=== PATIENT | female | born 1950 | race African-American/Black ===

== ENCOUNTER → 2016-08-09 | Outpatient (CLI) | payer MEDICARE, OTHER ==
--- NOTE | 2016-08-09 09:20 | WOMENS IMAGING REPORT ---
EXAM DESCRIPTION: BONE DENSITY HIP/SPINE COMPLETED DATE/TIME: 08/09/2016 9:00 am REASON FOR STUDY: AGE-RELATED OSTEOPOROSIS W/O CURRENT PATHOLOGICAL FRACTURE(M81.0) M81.0 AGE-RELAT ED OSTEOPOROSIS W/O CURRENT PATHOLOGICAL FRAC COMPARISON: 07/16/2014. TECHNIQUE: Dual-Energy X-ray Absorptiometry (DEXA) of the AP Spine and Hip. LIMITATIONS: None. FINDINGS: LUMBAR SPINE: The bone mineral density (BMD) measured from L1-L4 in the AP projection correlates with a T-score of -3.1, which is osteoporosis as defined by the World Health Organization. HIP: The bone mineral density (BMD) measured in the left hip correlates with a T-score of -2.0, which is o steopenia as defined by the World Health Organization. COMMENT: The World Health Organization defines low BMD as follows: T-score: Normal: Greater than -1.0 Osteopenia: Between -1.0 and -2.5 Osteoporosis: Less than -2.5 without fractures Established osteoporosis: Less than -2.5 with fractures In general, you may wish to consider: Diagnosis Treatment Follow-up DEXA Normal BMD Prevention 2-3 years Osteopenia Prevention/Therapy 1-2 years Osteoporosis Therapy Yearly TECHNICAL DOCUMENTATION: JOB ID: [id number] [employer]- All Rights Reserved
== END ==
LOC: WI 08:43
PROVIDERS: ATTEND Internal Medicine Endocrinology, Diabetes & Metabolism
DX: M81.0 Age-related osteoporosis without current pathological fracture (principal)
CPT/HCPCS: 77080

== ENCOUNTER → 2016-09-24 | Outpatient (CLI) | payer MEDICARE, OTHER | LOC: RAD 08:23 | PROVIDERS: ATTEND Specialist | DX: C90.01 Multiple myeloma in remission (principal) | CPT/HCPCS: 77075 ==

== ENCOUNTER 2016-10-19 09:17 | Outpatient (CLI) | payer MEDICARE, OTHER ==
[~2016-10-19 09:17] MED LIST: ACETAMINOPHEN 325 MG TABLET PO PRN; DIPHENHYDRAMINE HCL 25 MG CAPSULE PO PRN; FUROSEMIDE INJ/PF 20 MG/2 ML SDV IV PRN; NORMAL SALINE 1000 ML 1,000 ML IV PRN
[2016-10-19 10:21] LABS: HEMATOCRIT 22.2 % (36.0-47.0); HGB HCT DIFFERENCE -0.6; MEAN CORPUSCULAR HGB CONC 32.5 g/dL (32.0-36.0); MEAN CORPUSCULAR VOLUME 95 fl (80-97); RED BLOOD COUNT 2.33 10^6/uL (3.72-5.28); RED CELL DISTRIBUTION WIDTH 19.1 % (11.5-14.0); WHITE BLOOD COUNT 5.8 10^3/uL (4.0-10.5)
[2016-10-19 10:27] LABS: HEMOGLOBIN 7.2 g/dL (12.0-15.5)
[2016-10-19 18:19] VITALS: BP 152/62
== END 2016-10-19 18:23 | disposition home or self-care (01) ==
LOC: II 09:17 → 2N 09:17 → II 18:23
PROVIDERS: ATTEND Specialist
PROC: 30233N1 Transfusion of Nonautologous Red Blood Cells into Peripheral Vein, Percutaneous Approach (ICD-10-PCS; principal; 2016-10-19)
DX: D64.9 Anemia, unspecified (principal); C90.01 Multiple myeloma in remission
CPT/HCPCS: 86900; 86901; 36415; 36430; 86850; 86920; P9016; A9270 ×2; J1940

== ENCOUNTER → 2016-11-02 | Outpatient (CLI) | payer MEDICARE, OTHER ==
[2016-11-02 10:39] LABS: ABSOLUTE EOSINOPHILS # (AUTO) 0.1 10^3/uL (0.0-0.6); ABSOLUTE LYMPHOCYTES (AUTO) 1.9 10^3/uL (0.5-4.7); ABSOLUTE MONOCYTES (AUTO) 0.3 10^3/uL (0.1-1.4); ABSOLUTE NEUT (AUTO) 3.4 10^3/uL (1.7-8.2); BASOPHILS % (AUTO) 0.5 % (0-2); EOSINOPHILS % (AUTO) 2.1 % (0-6); HEMATOCRIT 28.2 % (36.0-47.0); HEMOGLOBIN 9.5 g/dL (12.0-15.5); HGB HCT DIFFERENCE 0.3; LYMPHOCYTES % (AUTO) 33.7 % (13-45); MEAN CORPUSCULAR HEMOGLOBIN 30.8 pg (27.0-33.4); MEAN CORPUSCULAR HGB CONC 33.8 g/dL (32.0-36.0); MONOCYTES % (AUTO) 5.3 % (3-13); RED BLOOD COUNT 3.09 10^6/uL (3.72-5.28); RED CELL DISTRIBUTION WIDTH 18.3 % (11.5-14.0); SEGMENTED NEUTROPHILS % (AUTO) 58.4 % (42-78); WHITE BLOOD COUNT 5.8 10^3/uL (4.0-10.5)
[2016-11-02 10:42] LABS: APPEARANCE,URINE SLIGHTLY-CLOUDY; BILIRUBIN,URINE NEGATIVE (NEGATIVE); GLUCOSE, URINE NEGATIVE (NEGATIVE); KETONES,URINE NEGATIVE (NEGATIVE); LEUKOCYTE ESTERASE,URINE SMALL (NEGATIVE); NITRITE,URINE NEGATIVE (NEGATIVE); PROTEIN,URINE >=500 mg/dL (NEGATIVE); URINE SPECIFIC GRAVITY 1.011; UROBILINOGEN,URINE NEGATIVE mg/dL (<2.0)
[2016-11-02 10:46] LABS: MEAN CORPUSCULAR VOLUME 91 fl (80-97)
[2016-11-02 11:01] LABS: ALANINE AMINOTRANSFERASE 33 U/L (9-52); ALKALINE PHOSPHATASE 180 U/L (38-126); ANION GAP 16 (5-19); ASPARTATE AMINO TRANSFERASE 21 U/L (14-36); BILIRUBIN,DIRECT 0.2 mg/dL (0.0-0.4); BILIRUBIN,TOTAL 0.4 mg/dL (0.2-1.3); BLOOD UREA NITROGEN 34 mg/dL (7-20); CALCIUM 10.4 mg/dL (8.4-10.2); CARBON DIOXIDE 24 mmol/L (22-30); CHLORIDE 106 mmol/L (98-107); CREATININE RESULT 2.05 mg/dL (0.52-1.25); GLUCOSE 99 mg/dL (75-110); TOTAL PROTEIN 6.5 g/dL (6.3-8.2)
[2016-11-02 11:34] LABS: ADD HIVPANEL? NO; HIV (1 AND 2) ANTIBODY NEGATIVE (NEGATIVE)
[2016-11-03 06:38] LABS: HEPATITIS C VIRUS AB <0.1 s/co ratio (0.0-0.9)
[2016-11-03 12:38] LABS: CREATININE URINE 130.6 mg/dL (Not Estab.)
[2016-11-04 18:37] LABS: ANTIPROTEINASE 3 (PR-3) AB <3.5 U/mL (0.0-3.5); CYTOPLASMIC (C-ANCA) <1:20 titer (Neg:<1:20)
== END ==
LOC: LAB 10:05
PROVIDERS: ATTEND Internal Medicine Nephrology
DX: I12.9 Hypertensive chronic kidney disease with stage 1 through stage 4 chronic kidney disease, or unspecified chronic kidney disease (principal); N18.3 Chronic kidney disease, stage 3 (moderate); E11.9 Type 2 diabetes mellitus without complications; Z11.59 Encounter for screening for other viral diseases; N04.9 Nephrotic syndrome with unspecified morphologic changes
CPT/HCPCS: 36415; 80053; 81001; 82570; 83516; 84156; 85025; 86038; 86225; 86256; 86701; 86803; 86804; 87340

== ENCOUNTER 2016-11-26 11:29 | Outpatient (CLI) | payer MEDICARE, OTHER ==
[2016-11-26 11:58] LABS: HEMATOCRIT 22.8 % (36.0-47.0); MEAN CORPUSCULAR HEMOGLOBIN 30.7 pg (27.0-33.4); MEAN CORPUSCULAR HGB CONC 33.2 g/dL (32.0-36.0); MEAN CORPUSCULAR VOLUME 93 fl (80-97); RED BLOOD COUNT 2.46 10^6/uL (3.72-5.28); RED CELL DISTRIBUTION WIDTH 18.5 % (11.5-14.0); WHITE BLOOD COUNT 3.7 10^3/uL (4.0-10.5)
[2016-11-26 12:00] LABS: HEMOGLOBIN 7.6 g/dL (12.0-15.5)
[2016-11-26] MEDS ORDERED: ACETAMINOPHEN 325 MG TABLET ONE (12:48)
[2016-11-26] MEDS ORDERED: DIPHENHYDRAMINE HCL 25 MG CAPSULE ONE (12:49)
[2016-11-26 17:04] VITALS: BP 171/74
== END 2016-11-26 17:04 | disposition home or self-care (01) ==
LOC: II 11:29 → 5TH 11:32 → 2N 15:28 → II 17:04
PROVIDERS: ATTEND Specialist
PROC: 30233N1 Transfusion of Nonautologous Red Blood Cells into Peripheral Vein, Percutaneous Approach (ICD-10-PCS; principal; 2016-11-26)
DX: N18.9 Chronic kidney disease, unspecified (principal); D63.1 Anemia in chronic kidney disease; D64.9 Anemia, unspecified; C90.00 Multiple myeloma not having achieved remission
CPT/HCPCS: 86900; 86901; 36415; 36430; 86850; 86920; P9016; A9270 ×2

== ENCOUNTER → 2016-12-07 | Outpatient (CLI) | payer MEDICARE, OTHER ==
[2016-12-07 12:14] LABS: ANION GAP 9 (5-19); BLOOD UREA NITROGEN 22 mg/dL (7-20); CALCIUM 8.4 mg/dL (8.4-10.2); CARBON DIOXIDE 23 mmol/L (22-30); CHLORIDE 111 mmol/L (98-107); CREATININE RESULT 1.77 mg/dL (0.52-1.25); GLUCOSE 106 mg/dL (75-110); POTASSIUM 3.4 mmol/L (3.6-5.0); SODIUM 143.4 mmol/L (137-145)
[2016-12-07 13:38] LABS: HEMATOCRIT 28.2 % (36.0-47.0); HEMOGLOBIN 9.1 g/dL (12.0-15.5); HGB HCT DIFFERENCE -0.9; MEAN CORPUSCULAR HEMOGLOBIN 29.6 pg (27.0-33.4); MEAN CORPUSCULAR HGB CONC 32.2 g/dL (32.0-36.0); MEAN CORPUSCULAR VOLUME 92 fl (80-97); RED BLOOD COUNT 3.07 10^6/uL (3.72-5.28); RED CELL DISTRIBUTION WIDTH 18.3 % (11.5-14.0); WHITE BLOOD COUNT 4.2 10^3/uL (4.0-10.5)
== END ==
LOC: LAB 11:31
PROVIDERS: ATTEND Internal Medicine Nephrology
DX: I12.9 Hypertensive chronic kidney disease with stage 1 through stage 4 chronic kidney disease, or unspecified chronic kidney disease (principal); N18.3 Chronic kidney disease, stage 3 (moderate); E11.9 Type 2 diabetes mellitus without complications
CPT/HCPCS: 36415; 80048; 85027

== ENCOUNTER 2016-12-16 14:34 | Inpatient (IN) | payer MEDICARE, OTHER ==
--- NOTE | 2016-12-16 15:58 | ER Document Report ---
ED Medical Screen (RME) - General Chief Complaint: Leg Swelling Stated Complaint: LEG SWELLING Time Seen by Provider: 12/16/16 15:53 Notes: Patient says that she is having shortness of breath and swelling of her legs. Patient says that her kidney doctor called here to arrange for her to be admitted to the hospital. We have record that the nurse from the kidney doctors office called and spoke with our charge nurse and said the patient was coming here to be evaluated for possible admission. Patient complains of shortness of breath,, but no cough or cold or chest congestion. No chest pains. No fevers. History of hypertension and an enlarged heart. Not diabetic. TRAVEL OUTSIDE OF THE [place] IN LAST 30 DAYS: No - Related Data Allergies/Adverse Reactions: No Known Allergies Allergy (Verified 12/16/16 14:36) Past Medical History - Past Medical History Cardiac Medical History: Reports: Hx Hypercholesterolemia, Hx Hypertension Denies: Hx Heart Attack Pulmonary Medical History: Denies: Hx Asthma Neurological Medical History: Denies: Hx Cerebrovascular Accident, Hx Seizures Endocrine Medical History: Reports: Hx Diabetes Mellitus Type 2 - prediabetic Renal/ Medical History: Denies: Hx Peritoneal Dialysis GI Medical History: Denies: Hx Hepatitis, Hx Hiatal Hernia, Hx Ulcer Infectious Medical History: Denies: Hx Hepatitis Past Surgical History: Reports: Hx Hysterectomy. Denies: Hx Mastectomy, Hx Open Heart Surgery, Hx Pacemaker - Immunizations Immunizations up to date: Yes Hx Diphtheria, Pertussis, Tetanus Vaccination: No Physical Exam - Vital signs Vitals: Temp Pulse Resp BP Pulse Ox 98.0 F 63 24 H 168/73 H 100 12/16/16 14:37 12/16/16 14:37 12/16/16 14:37 12/16/16 14:37 12/16/16 14:37 Course - Vital Signs Vital signs: Temp Pulse Resp BP Pulse Ox 98.0 F 63 24 H 168/73 H 100 12/16/16 14:37 12/16/16 14:37 12/16/16 14:37 12/16/16 14:37 12/16/16 14:37
[2016-12-16 16:42] LABS: ABSOLUTE EOSINOPHILS # (AUTO) 0.2 10^3/uL (0.0-0.6); ABSOLUTE LYMPHOCYTES (AUTO) 1.1 10^3/uL (0.5-4.7); ABSOLUTE MONOCYTES (AUTO) 0.5 10^3/uL (0.1-1.4); ABSOLUTE NEUT (AUTO) 2.2 10^3/uL (1.7-8.2); BASOPHILS % (AUTO) 0.2 % (0-2); EOSINOPHILS % (AUTO) 4.7 % (0-6); HEMATOCRIT 29.9 % (36.0-47.0); HEMOGLOBIN 9.4 g/dL (12.0-15.5); HGB HCT DIFFERENCE -1.7; LYMPHOCYTES % (AUTO) 27.3 % (13-45); MEAN CORPUSCULAR HEMOGLOBIN 29.3 pg (27.0-33.4); MEAN CORPUSCULAR HGB CONC 31.4 g/dL (32.0-36.0); MEAN CORPUSCULAR VOLUME 93 fl (80-97); MONOCYTES % (AUTO) 11.6 % (3-13); RED CELL DISTRIBUTION WIDTH 19.1 % (11.5-14.0); SEGMENTED NEUTROPHILS % (AUTO) 56.2 % (42-78); WHITE BLOOD COUNT 3.9 10^3/uL (4.0-10.5)
[2016-12-16 16:43] LABS: APPEARANCE,URINE CLEAR; BILIRUBIN,URINE NEGATIVE (NEGATIVE); GLUCOSE, URINE 50 mg/dL (NEGATIVE); KETONES,URINE NEGATIVE (NEGATIVE); LEUKOCYTE ESTERASE,URINE NEGATIVE (NEGATIVE); NITRITE,URINE NEGATIVE (NEGATIVE); PROTEIN,URINE 100 mg/dL (NEGATIVE); URINE SPECIFIC GRAVITY 1.008; UROBILINOGEN,URINE NEGATIVE mg/dL (<2.0)
[2016-12-16 16:57] LABS: ALANINE AMINOTRANSFERASE 52 U/L (9-52); ALBUMIN 3.5 g/dL (3.5-5.0); ALKALINE PHOSPHATASE 212 U/L (38-126); ANION GAP 9 (5-19); ASPARTATE AMINO TRANSFERASE 20 U/L (14-36); BILIRUBIN,DIRECT 0.4 mg/dL (0.0-0.4); BILIRUBIN,TOTAL 0.6 mg/dL (0.2-1.3); BLOOD UREA NITROGEN 17 mg/dL (7-20); CALCIUM 7.7 mg/dL (8.4-10.2); CARBON DIOXIDE 24 mmol/L (22-30); CHLORIDE 111 mmol/L (98-107); GLUCOSE 84 mg/dL (75-110); LIPASE 92.3 U/L (23-300); POTASSIUM 3.1 mmol/L (3.6-5.0); SODIUM 143.9 mmol/L (137-145); TOTAL PROTEIN 5.7 g/dL (6.3-8.2)
[2016-12-16 17:11] LABS: CREATINE KINASE MB < 0.22 ng/mL (<4.55); TROPONIN I < 0.012 ng/mL
--- NOTE | 2016-12-16 18:47 | ER Document Report ---
ED General - General Mode of Arrival: Ambulatory Information source: Patient TRAVEL OUTSIDE OF THE [place] IN LAST 30 DAYS: No - HPI Onset: Other - Refer to HPI notes Associated symptoms: Leg swelling, Shortness of breath Similar symptoms previously: No Recently seen / treated by doctor: No <SWAPNA MOORE - Last Filed: 12/17/16 01:58> <MALISSAMICHAEL KRAMER RICHIE - Last Filed: 12/17/16 03:20> - General Chief Complaint: Leg Swelling Stated Complaint: LEG SWELLING Time Seen by Provider: 12/16/16 15:53 Notes: Patient is a 66 year old female presenting to the emergency department for shortness of breath and lower extremity edema. Patient states these symptoms started 2 weeks ago and have worsened over the last few days. Patient states that she started chemotherapy around the same time that her symptoms were onset. Patient has multiple myeloma. Patient has a history of some CAD and had a cardiac catheterization in 2011. Patient states she also started Lasix on Tuesday but states she has not felt any less short of breath or less swollen in her lower extremities. Patient states she is not able to climb stairs or walk a short distance without becoming short of breath. Patient denies any chest pain. Patient's hunter is Dr. Hoffman, her primary care physician is Dr. Jeffers, and her Oncologist is Dr. Cates. Patient has no known allergies. ( SWAPNA MOORE) - Related Data Allergies/Adverse Reactions: No Known Allergies Allergy (Verified 12/16/16 14:36) Home Medications: Current Home Medications Aspirin [Adult Low Dose Aspirin EC] 81 mg PO DAILY 12/16/16 [History] Atorvastatin Calcium [Lipitor 20 mg Tablet] 20 mg PO DAILY 12/16/16 [History] Cholecalciferol (Vitamin D3) [Vitamin D3 2000 unit Tablet] 2,000 unit PO DAILY 12/16/16 [History] Clonidine HCl [Catapres 0.1 mg Tablet] 0.1 mg PO BID 12/16/16 [History] Dexamethasone [Decadron 4 mg Tablet] 20 mg PO FRSA 12/16/16 [History] Docusate Sodium [Colace 100 mg Capsule] 100 mg PO DAILYP PRN 12/16/16 [History] Ferrous Sulfate [Feosol 325 mg Tablet] 325 mg PO BID 12/16/16 [History] Furosemide [Lasix 20 mg Tablet] 20 mg PO DAILYP PRN 12/16/16 [History] Levothyroxine Sodium [Synthroid] 88 mg PO QAM 12/16/16 [History] Metoprolol Tartrate [Lopressor 50 mg Tablet] 25 mg PO BIDBS 12/16/16 [History] Past Medical History - General Information source: Patient - Social History Smoking Status: Never Smoker Cigarette use (# per day): No Chew tobacco use (# tins/day): No Frequency of alcohol use: None Drug Abuse: None Family History: None Patient has suicidal ideation: No Patient has homicidal ideation: No - Past Medical History Cardiac Medical History: Reports: Hx Coronary Artery Disease, Hx Hypercholesterolemia, Hx Hypertension Endocrine Medical History: Reports: Hx Diabetes Mellitus Type 2 - prediabetic Malignancy Medical History: Reports: Other - multiple myeloma Past Surgical History: Reports: Hx Cardiac Catheterization - 2011, Hx Hysterectomy - Immunizations Immunizations up to date: Yes Hx Diphtheria, Pertussis, Tetanus Vaccination: No <SWAPNA MOORE - Last Filed: 12/17/16 01:58> Review of Systems - Review of Systems Constitutional: No symptoms reported EENT: No symptoms reported Cardiovascular: No symptoms reported Respiratory: See HPI, Short of breath Gastrointestinal: No symptoms reported Genitourinary: No symptoms reported Female Genitourinary: No symptoms reported Musculoskeletal: See HPI, Leg swelling Skin: No symptoms reported Hematologic/Lymphatic: No symptoms reported Neurological/Psychological: No symptoms reported -: Yes All other systems reviewed and negative <SWAPNA MOORE - Last Filed: 12/17/16 01:58> Physical Exam - Vital signs Interpretation: Hypertensive - General General appearance: Appears well, Alert In distress: Mild - HEENT Head: Normocephalic, Atraumatic Eyes: Normal Pupils: PERRL Mucous membranes: Moist - Respiratory Respiratory status: No respiratory distress Chest status: Nontender Breath sounds: Other - Trace crackles and decreased breath sounds to the lower bases bilaterally Chest palpation: Normal - Cardiovascular Rhythm: Regular Heart sounds: Normal auscultation Murmur: No - Abdominal Inspection: Normal Distension: No distension Bowel sounds: Normal Tenderness: Nontender Organomegaly: No organomegaly - Back Back: Normal, Nontender - Extremities General upper extremity: Normal inspection, Normal ROM, Normal strength General lower extremity: Edema - trace pitting edema bilaterally, Normal ROM, Normal strength - Neurological Neuro grossly intact: Yes Cognition: Normal Orientation: AAOx4 April Coma Scale Eye Opening: Spontaneous [place] Coma Scale Verbal: Oriented [place] Coma Scale Motor: Obeys Commands April Coma Scale Total: 15 Speech: Normal - Psychological Associated symptoms: Normal affect, Normal mood - Skin Skin Temperature: Warm Skin Moisture: Dry <MIGNONNEOSWAPNA - Last Filed: 12/17/16 01:58> Course - Laboratory Result Diagrams: 12/16/16 16:15 12/16/16 16:15 - Consults Dr. Garduno Time consulted: 20:32 Dr. Lovett Time consulted: 20:36 Consulted provider: will see as inpatient Dr. Cates Time consulted: 20:37 <SWAPNA MOORE - Last Filed: 12/17/16 01:58> - Laboratory Result Diagrams: 12/16/16 16:15 12/16/16 16:15 <MICHAEL KIRBY - Last Filed: 12/17/16 03:20> - Re-evaluation Re-evalutation: 12/16/16 20:27 Patient is a 66-year-old female who comes in complaining of dyspnea on exertion , orthopnea. Patient was started on Lasix recently but has not seen much change. Patient saw her neprologist today and was referred to the emergency department for fluid overload. Patient has been on chemotherapy which could be the source of fluid overload. However, the patient has a history of coronary artery disease. Her chest x-ray showing cardiomegaly with vascular congestion and small pleural effusions. Patient has a negative troponin. No chest pain. No acute EKG changes. Patient was discussed with the hospitalist service and will be referred for evaluation of her symptoms to rule out new onset heart failure. Patient understands and agrees with this plan. Stable time of admission. (MICHAEL KIRBY) - Vital Signs Vital signs: Temp Pulse Resp BP Pulse Ox 98.4 F 59 L 16 169/72 H 100 12/17/16 02:29 12/17/16 02:29 12/17/16 02:29 12/17/16 02:29 12/17/16 02:29 - Laboratory Laboratory results interpreted by me: 12/16/16 12/16/16 12/16/16 16:15 16:15 16:15 WBC 3.9 L RBC 3.20 L Hgb 9.4 L Hct 29.9 L MCHC 31.4 L RDW 19.1 H Plt Count 147 L Potassium 3.1 L Chloride 111 H Creatinine 1.70 H Est GFR ( Amer) 36 L Est GFR (Non-Af Amer) 30 L Calcium 7.7 L Alkaline Phosphatase 212 H NT-Pro-B Natriuret Pep Total Protein 5.7 L TSH Urine Protein 100 H Urine Glucose (UA) 50 H 12/16/16 12/16/16 16:15 16:15 WBC RBC Hgb Hct MCHC RDW Plt Count Potassium Chloride Creatinine Est GFR ( Amer) Est GFR (Non-Af Amer) Calcium Alkaline Phosphatase NT-Pro-B Natriuret Pep 1310 H Total Protein TSH 6.47 H Urine Protein Urine Glucose (UA) - Consults Dr. Garduno Reason for consultation: 12/17/16 20:[address] Garduno for possible admission. 12/17/16 20:[address] Garduno, he no longer admits Dr. Myron Jeffers's patients. (SWAPNA MOORE) Dr. Lovett Reason for consultation: 12/17/16 20:[address] Lovett to discuss patient, he will admit the patient. (SWAPNA MOORE) Dr. Cates Reason for consultation: 12/17/16 20:[address] Cates. 12/17/16 20:[address] Cates let Dr. Cates know that her patient was being admitted to the hospital. (SWAPNA MOORE) Critical Care Note - Critical Care Note Total time excluding time spent on procedures (mins): 35 - There is no management of fluid overload, multiple re-evaluations, coordination of admission , coordination specialist , counseling of patient <MICHAEL KIRBY - Last Filed: 12/17/16 03:20> Discharge <SWAPNA MOORE - Last Filed: 12/17/16 01:58> - Discharge Admitting Provider: Ze Lovett Unit Admitted: Telemetry <MICHAEL KIRBY - Last Filed: 12/17/16 03:20> - Discharge Clinical Impression: MERINO (dyspnea on exertion), CKD (chronic kidney disease), stage III Fluid overload Qualifiers: Hypervolemia type: unspecified Qualified Code(s): E87.70 - Fluid overload, unspecified Multiple myeloma Qualifiers: Multiple myeloma remission status: unspecified Qualified Code(s): C90.00 - Multiple myeloma not having achieved remission Hypothyroid Qualifiers: Hypothyroidism type: unspecified Qualified Code(s): E03.9 - Hypothyroidism, unspecified Condition: Stable Disposition: ADMITTED OBSERVATION Scribe Attestation: 12/17/16 03:20 I personally performed the services described in the documentation, reviewed and edited the documentation which was dictated to the scribe in my presence, and it accurately records my words and actions. (MICHAEL KIRBY) Scribe Documentation - Scribe Written by Scribe:: Azra Mace, 12/16/16 22:24 acting as scribe for :: Ban <SWAPNA MOORE - Last Filed: 12/17/16 01:58>
[2016-12-16] MEDS ORDERED: FUROSEMIDE INJ/PF 40 MG/4 ML SDV IV ONE (20:27)
[2016-12-16 21:27] LABS: ADD ON TESTING BLD IN LAB ACKNOWLEDGE
[2016-12-16 21:40] LABS: MAGNESIUM 1.6 mg/dL (1.6-2.3)
[2016-12-16] MEDS ORDERED: POTASSIUM CHLORIDE 20 MEQ/15 ML UDCUP PO ONE (21:49)
[2016-12-16] MEDS ORDERED: GLUCAGON,HUMAN RECOMB 1 MG INJ IM PRN (21:51)
[2016-12-16] MEDS ORDERED: DEXTROSE 40% GEL 15 GM TUBE PO PRN ×2 (21:51)
[2016-12-16] MEDS ORDERED: DEXTROSE 50%-WATER 25 GM/50 ML DISP.SYRIN IV PRN ×2 (21:51)
[2016-12-16] MEDS ORDERED: ACETAMINOPHEN 325 MG TABLET PO PRN (21:53)
--- NOTE | 2016-12-16 22:25 | PDOC H&P ---
History of Present Illness Admission Date/PCP: 12/16/16 21:05 MD Tammy PHAM Darryn mejia Patient complains of: sob, leg swelling History of Present Illness: KATHY SCHAFER is a 66 year old obese female, with underlying pre- diabetes mellitus, hypertension, hypothyroidism, hyperlipidemia, mild reflux, mild anxiety and depression, without suicidal or homicidal ideation, chronic kidney disease stage III, and currently being treated for multiple myeloma, who presents to the emergency room for evaluation of above complaints. Patient has been discussed with emergency room physician who evaluated the patient. She describes a 2 week history of slowly progressive dyspnea on exertion and bilateral symmetric lower extremity edema. Finished her second round of chemotherapy 2 weeks ago. During the first round of the same regimen, she did have very mild shortness of breath along with mild facial swelling. No lower extremity swelling. However, shortness of breath has been much more pronounced after this round of chemotherapy, along with the above noted lower extremity swelling. Started oral Lasix 20 mg a day this past Tuesday. Actually took 40 mg the first day. There has been no pain, fever or chills, nausea vomiting, diarrhea or dysuria. She does carry a diagnosis of hypertension, but otherwise has an unremarkable cardiac history. Cardiac catheterization 2011 at [facility], by her description, revealed clean coronary arteries, along with a possible septal defect. No angioplasty or stent necessary. Unremarkable echocardiogram concerning systolic and diastolic function in 2014. Report is reviewed. Denies underlying pulmonary disease, including asthma, COPD, emphysema. Denies obstructive sleep apnea.. Currently resting quietly. Is about to receive a dose of IV Lasix, ordered by the emergency room physician. Laboratory results are listed in [employer] and are reviewed. X-ray summary results are listed below, with full report(s) reviewed. . EKG reviewed. Social history/personal habits: . Lives alone. sitter for local home health service. No tobacco or illicit drug use. No alcohol use for 2 years. No known drug allergies. Home medications Home medications initially autopopulated into [employer] may not accurately reflect patient's true medications, dosages, and/or frequencies. geospatial technician has reconciled medications. REVIEW OF SYSTEMS: Constitutional: No fever or chills. Eyes: Wears glasses. ENT: No swallowing problems or complaints. No hearing problems. Pulmonary: See history and present illness. Cardiovascular: No current complaints, including chest pain. Gastrointestinal: No current complaints, including nausea or vomiting. Skin: No current complaints, including rashes. Hematologic: No unusual easy bruising or bleeding. Neurologic: No current complaints, including numbness or tingling. Musculoskeletal: Denies any unusual joint pains or arthritis. See history and present illness. Psychiatric: Anxiety. depression; denies suicidal or homicidal ideation. Endocrine: No current complaints, including polyuria. Genitourinary: No current complaints, including dysuria. PHYSICAL EXAMINATION: 5 feet 5 inches tall. 91.2 kg. BMI 33.5 kg/m. Blood pressure 170/77. Pulse 70 and regular. Respirations are 23 and unlabored. Temperature 98.0. Obese otherwise well-developed -[place] female appearing a number of years younger than her stated age. Pleasant awake alert and cooperative. No obvious distress other than somewhat anxious. Daughter is present at her side; patient approves. Female emergency room nurse Sameera is present. Skin is warm and dry. No grossly obvious evidence of rash in areas of skin examined. No subcutaneous nodules palpated. ENT: Hearing grossly normal to normal conversation. Tongue midline on protrusion pink and slightly tacky. Eyes: No scleral icterus. Pupils equal and reactive to light at 4 mm. [place] conjunctivae. Neck is supple and nontender to gentle active range of motion and palpation. Midline trachea. No palpable thyroid nodule mass enlargement or tenderness. Lymphatic: No palpable cervical or clavicular nodes. Neck and lymphatic exams limited by patient body habitus. Psychiatric: Reasonable insight into acute and chronic medical issues. Oriented to time location and why here. Lungs: Auscultation reveals clear and equal breath sounds bilaterally. No use of accessory respiratory muscles. Cardiovascular: Heart regular rate and rhythm, without gallop murmur or rub. No carotid or abdominal aortic bruits. Bilateral symmetric mild to moderate slightly pitting calf and ankle and pedal edema. Faintly palpable dorsalis pedis pulses. Abdomen:soft somewhat obese nontender with positive bowel sounds. Unable to adequately evaluate abdomen for masses or organomegaly due to body habitus. Extremities: Feet are warm and dry. No calf tenderness to compression. Gentle manipulation of lower extremities fails to reveal any obvious evidence of injury or instability to knees hips or ankles. Neurologic: Moves upper extremities grossly normally. Patellar reflexes absent. Absent Babinski. Light touch is intact at feet. Dorsiflexion and plantarflexion of feet 5 / 5 and symmetric. Past Medical History Cardiac Medical History: Reports: Hyperlipidema, Hypertension, Other - Reported septal defect by cardiac cath 2011 [facility]. Denies: Congestive Heart Failure, Coronary Artery Disease, DVT, Myocardial Infarction, Pulmonary Embolism Pulmonary Medical History: Denies: Asthma, Chronic Obstructive Pulmonary Disease (COPD), Sleep Apnea EENT Medical History: Reports: Eyes - Glasses Denies: Ears, Throat Neurological Medical History: Denies: Hemorrhagic CVA, Ischemic CVA, Seizures Endocrine Medical History: Reports: Diabetes Mellitus Type 2 - prediabetic, Hypothyroidism Denies: Diabetes Mellitus Type 1, Hyperthyroidism Renal/ Medical History: Reports: Chronic Kidney Disease Malignancy Medical History: Reports: Other - Multiple myeloma GI Medical History: Reports: Gastroesophageal Reflux Disease Denies: Cirrhosis, Hepatitis, Hiatal Hernia, Peptic Ulcer Disease Skin Medical History: Reports: None Psychiatric Medical History: Reports: Depression, General Anxiety Disorder Denies: Alcohol Dependency, Substance Abuse, Tobacco Dependency Hematology: Reports: Anemia Denies: Sickle Cell Disease Infectious Medical History: Denies: Clostridium Difficile, Hepatitis B, Hepatitis C, Methicillin- Resistant Staph Aureus Past Surgical History Past Surgical History: Reports: Hysterectomy Denies: Amputation, Mastectomy, Pacemaker Social History Information Source: Patient, Emergency Med Personnel, [facility] Records Lives with: Alone Smoking Status: Never Smoker Frequency of Alcohol Use: None Drugs: None - Advance Directive Resuscitation Status: Full Code Surrogate healthcare decision maker:: Children Family History Family History: Reviewed & Not Pertinent Parental Family History Reviewed: Yes - Father healthy. Mother , perhaps of Alzheimer's dementia. Children Family History Reviewed: Yes - Healthy Sibling(s) Family History Reviewed.: Yes - Healthy Medication/Allergy Home Medications: Aspirin [Adult Low Dose Aspirin EC] 81 mg PO DAILY 12/16/16 Atorvastatin Calcium [Lipitor 20 mg Tablet] 20 mg PO DAILY 12/16/16 Cholecalciferol (Vitamin D3) [Vitamin D3 2000 unit Tablet] 2,000 unit PO DAILY 12/16/16 Clonidine HCl [Catapres 0.1 mg Tablet] 0.1 mg PO BID 12/16/16 Dexamethasone [Decadron 4 mg Tablet] 20 mg PO FRSA 12/16/16 Docusate Sodium [Colace 100 mg Capsule] 100 mg PO DAILYP PRN 12/16/16 Ferrous Sulfate [Feosol 325 mg Tablet] 325 mg PO BID 12/16/16 Furosemide [Lasix 20 mg Tablet] 20 mg PO DAILYP PRN 12/16/16 Levothyroxine Sodium [Synthroid] 88 mcg PO QAM 12/16/16 Metoprolol Tartrate [Lopressor 50 mg Tablet] 25 mg PO BIDBS 12/16/16 Allergies/Adverse Reactions: No Known Allergies Allergy (Verified 12/16/16 14:36) Physical Exam Vital Signs: Temp Pulse Resp BP Pulse Ox 98.0 F 63 22 H 180/79 H 100 12/16/16 19:01 12/16/16 14:37 12/16/16 19:11 12/16/16 19:11 12/16/16 14:37 Results Impressions: Chest X-Ray 12/16/16 15:54 IMPRESSION: Cardiomegaly with pulmonary vascular congestion and small pleural effusions. Assessment & Plan - Diagnosis (1) Acute CHF Qualifiers: Congestive heart failure type: unspecified congestive heart failure type Qualified Code(s): I50.9 - Heart failure, unspecified Is this a current diagnosis for this admission?: YesPlan: Patient will be admitted under CHF protocol. Serial troponins. Parenteral Lasix. Repeat EKG. Lipid panel. Cardiology consult. Echocardiogram. Patient is a full code. I have strongly encouraged patient to be careful getting out of bed without notifying staff, to avoid a fall with injury. Knee high SCDsfor DVT prophylaxis, along with subcutaneous heparin. Impression and plans were discussed with patient and daughter, both of whom concur Time spent in evaluation and management of patient: 68 minutes (2) Hypokalemia Is this a current diagnosis for this admission?: YesPlan: Potassium replacement. Follow-up chemistry. (3) Thrombocytopenia Is this a current diagnosis for this admission?: YesPlan: Follow-up CBC with differential. (4) Multiple myeloma Qualifiers: Multiple myeloma remission status: not in remission Qualified Code(s ): C90.00 - Multiple myeloma not having achieved remission Is this a current diagnosis for this admission?: Yes (5) Anemia Qualifiers: Anemia type: unspecified type Qualified Code(s): D64.9 - Anemia, unspecified Is this a current diagnosis for this admission?: YesPlan: Follow-up CBC with differential. No need for transfusion at present time. (6) CKD (chronic kidney disease), stage III Is this a current diagnosis for this admission?: YesPlan: Follow-up chemistry. (7) HLD (hyperlipidemia) Qualifiers: Hyperlipidemia type: unspecified Qualified Code(s): E78.5 - Hyperlipidemia, unspecified Is this a current diagnosis for this admission?: YesPlan: Lipid panel. Resume home medications as appropriate once these have been reviewed. (8) HTN (hypertension) Qualifiers: Hypertension type: essential hypertension Qualified Code(s): I10 - Essential (primary) hypertension Is this a current diagnosis for this admission?: YesPlan: Resume home medications as appropriate once these have been reviewed. (9) Hypothyroid Qualifiers: Hypothyroidism type: unspecified Qualified Code(s): E03.9 - Hypothyroidism, unspecified Is this a current diagnosis for this admission?: YesPlan: TSH is pending. Resume home medications as appropriate once these have been reviewed.
[2016-12-16] MEDS ORDERED: CLONIDINE HCL 0.1 MG TABLET PO ONE (22:30)
[2016-12-16] MEDS ORDERED: CLONIDINE HCL 0.1 MG TABLET PO SCH (22:30)
[2016-12-17] MEDS ORDERED: POTASSIUM CHLORIDE 20 MEQ/15 ML UDCUP PO ONE (00:30)
[2016-12-17 04:46] LABS: ABSOLUTE EOSINOPHILS # (AUTO) 0.2 10^3/uL (0.0-0.6); ABSOLUTE LYMPHOCYTES (AUTO) 0.7 10^3/uL (0.5-4.7); ABSOLUTE MONOCYTES (AUTO) 0.5 10^3/uL (0.1-1.4); ABSOLUTE NEUT (AUTO) 1.7 10^3/uL (1.7-8.2); BASOPHILS % (AUTO) 0.1 % (0-2); EOSINOPHILS % (AUTO) 5.6 % (0-6); HEMATOCRIT 25.7 % (36.0-47.0); HEMOGLOBIN 8.2 g/dL (12.0-15.5); HGB HCT DIFFERENCE -1.1; LYMPHOCYTES % (AUTO) 22.3 % (13-45); MEAN CORPUSCULAR HEMOGLOBIN 29.5 pg (27.0-33.4); MEAN CORPUSCULAR VOLUME 92 fl (80-97); MONOCYTES % (AUTO) 16.3 % (3-13); RED BLOOD COUNT 2.79 10^6/uL (3.72-5.28); RED CELL DISTRIBUTION WIDTH 18.7 % (11.5-14.0); SEGMENTED NEUTROPHILS % (AUTO) 55.7 % (42-78)
[2016-12-17 04:57] LABS: ANION GAP 10 (5-19); BLOOD UREA NITROGEN 15 mg/dL (7-20); CALCIUM 7.4 mg/dL (8.4-10.2); CARBON DIOXIDE 22 mmol/L (22-30); CHLORIDE 112 mmol/L (98-107); CHOLESTEROL 127.77 mg/dL (0-200); CREATININE RESULT 1.58 mg/dL (0.52-1.25); Direct HDL 47 mg/dL (>40); GLUCOSE 99 mg/dL (75-110); POTASSIUM 3.6 mmol/L (3.6-5.0); SODIUM 144.4 mmol/L (137-145); TRIGLYCERIDES 69 mg/dL (<150)
[2016-12-17 05:07] LABS: DIRECT LDL 51 mg/dL (<100)
--- NOTE | 2016-12-17 07:12 | EKG REPORT ---
SEVERITY:- NORMAL ECG - SINUS RHYTHM : Confirmed by: Helena Nuno MD 17-Dec-2016 07:11:40
--- NOTE | 2016-12-17 07:12 | EKG REPORT ---
SEVERITY:- BORDERLINE ECG - SINUS RHYTHM BORDERLINE T WAVE ABNORMALITIES : Confirmed by: Helena Nuno MD 17-Dec-2016 07:11:30
[2016-12-17] MEDS ORDERED: LEVOTHYROXINE SODIUM 0.088 MG TABLET PO SCH (08:00)
[2016-12-17] MEDS: ASPIRIN 81 MG TABLET, ENT COATED PO SCH (09:42)
[2016-12-17] MEDS: ATORVASTATIN CALCIUM 20 MG TABLET PO SCH (09:43)
[2016-12-17] MEDS: POTASSIUM CHLORIDE 10 MEQ TABLET.SA PO SCH (09:43)
[2016-12-17] MEDS: DOCUSATE SODIUM 100 MG CAPSULE PO SCH (09:43)
[2016-12-17] MEDS: FERROUS SULFATE 325 MG TABLET PO SCH ×2 (09:43→17:56)
[2016-12-17] MEDS: LEVOTHYROXINE SODIUM 0.088 MG TABLET PO SCH (09:43)
[2016-12-17] MEDS: CHOLECALCIFEROL (D3) 1,000 UNIT TABLET PO SCH (09:44)
[2016-12-17] MEDS ORDERED: FUROSEMIDE INJ/PF 40 MG/4 ML SDV IV SCH (10:00)
[2016-12-17] MEDS ORDERED: CLONIDINE HCL 0.1 MG TABLET PO SCH (10:00)
[2016-12-17] MEDS ORDERED: DEXAMETHASONE 4 MG TABLET PO SCH (10:00)
--- NOTE | 2016-12-17 14:58 | PROGRESS NOTE E ---
Progress Note NAME: KATHY CATES : 1950 AGE: 66Y DATE: 12/17/2016 ROOM: 530 SUBJECTIVE: The patient is currently sitting on the side of the bed. She is eating her breakfast. The patient states that she does feel better than when she came in. The patient's symptoms have improved with diuresis. Will repeat this once again this afternoon. The patient has been seen by Dr. Cates, her oncologist, as well. The patient denies any nausea, vomiting. No diarrhea. Shortness of breath has improved. No dizziness, chest pain. No fevers or chills. The patient has been afebrile. Blood pressures have been in a good range and the patient does not voice any other concerns at this time. REVIEW OF SYSTEMS: The rest of the review of systems is negative. MEDICATIONS: Medications have been reviewed. OBJECTIVE: GENERAL: The patient is a 66-year-old female who is awake, alert, and oriented to person, place, time, and situation. She is verbal, conversational, ambulatory, does not appear to be in any acute distress. VITAL SIGNS: Temperature is 99.0, pulse is 61, respirations 17, blood pressure is 170/82, oxygen saturation is 97% on room air. SKIN: Warm and dry. There is no rash. He is not diaphoretic. HEENT: Pupils equal, round and reactive to light and accommodation. Conjunctivae are pink. NECK: There is no JVP. CARDIOVASCULAR: Heart is regular with no murmur or rub. CHEST: Clear, symmetrical, unlabored. ABDOMEN: Soft, nontender and nondistended. BACK: No CVA tenderness or sacral edema. EXTREMITIES: No clubbing or cyanosis. The patient does have trace bilateral lower extremity pitting edema. PSYCHIATRIC: Appropriate affect. Pleasant mood. DIAGNOSTIC DATA: Lab values are as follows: Hematology obtained on 12/17/2016: WBC's are 3.0, hemoglobin is 8.2, hematocrit is 25.7, platelet count is 123,000. Chemistries obtained on 12/17/2016: Sodium is 144, potassium chloride is 112, carbon dioxide 22, BUN 15, creatinine is 1.58, glucose 99, calcium is 7.4. IMPRESSION AND PLAN: 1. ACUTE CONGESTIVE HEART FAILURE, MOST LIKELY SYSTOLIC, POSSIBLY DUE TO TOXIC CHEMOTHERAPY. UNCERTAIN OF THE EXACT ETIOLOGY OF THIS. Currently awaiting echocardiogram, and do appreciate Hematology/Oncology's input with this. 2. CHRONIC KIDNEY DISEASE, STAGE 3. THE PATIENT'S CREATININE APPEARS TO BE IN THE 2 RANGE. THE PATIENT'S CREATININE IS CURRENTLY 1.8. Further suggestion; the patient may actually be volume up. Will continue diuresis and follow. 3. PANCYTOPENIA SECONDARY TO RECENT CHEMOTHERAPY. 4. MULTIPLE MYELOMA. Will consult the patient's oncologist for input. 5. HYPERTENSION. Will continue the patient's home blood pressure medications. 6. HYPOTHYROIDISM. Will obtain T4. Will continue Synthroid. 7. DVT PROPHYLAXIS. Will continue. 8. HYPERLIPIDEMIA. Will continue statin. DISPOSITION: The patient is a FULL CODE. Pending the patient's symptomatology and diagnostic findings, will reevaluate in the a.m. TIME: Time spent on this followup including assessment, plan, physical examination, patient education, and speciality collaboration was 35 minutes. DICTATING PHYSICIAN: ABDI JOSE NP [id number] PHY#: [id number] ID: [id number] JOB#: [id number] ACCT: [id number] cc: > MTDD
[2016-12-17] MEDS ORDERED: METOPROLOL TARTRATE 50 MG TABLET PO SCH (17:00)
[2016-12-17] MEDS: METOPROLOL TARTRATE 25 MG TABLET PO SCH (17:56)
[2016-12-17] MEDS ORDERED: FUROSEMIDE INJ/PF 20 MG/2 ML SDV IV ONE (18:00)
--- NOTE | 2016-12-17 18:09 | XCELERA REPORT ---
[address] [address] Transthoracic Echocardiogram Report Name: KATHY SCHAFER Age: 66 yrs Gender: Female : 1950 Patient Status: Inpatient Patient Location: 5\S\530\S\A Study Date: 12/17/2016 09:07 AM Height: 65 in Weight: 201 lb BSA: 2.0 m2 Procedure: A complete two-dimensional transthoracic echocardiogram was performed (2D, M-mode, spectral and color flow Doppler). The study was technically difficult with many images being suboptimal in quality. Reason For Study: chf; chemo Ordering Physician: GREGORY ALONSO Performed By: Haritha Hooper Interpretation Summary The left ventricular ejection fraction is normal. There is mild concentric left ventricular hypertrophy. Doppler measurements suggest pseudonormalized left ventricular relaxation, which is associated with grade II/IV or mild to moderate diastolic dysfunction The left ventricle is grossly normal size. Wall motion cannot be accurately commented on, but no definite regional wall motion abnormalities noted. The right ventricular systolic function is normal. The right ventricle is grossly normal size. The right atrium is normal. There is no mitral valve stenosis. There is a trace amount of mitral regurgitation No aortic regurgitation is present. There is no aortic valve stenosis There is a trace or physiologic amount of tricuspid regurgitation Right ventricular systolic pressure is at the upper limits of normal The aortic root is not well visualized but is probably normal size. The inferior vena cava appeared normal and decreased > 50% with respiration (RAP 5-10 mmHg) Minimal pericardial effusion. MMode/2D Measurements \T\ Calculations RVDd: 2.5 cm LVIDd: 4.6 cm FS: 43.8 % Ao root diam: 3.1 cm IVSd: 1.4 cm LVIDs: 2.6 cm EDV(Teich): 95.9 ml LVPWd: 1.4 cm ESV(Teich): 23.9 ml Ao root area: 7.5 cm2 EF(Teich): 75.1 % LA dimension: 3.5 cm LVOT diam: 2.0 cm LVOT area: 3.1 cm2 Doppler Measurements \T\ Calculations MV E max petty: MV P1/2t max petty: Ao V2 max: LV V1 max P.5 cm/sec 109.5 cm/sec 186.6 cm/sec 5.5 mmHg MV A max petty: MV P1/2t: 63.4 msec Ao max PG: LV V1 max: 94.4 cm/sec MVA(P1/2t): 3.5 cm2 13.9 mmHg 117.8 cm/sec MV E/A: 1.2 MV dec slope: BLANCA(V,D): 1.9 cm2 505.8 cm/sec2 PA V2 max: TR max petty: 100.9 cm/sec 227.0 cm/sec PA max PG: TR max P.6 mmHg 4.1 mmHg Left Ventricle The left ventricle is grossly normal size. There is mild concentric left ventricular hypertrophy. The left ventricular ejection fraction is normal. Doppler measurements suggest pseudonormalized left ventricular relaxation, which is associated with grade II/IV or mild to moderate diastolic dysfunction. Wall motion cannot be accurately commented on, but no definite regional wall motion abnormalities noted. Right Ventricle The right ventricle is grossly normal size. There is normal right ventricular wall thickness. The right ventricular systolic function is normal. Atria The right atrium is normal. The left atrial size is normal. Interarterial septum not well visualized and not well dopplered. Cannot comment on ASD/PFO presence. Mitral Valve The mitral valve is grossly normal. There is no mitral valve stenosis. There is a trace amount of mitral regurgitation. Aortic Valve The aortic valve is grossly normal. There is no aortic valve stenosis. No aortic regurgitation is present. Tricuspid Valve The tricuspid valve is not well visualized, but is grossly normal. There is no tricuspid stenosis. There is a trace or physiologic amount of tricuspid regurgitation. Right ventricular systolic pressure is at the upper limits of normal. Pulmonic Valve The pulmonic valve is not well visualized. Great Vessels The aortic root is not well visualized but is probably normal size. The inferior vena cava appeared normal and decreased > 50% with respiration (RAP 5-10 mmHg). Effusions Minimal pericardial effusion. : GREGORY ALONSO > Patricio Jerez
[2016-12-18 05:17] LABS: ABSOLUTE EOSINOPHILS # (AUTO) 0.2 10^3/uL (0.0-0.6); ABSOLUTE LYMPHOCYTES (AUTO) 0.8 10^3/uL (0.5-4.7); ABSOLUTE MONOCYTES (AUTO) 0.5 10^3/uL (0.1-1.4); ABSOLUTE NEUT (AUTO) 1.3 10^3/uL (1.7-8.2); BASOPHILS % (AUTO) 0.5 % (0-2); EOSINOPHILS % (AUTO) 7.9 % (0-6); HEMATOCRIT 25.8 % (36.0-47.0); HEMOGLOBIN 8.6 g/dL (12.0-15.5); MEAN CORPUSCULAR HEMOGLOBIN 30.1 pg (27.0-33.4); MEAN CORPUSCULAR HGB CONC 33.2 g/dL (32.0-36.0); MEAN CORPUSCULAR VOLUME 91 fl (80-97); MONOCYTES % (AUTO) 19.1 % (3-13); RED BLOOD COUNT 2.84 10^6/uL (3.72-5.28); RED CELL DISTRIBUTION WIDTH 18.5 % (11.5-14.0); SEGMENTED NEUTROPHILS % (AUTO) 43.5 % (42-78); WHITE BLOOD COUNT 2.9 10^3/uL (4.0-10.5)
[2016-12-18 05:35] LABS: ANION GAP 6 (5-19); BLOOD UREA NITROGEN 18 mg/dL (7-20); CARBON DIOXIDE 25 mmol/L (22-30); CHLORIDE 112 mmol/L (98-107); CREATININE RESULT 1.74 mg/dL (0.52-1.25); GLUCOSE 93 mg/dL (75-110); MAGNESIUM 1.7 mg/dL (1.6-2.3); POTASSIUM 3.7 mmol/L (3.6-5.0); SODIUM 142.7 mmol/L (137-145)
[2016-12-18] MEDS ORDERED: FUROSEMIDE 40 MG TABLET PO ONE (07:45)
[2016-12-18] MEDS: METOPROLOL TARTRATE 25 MG TABLET PO SCH ×2 (08:09→16:14)
[2016-12-18] MEDS: DOCUSATE SODIUM 100 MG CAPSULE PO SCH (10:35)
[2016-12-18] MEDS: ATORVASTATIN CALCIUM 20 MG TABLET PO SCH (10:35)
[2016-12-18] MEDS: FUROSEMIDE 40 MG TABLET PO SCH (10:35)
[2016-12-18] MEDS: CHOLECALCIFEROL (D3) 1,000 UNIT TABLET PO SCH (10:36)
[2016-12-18] MEDS: FERROUS SULFATE 325 MG TABLET PO SCH ×2 (10:36→17:13)
[2016-12-18] MEDS: POTASSIUM CHLORIDE 10 MEQ TABLET.SA PO SCH (10:36)
[2016-12-18] MEDS: ASPIRIN 81 MG TABLET, ENT COATED PO SCH (10:36)
[2016-12-18] MEDS ORDERED: LEVOTHYROXINE SODIUM 0.088 MG TABLET PO ONE (11:00)
--- NOTE | 2016-12-18 11:43 | PDOC CONSULTATION ---
Consultation Consult Date: 12/18/16 Attending physician:: GREGORY ALONSO Consult reason:: Asked to see patient well-known to our oncology clinic with multiple myeloma currently on treatment here with signs and symptoms of heart failure History of Present Illness Admission Date/PCP: 12/17/16 07:22 BROOK KRISHNA MD Patient complains of: Shortness of breath, lower extremity edema History of Present Illness: 66-year-old female with fairly recent diagnosis of multiple myeloma, over the last 2 months has started on treatment with Revlimid, Velcade, dexamethasone. She received her second cycle of that and was set to start her next cycle. Over the last 2 weeks prior to admission she developed increasing lower extremity edema, ultimately she developed shortness of breath, it became fairly severe and she presented to the ED. There she had a chest x-ray which indicated pulmonary edema as well as cardiomegaly, concern of heart failure. BNP was 1300. She was started on Lasix, she had extensive workup including troponins which were negative, EKG which did not show any acute changes, echocardiogram which showed diastolic dysfunction but no systolic dysfunction, EF was normal. She is feeling much better today. The edema is much better, her breathing is seem to have normalized. Past Medical History Cardiac Medical History: Reports: Coronary Artery Disease, Hyperlipidema, Hypertension, Other - Reported septal defect by cardiac cath 2011 [facility]. Denies: Congestive Heart Failure, DVT, Myocardial Infarction, Pulmonary Embolism Pulmonary Medical History: Denies: Asthma, Chronic Obstructive Pulmonary Disease (COPD), Sleep Apnea EENT Medical History: Reports: Eyes - Glasses Denies: Ears, Throat Neurological Medical History: Denies: Hemorrhagic CVA, Ischemic CVA, Seizures Endocrine Medical History: Reports: Diabetes Mellitus Type 2 - prediabetic, Hypothyroidism Denies: Diabetes Mellitus Type 1, Hyperthyroidism Renal/ Medical History: Reports: Chronic Kidney Disease Malignancy Medical History: Reports: Other - multiple myeloma GI Medical History: Reports: Gastroesophageal Reflux Disease Denies: Cirrhosis, Hepatitis, Hiatal Hernia, Peptic Ulcer Disease Skin Medical History: Reports: None Psychiatric Medical History: Reports: Depression, General Anxiety Disorder Denies: Alcohol Dependency, Substance Abuse, Tobacco Dependency Hematology: Reports: Anemia Denies: Sickle Cell Disease Infectious Medical History: Denies: Clostridium Difficile, Hepatitis B, Hepatitis C, Methicillin- Resistant Staph Aureus Past Surgical History Past Surgical History: Reports: Cardiac Catheterization - 2012, Hysterectomy Denies: Amputation, Mastectomy, Pacemaker Social History Lives with: Alone Smoking Status: Never Smoker Frequency of Alcohol Use: None Drugs: None - Advance Directive Resuscitation Status: Full Code Family History Family History: None Parental Family History Reviewed: Yes Children Family History Reviewed: Yes Sibling(s) Family History Reviewed.: Yes Medication/Allergy Home Medications: Aspirin [Adult Low Dose Aspirin EC] 81 mg PO DAILY 12/16/16 Atorvastatin Calcium [Lipitor 20 mg Tablet] 20 mg PO DAILY 12/16/16 Cholecalciferol (Vitamin D3) [Vitamin D3 2000 unit Tablet] 2,000 unit PO DAILY 12/16/16 Clonidine HCl [Catapres 0.1 mg Tablet] 0.1 mg PO BID 12/16/16 Dexamethasone [Decadron 4 mg Tablet] 20 mg PO FRSA 12/16/16 Docusate Sodium [Colace 100 mg Capsule] 100 mg PO DAILYP PRN 12/16/16 Ferrous Sulfate [Feosol 325 mg Tablet] 325 mg PO BID 12/16/16 Furosemide [Lasix 20 mg Tablet] 20 mg PO DAILYP PRN 12/16/16 Levothyroxine Sodium [Synthroid] 88 mcg PO QAM 12/16/16 Metoprolol Tartrate [Lopressor 50 mg Tablet] 25 mg PO BIDBS 12/16/16 Allergies/Adverse Reactions: No Known Allergies Allergy (Verified 12/16/16 14:36) Review of Systems Constitutional: ABSENT: chills, fever(s), headache(s), weight gain, weight loss Eyes: ABSENT: visual disturbances Ears: ABSENT: hearing changes Cardiovascular: ABSENT: chest pain, dyspnea on exertion, edema, orthropnea, palpitations Respiratory: ABSENT: cough, hemoptysis Gastrointestinal: ABSENT: abdominal pain, constipation, diarrhea, hematemesis, hematochezia, nausea, vomiting Genitourinary: ABSENT: dysuria, hematuria Musculoskeletal: ABSENT: joint swelling Integumentary: ABSENT: rash, wounds Neurological: ABSENT: abnormal gait, abnormal speech, confusion, dizziness, focal weakness, syncope Psychiatric: ABSENT: anxiety, depression, homidical ideation, suicidal ideation Endocrine: ABSENT: cold intolerance, heat intolerance, polydipsia, polyuria Hematologic/Lymphatic: ABSENT: easy bleeding, easy bruising Physical Exam Vital Signs: Temp Pulse Resp BP Pulse Ox 98.6 F 56 L 17 186/87 H 100 12/18/16 07:25 12/18/16 07:25 12/18/16 07:25 12/18/16 07:25 12/18/16 07:25 Intake & Output 12/17/16 12/18/16 12/19/16 06:59 06:59 06:59 Intake Total 540 360 Output Total 300 Balance 240 360 Weight 94.1 kg General appearance: PRESENT: no acute distress, well-developed, well-nourished Head exam: PRESENT: atraumatic, normocephalic Eye exam: PRESENT: conjunctiva pink, EOMI, PERRLA. ABSENT: scleral icterus Ear exam: PRESENT: normal external ear exam Mouth exam: PRESENT: moist, tongue midline Neck exam: ABSENT: carotid bruit, JVD, lymphadenopathy, thyromegaly Respiratory exam: PRESENT: clear to auscultation mary grace. ABSENT: rales, rhonchi, wheezes Cardiovascular exam: PRESENT: RRR. ABSENT: diastolic murmur, rubs, systolic murmur Pulses: PRESENT: normal dorsalis pedis pul Vascular exam: PRESENT: normal capillary refill GI/Abdominal exam: PRESENT: normal bowel sounds, soft. ABSENT: distended, guarding, mass, organolmegaly, rebound, tenderness Rectal exam: PRESENT: deferred Extremities exam: PRESENT: full ROM. ABSENT: calf tenderness, clubbing, pedal edema Neurological exam: PRESENT: alert, awake, oriented to person, oriented to place , oriented to time, oriented to situation, CN II-XII grossly intact. ABSENT: motor sensory deficit Psychiatric exam: PRESENT: appropriate affect, normal mood. ABSENT: homicidal ideation, suicidal ideation Skin exam: PRESENT: dry, intact, warm. ABSENT: cyanosis, rash Results Laboratory Results: 12/18/16 04:53 12/18/16 04:53 12/18/16 12/18/16 04:53 04:53 WBC 2.9 L RBC 2.84 L Hgb 8.6 L Hct 25.8 L MCV 91 MCH 30.1 MCHC 33.2 RDW 18.5 H Plt Count 151 Seg Neutrophils % 43.5 Lymphocytes % 29.0 Monocytes % 19.1 H Eosinophils % 7.9 H Basophils % 0.5 Absolute Neutrophils 1.3 L Absolute Lymphocytes 0.8 Absolute Monocytes 0.5 Absolute Eosinophils 0.2 Absolute Basophils 0.0 Sodium 142.7 Potassium 3.7 Chloride 112 H Carbon Dioxide 25 Anion Gap 6 BUN 18 Creatinine 1.74 H Est GFR ( Amer) 35 L Est GFR (Non-Af Amer) 29 L Glucose 93 Calcium 8.0 L Magnesium 1.7 Impressions: Chest X-Ray 12/16/16 15:54 IMPRESSION: Cardiomegaly with pulmonary vascular congestion and small pleural effusions. Assessment & Plan - Diagnosis (1) Diastolic CHF Qualifiers: Congestive heart failure chronicity: acute Qualified Code(s): I50.31 - Acute diastolic (congestive) heart failure Is this a current diagnosis for this admission?: YesPlan: Does appear to be in acute CHF exacerbation, seems to be diastolic in nature, we were asked to comment on her current chemotherapy regimen and whether that may be causing any of this. The Revlimid generally does not have any cardiac dysfunction, the Velcade has been associated with cardiac dysfunction although very rare, on the original clinical trial that brought Velcade to market, the incidence was less than 1%. It seemed to be more systolic in nature rather than diastolic in nature, but both have been reported in case reports. Regardless, the Velcade will be a very important part of her initial chemotherapeutic regimen, Dr. Cates will make a decision upon discharge on whether to continue with current dose or dose reduced but I believe we will still continue with it. (2) Multiple myeloma Qualifiers: Multiple myeloma remission status: not in remission Qualified Code(s ): C90.00 - Multiple myeloma not having achieved remission Is this a current diagnosis for this admission?: YesPlan: She does have known multiple myeloma, she will continue on treatment as an outpatient, we may not give her treatment next week but probably will restart the following week. - Time Time Spent: Greater than 70 Minutes Critical Time spent with patient: 35 or more minutes - Inpatient Certification Based on my medical assessment, after consideration of the patient's comorbidities, presenting symptoms, or acuity I expect that the services needed warrant INPATIENT care.: Yes I certify that my determination is in accordance with my understanding of Medicare's requirements for reasonable and necessary INPATIENT services [42 CFR 412.3e].: Yes Medical Necessity: Failure to Improve With Outpatient Therapy, Need For Continuous Telemetry Monitoring
[2016-12-18] MEDS ORDERED: FUROSEMIDE INJ/PF 40 MG/4 ML SDV IV ONE (12:00)
[2016-12-18] MEDS ORDERED: HYDRALAZINE HCL INJ/PF 20 MG/1 ML SDV IV ONE (12:00)
[2016-12-18] MEDS ORDERED: AMLODIPINE BESYLATE 5 MG TABLET PO ONE (12:00)
[2016-12-18] MEDS ORDERED: POTASSIUM CHLORIDE 10 MEQ TABLET.SA PO ONE ×2 (12:00→15:30)
--- NOTE | 2016-12-18 12:13 | PROGRESS NOTE E ---
Progress Note NAME: KATHY SCHAFER : 1950 AGE: 66Y DATE: 12/18/2016 ROOM: 530 SUBJECTIVE: The patient was ambulating in the hallways whenever I rounded. The patient states that still feels some shortness of breath. Still complaining of edema of lower extremities, but overall feels they are improved. Patient denies any nausea or vomiting. No diarrhea, dizziness, chest pain. No fevers, chills. Patient has been afebrile. Blood pressures have been significantly elevated and the patient does not voice any other concerns at this time. REVIEW OF SYSTEMS: The rest of the review of systems is negative. MEDICATIONS: Medications have been reviewed. OBJECTIVE: GENERAL: The patient is a 66-year-old female who is awake, alert, and oriented to person, place, time, and situation. She is verbal, conversational, does not appear to be in any acute distress. VITAL SIGNS FOLLOWS: Temperature is 98.6, pulse is 60, respirations 17, blood pressure is 186/87, oxygen saturation is 100% on room air. SKIN: Warm and dry. There is no rash. She is not diaphoretic. HEENT: Pupils equal, round and reactive to light and accommodation. Conjunctivae are pink. NECK: There is no JVP. CARDIOVASCULAR: Heart is regular with no murmur or rub. CHEST: Clear, symmetrical, unlabored. ABDOMEN: Soft, nontender and nondistended. Bowel sounds are present. BACK: No CVA tenderness or sacral edema. EXTREMITIES: No clubbing or cyanosis. The patient does have trace bilateral lower extremity pitting edema. DIAGNOSTICS: Lab values are as follows: Hematology obtained on 12/18/2016: WBCs are 2.9, hemoglobin is 8.6, hematocrit is 25.8, platelet count is 151,000. Chemistries obtained on 12/18/2016: Sodium is 142, potassium 3.7, chloride is 112, carbon dioxide 25, BUN 18, creatinine is 1.74, glucose 93, calcium is 8.9, magnesium is 1.7. IMPRESSION AND PLAN: 1. ACUTE CONGESTIVE HEART FAILURE. Could possibly be diastolic or due to recent chemotherapy. I do appreciate Hematology/Oncology input with this. Patient has responded well with diuretic therapy. We will once again diurese with Lasix and continue beta-junie. We will defer ANANYA inhibitors, as apparently patient has had hyperkalemia in the past. 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 2. CHRONIC KIDNEY DISEASE, STAGE III. The patient's creatinine appears to be around its baseline. Will follow. 3. PANCYTOPENIA. This is secondary to chemotherapy. 4. MULTIPLE MYELOMA. I do appreciate Oncology's input with this. 5. HYPERTENSION. Blood pressure has been significantly elevated. Will add another agent, but cover with p.r.n. hydralazine. Most likely this is rebounding from clonidine, however, clonidine did need to be discontinued due to the patient's heart failure, as well as her heart rate being only 60 with metoprolol. Patient is at risk for severe bradycardia. 6. HYPOTHYROIDISM. Will continue T4 and Synthroid. 7. HYPERLIPIDEMIA. Will continue statin. 7. DVT PROPHYLAXIS. Will continue. DISPOSITION: The patient is a FULL CODE. Pending the patient's symptomatology and diagnostic findings, will reevaluate in the a.m. for possible discharge. TIME: Time spent on this followup including assessment, plan, physical examination, patient education, and speciality collaboration was 25 minutes. DICTATING PHYSICIAN: ABDI JOSE NP [id number] PHY#: [id number] ID: [id number] JOB#: [id number] ACCT: [id number] cc: >
[2016-12-18] MEDS ORDERED: LORAZEPAM 0.5 MG TABLET PO ONE (13:00)
[2016-12-18 13:33] LABS: VENOUS BLOOD BASE EXCESS 0.8 mmol/L; VENOUS BLOOD HCO3 23.6 mmol/L (20-32); VENOUS BLOOD PCO2 31.4 mmHg (35-63); VENOUS BLOOD PH 7.49 (7.30-7.42)
[2016-12-18 13:53] LABS: ALANINE AMINOTRANSFERASE 46 U/L (9-52); ALBUMIN 3.6 g/dL (3.5-5.0); ALKALINE PHOSPHATASE 221 U/L (38-126); ANION GAP 12 (5-19); ASPARTATE AMINO TRANSFERASE 20 U/L (14-36); BILIRUBIN,DIRECT 0.2 mg/dL (0.0-0.4); BILIRUBIN,TOTAL 0.5 mg/dL (0.2-1.3); BLOOD UREA NITROGEN 16 mg/dL (7-20); CALCIUM 8.9 mg/dL (8.4-10.2); CARBON DIOXIDE 23 mmol/L (22-30); CHLORIDE 109 mmol/L (98-107); CREATININE RESULT 1.67 mg/dL (0.52-1.25); GLUCOSE 111 mg/dL (75-110); LIPASE 87.4 U/L (23-300); POTASSIUM 3.1 mmol/L (3.6-5.0); SODIUM 144.2 mmol/L (137-145); TOTAL PROTEIN 5.7 g/dL (6.3-8.2)
[2016-12-18] MEDS ORDERED: OXYCODONE HCL IR 5 MG TABLET PO PRN (20:07)
[2016-12-18] MEDS: AMLODIPINE BESYLATE 5 MG TABLET PO SCH (21:38)
[2016-12-19] MEDS: LEVOTHYROXINE SODIUM 0.088 MG TABLET PO SCH (08:38)
[2016-12-19] MEDS: METOPROLOL TARTRATE 25 MG TABLET PO SCH (08:38)
[2016-12-19] MEDS: DOCUSATE SODIUM 100 MG CAPSULE PO SCH (10:30)
[2016-12-19] MEDS: ASPIRIN 81 MG TABLET, ENT COATED PO SCH (10:30)
[2016-12-19] MEDS: FERROUS SULFATE 325 MG TABLET PO SCH (10:30)
[2016-12-19] MEDS: FUROSEMIDE 40 MG TABLET PO SCH (10:31)
[2016-12-19] MEDS: AMLODIPINE BESYLATE 5 MG TABLET PO SCH (10:31)
[2016-12-19] MEDS: POTASSIUM CHLORIDE 10 MEQ TABLET.SA PO SCH (10:31)
[2016-12-19] MEDS: CHOLECALCIFEROL (D3) 1,000 UNIT TABLET PO SCH (10:31)
[2016-12-19 11:46] VITALS: BP 161/86
--- NOTE | 2016-12-19 19:44 | PDOC PROGRESS REPORT ---
Subjective Progress Note for:: 12/19/16 Subjective:: Patient was seen yesterday in the morning. She claims to be feeling much better. She is denying any chest, neck discomfort of any sort. Describes long- standing problems with sleep. She has difficulty falling asleep and staying asleep. Patient's daughter in the room and confirmed history of mild intermittent snoring. Patient also describes fatigue and tiredness. Physical Exam Vital Signs: Temp Pulse Resp BP Pulse Ox 98.6 F 59 L 15 161/86 H 100 12/19/16 14:49 12/19/16 14:49 12/19/16 14:49 12/19/16 14:49 12/19/16 14:49 Intake & Output 12/18/16 12/19/16 12/20/16 06:59 06:59 06:59 Intake Total 540 840 420 Output Total 300 2500 Balance 240 -1660 420 Weight 94.1 kg 89.8 kg General appearance: PRESENT: no acute distress, well-developed, well-nourished Head exam: PRESENT: atraumatic, normocephalic Eye exam: PRESENT: conjunctiva pink, EOMI, PERRLA. ABSENT: scleral icterus Ear exam: PRESENT: normal external ear exam Mouth exam: PRESENT: moist, tongue midline Neck exam: ABSENT: carotid bruit, JVD, lymphadenopathy, thyromegaly Respiratory exam: PRESENT: clear to auscultation mary grace. ABSENT: rales, rhonchi, wheezes Cardiovascular exam: PRESENT: RRR. ABSENT: diastolic murmur, rubs, systolic murmur Pulses: PRESENT: normal dorsalis pedis pul Vascular exam: PRESENT: normal capillary refill GI/Abdominal exam: PRESENT: normal bowel sounds, soft. ABSENT: distended, guarding, mass, organolmegaly, rebound, tenderness Rectal exam: PRESENT: deferred Extremities exam: PRESENT: full ROM. ABSENT: calf tenderness, clubbing, pedal edema Neurological exam: PRESENT: alert, awake, oriented to person, oriented to place , oriented to time, oriented to situation, CN II-XII grossly intact. ABSENT: motor sensory deficit Psychiatric exam: PRESENT: appropriate affect, normal mood. ABSENT: homicidal ideation, suicidal ideation Skin exam: PRESENT: dry, intact, warm. ABSENT: cyanosis, rash Results Laboratory Results: 12/18/16 04:53 12/18/16 13:24 12/18/16 13:24 Troponin I < 0.012 Impressions: Chest X-Ray 12/16/16 15:54 IMPRESSION: Cardiomegaly with pulmonary vascular congestion and small pleural effusions. Assessment & Plan - Diagnosis (1) Sleep disorder Is this a current diagnosis for this admission?: Yes (2) Acute CHF Qualifiers: Congestive heart failure type: unspecified congestive heart failure type Qualified Code(s): I50.9 - Heart failure, unspecified Is this a current diagnosis for this admission?: Yes (3) Peripheral edema Is this a current diagnosis for this admission?: Yes (4) CKD (chronic kidney disease), stage III Is this a current diagnosis for this admission?: Yes (5) Multiple myeloma Qualifiers: Multiple myeloma remission status: not in remission Qualified Code(s ): C90.00 - Multiple myeloma not having achieved remission Is this a current diagnosis for this admission?: Yes (6) Anemia Qualifiers: Anemia type: unspecified type Qualified Code(s): D64.9 - Anemia, unspecified Is this a current diagnosis for this admission?: Yes (7) HLD (hyperlipidemia) Qualifiers: Hyperlipidemia type: unspecified Qualified Code(s): E78.5 - Hyperlipidemia, unspecified Is this a current diagnosis for this admission?: Yes (8) HTN (hypertension) Qualifiers: Hypertension type: essential hypertension Qualified Code(s): I10 - Essential (primary) hypertension Is this a current diagnosis for this admission?: Yes (9) Pre-diabetes Is this a current diagnosis for this admission?: Yes - Notes Notes: Describes insomnia. CHF resolved. Patient educated about CHF pathway. Patient advised sleep hygiene. Discussed that she will benefit from a sleep study. Other recommendations as per note previously outlined and in consultation note. - Time Time with patient: 15-25 minutes Medications reviewed and adjusted accordingly: Yes
--- NOTE | 2016-12-19 21:59 | PDOC PROGRESS REPORT ---
Subjective Progress Note for:: 12/18/16 Subjective:: Patient was seen yesterday in the morning. She claims to be feeling much better. She is denying any chest, neck discomfort of any sort. Physical Exam Vital Signs: Temp Pulse Resp BP Pulse Ox 98.6 F 59 L 15 161/86 H 100 12/19/16 14:49 12/19/16 14:49 12/19/16 14:49 12/19/16 14:49 12/19/16 14:49 Intake & Output 12/18/16 12/19/16 12/20/16 06:59 06:59 06:59 Intake Total 540 840 420 Output Total 300 2500 Balance 240 -1660 420 Weight 94.1 kg 89.8 kg General appearance: PRESENT: no acute distress, well-developed, well-nourished Head exam: PRESENT: atraumatic, normocephalic Eye exam: PRESENT: conjunctiva pink, EOMI, PERRLA. ABSENT: scleral icterus Ear exam: PRESENT: normal external ear exam Mouth exam: PRESENT: moist, tongue midline Neck exam: ABSENT: carotid bruit, JVD, lymphadenopathy, thyromegaly Respiratory exam: PRESENT: clear to auscultation mary grace. ABSENT: rales, rhonchi, wheezes Cardiovascular exam: PRESENT: RRR. ABSENT: diastolic murmur, rubs, systolic murmur Pulses: PRESENT: normal dorsalis pedis pul Vascular exam: PRESENT: normal capillary refill GI/Abdominal exam: PRESENT: normal bowel sounds, soft. ABSENT: distended, guarding, mass, organolmegaly, rebound, tenderness Rectal exam: PRESENT: deferred Extremities exam: PRESENT: full ROM. ABSENT: calf tenderness, clubbing, pedal edema Neurological exam: PRESENT: alert, awake, oriented to person, oriented to place , oriented to time, oriented to situation, CN II-XII grossly intact. ABSENT: motor sensory deficit Psychiatric exam: PRESENT: appropriate affect, normal mood. ABSENT: homicidal ideation, suicidal ideation Skin exam: PRESENT: dry, intact, warm. ABSENT: cyanosis, rash Results Laboratory Results: 12/18/16 04:53 12/18/16 13:24 12/18/16 13:24 Troponin I < 0.012 EKG Comments: 2 D echo results reviewed with the patient. Impressions: Chest X-Ray 12/16/16 15:54 IMPRESSION: Cardiomegaly with pulmonary vascular congestion and small pleural effusions. Assessment & Plan - Diagnosis (1) Diastolic CHF Qualifiers: Congestive heart failure chronicity: acute Qualified Code(s): I50.31 - Acute diastolic (congestive) heart failure Is this a current diagnosis for this admission?: Yes (2) Fluid overload Qualifiers: Hypervolemia type: unspecified Qualified Code(s): E87.70 - Fluid overload, unspecified Is this a current diagnosis for this admission?: Yes (3) Peripheral edema Is this a current diagnosis for this admission?: Yes (4) CKD (chronic kidney disease), stage III Is this a current diagnosis for this admission?: Yes (5) Multiple myeloma Qualifiers: Multiple myeloma remission status: not in remission Qualified Code(s ): C90.00 - Multiple myeloma not having achieved remission Is this a current diagnosis for this admission?: Yes (6) Anemia Qualifiers: Anemia type: unspecified type Qualified Code(s): D64.9 - Anemia, unspecified Is this a current diagnosis for this admission?: Yes (7) HLD (hyperlipidemia) Qualifiers: Hyperlipidemia type: unspecified Qualified Code(s): E78.5 - Hyperlipidemia, unspecified Is this a current diagnosis for this admission?: Yes (8) HTN (hypertension) Qualifiers: Hypertension type: essential hypertension Qualified Code(s): I10 - Essential (primary) hypertension Is this a current diagnosis for this admission?: Yes - Notes Notes: CHF today compensated. 2 D echo results discussed. Patient significantly improved. Acute congestive heart failure: Now felt to be related to diastolic dysfunction. Agree with IV diuretics. Continue with salt and fluid restriction. Dyspnea on exertion: Most likely related to diastolic dysfunction and deconditioning with CHF contributing. Fluid overload: Continue diuretic therapy. Patient advised salt and fluid restriction. Peripheral edema: Patient advised diuretics. Patient advised salt and fluid restriction. Sleep disorder: Patient describes difficulty falling asleep and staying asleep. Have recommended follow-up with sleep medicine physician. Chronic kidney disease: Stage III. Patient seems to have chronic kidney disease stage 3. Creatinine been stable. Avoid any nephrotoxic agents, IV contrast agent dye etc. consider nephrology evaluation. Presence of chronic kidney disease is a prognostic factor. Multiple myeloma: Currently being treated by oncologist. May consider avoiding medications that have cardiotoxic effect. Hyperlipidemia: LDL goal is less than 70. Recommend statin therapy at least intermediate or high dose, of high potency status. Periodic lipid panel and liver panel is indicated. Patient to report any significant muscle discomfort or other side effects. Hypertension: Reasonably well controlled. Blood pressure goal in this patient is 135/85 or less. This was discussed with the patient. Currently blood pressure under reasonable control. Better medication for this patient are ANANYA inhibitor/ARB/beta junie etc. - Time Time with patient: 15-25 minutes Medications reviewed and adjusted accordingly: Yes
[2016-12-19] MEDS ORDERED: ATORVASTATIN CALCIUM 20 MG TABLET PO SCH (22:00)
--- NOTE | 2016-12-19 22:52 | PDOC CONSULTATION ---
Consultation Consult Date: 12/17/16 Attending physician:: GREGORY ALONSO Consult reason:: chest pain History of Present Illness Admission Date/PCP: 12/17/16 07:22 BROOK KRISHNA MD Patient complains of: Dyspnea History of Present Illness: KATHY SCHAFER is a 66 year old obese female, with underlying pre- diabetes mellitus, hypertension, hypothyroidism, hyperlipidemia, mild reflux, mild anxiety and depression, without suicidal or homicidal ideation, chronic kidney disease stage III, and currently being treated for multiple myeloma, who was admitted through the emergency room for evaluation of above complaints. She describes a 2 week history of slowly progressive dyspnea on exertion and bilateral symmetric lower extremity edema. Finished her second round of same chemotherapy medication 2 weeks ago. During the first round of the same regimen , she did have very mild shortness of breath along with mild facial swelling. No lower extremity swelling. However, shortness of breath has been much more pronounced after this round of chemotherapy, along with the above noted lower extremity swelling. Started oral Lasix 20 mg a day this past Tuesday. Actually took 40 mg the first day. There has been no pain, fever or chills, nausea vomiting, diarrhea or dysuria. She does carry a diagnosis of hypertension, but otherwise has an unremarkable cardiac history. Cardiac catheterization 2011 at [facility], by her description, revealed clean coronary arteries, along with a possible septal defect. No angioplasty or stent necessary. Unremarkable echocardiogram concerning systolic and diastolic function in 2014. Report is reviewed. Denies underlying pulmonary disease, including asthma, COPD, emphysema. Denies obstructive sleep apnea, but no prior sleep study.Describes insomnia. No CP, no palpitations, syncope, near syncope This history was suplemented and confirmed. Past Medical History Cardiac Medical History: Reports: Coronary Artery Disease, Hyperlipidema, Hypertension, Other - Reported septal defect by cardiac cath 2011 [facility]. Denies: Congestive Heart Failure, DVT, Myocardial Infarction, Pulmonary Embolism Pulmonary Medical History: Denies: Asthma, Chronic Obstructive Pulmonary Disease (COPD), Sleep Apnea EENT Medical History: Reports: Eyes - Glasses Denies: Ears, Throat Neurological Medical History: Denies: Hemorrhagic CVA, Ischemic CVA, Seizures Endocrine Medical History: Reports: Diabetes Mellitus Type 2 - prediabetic, Hypothyroidism Denies: Diabetes Mellitus Type 1, Hyperthyroidism Renal/ Medical History: Reports: Chronic Kidney Disease Malignancy Medical History: Reports: Other - multiple myeloma GI Medical History: Reports: Gastroesophageal Reflux Disease Denies: Cirrhosis, Hepatitis, Hiatal Hernia, Peptic Ulcer Disease Skin Medical History: Reports: None Psychiatric Medical History: Reports: Depression, General Anxiety Disorder Denies: Alcohol Dependency, Substance Abuse, Tobacco Dependency Hematology: Reports: Anemia Denies: Sickle Cell Disease Infectious Medical History: Denies: Clostridium Difficile, Hepatitis B, Hepatitis C, Methicillin- Resistant Staph Aureus Past Surgical History Past Surgical History: Reports: Cardiac Catheterization - 2012, Hysterectomy Denies: Amputation, Mastectomy, Pacemaker Social History Information Source: Patient Lives with: Alone Smoking Status: Never Smoker Frequency of Alcohol Use: None Drugs: None - Advance Directive Resuscitation Status: Full Code Surrogate healthcare decision maker:: Pts daughter Family History Family History: Hypertension Parental Family History Reviewed: Yes Children Family History Reviewed: Yes Sibling(s) Family History Reviewed.: Yes Medication/Allergy Home Medications: Aspirin [Adult Low Dose Aspirin EC] 81 mg PO DAILY 12/16/16 Atorvastatin Calcium [Lipitor 20 mg Tablet] 20 mg PO DAILY 12/16/16 Cholecalciferol (Vitamin D3) [Vitamin D3 2000 unit Tablet] 2,000 unit PO DAILY 12/16/16 Dexamethasone [Decadron 4 mg Tablet] 20 mg PO FRSA 12/16/16 Ferrous Sulfate [Feosol 325 mg Tablet] 325 mg PO BID 12/16/16 Levothyroxine Sodium [Synthroid] 88 mcg PO QAM 12/16/16 Metoprolol Tartrate [Lopressor 50 mg Tablet] 25 mg PO BIDBS 12/16/16 Amlodipine Besylate [Norvasc 5 mg Tablet] 5 mg PO Q12 #60 tablet 12/19/16 Furosemide [Lasix] 40 mg PO DAILY #30 tablet 12/19/16 Potassium Chloride [Klor-Con 10 Meq Tablet.sa] 20 meq PO DAILY #30 tablet.sa Allergies/Adverse Reactions: No Known Allergies Allergy (Verified 12/16/16 14:36) Review of Systems Constitutional: PRESENT: weakness. ABSENT: chills, fever(s), headache(s), weight gain, weight loss Eyes: ABSENT: visual disturbances Ears: ABSENT: hearing changes Nose, Mouth, and Throat: ABSENT: as per HPI, headache(s), mouth pain, sore throat, vertigo, other Cardiovascular: PRESENT: dyspnea on exertion. ABSENT: chest pain, edema, orthropnea, palpitations Respiratory: ABSENT: cough, hemoptysis Gastrointestinal: PRESENT: heartburn. ABSENT: abdominal pain, constipation, diarrhea, hematemesis, hematochezia, nausea, vomiting Genitourinary: ABSENT: dysuria, hematuria Musculoskeletal: ABSENT: joint swelling Integumentary: ABSENT: rash, wounds Neurological: ABSENT: abnormal gait, abnormal speech, confusion, dizziness, focal weakness, syncope Psychiatric: PRESENT: anxiety, depression. ABSENT: homidical ideation, suicidal ideation Endocrine: ABSENT: cold intolerance, heat intolerance, polydipsia, polyuria Hematologic/Lymphatic: PRESENT: other - multiple myeloma. ABSENT: easy bleeding , easy bruising Physical Exam Vital Signs: Temp Pulse Resp BP Pulse Ox 98.6 F 60 17 156/74 H 97 12/17/16 15:57 12/17/16 15:57 12/17/16 15:57 12/17/16 15:57 12/17/16 15:57 Intake & Output 12/16/16 12/17/16 12/18/16 06:59 06:59 06:59 Intake Total 540 Output Total 300 Balance 240 General appearance: PRESENT: no acute distress, well-developed, well-nourished Head exam: PRESENT: atraumatic, normocephalic Eye exam: PRESENT: conjunctiva pink, EOMI, PERRLA. ABSENT: scleral icterus Ear exam: PRESENT: normal external ear exam Mouth exam: PRESENT: moist, tongue midline Neck exam: ABSENT: carotid bruit, JVD, lymphadenopathy, thyromegaly Respiratory exam: PRESENT: crackles - both bases, prolonged expiratory phas. ABSENT: rales, rhonchi, wheezes Cardiovascular exam: PRESENT: RRR, +S1, +S2, systolic murmur - 1-2/6 COLETTE aortic area.. ABSENT: diastolic murmur, rubs Pulses: PRESENT: normal dorsalis pedis pul Vascular exam: PRESENT: normal capillary refill GI/Abdominal exam: PRESENT: normal bowel sounds, soft. ABSENT: distended, guarding, mass, organolmegaly, rebound, tenderness Rectal exam: PRESENT: deferred Extremities exam: PRESENT: full ROM, pedal edema - trace to 1+. ABSENT: calf tenderness, clubbing Neurological exam: PRESENT: alert, awake, oriented to person, oriented to place , oriented to time, oriented to situation, CN II-XII grossly intact. ABSENT: motor sensory deficit Psychiatric exam: PRESENT: appropriate affect, normal mood. ABSENT: homicidal ideation, suicidal ideation Skin exam: PRESENT: dry, intact, warm. ABSENT: cyanosis, rash Results EKG Comments: NSR, No acute ST-T wave changes. Impressions: Chest X-Ray 12/16/16 15:54 IMPRESSION: Cardiomegaly with pulmonary vascular congestion and small pleural effusions. Assessment & Plan - Diagnosis (1) Acute CHF Qualifiers: Congestive heart failure type: unspecified congestive heart failure type Qualified Code(s): I50.9 - Heart failure, unspecified Is this a current diagnosis for this admission?: Yes (2) MERINO (dyspnea on exertion) Is this a current diagnosis for this admission?: Yes (3) Fluid overload Qualifiers: Hypervolemia type: unspecified Qualified Code(s): E87.70 - Fluid overload, unspecified (4) Peripheral edema Is this a current diagnosis for this admission?: Yes (5) Sleep disorder Is this a current diagnosis for this admission?: Yes (6) CKD (chronic kidney disease), stage III Is this a current diagnosis for this admission?: Yes (7) Multiple myeloma Qualifiers: Multiple myeloma remission status: not in remission Qualified Code(s ): C90.00 - Multiple myeloma not having achieved remission Is this a current diagnosis for this admission?: Yes (8) HLD (hyperlipidemia) Qualifiers: Hyperlipidemia type: unspecified Qualified Code(s): E78.5 - Hyperlipidemia, unspecified Is this a current diagnosis for this admission?: Yes (9) HTN (hypertension) Qualifiers: Hypertension type: essential hypertension Qualified Code(s): I10 - Essential (primary) hypertension Is this a current diagnosis for this admission?: Yes (10) Pre-diabetes Is this a current diagnosis for this admission?: Yes - Notes Notes: Acute congestive heart failure: Agree with IV diuretics. Possibly precipitated by diastolic dysfunction in setting of fluid overload. A 2D echo ordered will be reviewed. Further management plans will follow after that. Dyspnea on exertion: Most likely related to diastolic dysfunction and deconditioning with CHF contributing. Fluid overload: Continue diuretic therapy. Patient advised salt and fluid restriction. Peripheral edema: Patient advised diuretics. Patient advised salt and fluid restriction. Sleep disorder: Patient describes difficulty falling asleep and staying asleep. Have recommended follow-up with sleep medicine physician. Chronic kidney disease: Stage III. Patient seems to have chronic kidney disease stage 3. Creatinine been stable. Avoid any nephrotoxic agents, IV contrast agent dye etc. consider nephrology evaluation. Presence of chronic kidney disease is a prognostic factor. Multiple myeloma: Currently being treated by oncologist. May consider avoiding medications that have cardiotoxic effect. Hyperlipidemia: LDL goal is less than 70. Recommend statin therapy at least intermediate or high dose, of high potency status. Periodic lipid panel and liver panel is indicated. Patient to report any significant muscle discomfort or other side effects. Hypertension: Reasonably well controlled. Blood pressure goal in this patient is 135/85 or less. This was discussed with the patient. Currently blood pressure under reasonable control. Better medication for this patient are ANANYA inhibitor/ARB/beta junie etc. - Time Time Spent: 30 to 50 Minutes - CODE STATUS was discussed, patient remains full code. Surrogate decision-maker patient's daughter. Multiple medical problems were addressed. More than 50% of the time spent coordinating care, discussing management plans with involved caregivers. Management plans discussed with involved personnels. Medical decision making was of moderate to high complexity , patient's has multiple comorbidities. Medications reviewed and adjusted accordingly: Yes
--- NOTE | 2016-12-20 23:33 | DISCHARGE SUMMARY E ---
Discharge Summary NAME: KATHY SCHAFER : 1950 AGE: 66Y ADMITTED: 12/17/2016 DISCHARGED: 12/19/2016 CODE STATUS: FULL CODE. PRIMARY CARE PROVIDER: Dr. Ravinder Jeffers. ONCOLOGIST: Dr. Olya Schafer. DISCHARGE DIAGNOSES: Includes: 1. Acute diastolic congestive heart failure, I feel this is most likely a component of hypotensive cardiomyopathy. 2. Chronic kidney disease stage 3. 3. Pancytopenia. 4. Multiple myeloma. 5. Hypertension. 6. Hypothyroidism. 7. Hyperlipidemia. DISCHARGE MEDICATIONS: Include: 1. Norvasc 5 mg p.o. q.12 h. 2. Aspirin 81 mg p.o. daily. 3. Lipitor 20 mg p.o. daily. 4. Vitamin D3 2000 international units p.o. daily. 5. Decadron 20 mg 6. Ferrous sulfate 325 mg p.o. b.i.d. 7. Lasix 40 mg p.o. daily, 30 tablets, 0 refills. 8. Synthroid 88 mcg p.o. a.m. 9. Lopressor 25 mg p.o. b.i.d. 10. Potassium chloride 20 mEq p.o. daily. DIET: Heart healthy. ACTIVITY: As tolerated. HISTORY OF PRESENT ILLNESS: The patient is a 66-year-old -Stateless female with past medical history of severe hypertension and chronic kidney disease stage 3. The patient presented to the emergency department with a chief complaint of bilateral lower extremity edema. The patient gives a 2 week history of slowly progressing dyspnea on exertion and bilateral symmetrical lower edema. The patient finished her second round of chemotherapy approximately 2 weeks ago and during the first round of the same regimen the patient has some very mild shortness of breath along with some intermittent facial swelling, but no lower extremity swelling. However, the patient's shortness of breath has been much more pronounced and the patient had been started on 20 mg of Lasix in the past. The patient stated the first day she took 40. The patient had been pain free with no nausea. The patient had negative cardiac workup at [facility] in 2011. The patient since that time has been followed by Dr. Caballero, her global chief experience officer and the patient does note some difficulty controlling her blood pressures. Given the findings of acute CHF, the patient was referred to the hospitalist for admission and management. HOSPITAL COURSE: The patient was admitted to continue with telemetry unit. The patient was diuresed with IV Lasix for which she responded very well to. The patient ambulated without issue and dyspnea did resolve. However, it appeared that the patient had been taking clonidine for blood pressure. The patient did note that the medication made her quite loopy and the patient was also taking metoprolol, which had been started apparently by her global chief experience officer. The patient was noted to be bradycardic down to the 40's on the monitor. The patient's clonidine was weaned. The patient was continued on metoprolol. The patient did have some rebounding blood pressure and was started Norvasc for which she responded very well to. She was continued on metoprolol, although this may be an acute heart failure. ANANYA inhibitor was deferred for now. It is uncertain if the patient has had a past history of hyperkalemia and so forth. The patient will followup with her global chief experience officer upon discharge. The patient's symptoms completely resolved and she is ready for discharge. The patient's blood pressures overall are much improved and heart rate is at 60. DIAGNOSTICS: Hematology obtained on 12/18/2016: WBC 10.9, hemoglobin 9.6, hematocrit is 25.8, platelet count is 151,000. obtained on 12/18/2016: PH of 7.49, pCO2 of 31.4, bicarbonate is 23. Chemistry obtained on 12/18/2016: Sodium 144, potassium 7, chloride 109, carbon dioxide 23, BUN 16, creatinine 0.67, glucose 111, calcium 8.9, magnesium 1.7, bilirubin 45, AST 20, ALT 46, alkaline phosphatase 221. Troponin 0.012. Total protein 5.7, albumin 3.7, lipase 8.7. Urinalysis obtained on 12/16/2016: Color yellow, appearance clear, pH is 6.0, specific gravity is 1.008, protein 100, glucose 50, ketones negative, occult blood negative, nitrite negative, bilirubin negative, urobilinogen is negative, leukocyte esterase is negative, WBC is 30, RBC is 2, mucous rare, ascorbic acid is negative. PHYSICAL EXAMINATION: GENERAL: On examination, the patient is a well-developed, well-nourished, 66-year-old -Stateless female who is awake, alert, and oriented to person, place, time, and situation. She is verbal and conversational. She does not appear to be in any acute distress. VITAL SIGNS: Temperature is 98.6, pulse 58, respirations 15, blood pressure is 161/86, and oxygen saturation is 100% on room air. SKIN: Warm and dry. No rashes. Not diaphoretic. HEENT: Pupils are equal, round, and reactive to light and accommodation. Conjunctive is pink. There is no JVP. CARDIOVASCULAR: Heart is regular without murmur or rub. CHEST: Clear to auscultation. ABDOMEN: Soft, nontender, nondistended. BACK: No CVA tenderness. EXTREMITIES: No clubbing, cyanosis. Trace bilateral extremity edema. PSYCHIATRIC: Appropriate affect, pleasant mood. DISCHARGE PLANNIN. The patient is advised to follow with her primary care provider within 1 to 2 weeks per hospital followup. 2. The patient is to followup with her oncologist, Dr. Olya Schafer within 1 week for hospital followup. 3. The patient is to followup with her global chief experience officer, Dr. Caballero within 1 to 2 weeks for hospital followup. Time spent on this discharge including assessment and plan, physical examination, patient education and speciality collaboration is 25 minutes. DICTATING PHYSICIAN: ABDI JOSE NP [id number] PHY#: [id number] ID: [id number] JOB#: [id number] ACCT: [id number] cc:GREGORY ALONSO M.D. ABDI JOSE NP > MTDD
== END 2016-12-19 15:15 | disposition home or self-care (01) | DRG 291 ==
LOC: ER 14:34 → EH 21:05 → UNDOADMIN 21:05 → EH 21:54 → INTOOBSV 21:54 → 5 12-17 01:58 → OBSVTOIN 12-17 07:22
PROVIDERS: ADMIT Family Medicine; ATTEND Family Medicine
DX: I13.0 Hypertensive heart and chronic kidney disease with heart failure and stage 1 through stage 4 chronic kidney disease, or unspecified chronic kidney disease (principal); I50.31 Acute diastolic (congestive) heart failure; D61.810 Antineoplastic chemotherapy induced pancytopenia; C90.00 Multiple myeloma not having achieved remission; N18.3 Chronic kidney disease, stage 3 (moderate); E03.9 Hypothyroidism, unspecified; E87.6 Hypokalemia; R73.03 Prediabetes; D64.9 Anemia, unspecified; E78.5 Hyperlipidemia, unspecified; D69.6 Thrombocytopenia, unspecified; I25.10 Atherosclerotic heart disease of native coronary artery without angina pectoris; F41.1 Generalized anxiety disorder; Z60.2 Problems related to living alone; Z79.82 Long term (current) use of aspirin; Z79.899 Other long term (current) drug therapy; Z92.21 Personal history of antineoplastic chemotherapy
CPT/HCPCS: 36415; 71020; 80048; 80053; 80061; 81001; 82550; 82553; 82803; 82962; 83690; 83735; 83880; 84439; 84443; 84484; 85025; 93005; 93010; 93306; 99291; G0378; J0360; J1940; J3490

== ENCOUNTER → 2017-01-07 | Outpatient (CLI) | payer MEDICARE, OTHER ==
[2017-01-07 08:59] LABS: HEMATOCRIT 36.5 % (36.0-47.0); HEMOGLOBIN 11.6 g/dL (12.0-15.5); HGB HCT DIFFERENCE -1.7; MEAN CORPUSCULAR HEMOGLOBIN 28.1 pg (27.0-33.4); MEAN CORPUSCULAR HGB CONC 31.7 g/dL (32.0-36.0); MEAN CORPUSCULAR VOLUME 89 fl (80-97); RED BLOOD COUNT 4.12 10^6/uL (3.72-5.28); RED CELL DISTRIBUTION WIDTH 19.2 % (11.5-14.0)
[2017-01-07 09:10] LABS: APPEARANCE,URINE CLEAR; BILIRUBIN,URINE NEGATIVE (NEGATIVE); GLUCOSE, URINE NEGATIVE (NEGATIVE); KETONES,URINE NEGATIVE (NEGATIVE); PROTEIN,URINE 100 mg/dL (NEGATIVE); URINE SPECIFIC GRAVITY 1.009; UROBILINOGEN,URINE NEGATIVE mg/dL (<2.0)
[2017-01-07 09:11] LABS: BACTERIA,URINE TRACE /HPF; LEUKOCYTE ESTERASE,URINE NEGATIVE (NEGATIVE); NITRITE,URINE NEGATIVE (NEGATIVE); RBC,URINE NONE SEEN /HPF
[2017-01-07 09:28] LABS: ANION GAP 11 (5-19); BLOOD UREA NITROGEN 21 mg/dL (7-20); CALCIUM 8.9 mg/dL (8.4-10.2); CARBON DIOXIDE 18 mmol/L (22-30); CHLORIDE 116 mmol/L (98-107); CREATININE RESULT 1.79 mg/dL (0.52-1.25); GLUCOSE 91 mg/dL (75-110); SODIUM 144.5 mmol/L (137-145)
== END ==
LOC: OD 07:51
PROVIDERS: ATTEND Internal Medicine Nephrology
DX: N18.3 Chronic kidney disease, stage 3 (moderate) (principal); I50.9 Heart failure, unspecified; R80.9 Proteinuria, unspecified
CPT/HCPCS: 36415; 80048; 81001; 85027

== ENCOUNTER → 2017-01-25 | Outpatient (CLI) | payer MEDICARE, OTHER ==
--- NOTE | 2017-01-25 13:09 | RADIOLOGY REPORT (SQ) ---
EXAM DESCRIPTION: CHEST PA/LAT COMPLETED DATE/TIME: 01/25/2017 1:01 pm REASON FOR STUDY: CONGESTION COMPARISON: Skeletal survey 09/24/2016 Two-view chest 12/16/2016 EXAM PARAMETERS: NUMBER OF VIEWS: two views TECHNIQUE: Digital Frontal and Lateral radiographic views of the chest acquired. RADIATION DOSE: NA LIMITATIONS: none FINDINGS: LUNGS AND PLEURA: No opacities, masses or pneumothorax. No pleural effusion. MEDIASTINUM AND HILAR STRUCTURES: No masses or contour abnormalities. HEART AND VASCULAR STRUCTURES: Moderate cardiomegaly, stable BONES: Lytic lesions in the left proximal humerus, right proximal humerus, bilateral clavicles and sc apulae. Known multiple myeloma HARDWARE: None in the chest. OTHER: No other significant finding. IMPRESSION: No acute infiltrates. Stable cardiomegaly Lytic lesions from known myeloma TECHNICAL DOCUMENTATION: JOB ID: [id number]- All Rights Reserved
== END ==
LOC: RAD 12:40
PROVIDERS: ATTEND Specialist
DX: C90.00 Multiple myeloma not having achieved remission (principal); R06.02 Shortness of breath; R09.89 Other specified symptoms and signs involving the circulatory and respiratory systems
CPT/HCPCS: 71020

== ENCOUNTER → 2017-03-15 | Outpatient (CLI) | payer MEDICARE, OTHER ==
[2017-03-15 11:39] LABS: HEMOGLOBIN 10.3 g/dL (12.0-15.5); HGB HCT DIFFERENCE -0.1; MEAN CORPUSCULAR HEMOGLOBIN 28.2 pg (27.0-33.4); MEAN CORPUSCULAR HGB CONC 33.2 g/dL (32.0-36.0); MEAN CORPUSCULAR VOLUME 85 fl (80-97); RED BLOOD COUNT 3.65 10^6/uL (3.72-5.28); WHITE BLOOD COUNT 8.3 10^3/uL (4.0-10.5)
[2017-03-15 12:20] LABS: ANION GAP 12 (5-19); BLOOD UREA NITROGEN 33 mg/dL (7-20); CALCIUM 9.4 mg/dL (8.4-10.2); CARBON DIOXIDE 21 mmol/L (22-30); CHLORIDE 108 mmol/L (98-107); CREATININE RESULT 1.55 mg/dL (0.52-1.25); GLUCOSE 177 mg/dL (75-110); POTASSIUM 4.8 mmol/L (3.6-5.0); SODIUM 141.3 mmol/L (137-145)
== END ==
LOC: OD 09:48
PROVIDERS: ATTEND Internal Medicine Nephrology
DX: N18.3 Chronic kidney disease, stage 3 (moderate) (principal); I50.9 Heart failure, unspecified; R80.9 Proteinuria, unspecified; E11.9 Type 2 diabetes mellitus without complications
CPT/HCPCS: 36415; 80048; 85027

== ENCOUNTER 2017-04-17 14:36 | Emergency (ER) | payer MEDICARE, OTHER ==
[2017-04-17] MEDS ORDERED: METOCLOPRAMIDE HCL 10 MG TABLET PO ONE (15:03)
--- NOTE | 2017-04-17 15:03 | ER Document Report ---
ED Medical Screen (RME) - General Chief Complaint: Abdominal Pain Stated Complaint: NO ENERGY Time Seen by Provider: 04/17/17 14:59 TRAVEL OUTSIDE OF THE [place] IN LAST 30 DAYS: No - HPI Notes: 04/17/17 15:01 Patient sees for multiple myeloma took last chemotherapy pill Tuesday has not had an appetite has had nausea vomiting no weight loss - Related Data Allergies/Adverse Reactions: No Known Allergies Allergy (Verified 12/16/16 14:36) Past Medical History - Past Medical History Cardiac Medical History: Reports: Hx Coronary Artery Disease, Hx Hypercholesterolemia, Hx Hypertension Denies: Hx Congestive Heart Failure, Hx DVT, Hx Heart Attack, Hx Pulmonary Embolism Pulmonary Medical History: Denies: Hx Asthma, Hx COPD, Hx Sleep Apnea Neurological Medical History: Denies: Hx Cerebrovascular Accident, Hx Seizures Endocrine Medical History: Reports: Hx Diabetes Mellitus Type 2 - prediabetic, Hx Hypothyroidism. Denies: Hx Diabetes Mellitus Type 1, Hx Hyperthyroidism Renal/ Medical History: Denies: Hx Peritoneal Dialysis GI Medical History: Reports: Hx Gastroesophageal Reflux Disease. Denies: Hx Cirrhosis, Hx Hepatitis, Hx Hiatal Hernia, Hx Ulcer Psychiatric Medical History: Reports: Hx Depression Infectious Medical History: Denies: Hx C-Diff, Hx Hepatitis, Hx MRSA Past Surgical History: Reports: Hx Cardiac Catheterization - 2011, Hx Hysterectomy. Denies: Hx Mastectomy, Hx Open Heart Surgery, Hx Pacemaker - Immunizations Immunizations up to date: Yes Hx Diphtheria, Pertussis, Tetanus Vaccination: No Review of Systems - Review of Systems Gastrointestinal: Abdominal pain Physical Exam - Vital signs Vitals: Temp Pulse Resp BP Pulse Ox 99 F 76 18 121/57 L 100 04/17/17 14:47 04/17/17 14:47 04/17/17 14:47 04/17/17 14:47 04/17/17 14:47 - Respiratory Respiratory status: No respiratory distress Chest status: Nontender Breath sounds: Normal Chest palpation: Normal Course - Vital Signs Vital signs: Temp Pulse Resp BP Pulse Ox 99 F 76 18 121/57 L 100 04/17/17 14:47 04/17/17 14:47 04/17/17 14:47 04/17/17 14:47 04/17/17 14:47
[2017-04-17 15:33] LABS: APPEARANCE,URINE CLEAR; BILIRUBIN,URINE NEGATIVE (NEGATIVE); GLUCOSE, URINE NEGATIVE (NEGATIVE); KETONES,URINE NEGATIVE (NEGATIVE); LEUKOCYTE ESTERASE,URINE TRACE (NEGATIVE); NITRITE,URINE NEGATIVE (NEGATIVE); PROTEIN,URINE NEGATIVE (NEGATIVE); URINE SPECIFIC GRAVITY 1.006; UROBILINOGEN,URINE NEGATIVE mg/dL (<2.0)
--- NOTE | 2017-04-17 15:58 | ER Document Report ---
ED General - General Mode of Arrival: Ambulatory Information source: Patient TRAVEL OUTSIDE OF THE [place] IN LAST 30 DAYS: No - HPI Onset: Other - see narrative Similar symptoms previously: Yes Recently seen / treated by doctor: Yes <SAMANTHA PRESTON - Last Filed: 04/17/17 23:54> <SHANTELLE LAWRENCE - Last Filed: 04/18/17 00:06> - General Chief Complaint: Abdominal Pain Stated Complaint: LETHARGIC Time Seen by Provider: 04/17/17 14:59 Notes: Patient is a 67-year-old female who presents to the emergency department today with complaints of "feeling terrible". Patient goes on to say that she feels bloated, has had a lack of appetite, diffuse rash, and vomiting/diarrhea. Patient is being treated for multiple myeloma with velcade shots by Dr. Durham and she states that she had a rash after her velcade shot two weeks ago which subsided after benadryl. Patient is on 40mg of Lasix in the morning and 20mg of Lasix at night. Patient has hydroxyzine at home but she states she is not taking it because she "takes too many medications". Patient states she vomited once today. Patient denies any chest or abdominal pain. (SAMANTHA PRESTON) - Related Data Allergies/Adverse Reactions: No Known Allergies Allergy (Verified 12/16/16 14:36) Past Medical History - General Information source: Patient - Social History Smoking Status: Never Smoker Cigarette use (# per day): No Chew tobacco use (# tins/day): No Frequency of alcohol use: Rare Drug Abuse: None Lives with: Family Family History: Reviewed & Not Pertinent, Hypertension - Past Medical History Cardiac Medical History: Reports: Hx Coronary Artery Disease, Hx Hypercholesterolemia, Hx Hypertension Endocrine Medical History: Reports: Hx Diabetes Mellitus Type 2 - prediabetic, Hx Hypothyroidism Malignancy Medical History: Reports: Other - multiple myeloma GI Medical History: Reports: Hx Gastroesophageal Reflux Disease Psychiatric Medical History: Reports: Hx Depression Past Surgical History: Reports: Hx Cardiac Catheterization - 2011, Hx Hysterectomy - Immunizations Immunizations up to date: Yes Hx Diphtheria, Pertussis, Tetanus Vaccination: No <SAMANTHA PRESTON - Last Filed: 04/17/17 23:54> Review of Systems - Review of Systems Constitutional: See HPI, Other - no appetite EENT: No symptoms reported Cardiovascular: No symptoms reported Respiratory: No symptoms reported Gastrointestinal: See HPI, Diarrhea, Vomiting, Other - "feels bloated" Genitourinary: No symptoms reported Female Genitourinary: No symptoms reported Musculoskeletal: No symptoms reported Skin: No symptoms reported Hematologic/Lymphatic: No symptoms reported Neurological/Psychological: No symptoms reported -: Yes All other systems reviewed and negative <SAMANTHA PRESTON - Last Filed: 04/17/17 23:54> Physical Exam <SAMANTHA PRESTON - Last Filed: 04/17/17 23:54> <SHANTELLE LAWRENCE - Last Filed: 04/18/17 00:06> - Vital signs Vitals: Temp Pulse Resp BP Pulse Ox 99 F 76 18 121/57 L 100 04/17/17 14:47 04/17/17 14:47 04/17/17 14:47 04/17/17 14:47 04/17/17 14:47 - Notes Notes: PHYSICAL EXAM GENERAL: Alert, interacts well. No acute distress. HEAD: Normocephalic, atraumatic. EYES: Pupils equal, round, and reactive to light. Extraocular movements intact. ENT: Oral mucosa moist, tongue midline. NECK: Full range of motion. Supple. Trachea midline. LUNGS: Clear to auscultation bilaterally, no wheezes, rales, or rhonchi. No respiratory distress. Appears moderately short of breath, somewhat tachypneic. HEART: Regular rate and rhythm. No murmurs, gallops, or rubs. ABDOMEN: Soft, non-tender. Non-distended. Bowel sounds present in all 4 quadrants. EXTREMITIES: Moves all 4 extremities spontaneously. Trace edema to bilateral lower extremities, radial and dorsalis pedis pulses 2/4 bilaterally. No cyanosis. NEUROLOGICAL: Alert and oriented x3. Normal speech. PSYCH: Normal affect, normal mood. SKIN: Warm, dry, normal turgor. Diffuse, raised, hyperpigmented rash with no excoriations or erythema. (SAMANTHA PRESTON) Course - Laboratory Result Diagrams: 04/17/17 15:50 04/17/17 15:20 <SAMANTHA PRESTON - Last Filed: 04/17/17 23:54> - Laboratory Result Diagrams: 04/17/17 15:50 04/17/17 15:20 <SHANTELLE LAWRENCE - Last Filed: 04/18/17 00:06> - Re-evaluation Re-evalutation: 04/17/17 19:43 CBC shows anemia with hemoglobin 11.3, coags normal, CMP shows dehydration with a CO2 of 17, patient will be hydrated with a liter of normal saline, chronic renal failure with BUN of 25 and creatinine 1.9, this is relatively stable, cardiac enzymes negative, proBNP normal, lipase normal, urinalysis has trace leukocyte esterase, 14 WBCs, suspect contamination, this will be sent for culture. Chest x-ray shows no acute process, there are stable lytic lesions from her known multiple myeloma. EKG is nonischemic. Patient's itching did self resolve, Reglan did not improve her appetite. All of the symptoms that she is having could be caused from the Velcade that she is taking. I did discuss the patient with Dr. Giraldo, he agrees with hydrating the patient, continuing hydroxyzine at home and following up as an outpatient. ( SHANTELLE LAWRENCE) - Vital Signs Vital signs: Temp Pulse Resp BP Pulse Ox 98.9 F 69 16 133/59 H 99 04/17/17 20:59 04/17/17 20:59 04/17/17 20:59 04/17/17 20:59 04/17/17 20:59 - Laboratory Laboratory results interpreted by me: 04/17/17 04/17/17 04/17/17 15:07 15:20 15:50 Hgb 11.3 L Hct 33.8 L RDW 21.4 H Plt Count 71 L Band Neutrophils % 1 L Eosinophils % (Manual) 26 H Absolute Eos (Manual) 1.2 H Chloride 111 H Carbon Dioxide 17 L BUN 25 H Creatinine 1.90 H Est GFR ( Amer) 32 L Est GFR (Non-Af Amer) 26 L Total Protein 5.9 L Ur Leukocyte Esterase TRACE H - EKG Interpretation by Me Additional EKG results interpreted by me: 04/17/17 19:43 EKG shows sinus rhythm at a rate of 62, left axis deviation, normal intervals, no ST segment elevations or depressions, no T-wave inversions per my interpretation. (SHANTELLE LAWRENCE) Discharge <SAMANTHA PRESTON - Last Filed: 04/17/17 23:54> <SHANTELLE LAWRENCE - Last Filed: 04/18/17 00:06> - Discharge Clinical Impression: CKD (chronic kidney disease), stage III, Dehydration, Anorexia HTN (hypertension) Qualifiers: Hypertension type: essential hypertension Qualified Code(s): I10 - Essential ( primary) hypertension Multiple myeloma Qualifiers: Multiple myeloma remission status: not in remission Qualified Code(s): C90.00 - Multiple myeloma not having achieved remission Condition: Stable Disposition: HOME, SELF-CARE Additional Instructions: Please use the hydroxyzine as directed on the bottle for itching. Please make sure you are eating at least several small meals a day. You do not have to eat large meals but she should snack frequently to ensure you are having adequate oral intake. Please come back if you have chest pain, difficulty breathing, vomiting, abdominal pain or any new or concerning symptoms. Please keep your follow-up appointment with Dr. Durham on Tuesday. Referrals: ALEX DURHAM MD [ACTIVE STAFF] - 04/22/17 Scribe Attestation: 04/18/17 00:06 I personally performed the services described in the documentation, reviewed and edited the documentation which was dictated to the scribe in my presence, and it accurately records my words and actions. (SHANTELLE LAWRENCE) Scribe Documentation - Scribe Written by Azra:: Azra Watters, 04/17/2017 1701 acting as scribe for :: Chucho <SAMANTHA PRESTON - Last Filed: 04/17/17 23:54>
[2017-04-17 16:08] LABS: ALANINE AMINOTRANSFERASE 41 U/L (9-52); ALBUMIN 3.6 g/dL (3.5-5.0); ALKALINE PHOSPHATASE 100 U/L (38-126); ANION GAP 13 (5-19); ASPARTATE AMINO TRANSFERASE 16 U/L (14-36); BILIRUBIN,DIRECT 0.4 mg/dL (0.0-0.4); BILIRUBIN,TOTAL 0.5 mg/dL (0.2-1.3); BLOOD UREA NITROGEN 25 mg/dL (7-20); CALCIUM 8.7 mg/dL (8.4-10.2); CARBON DIOXIDE 17 mmol/L (22-30); CHLORIDE 111 mmol/L (98-107); GLUCOSE 91 mg/dL (75-110); LIPASE 84.9 U/L (23-300); MAGNESIUM 1.9 mg/dL (1.6-2.3); POTASSIUM 4.7 mmol/L (3.6-5.0); SODIUM 140.5 mmol/L (137-145); TOTAL PROTEIN 5.9 g/dL (6.3-8.2)
[2017-04-17 16:12] LABS: HEMATOCRIT 33.8 % (36.0-47.0); HEMOGLOBIN 11.3 g/dL (12.0-15.5); HGB HCT DIFFERENCE 0.1; MEAN CORPUSCULAR HEMOGLOBIN 29.5 pg (27.0-33.4); MEAN CORPUSCULAR HGB CONC 33.5 g/dL (32.0-36.0); MEAN CORPUSCULAR VOLUME 88 fl (80-97); RED BLOOD COUNT 3.83 10^6/uL (3.72-5.28); RED CELL DISTRIBUTION WIDTH 21.4 % (11.5-14.0); WHITE BLOOD COUNT 4.8 10^3/uL (4.0-10.5)
[2017-04-17 16:13] LABS: PROTHROMBIN TIME 13.9 SEC (11.4-15.4)
--- NOTE | 2017-04-17 16:26 | RADIOLOGY REPORT (SQ) ---
EXAM DESCRIPTION: CHEST PA/LAT COMPLETED DATE/TIME: 04/17/2017 4:15 pm REASON FOR STUDY: tachpnea, appears SOB COMPARISON: 03/27/2017 EXAM PARAMETERS: NUMBER OF VIEWS: two views TECHNIQUE: Digital Frontal and Lateral radiographic views of the chest acquired. RADIATION DOSE: NA LIMITATIONS: none FINDINGS: LUNGS AND PLEURA: No opacities, masses or pneumothorax. No pleural effusion. MEDIASTINUM AND HILAR STRUCTURES: No masses or contour abnormalities. HEART AND VASCULAR STRUCTURES: Cardiac size is stable. BONES: Lytic lesions noted in the left humerus, right humerus, clavicles, and scapula, from known mi table myeloma. No acute osseous abnormality identified pre HARDWARE: None in the chest. OTHER: No other significant finding. IMPRESSION: No acute cardiopulmonary disease. Stable bony findings and cardiomegaly. TECHNICAL DOCUMENTATION: JOB ID: [id number] [employer]- All Rights Reserved
[2017-04-17 16:28] LABS: BAND NEUTROPHILS % (MANUAL) 1 % (3-5); BASOPHILS % (MANUAL) 0 % (0-2); LYMPHOCYTES % (MANUAL) 14 % (13-45); TOTAL CELLS COUNTED 100
[2017-04-17 16:29] LABS: EOSINOPHILS % (MANUAL) 26 % (0-6)
[2017-04-17 16:31] LABS: BURR CELLS 1+; OVALOCYTES 1+; POIKILOCYTOSIS 2+
[2017-04-17 16:32] LABS: ANISOCYTOSIS 2+
[2017-04-17 16:35] LABS: CREATINE KINASE MB 0.31 ng/mL (<4.55)
[2017-04-17 16:36] LABS: TROPONIN I < 0.012 ng/mL
[2017-04-17] MEDS ORDERED: HYDROXYZINE PAMOATE 50 MG CAPSULE PO ONE (18:46)
[2017-04-17] MEDS ORDERED: NORMAL SALINE 500 ML IV ONE (19:14)
[2017-04-17] MEDS ORDERED: NORMAL SALINE 1000 ML 1,000 ML IV ONE (19:40)
[2017-04-17 21:07] VITALS: BP 133/59
--- NOTE | 2017-04-17 23:33 | EKG REPORT ---
SEVERITY:- NORMAL ECG - SINUS RHYTHM : Confirmed by: Patricio Jerez 17-Apr-2017 23:31:59
== END 2017-04-17 21:11 | disposition home or self-care (01) ==
LOC: ER 14:36
DX: C90.00 Multiple myeloma not having achieved remission (principal); F50.89 Other specified eating disorder; E86.0 Dehydration; N18.3 Chronic kidney disease, stage 3 (moderate); R10.9 Unspecified abdominal pain; R53.83 Other fatigue; I10 Essential (primary) hypertension
CPT/HCPCS: 93005; 99284; 96360; 36415; 82553; 82550; 83690; 83735; 85025; 85610; 80053; 81001; 84484; 83880; 71020; 93010; A9270 ×2; J7030

== ENCOUNTER 2017-04-21 12:42 | Inpatient (IN) | payer MEDICARE, OTHER ==
[2017-04-21] MEDS ORDERED: ONDANSETRON HCL INJ/PF 4 MG/2 ML SDV IV ONE ×2 (13:09→19:20)
[2017-04-21] MEDS ORDERED: NORMAL SALINE 1000 ML 1,000 ML IV ONE (13:09)
--- NOTE | 2017-04-21 13:11 | ER Document Report ---
ED Medical Screen (RME) - General Chief Complaint: Abdominal Pain Stated Complaint: ABDOMINAL PAIN Time Seen by Provider: 04/21/17 13:08 Notes: Patient is sent from Dr. Durham's office. Patient reports severe nausea lightheadedness dizziness as well as abdominal pain. Dr. Mckeon reports the patient had a fever to 101 and an abnormal gallbladder ultrasound this morning. Patient has a history of multiple myeloma. In addition he joshua some labs and states that her platelets were 37 today. TRAVEL OUTSIDE OF THE [place] IN LAST 30 DAYS: No - Related Data Allergies/Adverse Reactions: No Known Allergies Allergy (Verified 12/16/16 14:36) Past Medical History - Past Medical History Cardiac Medical History: Reports: Hx Coronary Artery Disease, Hx Hypercholesterolemia, Hx Hypertension Denies: Hx Congestive Heart Failure, Hx DVT, Hx Heart Attack, Hx Pulmonary Embolism Pulmonary Medical History: Denies: Hx Asthma, Hx COPD, Hx Sleep Apnea Neurological Medical History: Denies: Hx Cerebrovascular Accident, Hx Seizures Endocrine Medical History: Reports: Hx Diabetes Mellitus Type 2 - prediabetic, Hx Hypothyroidism. Denies: Hx Diabetes Mellitus Type 1, Hx Hyperthyroidism Renal/ Medical History: Denies: Hx Peritoneal Dialysis GI Medical History: Reports: Hx Gastroesophageal Reflux Disease. Denies: Hx Cirrhosis, Hx Hepatitis, Hx Hiatal Hernia, Hx Ulcer Psychiatric Medical History: Reports: Hx Depression Infectious Medical History: Denies: Hx C-Diff, Hx Hepatitis, Hx MRSA Past Surgical History: Reports: Hx Cardiac Catheterization - 2011, Hx Hysterectomy. Denies: Hx Mastectomy, Hx Open Heart Surgery, Hx Pacemaker - Immunizations Immunizations up to date: Yes Hx Diphtheria, Pertussis, Tetanus Vaccination: No Physical Exam - Vital signs Vitals: Temp Pulse Resp BP Pulse Ox 98.9 F 93 20 80/60 L 97 04/21/17 12:52 04/21/17 12:52 04/21/17 12:52 04/21/17 12:52 04/21/17 12:52 Course - Vital Signs Vital signs: Temp Pulse Resp BP Pulse Ox 98.9 F 93 20 80/60 L 97 04/21/17 12:52 04/21/17 12:52 04/21/17 12:52 04/21/17 12:52 04/21/17 12:52
[2017-04-21 14:58] LABS: HEMATOCRIT 34.2 % (36.0-47.0); HEMOGLOBIN 11.4 g/dL (12.0-15.5); MEAN CORPUSCULAR HEMOGLOBIN 29.4 pg (27.0-33.4); MEAN CORPUSCULAR HGB CONC 33.2 g/dL (32.0-36.0); MEAN CORPUSCULAR VOLUME 88 fl (80-97); RED BLOOD COUNT 3.87 10^6/uL (3.72-5.28); RED CELL DISTRIBUTION WIDTH 20.5 % (11.5-14.0); WHITE BLOOD COUNT 5.7 10^3/uL (4.0-10.5)
[2017-04-21] MEDS ORDERED: FENTANYL CITRATE INJ/PF 100 MCG/2 ML AMPUL IV ONE (14:59)
[2017-04-21 15:09] LABS: ALANINE AMINOTRANSFERASE 29 U/L (9-52); ALBUMIN 2.9 g/dL (3.5-5.0); ALKALINE PHOSPHATASE 116 U/L (38-126); ANION GAP 10 (5-19); ASPARTATE AMINO TRANSFERASE 14 U/L (14-36); BILIRUBIN,DIRECT 0.4 mg/dL (0.0-0.4); BILIRUBIN,TOTAL 0.7 mg/dL (0.2-1.3); BLOOD UREA NITROGEN 19 mg/dL (7-20); CALCIUM 7.9 mg/dL (8.4-10.2); CARBON DIOXIDE 14 mmol/L (22-30); CHLORIDE 107 mmol/L (98-107); CREATININE RESULT 2.81 mg/dL (0.52-1.25); GLUCOSE 85 mg/dL (75-110); POTASSIUM 4.4 mmol/L (3.6-5.0); SODIUM 131.1 mmol/L (137-145)
[2017-04-21 15:18] LABS: VENOUS BLOOD BASE EXCESS -10.5 mmol/L; VENOUS BLOOD HCO3 14.7 mmol/L (20-32); VENOUS BLOOD PCO2 31.1 mmHg (35-63); VENOUS BLOOD PH 7.29 (7.30-7.42)
[2017-04-21] MEDS ORDERED: NORMAL SALINE 1000 ML 1,000 ML IV PRN ×2 (15:18→20:14)
[2017-04-21 15:32] LABS: BAND NEUTROPHILS % (MANUAL) 2 % (3-5); BASOPHILS % (MANUAL) 0 % (0-2); EOSINOPHILS % (MANUAL) 32 % (0-6); LYMPHOCYTES % (MANUAL) 8 % (13-45); POLYCHROMASIA SLIGHT; TOTAL CELLS COUNTED 100; TOXIC GRANULATION SLIGHT
[2017-04-21 15:33] LABS: ANISOCYTOSIS 2+; BURR CELLS SLIGHT; HYPOCHROMASIA SLIGHT; OVALOCYTES 1+; POIKILOCYTOSIS 1+; SCHISTOCYTES SLIGHT
--- NOTE | 2017-04-21 15:43 | ER Document Report ---
ED GI/ - General Chief Complaint: Abdominal Pain Stated Complaint: ABDOMINAL PAIN Time Seen by Provider: 04/21/17 13:08 Mode of Arrival: Ambulatory Information source: Patient TRAVEL OUTSIDE OF THE [place] IN LAST 30 DAYS: No - HPI Patient complains to provider of: Abdominal pain, Diarrhea, Vomiting Onset: Other - 2 weeks Timing/Duration: Persistent, Worse Quality of pain: Achy, Sharp Severity at maximum: Moderate Severity in ED: Moderate Pain Level: 3 Associated symptoms: Diarrhea, Fever, Nausea, Vomiting Notes: 04/21/17 15:40 Patient is a 67-year-old female presenting from Dr. Durham's office complaining of abdominal pain with nausea vomiting diarrhea and fever that have been going on over the past 2 weeks and worsening, she is also had decreased urine output today, patient has a history of multiple myeloma is currently on Revlimid and dexamethasone, she had an outpatient ultrasound performed today which showed gallstones, platelets were also shown to be 37 today, patient is hypotensive on arrival to the emergency room 04/21/17 20:08 - Related Data Allergies/Adverse Reactions: No Known Allergies Allergy (Verified 04/21/17 17:05) Home Medications: Current Home Medications Amlodipine Besylate [Norvasc 10 mg Tablet] 10 mg PO DAILY 04/21/17 [History] Atorvastatin Calcium [Lipitor 20 mg Tablet] 20 mg PO DAILY 04/21/17 [History] Ferrous Sulfate [Feosol 325 mg Tablet] 325 mg PO BID 04/21/17 [History] Furosemide [Lasix 40 mg Tablet] 40 mg PO DAILY@1400 04/21/17 [History] Furosemide [Lasix 40 mg Tablet] 40 mg PO QAM 04/21/17 [History] Levothyroxine Sodium [Synthroid] 100 mcg PO DAILY 04/21/17 [History] Lisinopril [Prinivil 5 mg Tablet] 5 mg PO QHS 04/21/17 [History] Metoprolol Tartrate [Lopressor 50 mg Tablet] 50 mg PO Q12 04/21/17 [History] Potassium Chloride [Klor-Con 10 Meq Tablet.sa] 10 meq PO Q12 04/21/17 [History] Past Medical History - General Information source: Patient - Social History Smoking Status: Never Smoker Family History: Hypertension Patient has suicidal ideation: No Patient has homicidal ideation: No - Past Medical History Cardiac Medical History: Reports: Hx Coronary Artery Disease, Hx Hypercholesterolemia, Hx Hypertension Denies: Hx Congestive Heart Failure, Hx DVT, Hx Heart Attack, Hx Pulmonary Embolism Pulmonary Medical History: Denies: Hx Asthma, Hx COPD, Hx Sleep Apnea Neurological Medical History: Denies: Hx Cerebrovascular Accident, Hx Seizures Endocrine Medical History: Reports: Hx Diabetes Mellitus Type 2 - prediabetic, Hx Hypothyroidism. Denies: Hx Diabetes Mellitus Type 1, Hx Hyperthyroidism Renal/ Medical History: Denies: Hx Peritoneal Dialysis GI Medical History: Reports: Hx Gastroesophageal Reflux Disease. Denies: Hx Cirrhosis, Hx Hepatitis, Hx Hiatal Hernia, Hx Ulcer Psychiatric Medical History: Reports: Hx Depression Infectious Medical History: Denies: Hx C-Diff, Hx Hepatitis, Hx MRSA Past Surgical History: Reports: Hx Cardiac Catheterization - 2011, Hx Hysterectomy. Denies: Hx Mastectomy, Hx Open Heart Surgery, Hx Pacemaker - Immunizations Immunizations up to date: Yes Hx Diphtheria, Pertussis, Tetanus Vaccination: No Review of Systems - Review of Systems Constitutional: See HPI EENT: No symptoms reported Cardiovascular: No symptoms reported Respiratory: No symptoms reported Gastrointestinal: See HPI Genitourinary: See HPI Female Genitourinary: No symptoms reported Musculoskeletal: No symptoms reported Skin: No symptoms reported Hematologic/Lymphatic: No symptoms reported Neurological/Psychological: No symptoms reported -: Yes All other systems reviewed and negative Physical Exam - Vital signs Vitals: Temp Pulse Resp BP Pulse Ox 98.9 F 93 20 80/60 L 97 04/21/17 12:52 04/21/17 12:52 04/21/17 12:52 04/21/17 12:52 04/21/17 12:52 Interpretation: Hypotensive - General General appearance: Alert In distress: Mild - HEENT Head: Normocephalic, Atraumatic Eyes: Normal Conjunctiva: Normal Extraocular movements intact: Yes Eyelashes: Normal Pupils: PERRL Mucous membranes: Dry Pharynx: Normal Neck: Normal - Respiratory Respiratory status: No respiratory distress Chest status: Nontender Breath sounds: Normal Chest palpation: Normal - Cardiovascular Rhythm: Regular Heart sounds: Normal auscultation Murmur: No - Abdominal Inspection: Normal Distension: No distension Bowel sounds: Normal Tenderness: Tender - Right upper quadrant, epigastric tenderness Organomegaly: No organomegaly - Back Back: Normal, Nontender - Extremities General upper extremity: Normal inspection, Nontender, Normal color, Normal ROM , Normal temperature General lower extremity: Normal inspection, Nontender, Normal color, Normal ROM , Normal temperature, Normal weight bearing. No: Raleigh's sign - Neurological Neuro grossly intact: Yes Cognition: Normal Orientation: AAOx4 April Coma Scale Eye Opening: Spontaneous Weikert Coma Scale Verbal: Oriented April Coma Scale Motor: Obeys Commands April Coma Scale Total: 15 Speech: Normal Motor strength normal: LUE, RUE, LLE, RLE Sensory: Normal - Psychological Associated symptoms: Normal affect, Normal mood - Skin Skin Temperature: Hot Skin Moisture: Dry Course - Re-evaluation Re-evalutation: 04/21/17 22:29 Patient discussed with hospitalist, Dr. Lovett who agrees to admit for further evaluation and treatment - Vital Signs Vital signs: Temp Pulse Resp BP Pulse Ox 99.7 F 93 20 120/55 L 100 04/21/17 20:55 04/21/17 12:52 04/21/17 20:53 04/21/17 20:53 04/21/17 20:53 - Laboratory Result Diagrams: 04/21/17 14:23 04/21/17 18:54 Laboratory results interpreted by me: 04/21/17 04/21/17 04/21/17 14:23 14:23 14:23 Hgb 11.4 L Hct 34.2 L RDW 20.5 H Plt Count 47 L Band Neutrophils % 2 L Lymphocytes % (Manual) 8 L Eosinophils % (Manual) 32 H Absolute Eos (Manual) 1.8 H VBG pH VBG pCO2 VBG HCO3 Sodium 131.1 L Carbon Dioxide 14 L BUN Creatinine 2.81 H Est GFR ( Amer) 20 L Est GFR (Non-Af Amer) 17 L Lactic Acid 2.3 H Calcium 7.9 L Magnesium Total Protein 5.0 L Albumin 2.9 L 04/21/17 04/21/17 04/21/17 14:59 18:54 18:54 Hgb Hct RDW Plt Count Band Neutrophils % Lymphocytes % (Manual) Eosinophils % (Manual) Absolute Eos (Manual) VBG pH 7.29 L VBG pCO2 31.1 L VBG HCO3 14.7 L Sodium Carbon Dioxide BUN Creatinine Est GFR ( Amer) Est GFR (Non-Af Amer) Lactic Acid 2.6 H Calcium Magnesium 1.3 L Total Protein Albumin 04/21/17 18:54 Hgb Hct RDW Plt Count Band Neutrophils % Lymphocytes % (Manual) Eosinophils % (Manual) Absolute Eos (Manual) VBG pH VBG pCO2 VBG HCO3 Sodium 132.9 L Carbon Dioxide 14 L BUN 21 H Creatinine 2.81 H Est GFR ( Amer) 20 L Est GFR (Non-Af Amer) 17 L Lactic Acid Calcium 7.3 L Magnesium Total Protein Albumin - Diagnostic Test Radiology reviewed: Image reviewed, Reports reviewed - Consults Dr Loaiza Time consulted: 16:00 Reason for consultation: 04/21/17 16:00 RUQ pain Consulted provider: will come to ER Discharge - Discharge Clinical Impression: Dehydration Acute renal failure (ARF) Qualifiers: Acute renal failure type: unspecified Qualified Code(s): N17.9 - Acute kidney failure, unspecified Nausea & vomiting Qualifiers: Vomiting type: unspecified Vomiting Intractability: non-intractable Qualified Code(s): R11.2 - Nausea with vomiting, unspecified Condition: Fair Disposition: ADMITTED INPATIENT Admitting Provider: Hospitalist Unit Admitted: [facility]
[2017-04-21] MEDS ORDERED: ERTAPENEM SODIUM INJ 1 GM VIAL IV ONE (16:43)
--- NOTE | 2017-04-21 17:18 | RADIOLOGY REPORT (SQ) ---
EXAM DESCRIPTION: CHEST PA/LAT COMPLETED DATE/TIME: 04/21/2017 5:02 pm REASON FOR STUDY: fever COMPARISON: None. EXAM PARAMETERS: NUMBER OF VIEWS: two views TECHNIQUE: Digital Frontal and Lateral radiographic views of the chest acquired. RADIATION DOSE: NA LIMITATIONS: none FINDINGS: LUNGS AND PLEURA: No opacities, masses or pneumothorax. No pleural effusion. MEDIASTINUM AND HILAR STRUCTURES: No masses or contour abnormalities. HEART AND VASCULAR STRUCTURES: Heart normal size. No evidence for failure. BONES: Stable lytic lesions in the shoulders and clavicles from known multiple myeloma. HARDWARE: None in the chest. OTHER: No other significant finding. IMPRESSION: 1. No acute cardiopulmonary disease. 2. Stable lytic bone lesions. TECHNICAL DOCUMENTATION: JOB ID: [id number] [employer]- All Rights Reserved
--- NOTE | 2017-04-21 19:55 | RADIOLOGY REPORT (SQ) ---
EXAM DESCRIPTION: CT ABD/PELVIS ORAL ONLY COMPLETED DATE/TIME: 04/21/2017 7:40 pm REASON FOR STUDY: sepsis COMPARISON: None. TECHNIQUE: CT scan of the abdomen and pelvis performed with oral contrast and no intravenous contras t. Images reviewed with lung, soft tissue, and bone windows. Reconstructed coronal and sagittal MPR i mages reviewed. All images stored on PACS. All CT scanners at this facility use dose modulation, iterative reconstruction, and/or weight based d osing when appropriate to reduce radiation dose to as low as reasonably achievable (ALARA). [facility]: Dose Right [facility]: CareDose [facility]: Dose Right [facility]: Teradose 4D [facility]: [employer] Technologies RADIATION DOSE: Up-to-date CT equipment and radiation dose reduction techniques were employed. CTDIv ol: 10.1 mGy. DLP: 506 mGy-cm. mGy. LIMITATIONS: None. FINDINGS: LOWER CHEST: No significant findings. No nodules or infiltrates. NON-CONTRASTED LIVER, SPLEEN, ADRENALS: Evaluation limited by lack of IV contrast. No identified sign ificant masses. PANCREAS: No masses. No peripancreatic inflammatory changes. GALLBLADDER: Gallstones. No pericholecystic fluid. RIGHT KIDNEY AND URETER: No suspicious masses. Assessment limited by lack of IV contrast. No signif icant calcifications. No hydronephrosis or hydroureter. LEFT KIDNEY AND URETER: No suspicious masses. Assessment limited by lack of IV contrast. No signifi cant calcifications. No hydronephrosis or hydroureter. AORTA AND RETROPERITONEUM: No aneurysm. No retroperitoneal masses or adenopathy. BOWEL AND PERITONEAL CAVITY: No obvious masses or inflammatory changes. No free fluid. APPENDIX: Normal. PELVIS, BLADDER, AND ABDOMINAL WALL: No abnormal pelvic masses. No abdominal wall hernias. Bladder un remarkable. Enlarged groin nodes. BONES: Extensive lytic lesions throughout the bony skeleton. Known multiple myeloma. Chronic L4 com pression fracture. Age indeterminate compression fractures of S1 and T10. OTHER: No other significant finding. IMPRESSION: Enlarged groin nodes. Extensive bony changes of multiple myeloma. TECHNICAL DOCUMENTATION: JOB ID: [id number] Quality ID # [id number]: Final reports with documentation of one or more dose reduction techniques (e.g., Au tomated exposure control, adjustment of the mA and/or kV according to patient size, use of iterative reconstruction technique) 2010 [email or web address]- All Rights Reserved
[2017-04-21] MEDS ORDERED: METOCLOPRAMIDE HCL INJ/PF 10 MG/2 ML SDV IV ONE (20:14)
[2017-04-21 20:52] LABS: ADD ON TESTING BLD IN LAB ACKNOWLEDGE
--- NOTE | 2017-04-21 20:52 | PDOC CONSULTATION ---
History of Present Illness Admission Date/PCP: BROOK KRISHNA MD Patient complains of: Generalized malaise and abdominal discomfort History of Present Illness: KATHY SCHAFER is a 67 year old female with history of multiple myeloma on chemotherapy who has not been feeling well for several weeks with generalized malaise and epigastric abdominal discomfort along with early satiety and frequent postprandial nausea and vomiting. Patient denies any abdominal pain per se. She denies any right upper quadrant abdominal pain. She has been having occasional loose bowel movements about 2-3 times a day but no mucus and no blood per rectum. She has no history of alcohol abuse no history of NSAID abuse. She has had no prior abdominal surgeries other than hysterectomy in the remote past. She has had some subjective fever for the last 2 or 3 days. No history of jaundice Past Medical History Cardiac Medical History: Reports: Coronary Artery Disease, Hyperlipidema, Hypertension Denies: Congestive Heart Failure, DVT, Myocardial Infarction, Pulmonary Embolism Pulmonary Medical History: Denies: Asthma, Chronic Obstructive Pulmonary Disease (COPD), Sleep Apnea Neurological Medical History: Denies: Seizures Endocrine Medical History: Reports: Diabetes Mellitus Type 2 - prediabetic, Hypothyroidism Denies: Diabetes Mellitus Type 1, Hyperthyroidism Malignancy Medical History: Reports: Other - Multiple myeloma GI Medical History: Reports: Gastroesophageal Reflux Disease Denies: Cirrhosis, Hepatitis, Hiatal Hernia Psychiatric Medical History: Reports: Depression Hematology: Reports: Anemia Denies: Sickle Cell Disease Infectious Medical History: Denies: Clostridium Difficile, Methicillin-Resistant Staph Aureus Past Surgical History Past Surgical History: Reports: Cardiac Catheterization - 2011, Hysterectomy Denies: Amputation, Mastectomy, Pacemaker Social History Smoking Status: Never Smoker Frequency of Alcohol Use: None Drugs: None Family History Family History: Hypertension Parental Family History Reviewed: No Children Family History Reviewed: No Sibling(s) Family History Reviewed.: No Medication/Allergy Allergies/Adverse Reactions: No Known Allergies Allergy (Verified 04/21/17 17:05) Physical Exam Vital Signs: Temp Pulse Resp BP Pulse Ox 98.9 F 93 20 80/60 L 97 04/21/17 12:52 04/21/17 12:52 04/21/17 12:52 04/21/17 12:52 04/21/17 12:52 Intake & Output 04/20/17 04/21/17 04/22/17 06:59 06:59 06:59 Weight 85.9 kg General appearance: PRESENT: cooperative, disheveled, other - Ill-appearing but nontoxic Eye exam: PRESENT: conjunctiva pink Neck exam: PRESENT: other - Supple Respiratory exam: PRESENT: clear to auscultation mary grace Cardiovascular exam: PRESENT: RRR GI/Abdominal exam: PRESENT: other - Soft, nondistended, very minimal epigastric abdominal discomfort with deep palpation. No right upper quadrant abdominal tenderness. No Merino sign. Extremities exam: PRESENT: other - No tenderness Neurological exam: PRESENT: awake, oriented to situation Psychiatric exam: PRESENT: appropriate affect Skin exam: PRESENT: warm Results Laboratory Results: 04/21/17 14:23 04/21/17 14:23 04/21/17 04/21/17 04/21/17 14:23 14:23 14:23 WBC 5.7 RBC 3.87 Hgb 11.4 L Hct 34.2 L MCV 88 MCH 29.4 MCHC 33.2 RDW 20.5 H Plt Count 47 L Seg Neutrophils % Not Reportable Lymphocytes % Not Reportable Monocytes % Not Reportable Eosinophils % Not Reportable Basophils % Not Reportable Absolute Neutrophils Not Reportable Absolute Lymphocytes Not Reportable Absolute Monocytes Not Reportable Absolute Eosinophils Not Reportable Absolute Basophils Not Reportable VBG pH VBG pCO2 VBG HCO3 VBG Base Excess Sodium 131.1 L Potassium 4.4 Chloride 107 Carbon Dioxide 14 L Anion Gap 10 BUN 19 Creatinine 2.81 H Est GFR ( Amer) 20 L Est GFR (Non-Af Amer) 17 L Glucose 85 Lactic Acid 2.3 H Calcium 7.9 L Total Bilirubin 0.7 AST 14 ALT 29 Alkaline Phosphatase 116 Total Protein 5.0 L Albumin 2.9 L Lipase 04/21/17 04/21/17 04/21/17 14:23 14:23 14:59 WBC RBC Hgb Hct MCV MCH MCHC RDW Plt Count Seg Neutrophils % Lymphocytes % Monocytes % Eosinophils % Basophils % Absolute Neutrophils Absolute Lymphocytes Absolute Monocytes Absolute Eosinophils Absolute Basophils VBG pH Cancelled 7.29 L VBG pCO2 Cancelled 31.1 L VBG HCO3 Cancelled 14.7 L VBG Base Excess Cancelled -10.5 Sodium Potassium Chloride Carbon Dioxide Anion Gap BUN Creatinine Est GFR ( Amer) Est GFR (Non-Af Amer) Glucose Lactic Acid Calcium Total Bilirubin AST ALT Alkaline Phosphatase Total Protein Albumin Lipase 29.8 Assessment & Plan - Diagnosis (1) Anorexia Is this a current diagnosis for this admission?: Yes Plan: Patient was generalized malaise possible sepsis of unclear etiology. Patient does have evidence of layering sludge of gallstones but no gallbladder wall thickening and no pericholecystic fluid and no tenderness in the right upper quadrant with deep palpation. I am extremely skeptical of the "sonographic Merino sign". In the absence of right upper quadrant abdominal pain and the absence of no right upper quadrant abdominal tenderness, I do not think her gallbladder is the source of her possible sepsis. CT of the abdomen and pelvis was unremarkable other than gallstones and bony lytic lesions consistent with her multiple myeloma. There is no evidence of cholecystitis by CT scan. Recommend admission to the medical service for possible sepsis of an unknown etiology. Surgical service will follow along. Will obtain a HIDA study to exclude cholecystitis. If she does have cholecystitis, she will need platelet infusion followed by cholecystostomy tube. With her severe thrombocytopenia I do not think cholecystectomy would be giordano.
[2017-04-21 21:00] LABS: ANION GAP 13 (5-19); BLOOD UREA NITROGEN 21 mg/dL (7-20); CALCIUM 7.3 mg/dL (8.4-10.2); CARBON DIOXIDE 14 mmol/L (22-30); CHLORIDE 106 mmol/L (98-107); CREATININE RESULT 2.81 mg/dL (0.52-1.25); GLUCOSE 99 mg/dL (75-110); MAGNESIUM 1.3 mg/dL (1.6-2.3); POTASSIUM 4.7 mmol/L (3.6-5.0); SODIUM 132.9 mmol/L (137-145)
[2017-04-21] MEDS ORDERED: PHARMACY COMMUNICATION ORDER MC SCH (21:30)
[2017-04-21] MEDS ORDERED: VANCOMYCIN HCL 0 MG in DEXTROSE 5%-WATER 250 ML IV NR (21:30)
[2017-04-21] MEDS ORDERED: DEXTROSE 40% GEL 15 GM TUBE PO PRN ×2 (21:31)
[2017-04-21] MEDS ORDERED: GLUCAGON,HUMAN RECOMB 1 MG INJ IM PRN (21:31)
[2017-04-21] MEDS ORDERED: INSULIN LISPRO 100 UNIT/ML 3 ML VIAL SUBCUT PRN (21:31)
[2017-04-21] MEDS ORDERED: DEXTROSE 50%-WATER 25 GM/50 ML DISP.SYRIN IV PRN ×2 (21:31)
[2017-04-21] MEDS ORDERED: PROMETHAZINE HCL 25 MG TABLET PO PRN (21:42)
[2017-04-21 22:03] LABS: ARTERIAL BLOOD BASE EXCESS -10.1 mmol/L; ARTERIAL BLOOD O2 SATURATION 97.3 % (94-98)
--- NOTE | 2017-04-21 22:07 | PDOC H&P ---
History of Present Illness Admission Date/PCP: 04/21/17 20:25 MD Herminio PHAM Patient complains of: Nausea vomiting and diarrhea, generalized weakness History of Present Illness: KATHY SCHAFER is a 67 year old female with history of multiple myeloma on chemo therapy who has not been feeling well for several weeks with generalized malaise and epigastric abdominal discomfort along with early satiety and frequent postprandial nausea and vomiting. Patient denies any abdominal pain per se. She denies any right upper quadrant abdominal pain. She has been having occasional loose bowel movements about 2-3 times a day but no mucus and no blood per rectum. She has no history of alcohol abuse no history of NSAID abuse. She has had no prior abdominal surgeries other than hysterectomy in the remote past. She has had some subjective fever for the last 2 or 3 days. No history of jaundice.. Sent from her oncologist office today for evaluation of above primary complaints. Patient has been discussed with emergency room physician who evaluated the patient. Describes several episodes of day of nonbloody vomiting and diarrhea over the past 2 weeks. 2 episodes of vomiting today; 3 diarrhea. Fever [address] Durham's office. Has been having more abdominal bloating and discomfort than pain per se. Last episode of chemotherapy was Tuesday last week. Has been on weekly regimen of this since either October or November of this year. Briefly hypotensive upon arrival in the emergency room; blood pressures have responded nicely to a liter of normal saline given by oncologist, along with 2 L in the emergency room. Primary complaint at the present time is just feeling "weak all over." Prior to my seeing the patient, patient had been seen and evaluated by on-call general surgeon, who Does not see need for surgical intervention at this point in time. Consult note reviewed. Hospitalized on our service the through 19 December of this year with final diagnoses including acute diastolic congestive heart failure, along with multiple other diagnoses. History and physical and discharge summary have been reviewed. Dictation via voice recognition software. Laboratory results are listed in [employer] and are reviewed. X-ray summary results are listed below, with full report(s) reviewed. . Social history/personal habits: . Lives alone. No alcohol use for 2-3 years. No tobacco or illicit drug use. Has children. No known drug allergies. Home medications initially autopopulated into [employer] may not accurately reflect patient's true medications, dosages, and/or frequencies. technical business analyst has reconciled medications. REVIEW OF SYSTEMS: Constitutional: See history and present illness. Eyes: Reading glasses. ENT: No swallowing problems or complaints. Denies hearing loss. Pulmonary: No current complaints. Cardiovascular: No current complaints, including chest pain. Gastrointestinal: See history and present illness. Skin: No current complaints, including rashes. Hematologic: Denies easy bruising. Neurologic: No current complaints, including numbness or tingling. Musculoskeletal: No current or chronic joint complaints, such as arthritis. Psychiatric: Mild anxiety and depression. Denies suicidal or homicidal ideation. Endocrine: No current complaints, including polyuria. Genitourinary: No current complaints, including dysuria. PHYSICAL EXAMINATION: Daughter Jacque Barahona is present at her side, with patient's approval. 5 feet 6 inches tall. 85.9 kg. BMI 30.6 kg/m. Blood pressure 120/55. Temperature 99.7. Pulse 98 and regular. 100% saturation on room air. Respirations are 14 and unlabored. Slightly overweight otherwise well-nourished well-developed -[place] female appearing a bit younger than her stated age. Appears not to feel very well. Intermittent mild shaking chills. Appears rather fatigued. Maintaining airway well. Alert and cooperative. Skin is warm and dry. No grossly obvious evidence of rash in areas of skin examined. No subcutaneous nodules palpated. ENT: Hearing grossly normal to normal conversation. Tongue midline on protrusion pink and slightly tacky. Eyes: No scleral icterus. Pupils equal and reactive to light at 4 mm. [place] conjunctivae. Neck is supple and nontender to gentle active range of motion and palpation. Midline trachea. No palpable thyroid nodule mass enlargement or tenderness. Lymphatic: No palpable cervical or clavicular nodes. Neck and lymphatic exams limited by patient body habitus. Psychiatric: Reasonable insight into acute and chronic medical issues. Oriented to time location and why here. Lungs: Auscultation reveals clear and equal breath sounds bilaterally. No use of accessory respiratory muscles. Cardiovascular: Heart regular rate and rhythm, without gallop murmur or rub. No carotid or abdominal aortic bruits. No ankle or pedal edema. Palpable dorsalis pedis pulses. Abdomen:soft slightly distended nontender with positive bowel sounds. Unable to adequately evaluate abdomen for masses or organomegaly due to distention. Extremities: Feet are warm and dry. No calf tenderness to compression. No grossly obvious visual evidence of calf swelling. Gentle manipulation of lower extremities fails to reveal any obvious evidence of injury or instability to knees hips or ankles. Neurologic: Moves from a standing to seated to supine position without undue difficulty. Moves upper extremities grossly normally. Patellar reflexes absent. Absent Babinski. Light touch is intact at feet. Dorsiflexion and plantarflexion of feet 5 / 5 and symmetric. Past Medical History Cardiac Medical History: Reports: Coronary Artery Disease, Hyperlipidema, Hypertension Denies: Congestive Heart Failure, DVT, Myocardial Infarction, Pulmonary Embolism Pulmonary Medical History: Denies: Asthma, Chronic Obstructive Pulmonary Disease (COPD), Sleep Apnea EENT Medical History: Reports: Eyes - Glasses Denies: Ears, Throat Neurological Medical History: Denies: Hemorrhagic CVA, Ischemic CVA, Seizures Endocrine Medical History: Reports: Diabetes Mellitus Type 2 - prediabetic, Hypothyroidism Denies: Diabetes Mellitus Type 1, Hyperthyroidism Renal/ Medical History: Reports: Chronic Kidney Disease Malignancy Medical History: Reports: Other - Multiple myeloma GI Medical History: Reports: Gastroesophageal Reflux Disease Denies: Cirrhosis, Hepatitis, Hiatal Hernia, Peptic Ulcer Disease Skin Medical History: Reports: None Psychiatric Medical History: Reports: Depression, General Anxiety Disorder Denies: Alcohol Dependency, Substance Abuse, Tobacco Dependency Hematology: Reports: Anemia Denies: Sickle Cell Disease Infectious Medical History: Denies: Clostridium Difficile, Hepatitis B, Hepatitis C, Methicillin- Resistant Staph Aureus Past Surgical History Past Surgical History: Reports: Cardiac Catheterization - 2012, Hysterectomy Denies: Amputation, Mastectomy, Pacemaker Social History Information Source: Patient, Emergency Med Personnel, [facility] Records Lives with: Alone Smoking Status: Never Smoker Frequency of Alcohol Use: None Drugs: None - Advance Directive Resuscitation Status: Full Code Surrogate healthcare decision maker:: Daughter Jacque Family History Family History: Hypertension Parental Family History Reviewed: Yes - Father alive and healthy. Mother of Alzheimer's dementia. Children Family History Reviewed: Yes - Healthy Sibling(s) Family History Reviewed.: Yes - Healthy Medication/Allergy Home Medications: Amlodipine Besylate [Norvasc 10 mg Tablet] 10 mg PO DAILY 04/21/17 Atorvastatin Calcium [Lipitor 20 mg Tablet] 20 mg PO DAILY 04/21/17 Ferrous Sulfate [Feosol 325 mg Tablet] 325 mg PO BID 04/21/17 Furosemide [Lasix 40 mg Tablet] 40 mg PO DAILY@1400 04/21/17 Furosemide [Lasix 40 mg Tablet] 40 mg PO QAM 04/21/17 Levothyroxine Sodium [Synthroid] 100 mcg PO DAILY 04/21/17 Lisinopril [Prinivil 5 mg Tablet] 5 mg PO QHS 04/21/17 Metoprolol Tartrate [Lopressor 50 mg Tablet] 50 mg PO Q12 04/21/17 Potassium Chloride [Klor-Con 10 Meq Tablet.sa] 10 meq PO Q12 04/21/17 Allergies/Adverse Reactions: No Known Allergies Allergy (Verified 04/21/17 17:05) Physical Exam Vital Signs: Temp Pulse Resp BP Pulse Ox 99.7 F 93 20 120/55 L 100 04/21/17 20:55 04/21/17 12:52 04/21/17 20:53 04/21/17 20:53 04/21/17 20:53 Results Impressions: Abdomen/Pelvis CT 04/21/17 00:00 IMPRESSION: Enlarged groin nodes. Extensive bony changes of multiple myeloma. Chest X-Ray 04/21/17 00:00 IMPRESSION: 1. No acute cardiopulmonary disease. 2. Stable lytic bone lesions. Assessment & Plan - Diagnosis (1) Acidosis, metabolic Is this a current diagnosis for this admission?: Yes Plan: Suspect due to an element of dehydration. IV fluids. Follow-up blood gas and chemistry. (2) Acute worsening of stage 3 chronic kidney disease Is this a current diagnosis for this admission?: Yes Plan: As above. (3) Fever and chills Is this a current diagnosis for this admission?: Yes Plan: No obvious source of infection at this point in time. Blood and urine cultures. Discussed with Dr. Durham; will proceed with ertapenem and vancomycin. Pharmacy to assist with dosing of each. (4) General weakness Is this a current diagnosis for this admission?: Yes Plan: Strongly encourage patient not to get out of bed without notifying staff to avoid a fall with injury. (5) Hypomagnesemia Is this a current diagnosis for this admission?: Yes Plan: Magnesium supplement with follow-up level. (6) Nausea vomiting and diarrhea Is this a current diagnosis for this admission?: Yes Plan: Stool negative for C. difficile. We will also send sample for culture and sensitivity. As needed Phenergan. Ice chips only. IV fluids. Knee high SCDs for DVT prophylaxis; with thrombocytopenia, will forego Lovenox or heparin at this point in time. Impression and plans were discussed with daughter and patient, both of whom concur. Time spent in evaluation and management of patient: 80 minutes. (7) Immunosuppressed due to chemotherapy Is this a current diagnosis for this admission?: Yes Plan: Oncology consult; discussed with Dr. Durham, who will see patient in consultation. (8) Diastolic CHF Qualifiers: Congestive heart failure chronicity: chronic Qualified Code(s): I50.32 - Chronic diastolic (congestive) heart failure Is this a current diagnosis for this admission?: No (9) Thrombocytopenia Is this a current diagnosis for this admission?: Yes Plan: Per Dr. Durham, no need for platelet transfusion at this point in time. CBC with differential. Transfuse as needed. (10) Anemia Qualifiers: Anemia type: unspecified type Qualified Code(s): D64.9 - Anemia, unspecified Is this a current diagnosis for this admission?: Yes Plan: Follow-up CBC with differential. No need for transfusion at present time. (11) HLD (hyperlipidemia) Qualifiers: Hyperlipidemia type: unspecified Qualified Code(s): E78.5 - Hyperlipidemia , unspecified Is this a current diagnosis for this admission?: Yes Plan: Resume home medications as appropriate once these have been determined and reviewed. (12) HTN (hypertension) Qualifiers: Hypertension type: essential hypertension Qualified Code(s): I10 - Essential (primary) hypertension Is this a current diagnosis for this admission?: Yes Plan: Resume home medications as appropriate once these have been determined and reviewed. (13) Hypothyroid Qualifiers: Hypothyroidism type: unspecified Qualified Code(s): E03.9 - Hypothyroidism , unspecified Is this a current diagnosis for this admission?: Yes Plan: TSH level. Resume home medications as appropriate once these have been determined and reviewed. (14) Multiple myeloma Qualifiers: Multiple myeloma remission status: not in remission Qualified Code(s): C90.00 - Multiple myeloma not having achieved remission Is this a current diagnosis for this admission?: Yes (15) Pre-diabetes Is this a current diagnosis for this admission?: Yes Plan: Ice chips only at this point in time. Accu-Cheks with appropriate sliding scale coverage. Resume home medications as appropriate once these have been determined and reviewed. - Time Time Spent: Greater than 70 Minutes Medications reviewed and adjusted accordingly: Yes Anticipated discharge: Home Within: Other - Inpatient Certification Based on my medical assessment, after consideration of the patient's comorbidities, presenting symptoms, or acuity I expect that the services needed warrant INPATIENT care.: Yes I certify that my determination is in accordance with my understanding of Medicare's requirements for reasonable and necessary INPATIENT services [42 CFR 412.3e].: Yes Medical Necessity: Significant Comorbidiites Make Outpatient Treatment Too Risky , Need Close Monitoring Due to Risk of Patient Decompensation, Need For IV Fluids, Risk of Complication if Not Cared For in Hospital Post Hospital Care: D/C or Transfer Summary
[2017-04-21] MEDS: ACETAMINOPHEN 325 MG TABLET PO PRN (23:01)
[2017-04-21] MEDS: METOPROLOL TARTRATE 50 MG TABLET PO SCH (23:02)
[2017-04-21] MEDS: NORMAL SALINE 1000 ML 1,000 ML IV PRN (23:07)
[2017-04-21] MEDS: MAGNESIUM SULFATE/D5W 1 GM/100 ML RTUPB IV SCH (23:13)
[2017-04-21] MEDS ORDERED: VANCOMYCIN HCL INJ 1000 MG VIAL IV PRN (23:16)
[2017-04-21] MEDS ORDERED: VANCOMYCIN HCL INJ 500 MG VIAL IV PRN (23:17)
[2017-04-22] MEDS: MAGNESIUM SULFATE/D5W 1 GM/100 ML RTUPB IV SCH ×2 (00:37→02:02)
[2017-04-22] MEDS ORDERED: VANCOMYCIN HCL 1,500 MG in DEXTROSE 5%-WATER 250 ML IV ONE (01:00)
[2017-04-22 01:07] LABS: ANION GAP 11 (5-19); BLOOD UREA NITROGEN 22 mg/dL (7-20); CARBON DIOXIDE 12 mmol/L (22-30); CHLORIDE 109 mmol/L (98-107); CREATININE RESULT 2.75 mg/dL (0.52-1.25); GLUCOSE 105 mg/dL (75-110); POTASSIUM 4.3 mmol/L (3.6-5.0); SODIUM 132.3 mmol/L (137-145)
[2017-04-22 01:23] LABS: CALCIUM 6.7 mg/dL (8.4-10.2)
[2017-04-22] MEDS ORDERED: VANCOMYCIN HCL INJ 1000 MG VIAL ONE (02:12)
[2017-04-22] MEDS ORDERED: VANCOMYCIN HCL INJ 500 MG VIAL ONE (02:12)
[2017-04-22] MEDS ORDERED: ERTAPENEM SODIUM INJ 1 GM VIAL ONE (02:12)
[2017-04-22 03:37] LABS: ADD ON TESTING BLD IN LAB ACKNOWLEDGE
[2017-04-22 07:46] LABS: HEMATOCRIT 29.9 % (36.0-47.0); HEMOGLOBIN 10.2 g/dL (12.0-15.5); HGB HCT DIFFERENCE 0.7; MEAN CORPUSCULAR HEMOGLOBIN 29.8 pg (27.0-33.4); MEAN CORPUSCULAR VOLUME 88 fl (80-97); RED BLOOD COUNT 3.41 10^6/uL (3.72-5.28); RED CELL DISTRIBUTION WIDTH 20.3 % (11.5-14.0); WHITE BLOOD COUNT 6.6 10^3/uL (4.0-10.5)
[2017-04-22 08:01] LABS: ANION GAP 10 (5-19); BLOOD UREA NITROGEN 22 mg/dL (7-20); CARBON DIOXIDE 15 mmol/L (22-30); CHLORIDE 107 mmol/L (98-107); CREATININE RESULT 2.76 mg/dL (0.52-1.25); GLUCOSE 104 mg/dL (75-110); MAGNESIUM 2.1 mg/dL (1.6-2.3); POTASSIUM 4.5 mmol/L (3.6-5.0); SODIUM 131.6 mmol/L (137-145)
[2017-04-22 08:14] LABS: CALCIUM 6.6 mg/dL (8.4-10.2)
[2017-04-22 08:26] LABS: BAND NEUTROPHILS % (MANUAL) 8 % (3-5); BASOPHILS % (MANUAL) 0 % (0-2); EOSINOPHILS % (MANUAL) 33 % (0-6); LYMPHOCYTES % (MANUAL) 7 % (13-45); TOTAL CELLS COUNTED 100
[2017-04-22 08:29] LABS: ANISOCYTOSIS 2+; BURR CELLS SLIGHT; OVALOCYTES 2+; POIKILOCYTOSIS 2+; TOXIC GRANULATION SLIGHT; TOXIC VACUOLATION PRESENT
[2017-04-22 08:50] LABS: APPEARANCE,URINE CLOUDY; BILIRUBIN,URINE NEGATIVE (NEGATIVE); GLUCOSE, URINE NEGATIVE (NEGATIVE); KETONES,URINE NEGATIVE (NEGATIVE); LEUKOCYTE ESTERASE,URINE SMALL (NEGATIVE); NITRITE,URINE NEGATIVE (NEGATIVE); PROTEIN,URINE 30 mg/dL (NEGATIVE); UROBILINOGEN,URINE NEGATIVE mg/dL (<2.0)
--- NOTE | 2017-04-22 09:16 | PDOC CONSULTATION ---
Consultation Consult Date: 04/22/17 Attending physician:: GREGORY ALONSO Consult reason:: Known multiple myeloma, here with abdominal pain, intractable nausea and vomiting History of Present Illness Admission Date/PCP: 04/21/17 21:35 BROOK KRISHNA MD Patient complains of: Intractable nausea vomiting abdominal pain History of Present Illness: 67-year-old female with known history of multiple myeloma, recently has been on RVD chemotherapy, last week she saw she was beginning to have some abdominal pain and nausea, we felt like it was the Revlimid causing it so we stopped that , she did receive a dose of Velcade, this week when she came for the Velcade dose she had had several days of nausea and vomiting and looked weaker, we held the Velcade dose and give her several days in a row of IV fluids as well as antiemetics. When she came yesterday to her office for continued IV hydration, she still looked even weaker, she had a fever of 101, she was hypotensive. We decided to send her to the ED. In the ED she had signs and symptoms of sepsis. She has been on broad-spectrum antibiotics through the night. Of note yesterday we did a gallbladder ultrasound there were gallbladder stones but no stranding of the gallbladder, but there was a positive Merino sign sonographically. She was seen by general surgery, they were not convinced that this is a gallbladder issue so they ordered a CT of the abdomen pelvis, this was largely negative other than known bony metastasis. Past Medical History Cardiac Medical History: Reports: Coronary Artery Disease, Hyperlipidema, Hypertension Denies: Congestive Heart Failure, DVT, Myocardial Infarction, Pulmonary Embolism Pulmonary Medical History: Denies: Asthma, Chronic Obstructive Pulmonary Disease (COPD), Sleep Apnea Neurological Medical History: Denies: Seizures Endocrine Medical History: Reports: Diabetes Mellitus Type 2 - prediabetic, Hypothyroidism Denies: Diabetes Mellitus Type 1, Hyperthyroidism Malignancy Medical History: Reports: Other - Multiple myeloma GI Medical History: Reports: Gastroesophageal Reflux Disease Denies: Cirrhosis, Hepatitis, Hiatal Hernia Psychiatric Medical History: Reports: Depression Hematology: Reports: Anemia Denies: Sickle Cell Disease Infectious Medical History: Denies: Clostridium Difficile, Methicillin-Resistant Staph Aureus Past Surgical History Past Surgical History: Reports: Cardiac Catheterization - 2012, Hysterectomy Denies: Amputation, Mastectomy, Pacemaker Social History Lives with: Alone Smoking Status: Never Smoker Frequency of Alcohol Use: None Hx Recreational Drug Use: No Drugs: None Hx Prescription Drug Abuse: No - Advance Directive Resuscitation Status: Full Code Family History Family History: Hypertension Parental Family History Reviewed: Yes Children Family History Reviewed: Yes Sibling(s) Family History Reviewed.: Yes Medication/Allergy Home Medications: Amlodipine Besylate [Norvasc 10 mg Tablet] 10 mg PO DAILY 04/21/17 Atorvastatin Calcium [Lipitor 20 mg Tablet] 20 mg PO DAILY 04/21/17 Ferrous Sulfate [Feosol 325 mg Tablet] 325 mg PO BID 04/21/17 Furosemide [Lasix 40 mg Tablet] 40 mg PO DAILY@1400 04/21/17 Furosemide [Lasix 40 mg Tablet] 40 mg PO QAM 04/21/17 Levothyroxine Sodium [Synthroid] 100 mcg PO DAILY 04/21/17 Lisinopril [Prinivil 5 mg Tablet] 5 mg PO QHS 04/21/17 Metoprolol Tartrate [Lopressor 50 mg Tablet] 50 mg PO Q12 04/21/17 Potassium Chloride [Klor-Con 10 Meq Tablet.sa] 10 meq PO Q12 04/21/17 Allergies/Adverse Reactions: No Known Allergies Allergy (Verified 04/21/17 17:05) Review of Systems Constitutional: PRESENT: anorexia, chills, fatigue, fever(s), weakness Cardiovascular: PRESENT: as per HPI Gastrointestinal: PRESENT: abdominal pain, nausea, vomiting Neurological: ABSENT: abnormal gait, abnormal speech, confusion, dizziness, focal weakness, syncope Physical Exam Vital Signs: Temp Pulse Resp BP Pulse Ox 99.5 F 77 18 120/41 L 97 04/22/17 07:28 04/22/17 07:28 04/22/17 07:28 04/22/17 07:28 04/22/17 07:28 Intake & Output 04/21/17 04/22/17 04/23/17 06:59 06:59 06:59 Intake Total 550 Output Total 0 Balance 550 Weight 92.6 kg General appearance: PRESENT: no acute distress, well-developed, well-nourished Head exam: PRESENT: atraumatic, normocephalic Eye exam: PRESENT: conjunctiva pink, EOMI, PERRLA. ABSENT: scleral icterus Ear exam: PRESENT: normal external ear exam Mouth exam: PRESENT: moist, tongue midline Neck exam: ABSENT: carotid bruit, JVD, lymphadenopathy, thyromegaly Respiratory exam: PRESENT: clear to auscultation mary grace. ABSENT: rales, rhonchi, wheezes Cardiovascular exam: PRESENT: RRR. ABSENT: diastolic murmur, rubs, systolic murmur Pulses: PRESENT: normal dorsalis pedis pul Vascular exam: PRESENT: normal capillary refill GI/Abdominal exam: PRESENT: normal bowel sounds, soft. ABSENT: distended, guarding, mass, organolmegaly, rebound, tenderness Rectal exam: PRESENT: deferred Extremities exam: PRESENT: full ROM. ABSENT: calf tenderness, clubbing, pedal edema Neurological exam: PRESENT: alert, awake, oriented to person, oriented to place , oriented to time, oriented to situation, CN II-XII grossly intact. ABSENT: motor sensory deficit Psychiatric exam: PRESENT: appropriate affect, normal mood. ABSENT: homicidal ideation, suicidal ideation Skin exam: PRESENT: dry, intact, warm. ABSENT: cyanosis, rash Results Laboratory Results: 04/22/17 07:25 04/22/17 07:25 04/21/17 04/22/17 04/22/17 21:49 00:20 00:20 WBC RBC Hgb Hct MCV MCH MCHC RDW Plt Count Seg Neutrophils % Lymphocytes % Monocytes % Eosinophils % Basophils % Absolute Neutrophils Absolute Lymphocytes Absolute Monocytes Absolute Eosinophils Absolute Basophils Carbonic Acid 0.63 L HCO3/H2CO3 Ratio 20:1 ABG pH 7.40 ABG pCO2 21.0 L ABG pO2 92.0 ABG HCO3 12.8 L ABG O2 Saturation 97.3 ABG Base Excess -10.1 FiO2 10 LPM Sodium 132.3 L Potassium 4.3 Chloride 109 H Carbon Dioxide 12 L Anion Gap 11 BUN 22 H Creatinine 2.75 H Est GFR ( Amer) 21 L Est GFR (Non-Af Amer) 17 L Glucose 105 Calcium 6.7 L* Magnesium Albumin 2.0 L Urine Color Urine Appearance Urine pH Ur Specific [place] Urine Protein Urine Glucose (UA) Urine Ketones Urine Blood Urine Nitrite Ur Leukocyte Esterase Urine WBC (Auto) Urine RBC (Auto) 04/22/17 04/22/17 04/22/17 07:25 07:25 08:25 WBC 6.6 RBC 3.41 L Hgb 10.2 L Hct 29.9 L MCV 88 MCH 29.8 MCHC 34.0 RDW 20.3 H Plt Count 38 L Seg Neutrophils % Not Reportable Lymphocytes % Not Reportable Monocytes % Not Reportable Eosinophils % Not Reportable Basophils % Not Reportable Absolute Neutrophils Not Reportable Absolute Lymphocytes Not Reportable Absolute Monocytes Not Reportable Absolute Eosinophils Not Reportable Absolute Basophils Not Reportable Carbonic Acid HCO3/H2CO3 Ratio ABG pH ABG pCO2 ABG pO2 ABG HCO3 ABG O2 Saturation ABG Base Excess FiO2 Sodium 131.6 L Potassium 4.5 Chloride 107 Carbon Dioxide 15 L Anion Gap 10 BUN 22 H Creatinine 2.76 H Est GFR ( Amer) 21 L Est GFR (Non-Af Amer) 17 L Glucose 104 Calcium 6.6 L* Magnesium 2.1 Albumin Urine Color YELLOW Urine Appearance CLOUDY Urine pH 5.0 Ur Specific [place] 1.020 Urine Protein 30 H Urine Glucose (UA) NEGATIVE Urine Ketones NEGATIVE Urine Blood MODERATE H Urine Nitrite NEGATIVE Ur Leukocyte Esterase SMALL H Urine WBC (Auto) 19 Urine RBC (Auto) 3 Impressions: Abdomen/Pelvis CT 04/21/17 00:00 IMPRESSION: Enlarged groin nodes. Extensive bony changes of multiple myeloma. Chest X-Ray 04/21/17 00:00 IMPRESSION: 1. No acute cardiopulmonary disease. 2. Stable lytic bone lesions. Status: Image reviewed by me Assessment & Plan - Diagnosis (1) Nausea vomiting and diarrhea Is this a current diagnosis for this admission?: Yes Plan: Unknown cause, initially I felt this might of been a cholecystitis but alk phos and other testing is normal, CT of the abdomen and pelvis does not show any acute findings, agree with continued hydration and supportive care per hospitalist team as well as surgical team. (2) Acute worsening of stage 3 chronic kidney disease Is this a current diagnosis for this admission?: Yes Plan: Likely secondary to dehydration, continue with continued aggressive hydration. (3) Multiple myeloma Qualifiers: Multiple myeloma remission status: not in remission Qualified Code(s): C90.00 - Multiple myeloma not having achieved remission Is this a current diagnosis for this admission?: Yes Plan: Improved considerably, continue with current inpatient supportive care, further treatment plan as an outpatient but she will be on a treatment hold until this is fully resolved. (4) Fever and chills Is this a current diagnosis for this admission?: Yes Plan: It does seem that some sort of acute infection is going on, do not know what the source is, continue with broad-spectrum antibiotics. - Time Time Spent: Greater than 70 Minutes Critical Time spent with patient: 35 or more minutes - Inpatient Certification Based on my medical assessment, after consideration of the patient's comorbidities, presenting symptoms, or acuity I expect that the services needed warrant INPATIENT care.: Yes I certify that my determination is in accordance with my understanding of Medicare's requirements for reasonable and necessary INPATIENT services [42 CFR 412.3e].: Yes Medical Necessity: Need For IV Fluids, Need For Continuous Telemetry Monitoring , Need for IV Antibiotics
[2017-04-22] MEDS: FERROUS SULFATE 325 MG TABLET PO SCH ×2 (09:24→17:15)
[2017-04-22] MEDS: METOPROLOL TARTRATE 50 MG TABLET PO SCH ×2 (09:24→21:21)
[2017-04-22] MEDS: LEVOTHYROXINE SODIUM 0.1 MG TABLET PO SCH (09:24)
[2017-04-22] MEDS ORDERED: AMLODIPINE BESYLATE 10 MG TABLET PO SCH (10:00)
[2017-04-22] MEDS ORDERED: ERTAPENEM SODIUM INJ 1 GM VIAL IV SCH (10:00)
[2017-04-22] MEDS: ERTAPENEM SODIUM 0.5 GM in NORMAL SALINE 50 ML IV SCH (10:02)
--- NOTE | 2017-04-22 11:25 | PDOC PROGRESS REPORT ---
Subjective Progress Note for:: 04/22/17 Subjective:: Patient feels generally weak. Patient having diarrhea still. No nausea or vomiting this time. No shortness of breath, dysuria urgency or frequency, but recently was on antibiotic. Clostridium difficile toxin however was negative. Physical Exam Vital Signs: Temp Pulse Resp BP Pulse Ox 99.5 F 77 18 120/41 L 97 04/22/17 07:28 04/22/17 07:28 04/22/17 07:28 04/22/17 07:28 04/22/17 07:28 Intake & Output 04/21/17 04/22/17 04/23/17 06:59 06:59 06:59 Intake Total 550 Output Total 0 Balance 550 Weight 92.6 kg General appearance: PRESENT: morbidly obese Head exam: PRESENT: normocephalic Eye exam: PRESENT: EOMI Mouth exam: PRESENT: dry mucosa, neck supple Neck exam: ABSENT: JVD Respiratory exam: PRESENT: clear to auscultation mary grace. ABSENT: rhonchi, wheezes Cardiovascular exam: PRESENT: RRR. ABSENT: gallop GI/Abdominal exam: PRESENT: hyperactive bowel sounds, soft, tenderness - Mild diffusely. ABSENT: distended Extremities exam: PRESENT: other - Trace pretibial edema Neurological exam: PRESENT: alert, awake, oriented to situation Skin exam: PRESENT: dry, warm. ABSENT: cyanosis Results Laboratory Results: 04/22/17 07:25 04/22/17 07:25 04/21/17 04/22/17 04/22/17 21:49 00:20 00:20 WBC RBC Hgb Hct MCV MCH MCHC RDW Plt Count Seg Neutrophils % Lymphocytes % Monocytes % Eosinophils % Basophils % Absolute Neutrophils Absolute Lymphocytes Absolute Monocytes Absolute Eosinophils Absolute Basophils Carbonic Acid 0.63 L HCO3/H2CO3 Ratio 20:1 ABG pH 7.40 ABG pCO2 21.0 L ABG pO2 92.0 ABG HCO3 12.8 L ABG O2 Saturation 97.3 ABG Base Excess -10.1 FiO2 10 LPM Sodium 132.3 L Potassium 4.3 Chloride 109 H Carbon Dioxide 12 L Anion Gap 11 BUN 22 H Creatinine 2.75 H Est GFR ( Amer) 21 L Est GFR (Non-Af Amer) 17 L Glucose 105 Calcium 6.7 L* Magnesium Albumin 2.0 L Urine Color Urine Appearance Urine pH Ur Specific [place] Urine Protein Urine Glucose (UA) Urine Ketones Urine Blood Urine Nitrite Ur Leukocyte Esterase Urine WBC (Auto) Urine RBC (Auto) 04/22/17 04/22/17 04/22/17 07:25 07:25 08:25 WBC 6.6 RBC 3.41 L Hgb 10.2 L Hct 29.9 L MCV 88 MCH 29.8 MCHC 34.0 RDW 20.3 H Plt Count 38 L Seg Neutrophils % Not Reportable Lymphocytes % Not Reportable Monocytes % Not Reportable Eosinophils % Not Reportable Basophils % Not Reportable Absolute Neutrophils Not Reportable Absolute Lymphocytes Not Reportable Absolute Monocytes Not Reportable Absolute Eosinophils Not Reportable Absolute Basophils Not Reportable Carbonic Acid HCO3/H2CO3 Ratio ABG pH ABG pCO2 ABG pO2 ABG HCO3 ABG O2 Saturation ABG Base Excess FiO2 Sodium 131.6 L Potassium 4.5 Chloride 107 Carbon Dioxide 15 L Anion Gap 10 BUN 22 H Creatinine 2.76 H Est GFR ( Amer) 21 L Est GFR (Non-Af Amer) 17 L Glucose 104 Calcium 6.6 L* Magnesium 2.1 Albumin Urine Color YELLOW Urine Appearance CLOUDY Urine pH 5.0 Ur Specific [place] 1.020 Urine Protein 30 H Urine Glucose (UA) NEGATIVE Urine Ketones NEGATIVE Urine Blood MODERATE H Urine Nitrite NEGATIVE Ur Leukocyte Esterase SMALL H Urine WBC (Auto) 19 Urine RBC (Auto) 3 Impressions: Abdomen/Pelvis CT 04/21/17 00:00 IMPRESSION: Enlarged groin nodes. Extensive bony changes of multiple myeloma. Chest X-Ray 04/21/17 00:00 IMPRESSION: 1. No acute cardiopulmonary disease. 2. Stable lytic bone lesions. Assessment & Plan - Diagnosis (1) Acute worsening of stage 3 chronic kidney disease Is this a current diagnosis for this admission?: Yes (2) Fever and chills Is this a current diagnosis for this admission?: Yes (3) General weakness Is this a current diagnosis for this admission?: Yes (4) Hypomagnesemia Is this a current diagnosis for this admission?: Yes (5) Nausea vomiting and diarrhea Is this a current diagnosis for this admission?: Yes (6) Immunosuppressed due to chemotherapy Is this a current diagnosis for this admission?: Yes (7) Diastolic CHF Qualifiers: Congestive heart failure chronicity: chronic Qualified Code(s): I50.32 - Chronic diastolic (congestive) heart failure Is this a current diagnosis for this admission?: No (8) Thrombocytopenia Is this a current diagnosis for this admission?: Yes (9) Anemia Qualifiers: Anemia type: unspecified type Qualified Code(s): D64.9 - Anemia, unspecified Is this a current diagnosis for this admission?: Yes (10) HLD (hyperlipidemia) Qualifiers: Hyperlipidemia type: unspecified Qualified Code(s): E78.5 - Hyperlipidemia , unspecified Is this a current diagnosis for this admission?: Yes (11) HTN (hypertension) Qualifiers: Hypertension type: essential hypertension Qualified Code(s): I10 - Essential (primary) hypertension Is this a current diagnosis for this admission?: Yes (12) Hypothyroid Qualifiers: Hypothyroidism type: unspecified Qualified Code(s): E03.9 - Hypothyroidism , unspecified Is this a current diagnosis for this admission?: Yes (13) Multiple myeloma Qualifiers: Multiple myeloma remission status: not in remission Qualified Code(s): C90.00 - Multiple myeloma not having achieved remission Is this a current diagnosis for this admission?: Yes (14) Pre-diabetes Is this a current diagnosis for this admission?: Yes - Time Time Spent with patient: 25-34 minutes - Plan Summary Plan Summary: We will continue current antibiotics for now. Follow cultures. Begin lactobacillus. Begin as needed Imodium as well. Continue IV hydration. Monitor platelet count and check a free T4. Continue supportive care.
[2017-04-22] MEDS ORDERED: LACTOBACILLUS ACIDOPHILUS 250 MG TAB PO ONE (12:00)
[2017-04-22] MEDS ORDERED: MORPHINE SULFATE 10 MG/ML INJ IV PRN ×2 (15:39→16:00)
[2017-04-22] MEDS ORDERED: MORPHINE SULFATE 10 MG/ML INJ ONE (15:43)
--- NOTE | 2017-04-22 16:48 | RADIOLOGY REPORT (SQ) ---
EXAM DESCRIPTION: NM HIDA SCAN COMPLETED DATE/TIME: 04/22/2017 4:24 pm REASON FOR STUDY: gall stones COMPARISON: CT abdomen pelvis 04/21/2017 Right upper quadrant ultrasound 04/21/2017 RADIONUCLIDE AND DOSE: DOSAGE RADIONUCLIDE: 5.5 millicuries Tc99m Mebrofenin. Booster dose of 1 mCi also given DOSAGE MORPHINE: 4 mg The route of agent administration: Intravenous TECHNIQUE: Serial imaging right upper quadrant up to 60 minutes following injection of radionuclide. Patient imaged AP and Right Lateral. Patient was then given morphine and a booster dose of mebrofenin. LIMITATIONS: None. FINDINGS: Prompt homogeneous uptake of mebrofenin by the liver, common bile duct and duodenum are id entified by 12 minutes. By 60 minutes, nearly all the activity is in the biliary tree and small bowel. At this point, patien t was given 4 mg of IV morphine and a 1 mCi booster dose. Further imaging over the next 30 minutes demonstrates accumulation of activity in the gallbladder. IMPRESSION: Visualization of the gallbladder after morphine and booster dose of mebrofenin. TECHNICAL DOCUMENTATION: JOB ID: [id number]- All Rights Reserved
[2017-04-22] MEDS: LACTOBACILLUS ACIDOPHILUS 250 MG TAB PO SCH (17:15)
--- NOTE | 2017-04-22 21:33 | PROGRESS NOTE E ---
Progress Note NAME: KATHY SCHAFER : 1950 AGE: 67Y DATE: 04/22/2017 ROOM: 328 SUBJECTIVE: The patient denies any abdominal pains or tenderness. Her platelet is now to 40,000. A HIDA scan was ordered and read as essentially normal. We will continue to follow the patient on a p.r.n. basis. DICTATING PHYSICIAN: PAUL MOORE M.D. [id number] PHY#: [id number] ID: [id number] JOB#: [id number] ACCT: [id number] cc: >
[2017-04-23] MEDS: LOPERAMIDE HCL 2 MG CAPSULE PO PRN ×3 (06:16→18:27)
[2017-04-23 06:49] LABS: HEMATOCRIT 31.7 % (36.0-47.0); HEMOGLOBIN 10.9 g/dL (12.0-15.5); MEAN CORPUSCULAR HGB CONC 34.4 g/dL (32.0-36.0); MEAN CORPUSCULAR VOLUME 87 fl (80-97); RED BLOOD COUNT 3.64 10^6/uL (3.72-5.28); RED CELL DISTRIBUTION WIDTH 20.8 % (11.5-14.0); WHITE BLOOD COUNT 6.8 10^3/uL (4.0-10.5)
[2017-04-23 06:56] LABS: ANION GAP 11 (5-19); BLOOD UREA NITROGEN 25 mg/dL (7-20); CARBON DIOXIDE 12 mmol/L (22-30); CHLORIDE 109 mmol/L (98-107); CREATININE RESULT 2.52 mg/dL (0.52-1.25); GLUCOSE 92 mg/dL (75-110); POTASSIUM 4.1 mmol/L (3.6-5.0)
[2017-04-23 07:04] LABS: CALCIUM 6.8 mg/dL (8.4-10.2)
--- NOTE | 2017-04-23 11:01 | PDOC PROGRESS REPORT ---
Subjective Progress Note for:: 04/23/17 Subjective:: Patient still having a lot of abdominal pain, surgery reviewed HIDA scan, felt this was negative, so far we do not have any acute organic cause for the abdominal pain and nausea, it seems more probably chemotherapy induced. Physical Exam Vital Signs: Temp Pulse Resp BP Pulse Ox 99.8 F 84 18 115/50 L 96 04/23/17 07:13 04/23/17 07:13 04/23/17 07:13 04/23/17 07:13 04/23/17 07:13 Intake & Output 04/22/17 04/23/17 04/24/17 06:59 06:59 06:59 Intake Total 550 3967 Output Total 0 350 Balance 550 3617 Weight 92.6 kg 95.3 kg General appearance: PRESENT: no acute distress, well-developed, well-nourished Head exam: PRESENT: atraumatic, normocephalic Eye exam: PRESENT: conjunctiva pink, EOMI, PERRLA. ABSENT: scleral icterus Ear exam: PRESENT: normal external ear exam Mouth exam: PRESENT: moist, tongue midline Neck exam: ABSENT: carotid bruit, JVD, lymphadenopathy, thyromegaly Respiratory exam: PRESENT: clear to auscultation mary grace. ABSENT: rales, rhonchi, wheezes Cardiovascular exam: PRESENT: RRR. ABSENT: diastolic murmur, rubs, systolic murmur Pulses: PRESENT: normal dorsalis pedis pul Vascular exam: PRESENT: normal capillary refill GI/Abdominal exam: PRESENT: normal bowel sounds, soft. ABSENT: distended, guarding, mass, organolmegaly, rebound, tenderness Rectal exam: PRESENT: deferred Extremities exam: PRESENT: full ROM. ABSENT: calf tenderness, clubbing, pedal edema Neurological exam: PRESENT: alert, awake, oriented to person, oriented to place , oriented to time, oriented to situation, CN II-XII grossly intact. ABSENT: motor sensory deficit Psychiatric exam: PRESENT: appropriate affect, normal mood. ABSENT: homicidal ideation, suicidal ideation Skin exam: PRESENT: dry, intact, warm. ABSENT: cyanosis, rash Results Laboratory Results: 04/23/17 06:20 04/23/17 06:20 04/22/17 04/23/17 04/23/17 07:25 06:20 06:20 WBC 6.8 RBC 3.64 L Hgb 10.9 L Hct 31.7 L MCV 87 MCH 30.0 MCHC 34.4 RDW 20.8 H Plt Count 46 L Sodium 132.0 L Potassium 4.1 Chloride 109 H Carbon Dioxide 12 L Anion Gap 11 BUN 25 H Creatinine 2.52 H Est GFR ( Amer) 23 L Est GFR (Non-Af Amer) 19 L Glucose 92 Calcium 6.8 L* Free T4 1.64 Impressions: Abdomen/Pelvis CT 04/21/17 00:00 IMPRESSION: Enlarged groin nodes. Extensive bony changes of multiple myeloma. Chest X-Ray 04/21/17 00:00 IMPRESSION: 1. No acute cardiopulmonary disease. 2. Stable lytic bone lesions. Hepatobiliary Scan Nuclear Medicine 04/22/17 00:00 IMPRESSION: Visualization of the gallbladder after morphine and booster dose of mebrofenin. Assessment & Plan - Diagnosis (1) Nausea vomiting and diarrhea Is this a current diagnosis for this admission?: Yes Plan: Continued, I will add Lomotil today, continue with antiemetics and IV fluids (2) Acute worsening of stage 3 chronic kidney disease Is this a current diagnosis for this admission?: Yes Plan: Slightly improved, continue with hydration (3) Multiple myeloma Qualifiers: Multiple myeloma remission status: not in remission Qualified Code(s): C90.00 - Multiple myeloma not having achieved remission Is this a current diagnosis for this admission?: Yes Plan: Was improved as an outpatient, will follow up as an outpatient as well. But treatment will be on hold for now. (4) Fever and chills Is this a current diagnosis for this admission?: Yes Plan: Resolved, probably occult infection thus far. - Time Time Spent with patient: 15-24 minutes Critical Time spent with patient: 15-24 minutes
[2017-04-23] MEDS ORDERED: DIPHENOXYLATE HCL/ATROP SULF 2.5-0.025 MG TABLET PO PRN (11:04)
[2017-04-23] MEDS: LACTOBACILLUS ACIDOPHILUS 250 MG TAB PO SCH ×2 (11:13→18:27)
[2017-04-23] MEDS: METOPROLOL TARTRATE 50 MG TABLET PO SCH ×2 (11:15→21:38)
[2017-04-23] MEDS: FERROUS SULFATE 325 MG TABLET PO SCH ×2 (11:16→18:27)
[2017-04-23] MEDS: ERTAPENEM SODIUM 0.5 GM in NORMAL SALINE 50 ML IV SCH (11:19)
[2017-04-23] MEDS: LEVOTHYROXINE SODIUM 0.1 MG TABLET PO SCH (11:23)
[2017-04-23] MEDS ORDERED: PROMETHAZINE HCL INJ 25 MG/1 ML VIAL IV PRN (14:48)
[2017-04-23] MEDS ORDERED: ONDANSETRON HCL INJ/PF 4 MG/2 ML SDV IV PRN (14:49)
--- NOTE | 2017-04-23 14:55 | PDOC PROGRESS REPORT ---
Subjective Progress Note for:: 04/23/17 Subjective:: Still feeling sick with nausea vomiting and diarrhea. There is low-grade fever. No shortness of breath or chest congestion. No dysuria urgency or frequency. Mild abdominal pain at this time. Physical Exam Vital Signs: Temp Pulse Resp BP Pulse Ox 99.4 F 95 18 112/57 L 97 04/23/17 12:05 04/23/17 12:05 04/23/17 12:05 04/23/17 12:05 04/23/17 12:05 Intake & Output 04/22/17 04/23/17 04/24/17 06:59 06:59 06:59 Intake Total 550 3967 150 Output Total 0 350 Balance 550 3617 150 Weight 92.6 kg 95.3 kg General appearance: PRESENT: cooperative, mild distress, obese Head exam: PRESENT: normocephalic Eye exam: PRESENT: EOMI Mouth exam: PRESENT: moist, neck supple Neck exam: ABSENT: JVD Respiratory exam: PRESENT: clear to auscultation mary grace. ABSENT: rhonchi, wheezes Cardiovascular exam: PRESENT: RRR, tachycardia - Slightly GI/Abdominal exam: PRESENT: hyperactive bowel sounds, soft. ABSENT: distended Extremities exam: PRESENT: other - Trace lower extremity edema Neurological exam: PRESENT: alert, awake, oriented to situation Skin exam: PRESENT: dry, warm. ABSENT: cyanosis Results Laboratory Results: 04/23/17 06:20 04/23/17 06:20 04/23/17 04/23/17 06:20 06:20 WBC 6.8 RBC 3.64 L Hgb 10.9 L Hct 31.7 L MCV 87 MCH 30.0 MCHC 34.4 RDW 20.8 H Plt Count 46 L Sodium 132.0 L Potassium 4.1 Chloride 109 H Carbon Dioxide 12 L Anion Gap 11 BUN 25 H Creatinine 2.52 H Est GFR ( Amer) 23 L Est GFR (Non-Af Amer) 19 L Glucose 92 Calcium 6.8 L* Impressions: Abdomen/Pelvis CT 04/21/17 00:00 IMPRESSION: Enlarged groin nodes. Extensive bony changes of multiple myeloma. Chest X-Ray 04/21/17 00:00 IMPRESSION: 1. No acute cardiopulmonary disease. 2. Stable lytic bone lesions. Hepatobiliary Scan Nuclear Medicine 04/22/17 00:00 IMPRESSION: Visualization of the gallbladder after morphine and booster dose of mebrofenin. Assessment & Plan - Diagnosis (1) Acute worsening of stage 3 chronic kidney disease Is this a current diagnosis for this admission?: Yes (2) Fever and chills Is this a current diagnosis for this admission?: Yes (3) General weakness Is this a current diagnosis for this admission?: Yes (4) Hypomagnesemia Is this a current diagnosis for this admission?: Yes (5) Nausea vomiting and diarrhea Is this a current diagnosis for this admission?: Yes (6) Immunosuppressed due to chemotherapy Is this a current diagnosis for this admission?: Yes (7) Diastolic CHF Qualifiers: Congestive heart failure chronicity: chronic Qualified Code(s): I50.32 - Chronic diastolic (congestive) heart failure Is this a current diagnosis for this admission?: No (8) Thrombocytopenia Is this a current diagnosis for this admission?: Yes (9) Anemia Qualifiers: Anemia type: unspecified type Qualified Code(s): D64.9 - Anemia, unspecified Is this a current diagnosis for this admission?: Yes (10) HLD (hyperlipidemia) Qualifiers: Hyperlipidemia type: unspecified Qualified Code(s): E78.5 - Hyperlipidemia , unspecified Is this a current diagnosis for this admission?: Yes (11) HTN (hypertension) Qualifiers: Hypertension type: essential hypertension Qualified Code(s): I10 - Essential (primary) hypertension Is this a current diagnosis for this admission?: Yes (12) Hypothyroid Qualifiers: Hypothyroidism type: unspecified Qualified Code(s): E03.9 - Hypothyroidism , unspecified Is this a current diagnosis for this admission?: Yes (13) Multiple myeloma Qualifiers: Multiple myeloma remission status: not in remission Qualified Code(s): C90.00 - Multiple myeloma not having achieved remission Is this a current diagnosis for this admission?: Yes (14) Pre-diabetes Is this a current diagnosis for this admission?: Yes - Time Time Spent with patient: 25-34 minutes - Plan Summary Plan Summary: Continue current medication and follow cultures. Continue oral antiemetics. Try proton pump inhibitor intravenously. Begin intravenous Zofran and Phenergan on an as-needed basis. Monitor electrolytes. Continue supportive care for now.
[2017-04-23] MEDS ORDERED: FAMOTIDINE INJ/PF 20 MG/2 ML SDV IV ONE (15:30)
[2017-04-23] MEDS: NORMAL SALINE 1000 ML 1,000 ML IV PRN (18:28)
[2017-04-23] MEDS: FAMOTIDINE INJ/PF 20 MG/2 ML SDV IV SCH (21:38)
[2017-04-23] MEDS: ACETAMINOPHEN 325 MG TABLET PO PRN (21:47)
[2017-04-23] MEDS ORDERED: VANCOMYCIN HCL 500 MG in DEXTROSE 5%-WATER 100 ML IV SCH (22:00)
[2017-04-24] MEDS: NORMAL SALINE 1000 ML 1,000 ML IV PRN ×2 (02:05→05:10)
[2017-04-24] MEDS ORDERED: NORMAL SALINE 1000 ML 500 ML IV ONE ×2 (03:49→04:45)
[2017-04-24] MEDS ORDERED: NORMAL SALINE 1000 ML 1,000 ML IV ONE (05:45)
--- NOTE | 2017-04-24 08:32 | EKG REPORT ---
SEVERITY:- ABNORMAL ECG - JUNCTIONAL TACHYCARDIA LEFT AXIS DEVIATION : Confirmed by: Damien Gilliam MD 24-Apr-2017 08:31:18
--- NOTE | 2017-04-24 08:33 | EKG REPORT ---
SEVERITY:- BORDERLINE ECG - SINUS TACHYCARDIA LEFT AXIS DEVIATION LOW VOLTAGE IN FRONTAL LEADS : Confirmed by: Damien Gilliam MD 24-Apr-2017 08:32:36
[2017-04-24 08:45] LABS: HEMATOCRIT 28.9 % (36.0-47.0); HEMOGLOBIN 9.7 g/dL (12.0-15.5); HGB HCT DIFFERENCE 0.2; MEAN CORPUSCULAR HEMOGLOBIN 29.2 pg (27.0-33.4); MEAN CORPUSCULAR HGB CONC 33.4 g/dL (32.0-36.0); MEAN CORPUSCULAR VOLUME 88 fl (80-97); RED BLOOD COUNT 3.31 10^6/uL (3.72-5.28); RED CELL DISTRIBUTION WIDTH 20.9 % (11.5-14.0); WHITE BLOOD COUNT 5.2 10^3/uL (4.0-10.5)
[2017-04-24] MEDS ORDERED: METOPROLOL TARTRATE PF/INJ 5 MG/5 ML SDV IV ONE (09:04)
[2017-04-24 09:08] LABS: BAND NEUTROPHILS % (MANUAL) 8 % (3-5); BASOPHILS % (MANUAL) 0 % (0-2); EOSINOPHILS % (MANUAL) 48 % (0-6); LYMPHOCYTES % (MANUAL) 8 % (13-45); TOTAL CELLS COUNTED 100
[2017-04-24] MEDS: ACETAMINOPHEN 325 MG TABLET PO PRN (09:08)
[2017-04-24 09:11] LABS: ANISOCYTOSIS 2+; BURR CELLS 1+; HYPOCHROMASIA SLIGHT; OVALOCYTES 1+; POIKILOCYTOSIS 2+
[2017-04-24] MEDS: METOPROLOL TARTRATE PF/INJ 5 MG/5 ML SDV IV SCH ×3 (09:15→23:40)
[2017-04-24] MEDS: FERROUS SULFATE 325 MG TABLET PO SCH ×2 (09:16→18:14)
[2017-04-24] MEDS: LEVOTHYROXINE SODIUM 0.1 MG TABLET PO SCH (09:16)
[2017-04-24] MEDS: LACTOBACILLUS ACIDOPHILUS 250 MG TAB PO SCH ×2 (09:16→18:14)
[2017-04-24] MEDS: FAMOTIDINE INJ/PF 20 MG/2 ML SDV IV SCH ×2 (09:17→21:20)
--- NOTE | 2017-04-24 09:20 | PDOC PROGRESS REPORT ---
Subjective Progress Note for:: 04/24/17 Subjective:: Patient develop tachycardia last night. Metoprolol has not been received due to blood pressure being on the low side. No reported respiratory distress. She stated her diarrhea started to get better. Abdominal pain started to get better as well. Nausea is beginning to side. Heart rate reportedly in the 140s. She developed hypotension and was transferred to the intensive care unit. According to the staff she received 3 L of IV fluids. Patient denies any chest congestion. Physical Exam Vital Signs: Temp Pulse Resp BP Pulse Ox 98.9 F 144 H 34 H 102/62 98 04/24/17 05:30 04/24/17 06:50 04/24/17 05:39 04/24/17 05:39 04/24/17 05:39 Intake & Output 04/23/17 04/24/17 04/25/17 06:59 06:59 06:59 Intake Total 3967 1850 Output Total 350 0 Balance 3617 1850 Weight 95.3 kg 94.8 kg General appearance: PRESENT: no acute distress, cooperative, morbidly obese Head exam: PRESENT: normocephalic Eye exam: PRESENT: conjunctiva pale, EOMI Mouth exam: PRESENT: moist, neck supple Neck exam: ABSENT: JVD Respiratory exam: PRESENT: clear to auscultation mary grace - Anteriorly. ABSENT: rhonchi, wheezes Cardiovascular exam: PRESENT: RRR, tachycardia GI/Abdominal exam: PRESENT: hyperactive bowel sounds, soft. ABSENT: distended Extremities exam: PRESENT: other - Positive edema bilateral Neurological exam: PRESENT: alert, awake, oriented to situation Skin exam: PRESENT: dry, warm. ABSENT: cyanosis Results Laboratory Results: 04/24/17 08:23 04/23/17 06:20 04/24/17 08:23 WBC 5.2 RBC 3.31 L Hgb 9.7 L Hct 28.9 L MCV 88 MCH 29.2 MCHC 33.4 RDW 20.9 H Plt Count 36 L Seg Neutrophils % Not Reportable Lymphocytes % Not Reportable Monocytes % Not Reportable Eosinophils % Not Reportable Basophils % Not Reportable Absolute Neutrophils Not Reportable Absolute Lymphocytes Not Reportable Absolute Monocytes Not Reportable Absolute Eosinophils Not Reportable Absolute Basophils Not Reportable 04/22/17 08:25 Clean Catch Midstream Urine Culture - Final NO GROWTH 2 DAYS Impressions: Abdomen/Pelvis CT 04/21/17 00:00 IMPRESSION: Enlarged groin nodes. Extensive bony changes of multiple myeloma. Chest X-Ray 04/21/17 00:00 IMPRESSION: 1. No acute cardiopulmonary disease. 2. Stable lytic bone lesions. Hepatobiliary Scan Nuclear Medicine 04/22/17 00:00 IMPRESSION: Visualization of the gallbladder after morphine and booster dose of mebrofenin. Assessment & Plan - Diagnosis (1) Acute worsening of stage 3 chronic kidney disease Is this a current diagnosis for this admission?: Yes (2) Fever and chills Is this a current diagnosis for this admission?: Yes (3) General weakness Is this a current diagnosis for this admission?: Yes (4) Hypomagnesemia Is this a current diagnosis for this admission?: Yes (5) Nausea vomiting and diarrhea Is this a current diagnosis for this admission?: Yes (6) Immunosuppressed due to chemotherapy Is this a current diagnosis for this admission?: Yes (7) Diastolic CHF Qualifiers: Congestive heart failure chronicity: chronic Qualified Code(s): I50.32 - Chronic diastolic (congestive) heart failure Is this a current diagnosis for this admission?: No (8) Thrombocytopenia Is this a current diagnosis for this admission?: Yes (9) Anemia Qualifiers: Anemia type: unspecified type Qualified Code(s): D64.9 - Anemia, unspecified Is this a current diagnosis for this admission?: Yes (10) HLD (hyperlipidemia) Qualifiers: Hyperlipidemia type: unspecified Qualified Code(s): E78.5 - Hyperlipidemia , unspecified Is this a current diagnosis for this admission?: Yes (11) HTN (hypertension) Qualifiers: Hypertension type: essential hypertension Qualified Code(s): I10 - Essential (primary) hypertension Is this a current diagnosis for this admission?: Yes (12) Hypothyroid Qualifiers: Hypothyroidism type: unspecified Qualified Code(s): E03.9 - Hypothyroidism , unspecified Is this a current diagnosis for this admission?: Yes (13) Multiple myeloma Qualifiers: Multiple myeloma remission status: not in remission Qualified Code(s): C90.00 - Multiple myeloma not having achieved remission Is this a current diagnosis for this admission?: Yes (14) Pre-diabetes Is this a current diagnosis for this admission?: Yes - Time Time Spent with patient: 25-34 minutes - Plan Summary Plan Summary: Continue current antibiotics as well as antidiarrheal medication. Continue anti -emetics as well. We will begin intravenous metoprolol and hold oral metoprolol. Reportedly patient is a hard stick, we will get surgery for antral line placement. Continue other medications and supportive care at this time. Hopefully the patient's tachycardia could be related just to rebound from not receiving her beta-junie.
[2017-04-24] MEDS: ERTAPENEM SODIUM 0.5 GM in NORMAL SALINE 50 ML IV SCH (10:20)
[2017-04-24] MEDS: LOPERAMIDE HCL 2 MG CAPSULE PO PRN (14:17)
[2017-04-24] MEDS ORDERED: SODIUM BICARBONATE 8.4% INJ 50 MEQ/50 ML DISP.SYRIN ONE (15:54)
[2017-04-24] MEDS ORDERED: ACETAMINOPHEN 650 MG SUPP.RECT PR ONE (16:05)
[2017-04-24] MEDS ORDERED: ACETAMINOPHEN 650 MG SUPP.RECT PR PRN (16:05)
[2017-04-24 18:29] LABS: ANION GAP 8 (5-19); BLOOD UREA NITROGEN 23 mg/dL (7-20); CARBON DIOXIDE 12 mmol/L (22-30); CHLORIDE 114 mmol/L (98-107); CREATININE RESULT 2.06 mg/dL (0.52-1.25); GLUCOSE 93 mg/dL (75-110); MAGNESIUM 1.9 mg/dL (1.6-2.3); POTASSIUM 3.7 mmol/L (3.6-5.0); SODIUM 134.4 mmol/L (137-145)
[2017-04-24 18:43] LABS: FREE T3 2.44 pg/mL (2.77-5.27)
[2017-04-24 18:49] LABS: CALCIUM 6.4 mg/dL (8.4-10.2)
[2017-04-24] MEDS: VANCOMYCIN HCL 750 MG in DEXTROSE 5%-WATER 250 ML IV SCH (21:20)
[2017-04-25] MEDS: METOPROLOL TARTRATE PF/INJ 5 MG/5 ML SDV IV SCH ×4 (06:08→23:48)
[2017-04-25] MEDS: NORMAL SALINE 1000 ML 1,000 ML IV PRN (06:08)
[2017-04-25 07:11] LABS: ANION GAP 10 (5-19); BLOOD UREA NITROGEN 21 mg/dL (7-20); CARBON DIOXIDE 11 mmol/L (22-30); CHLORIDE 114 mmol/L (98-107); CREATININE RESULT 1.84 mg/dL (0.52-1.25); GLUCOSE 105 mg/dL (75-110); POTASSIUM 3.7 mmol/L (3.6-5.0); SODIUM 135.2 mmol/L (137-145)
[2017-04-25 07:25] LABS: CALCIUM 6.2 mg/dL (8.4-10.2)
--- NOTE | 2017-04-25 08:17 | PDOC PROGRESS REPORT ---
Subjective Progress Note for:: 04/25/17 Subjective:: Over weekend pt w/ hypotension and tachycardia, was moved to ICU, still w/ fevers to 103 Physical Exam Vital Signs: Temp Pulse Resp BP Pulse Ox 101.8 F H 88 27 H 136/56 H 100 04/25/17 04:00 04/25/17 00:00 04/25/17 06:15 04/25/17 05:24 04/25/17 06:15 Intake & Output 04/24/17 04/25/17 04/26/17 06:59 06:59 06:59 Intake Total 1850 3242 Output Total 0 1045 Balance 1850 2197 Weight 94.8 kg 99.9 kg General appearance: PRESENT: no acute distress, well-developed, well-nourished Head exam: PRESENT: atraumatic, normocephalic Eye exam: PRESENT: conjunctiva pink, EOMI, PERRLA. ABSENT: scleral icterus Ear exam: PRESENT: normal external ear exam Mouth exam: PRESENT: moist, tongue midline Neck exam: ABSENT: carotid bruit, JVD, lymphadenopathy, thyromegaly Respiratory exam: PRESENT: clear to auscultation mary grace. ABSENT: rales, rhonchi, wheezes Cardiovascular exam: PRESENT: RRR. ABSENT: diastolic murmur, rubs, systolic murmur Pulses: PRESENT: normal dorsalis pedis pul Vascular exam: PRESENT: normal capillary refill GI/Abdominal exam: PRESENT: normal bowel sounds, soft. ABSENT: distended, guarding, mass, organolmegaly, rebound, tenderness Rectal exam: PRESENT: deferred Extremities exam: PRESENT: full ROM. ABSENT: calf tenderness, clubbing, pedal edema Neurological exam: PRESENT: alert, awake, oriented to person, oriented to place , oriented to time, oriented to situation, CN II-XII grossly intact. ABSENT: motor sensory deficit Psychiatric exam: PRESENT: appropriate affect, normal mood. ABSENT: homicidal ideation, suicidal ideation Skin exam: PRESENT: dry, intact, warm. ABSENT: cyanosis, rash Results Laboratory Results: 04/24/17 08:23 04/25/17 06:43 04/24/17 04/24/17 04/24/17 08:23 17:54 17:54 WBC 5.2 RBC 3.31 L Hgb 9.7 L Hct 28.9 L MCV 88 MCH 29.2 MCHC 33.4 RDW 20.9 H Plt Count 36 L Seg Neutrophils % Not Reportable Lymphocytes % Not Reportable Monocytes % Not Reportable Eosinophils % Not Reportable Basophils % Not Reportable Absolute Neutrophils Not Reportable Absolute Lymphocytes Not Reportable Absolute Monocytes Not Reportable Absolute Eosinophils Not Reportable Absolute Basophils Not Reportable Sodium 134.4 L Potassium 3.7 Chloride 114 H Carbon Dioxide 12 L Anion Gap 8 BUN 23 H Creatinine 2.06 H Est GFR ( Amer) 29 L Est GFR (Non-Af Amer) 24 L Glucose 93 Calcium 6.4 L* Magnesium 1.9 Albumin Free T4 2.06 Free T3 pg/mL 2.44 L 04/24/17 04/25/17 17:54 06:43 WBC RBC Hgb Hct MCV MCH MCHC RDW Plt Count Seg Neutrophils % Lymphocytes % Monocytes % Eosinophils % Basophils % Absolute Neutrophils Absolute Lymphocytes Absolute Monocytes Absolute Eosinophils Absolute Basophils Sodium 135.2 L Potassium 3.7 Chloride 114 H Carbon Dioxide 11 L Anion Gap 10 BUN 21 H Creatinine 1.84 H Est GFR ( Amer) 33 L Est GFR (Non-Af Amer) 27 L Glucose 105 Calcium 6.2 L* Magnesium Albumin 1.9 L Free T4 Free T3 pg/mL 04/22/17 08:25 Clean Catch Midstream Urine Culture - Final NO GROWTH 2 DAYS Impressions: Abdomen/Pelvis CT 04/21/17 00:00 IMPRESSION: Enlarged groin nodes. Extensive bony changes of multiple myeloma. Chest X-Ray 04/21/17 00:00 IMPRESSION: 1. No acute cardiopulmonary disease. 2. Stable lytic bone lesions. Hepatobiliary Scan Nuclear Medicine 04/22/17 00:00 IMPRESSION: Visualization of the gallbladder after morphine and booster dose of mebrofenin. Assessment & Plan - Diagnosis (1) Nausea vomiting and diarrhea Is this a current diagnosis for this admission?: Yes Plan: Greatly improved, con't to monitor (2) Acute worsening of stage 3 chronic kidney disease Is this a current diagnosis for this admission?: Yes Plan: 2nd to dehydration, cr now 1.84 so closer to baseline (1.7). (3) Multiple myeloma Qualifiers: Multiple myeloma remission status: not in remission Qualified Code(s): C90.00 - Multiple myeloma not having achieved remission Is this a current diagnosis for this admission?: Yes Plan: Tx on hold for now, stable disease, don't believe this is cause of fevers (4) Fever and chills Is this a current diagnosis for this admission?: Yes Plan: still some sort of occult infection, d/w dr ely, will be changing atbx and add antifungal, reculture. - Time Time Spent with patient: 35 or more minutes Critical Time spent with patient: 35 or more minutes - Inpatient Certification Based on my medical assessment, after consideration of the patient's comorbidities, presenting symptoms, or acuity I expect that the services needed warrant INPATIENT care.: Yes I certify that my determination is in accordance with my understanding of Medicare's requirements for reasonable and necessary INPATIENT services [42 CFR 412.3e].: Yes Medical Necessity: Need For Continuous Telemetry Monitoring, Need for IV Antibiotics
[2017-04-25] MEDS ORDERED: NORMAL SALINE 1000 ML 1,000 ML IV PRN (08:27)
[2017-04-25] MEDS ORDERED: IMIPENEM/CILASTATIN SODIUM INJ 500 MG VIAL IV SCH (08:30)
[2017-04-25] MEDS ORDERED: ACETAMINOPHEN 325 MG TABLET ONE ×2 (08:31→13:29)
--- NOTE | 2017-04-25 08:36 | PDOC PROGRESS REPORT ---
Subjective Progress Note for:: 04/25/17 Subjective:: Patient did not have diarrhea since last night but did have several bouts yesterday. Tachycardia has resolved. Still febrile. No shortness of breath chest congestion or coughing. Abdominal pain nausea and vomiting is better. Patient now tolerating breakfast. Physical Exam Vital Signs: Temp Pulse Resp BP Pulse Ox 101.8 F H 88 27 H 136/56 H 100 04/25/17 04:00 04/25/17 00:00 04/25/17 06:15 04/25/17 05:24 04/25/17 06:15 Intake & Output 04/24/17 04/25/17 04/26/17 06:59 06:59 06:59 Intake Total 1850 3242 Output Total 0 1045 Balance 1850 2197 Weight 94.8 kg 99.9 kg General appearance: PRESENT: no acute distress, morbidly obese Head exam: PRESENT: normocephalic Eye exam: PRESENT: EOMI Mouth exam: PRESENT: moist, neck supple Neck exam: ABSENT: JVD Respiratory exam: PRESENT: clear to auscultation mary grace - Anteriorly bilateral. ABSENT: rhonchi, wheezes Cardiovascular exam: PRESENT: RRR. ABSENT: gallop GI/Abdominal exam: PRESENT: hyperactive bowel sounds, soft. ABSENT: distended - Obese, tenderness Extremities exam: PRESENT: +1 edema Neurological exam: PRESENT: alert, awake, oriented to situation Skin exam: PRESENT: dry, warm. ABSENT: cyanosis Results Laboratory Results: 04/24/17 08:23 04/25/17 06:43 04/24/17 04/24/17 04/24/17 08:23 17:54 17:54 WBC 5.2 RBC 3.31 L Hgb 9.7 L Hct 28.9 L MCV 88 MCH 29.2 MCHC 33.4 RDW 20.9 H Plt Count 36 L Seg Neutrophils % Not Reportable Lymphocytes % Not Reportable Monocytes % Not Reportable Eosinophils % Not Reportable Basophils % Not Reportable Absolute Neutrophils Not Reportable Absolute Lymphocytes Not Reportable Absolute Monocytes Not Reportable Absolute Eosinophils Not Reportable Absolute Basophils Not Reportable Sodium 134.4 L Potassium 3.7 Chloride 114 H Carbon Dioxide 12 L Anion Gap 8 BUN 23 H Creatinine 2.06 H Est GFR ( Amer) 29 L Est GFR (Non-Af Amer) 24 L Glucose 93 Calcium 6.4 L* Magnesium 1.9 Albumin Free T4 2.06 Free T3 pg/mL 2.44 L 04/24/17 04/25/17 17:54 06:43 WBC RBC Hgb Hct MCV MCH MCHC RDW Plt Count Seg Neutrophils % Lymphocytes % Monocytes % Eosinophils % Basophils % Absolute Neutrophils Absolute Lymphocytes Absolute Monocytes Absolute Eosinophils Absolute Basophils Sodium 135.2 L Potassium 3.7 Chloride 114 H Carbon Dioxide 11 L Anion Gap 10 BUN 21 H Creatinine 1.84 H Est GFR ( Amer) 33 L Est GFR (Non-Af Amer) 27 L Glucose 105 Calcium 6.2 L* Magnesium Albumin 1.9 L Free T4 Free T3 pg/mL 04/22/17 08:25 Clean Catch Midstream Urine Culture - Final NO GROWTH 2 DAYS Impressions: Abdomen/Pelvis CT 04/21/17 00:00 IMPRESSION: Enlarged groin nodes. Extensive bony changes of multiple myeloma. Chest X-Ray 04/21/17 00:00 IMPRESSION: 1. No acute cardiopulmonary disease. 2. Stable lytic bone lesions. Hepatobiliary Scan Nuclear Medicine 04/22/17 00:00 IMPRESSION: Visualization of the gallbladder after morphine and booster dose of mebrofenin. Assessment & Plan - Diagnosis (1) Acute worsening of stage 3 chronic kidney disease Is this a current diagnosis for this admission?: Yes (2) Fever and chills Is this a current diagnosis for this admission?: Yes (3) General weakness Is this a current diagnosis for this admission?: Yes (4) Hypomagnesemia Is this a current diagnosis for this admission?: Yes (5) Nausea vomiting and diarrhea Is this a current diagnosis for this admission?: Yes (6) Immunosuppressed due to chemotherapy Is this a current diagnosis for this admission?: Yes (7) Diastolic CHF Qualifiers: Congestive heart failure chronicity: chronic Qualified Code(s): I50.32 - Chronic diastolic (congestive) heart failure Is this a current diagnosis for this admission?: No (8) Thrombocytopenia Is this a current diagnosis for this admission?: Yes (9) Anemia Qualifiers: Anemia type: unspecified type Qualified Code(s): D64.9 - Anemia, unspecified Is this a current diagnosis for this admission?: Yes (10) HLD (hyperlipidemia) Qualifiers: Hyperlipidemia type: unspecified Qualified Code(s): E78.5 - Hyperlipidemia , unspecified Is this a current diagnosis for this admission?: Yes (11) HTN (hypertension) Qualifiers: Hypertension type: essential hypertension Qualified Code(s): I10 - Essential (primary) hypertension Is this a current diagnosis for this admission?: Yes (12) Hypothyroid Qualifiers: Hypothyroidism type: unspecified Qualified Code(s): E03.9 - Hypothyroidism , unspecified Is this a current diagnosis for this admission?: Yes (13) Multiple myeloma Qualifiers: Multiple myeloma remission status: not in remission Qualified Code(s): C90.00 - Multiple myeloma not having achieved remission Is this a current diagnosis for this admission?: Yes (14) Pre-diabetes Is this a current diagnosis for this admission?: Yes - Time Time Spent with patient: 25-34 minutes - Plan Summary Plan Summary: We will resend cultures including blood urine and stool. We are going to begin the patient on Diflucan. Change Invanz to Primaxin and continue vancomycin. Patient to go for PICC line placement today for IV access due to poor sites. Obtain a chest x-ray as well. Continue supportive care. Monitor electrolytes. Decrease IV fluids as she is getting edematous.
[2017-04-25] MEDS ORDERED: ONDANSETRON HCL INJ/PF 4 MG/2 ML SDV IV PRN (09:30)
[2017-04-25] MEDS ORDERED: LIDOCAINE 1% INJ-PF (10 MG/ML) 30 ML SDV ONE (10:41)
--- NOTE | 2017-04-25 11:48 | RADIOLOGY REPORT (SQ) ---
EXAM DESCRIPTION: CHEST SINGLE VIEW COMPLETED DATE/TIME: 04/25/2017 11:22 am REASON FOR STUDY: Central lien placement COMPARISON: Chest films 11/18/2010, 12/16/2016, 04/17/2017, 04/21/2017 EXAM PARAMETERS: NUMBER OF VIEWS: One view. TECHNIQUE: Single frontal radiographic view of the chest acquired. RADIATION DOSE: NA LIMITATIONS: None. FINDINGS: LUNGS AND PLEURA: No opacities, masses or pneumothorax. No pleural effusion. MEDIASTINUM AND HILAR STRUCTURES: No masses. Contour normal. HEART AND VASCULAR STRUCTURES: Stable mild cardiomegaly BONES: No acute findings. HARDWARE: Right subclavian triple lumen catheter tip in the superior vena cava. No pneumothorax. OTHER: No other significant finding. IMPRESSION: No acute infiltrates. Right subclavian triple lumen catheter tip in the superior vena cava. No pneumothorax. TECHNICAL DOCUMENTATION: JOB ID: [id number]
[2017-04-25 12:02] LABS: D-DIMER 3.59 ug/mL (0.00-0.50)
[2017-04-25 12:18] LABS: ALANINE AMINOTRANSFERASE 123 U/L (9-52); ALBUMIN 1.8 g/dL (3.5-5.0); ALKALINE PHOSPHATASE 116 U/L (38-126); ANION GAP 9 (5-19); ASPARTATE AMINO TRANSFERASE 61 U/L (14-36); BILIRUBIN,DIRECT 0.3 mg/dL (0.0-0.4); BILIRUBIN,TOTAL 0.3 mg/dL (0.2-1.3); BLOOD UREA NITROGEN 21 mg/dL (7-20); CARBON DIOXIDE 13 mmol/L (22-30); CHLORIDE 114 mmol/L (98-107); CREATININE RESULT 1.79 mg/dL (0.52-1.25); GLUCOSE 90 mg/dL (75-110); MAGNESIUM 1.9 mg/dL (1.6-2.3); POTASSIUM 3.6 mmol/L (3.6-5.0); SODIUM 135.7 mmol/L (137-145); TOTAL PROTEIN 4.1 g/dL (6.3-8.2)
--- NOTE | 2017-04-25 12:22 | OPERATIVE REPORT E ---
Operative Report NAME: KATHY SCHAFER : 1950 AGE: 67Y DATE OF SURGERY: 04/25/2017 ROOM: 612 PREOPERATIVE DIAGNOSES: 1. Sepsis. 2. Thrombocytopenia. 3. Multiple myeloma. POSTOPERATIVE DIAGNOSES: 1. Sepsis. 2. Thrombocytopenia. 3. Multiple myeloma. PROCEDURE: 1. Focused ultrasound of the right neck. 2. Placement of right subclavian triple-lumen central venous access catheter. SURGEON: NATHANAEL STAFFORD M.D. ANESTHESIA: 1% plain lidocaine. COMPLICATIONS: None. ESTIMATED BLOOD LOSS: Scant. DRAINS: None. TISSUE REMOVED: None. INDICATIONS FOR PROCEDURE: A discussion was had with the patient, and her daughter, regarding the indications for a central line, and technical options, including types of catheter, as well as location of catheter. The patient expressed her interest in not having a jugular vein catheter. I did tell her that the risk of a subclavian catheter is slightly increased in terms of pneumothorax, but we would accommodate her wishes. The risk of bleeding, infection, pneumothorax were all discussed with the patient, including increased risk of bleeding due to thrombocytopenia. SUMMARY OF PROCEDURE: The patient's right neck was scanned with the variable frequency linear transducer. Findings were significant for a patent, compressible internal jugular vein. The right neck and subclavian area were prepped and draped in a sterile fashion. Surgical plan and surgical timeout were conducted. Using Seldinger technique, triple lumen central venous access catheter was threaded through the right subclavian vein without difficulty, with first stick successful at venipuncture. Upon insertion of the wire, there was a short run of V-tach. The wire was pulled back and the patient then resumed sinus tachycardia in the 130s to 140s. This persisted despite withdrawing the catheter back approximately 5 cm. I secured the catheter to the skin at 2 sites with 2-0 silk suture. Biopatch and sterile dressing applied. Patient did well and had no symptoms during this period of sinus tachycardia. Portable upright x-ray showed no pneumothorax and the tip of the catheter to be in the junction of the SVC right atrial position. The catheter was functioning satisfactorily in terms of aspiration and flushed and, therefore, we left it in its current position. I discussed the findings with Dr. Esquivel who will be managing the patient's tachycardia. DICTATING PHYSICIAN: NATHANAEL STAFFORD M.D. [id number] PHY#: [id number] ID: [id number] JOB#: [id number] ACCT: [id number] cc:NATHANAEL STAFFORD M.D. >
[2017-04-25 12:30] LABS: CREATINE KINASE MB 0.76 ng/mL (<4.55); TROPONIN I 0.027 ng/mL
[2017-04-25 12:34] LABS: CALCIUM 6.3 mg/dL (8.4-10.2)
[2017-04-25] MEDS: IMIPENEM/CILASTATIN SODIUM 500 MG in NORMAL SALINE 100 ML IV SCH ×3 (13:00→23:46)
[2017-04-25] MEDS ORDERED: POTASSIUM CHLORIDE 10 MEQ TABLET.SA PO ONE ×2 (13:13→14:00)
[2017-04-25] MEDS ORDERED: MAGNESIUM SULFATE/D5W 1 GM/100 ML RTUPB IV ONE ×2 (13:13→13:30)
[2017-04-25] MEDS: FLUCONAZOLE 200 MG/NS RTU 100 ML IV SCH (13:19)
[2017-04-25] MEDS: FERROUS SULFATE 325 MG TABLET PO SCH ×2 (13:21→17:43)
[2017-04-25] MEDS: LEVOTHYROXINE SODIUM 0.1 MG TABLET PO SCH (13:21)
[2017-04-25] MEDS: LOPERAMIDE HCL 2 MG CAPSULE PO PRN (13:21)
[2017-04-25] MEDS: LACTOBACILLUS ACIDOPHILUS 250 MG TAB PO SCH ×2 (13:22→17:43)
[2017-04-25] MEDS: ACETAMINOPHEN 325 MG TABLET PO PRN ×2 (17:42→21:41)
[2017-04-25] MEDS: FAMOTIDINE INJ/PF 20 MG/2 ML SDV IV SCH (21:39)
[2017-04-25] MEDS: VANCOMYCIN HCL 750 MG in DEXTROSE 5%-WATER 250 ML IV SCH (21:39)
[2017-04-26] MEDS: ACETAMINOPHEN 325 MG TABLET PO PRN (05:55)
[2017-04-26] MEDS: IMIPENEM/CILASTATIN SODIUM 500 MG in NORMAL SALINE 100 ML IV SCH ×4 (05:56→22:56)
[2017-04-26] MEDS: METOPROLOL TARTRATE PF/INJ 5 MG/5 ML SDV IV SCH ×4 (05:56→23:42)
[2017-04-26 06:36] LABS: ANION GAP 6 (5-19); BLOOD UREA NITROGEN 21 mg/dL (7-20); CARBON DIOXIDE 12 mmol/L (22-30); CHLORIDE 117 mmol/L (98-107); CREATININE RESULT 1.67 mg/dL (0.52-1.25); GLUCOSE 78 mg/dL (75-110); MAGNESIUM 1.9 mg/dL (1.6-2.3); PHOSPHORUS 1.7 mg/dL (2.5-4.5); POTASSIUM 4.1 mmol/L (3.6-5.0)
[2017-04-26 06:38] LABS: HEMATOCRIT 26.1 % (36.0-47.0); HEMOGLOBIN 8.9 g/dL (12.0-15.5); HGB HCT DIFFERENCE 0.6; MEAN CORPUSCULAR HEMOGLOBIN 29.4 pg (27.0-33.4); MEAN CORPUSCULAR HGB CONC 34.1 g/dL (32.0-36.0); MEAN CORPUSCULAR VOLUME 86 fl (80-97); RED BLOOD COUNT 3.03 10^6/uL (3.72-5.28); RED CELL DISTRIBUTION WIDTH 21.3 % (11.5-14.0); WHITE BLOOD COUNT 7.9 10^3/uL (4.0-10.5)
[2017-04-26 06:44] LABS: CALCIUM 6.2 mg/dL (8.4-10.2)
[2017-04-26] MEDS ORDERED: CALCIUM GLUCONATE 1000 MG/10 ML INJ IV ONE (08:05)
--- NOTE | 2017-04-26 08:21 | PDOC PROGRESS REPORT ---
Subjective Progress Note for:: 04/26/17 Subjective:: Pt still w/ fevers this am 101, getting antipyretics q 6 hours continous, feels less nauseas, eating better today Physical Exam Vital Signs: Temp Pulse Resp BP Pulse Ox 101.8 F H 123 H 20 120/60 100 04/25/17 04:00 04/25/17 19:37 04/26/17 06:00 04/26/17 05:19 04/26/17 06:00 Intake & Output 04/25/17 04/26/17 04/27/17 06:59 06:59 06:59 Intake Total 3242 1437 Output Total 1045 635 Balance 2197 802 Weight 99.9 kg 98.6 kg General appearance: PRESENT: no acute distress, well-developed, well-nourished Head exam: PRESENT: atraumatic, normocephalic Eye exam: PRESENT: conjunctiva pink, EOMI, PERRLA. ABSENT: scleral icterus Ear exam: PRESENT: normal external ear exam Mouth exam: PRESENT: moist, tongue midline Neck exam: ABSENT: carotid bruit, JVD, lymphadenopathy, thyromegaly Respiratory exam: PRESENT: clear to auscultation mary grace. ABSENT: rales, rhonchi, wheezes Cardiovascular exam: PRESENT: RRR. ABSENT: diastolic murmur, rubs, systolic murmur Pulses: PRESENT: normal dorsalis pedis pul Vascular exam: PRESENT: normal capillary refill GI/Abdominal exam: PRESENT: normal bowel sounds, soft. ABSENT: distended, guarding, mass, organolmegaly, rebound, tenderness Rectal exam: PRESENT: deferred Extremities exam: PRESENT: full ROM. ABSENT: calf tenderness, clubbing, pedal edema Neurological exam: PRESENT: alert, awake, oriented to person, oriented to place , oriented to time, oriented to situation, CN II-XII grossly intact. ABSENT: motor sensory deficit Psychiatric exam: PRESENT: appropriate affect, normal mood. ABSENT: homicidal ideation, suicidal ideation Skin exam: PRESENT: dry, intact, warm. ABSENT: cyanosis, rash Results Laboratory Results: 04/26/17 06:07 04/26/17 06:07 04/25/17 04/26/17 04/26/17 11:30 06:07 06:07 WBC 7.9 RBC 3.03 L Hgb 8.9 L Hct 26.1 L MCV 86 MCH 29.4 MCHC 34.1 RDW 21.3 H Plt Count 47 L Sodium 135.7 L 135.0 L Potassium 3.6 4.1 Chloride 114 H 117 H Carbon Dioxide 13 L 12 L Anion Gap 9 6 BUN 21 H 21 H Creatinine 1.79 H 1.67 H Est GFR ( Amer) 34 L 37 L Est GFR (Non-Af Amer) 28 L 31 L Glucose 90 78 Calcium 6.3 L* 6.2 L* Phosphorus 1.7 L Magnesium 1.9 1.9 Total Bilirubin 0.3 AST 61 H ALT 123 H Alkaline Phosphatase 116 Total Protein 4.1 L Albumin 1.8 L 04/26/17 06:07 WBC RBC Hgb Hct MCV MCH MCHC RDW Plt Count Sodium Potassium Chloride Carbon Dioxide Anion Gap BUN Creatinine Est GFR ( Amer) Est GFR (Non-Af Amer) Glucose Calcium Phosphorus Magnesium Total Bilirubin AST ALT Alkaline Phosphatase Total Protein Albumin 1.8 L 04/25/17 04/25/17 11:30 11:30 Creatine Kinase 794 H CK-MB (CK-2) 0.76 Troponin I 0.027 NT-Pro-B Natriuret Pep 2100 H Impressions: Abdomen/Pelvis CT 04/21/17 00:00 IMPRESSION: Enlarged groin nodes. Extensive bony changes of multiple myeloma. Hepatobiliary Scan Nuclear Medicine 04/22/17 00:00 IMPRESSION: Visualization of the gallbladder after morphine and booster dose of mebrofenin. Chest X-Ray 04/25/17 00:00 IMPRESSION: No acute infiltrates. Right subclavian triple lumen catheter tip in the superior vena cava. No pneumothorax. Assessment & Plan - Diagnosis (1) Nausea vomiting and diarrhea Is this a current diagnosis for this admission?: Yes Plan: N/V improved, diarrhea con't but unlikely infectious in origin, maybe med related now. (2) Acute worsening of stage 3 chronic kidney disease Is this a current diagnosis for this admission?: Yes Plan: Cr now to baseline, con't to monitor (3) Multiple myeloma Qualifiers: Multiple myeloma remission status: not in remission Qualified Code(s): C90.00 - Multiple myeloma not having achieved remission Is this a current diagnosis for this admission?: Yes Plan: Con't to monitor, don't believe this is cause of fevers, last myeloma check indicated con't good response (4) Fever and chills Is this a current diagnosis for this admission?: Yes Plan: Con't with current atbx, but agree that if cx neg by tomorrow, we may consider d /c of all atbx to see if drug fever maybe possibility at this point. - Time Time Spent with patient: 35 or more minutes Critical Time spent with patient: 35 or more minutes - Inpatient Certification Based on my medical assessment, after consideration of the patient's comorbidities, presenting symptoms, or acuity I expect that the services needed warrant INPATIENT care.: Yes I certify that my determination is in accordance with my understanding of Medicare's requirements for reasonable and necessary INPATIENT services [42 CFR 412.3e].: Yes Medical Necessity: Need For IV Fluids, Need For Continuous Telemetry Monitoring , Need for IV Antibiotics
[2017-04-26] MEDS ORDERED: LACTULOSE SYRUP 20 GM/30 ML UDCUP PO PRN (08:31)
[2017-04-26] MEDS: LEVOTHYROXINE SODIUM 0.1 MG TABLET PO SCH (10:15)
[2017-04-26] MEDS: LACTOBACILLUS ACIDOPHILUS 250 MG TAB PO SCH ×2 (10:16→17:46)
[2017-04-26] MEDS: FERROUS SULFATE 325 MG TABLET PO SCH ×2 (10:16→17:46)
[2017-04-26] MEDS: FLUCONAZOLE 200 MG/NS RTU 100 ML IV SCH (10:16)
--- NOTE | 2017-04-26 13:45 | PDOC PROGRESS REPORT ---
Subjective Progress Note for:: 04/26/17 Subjective:: Denies any complaints today. Physical Exam Vital Signs: Temp Pulse Resp BP Pulse Ox 100.0 F 91 26 H 132/65 H 100 04/26/17 12:24 04/26/17 12:24 04/26/17 12:24 04/26/17 12:24 04/26/17 12:24 Intake & Output 04/25/17 04/26/17 04/27/17 06:59 06:59 06:59 Intake Total 3242 1437 200 Output Total 1045 635 200 Balance 2197 802 0 Weight 99.9 kg 98.6 kg General appearance: PRESENT: no acute distress Eye exam: PRESENT: conjunctiva pink. ABSENT: scleral icterus Mouth exam: PRESENT: moist, tongue midline Neck exam: ABSENT: JVD Respiratory exam: PRESENT: clear to auscultation mary grcae. ABSENT: rales, rhonchi, wheezes Cardiovascular exam: PRESENT: RRR. ABSENT: diastolic murmur, rubs, systolic murmur GI/Abdominal exam: PRESENT: normal bowel sounds, soft. ABSENT: distended, guarding, mass, organolmegaly, rebound, tenderness Extremities exam: PRESENT: pedal edema - Trace pedal edema. ABSENT: calf tenderness, clubbing Neurological exam: PRESENT: alert, awake, oriented to person, oriented to place , oriented to time, oriented to situation, CN II-XII grossly intact. ABSENT: motor sensory deficit Psychiatric exam: PRESENT: appropriate affect Skin exam: PRESENT: erythema - Mild erythema of the bilateral legs. Results Laboratory Results: 04/26/17 06:07 04/26/17 06:07 04/26/17 04/26/17 04/26/17 06:07 06:07 06:07 WBC 7.9 RBC 3.03 L Hgb 8.9 L Hct 26.1 L MCV 86 MCH 29.4 MCHC 34.1 RDW 21.3 H Plt Count 47 L Sodium 135.0 L Potassium 4.1 Chloride 117 H Carbon Dioxide 12 L Anion Gap 6 BUN 21 H Creatinine 1.67 H Est GFR ( Amer) 37 L Est GFR (Non-Af Amer) 31 L Glucose 78 Calcium 6.2 L* Phosphorus 1.7 L Magnesium 1.9 Albumin 1.8 L 04/25/17 04/25/17 11:30 11:30 Creatine Kinase 794 H CK-MB (CK-2) 0.76 Troponin I 0.027 NT-Pro-B Natriuret Pep 2100 H Impressions: Abdomen/Pelvis CT 04/21/17 00:00 IMPRESSION: Enlarged groin nodes. Extensive bony changes of multiple myeloma. Hepatobiliary Scan Nuclear Medicine 04/22/17 00:00 IMPRESSION: Visualization of the gallbladder after morphine and booster dose of mebrofenin. Chest X-Ray 04/25/17 00:00 IMPRESSION: No acute infiltrates. Right subclavian triple lumen catheter tip in the superior vena cava. No pneumothorax. Assessment & Plan - Diagnosis (1) Acute worsening of stage 3 chronic kidney disease Is this a current diagnosis for this admission?: Yes Plan: Patient's renal function continues to improve with IV fluids. (2) Diastolic CHF Qualifiers: Congestive heart failure chronicity: chronic Qualified Code(s): I50.32 - Chronic diastolic (congestive) heart failure Is this a current diagnosis for this admission?: No Plan: Patient has a history of chronic diastolic congestive heart failure. (3) General weakness Is this a current diagnosis for this admission?: Yes (4) Hypomagnesemia Is this a current diagnosis for this admission?: Yes (5) Nausea vomiting and diarrhea Is this a current diagnosis for this admission?: Yes Plan: This is resolving. (6) Thrombocytopenia Is this a current diagnosis for this admission?: Yes Plan: Most likely secondary to chemotherapy. The patient's platelets are improving. (7) Anemia Qualifiers: Anemia type: unspecified type Qualified Code(s): D64.9 - Anemia, unspecified Is this a current diagnosis for this admission?: Yes Plan: Stable (8) HLD (hyperlipidemia) Qualifiers: Hyperlipidemia type: unspecified Qualified Code(s): E78.5 - Hyperlipidemia , unspecified Is this a current diagnosis for this admission?: Yes (9) Hypothyroid Qualifiers: Hypothyroidism type: unspecified Qualified Code(s): E03.9 - Hypothyroidism , unspecified Is this a current diagnosis for this admission?: Yes (10) Immunosuppressed due to chemotherapy Is this a current diagnosis for this admission?: Yes Plan: Patient is on vancomycin and imipenem. No obvious source for infection is found at this time and will continue the antibiotics for now. All of the cultures have been negative so far. (11) Fever and chills Is this a current diagnosis for this admission?: Yes Plan: No obvious source of infection. The possibility of this being drug fever is considered. If all the cultures are negative tomorrow we may stop all the antibiotics to see how her fever does. - Time Time Spent with patient: 25-34 minutes - Inpatient Certification Medical Necessity: Need Close Monitoring Due to Risk of Patient Decompensation, Need for IV Antibiotics - Plan Summary Plan Summary: We will moved out of the ICU to the floor.
[2017-04-26] MEDS ORDERED: INSULIN LISPRO 100 UNIT/ML 3 ML VIAL SUBCUT PRN (17:00)
[2017-04-26] MEDS: LOPERAMIDE HCL 2 MG CAPSULE PO PRN (17:51)
[2017-04-26] MEDS: FAMOTIDINE INJ/PF 20 MG/2 ML SDV IV SCH (22:40)
[2017-04-26] MEDS ORDERED: VANCOMYCIN HCL INJ 1000 MG VIAL ONE (23:18)
[2017-04-27] MEDS: VANCOMYCIN HCL 750 MG in DEXTROSE 5%-WATER 250 ML IV SCH (00:46)
[2017-04-27] MEDS: ACETAMINOPHEN 325 MG TABLET PO PRN ×3 (00:47→23:25)
[2017-04-27 04:11] LABS: HEMATOCRIT 24.8 % (36.0-47.0); HEMOGLOBIN 8.4 g/dL (12.0-15.5); HGB HCT DIFFERENCE 0.4; MEAN CORPUSCULAR HEMOGLOBIN 29.4 pg (27.0-33.4); MEAN CORPUSCULAR HGB CONC 33.7 g/dL (32.0-36.0); MEAN CORPUSCULAR VOLUME 87 fl (80-97); RED BLOOD COUNT 2.85 10^6/uL (3.72-5.28); RED CELL DISTRIBUTION WIDTH 21.4 % (11.5-14.0); WHITE BLOOD COUNT 8.7 10^3/uL (4.0-10.5)
[2017-04-27 04:20] LABS: ANION GAP 6 (5-19); BLOOD UREA NITROGEN 22 mg/dL (7-20); CARBON DIOXIDE 11 mmol/L (22-30); CHLORIDE 117 mmol/L (98-107); CREATININE RESULT 1.57 mg/dL (0.52-1.25); GLUCOSE 68 mg/dL (75-110); POTASSIUM 3.8 mmol/L (3.6-5.0); SODIUM 134.4 mmol/L (137-145)
[2017-04-27 04:30] LABS: CALCIUM 6.2 mg/dL (8.4-10.2)
[2017-04-27 04:36] LABS: BAND NEUTROPHILS % (MANUAL) 2 % (3-5); BASOPHILS % (MANUAL) 0 % (0-2); EOSINOPHILS % (MANUAL) 39 % (0-6); LYMPHOCYTES % (MANUAL) 40 % (13-45); TOTAL CELLS COUNTED 100
[2017-04-27] MEDS ORDERED: CALCIUM GLUCONATE 1000 MG/10 ML INJ IV ONE (04:40)
[2017-04-27] MEDS ORDERED: CALCIUM GLUCONATE 1000 MG/10 ML INJ IV PRN (04:44)
[2017-04-27 04:45] LABS: ACANTHOCYTES SLIGHT; ANISOCYTOSIS 3+; BURR CELLS 2+; OVALOCYTES 1+; POIKILOCYTOSIS 2+; TOXIC VACUOLATION PRESENT
[2017-04-27] MEDS ORDERED: CALCIUM GLUCONATE 1,000 MG in DEXTROSE 5%-WATER 50 ML IV ONE (05:00)
[2017-04-27] MEDS: METOPROLOL TARTRATE PF/INJ 5 MG/5 ML SDV IV SCH ×4 (05:01→23:22)
[2017-04-27] MEDS: IMIPENEM/CILASTATIN SODIUM 500 MG in NORMAL SALINE 100 ML IV SCH (06:28)
--- NOTE | 2017-04-27 08:22 | PDOC PROGRESS REPORT ---
Subjective Progress Note for:: 04/27/17 Subjective:: No acute events overnight, pt feels more swollen, SOB, pt having redness UE now , fevers seem to be lower over 24 hrs Physical Exam Vital Signs: Temp Pulse Resp BP Pulse Ox 98.3 F 96 20 146/56 H 100 04/27/17 08:05 04/27/17 08:05 04/27/17 08:05 04/27/17 08:05 04/27/17 08:05 Intake & Output 04/26/17 04/27/17 04/28/17 06:59 06:59 06:59 Intake Total 1437 910 Output Total 635 600 Balance 802 310 Weight 98.6 kg 101.6 kg General appearance: PRESENT: no acute distress, well-developed, well-nourished Head exam: PRESENT: atraumatic, normocephalic Eye exam: PRESENT: conjunctiva pink, EOMI, PERRLA. ABSENT: scleral icterus Ear exam: PRESENT: normal external ear exam Mouth exam: PRESENT: moist, tongue midline Neck exam: ABSENT: carotid bruit, JVD, lymphadenopathy, thyromegaly Respiratory exam: PRESENT: clear to auscultation mary grace. ABSENT: rales, rhonchi, wheezes Cardiovascular exam: PRESENT: RRR. ABSENT: diastolic murmur, rubs, systolic murmur Pulses: PRESENT: normal dorsalis pedis pul Vascular exam: PRESENT: normal capillary refill GI/Abdominal exam: PRESENT: normal bowel sounds, soft. ABSENT: distended, guarding, mass, organolmegaly, rebound, tenderness Rectal exam: PRESENT: deferred Extremities exam: PRESENT: full ROM. ABSENT: calf tenderness, clubbing, pedal edema Neurological exam: PRESENT: alert, awake, oriented to person, oriented to place , oriented to time, oriented to situation, CN II-XII grossly intact. ABSENT: motor sensory deficit Psychiatric exam: PRESENT: appropriate affect, normal mood. ABSENT: homicidal ideation, suicidal ideation Skin exam: PRESENT: dry, intact, warm. ABSENT: cyanosis, rash Results Laboratory Results: 04/27/17 04:00 04/27/17 04:00 04/27/17 04/27/17 04:00 04:00 WBC 8.7 RBC 2.85 L Hgb 8.4 L Hct 24.8 L MCV 87 MCH 29.4 MCHC 33.7 RDW 21.4 H Plt Count 43 L Seg Neutrophils % Not Reportable Lymphocytes % Not Reportable Monocytes % Not Reportable Eosinophils % Not Reportable Basophils % Not Reportable Absolute Neutrophils Not Reportable Absolute Lymphocytes Not Reportable Absolute Monocytes Not Reportable Absolute Eosinophils Not Reportable Absolute Basophils Not Reportable Sodium 134.4 L Potassium 3.8 Chloride 117 H Carbon Dioxide 11 L Anion Gap 6 BUN 22 H Creatinine 1.57 H Est GFR ( Amer) 40 L Est GFR (Non-Af Amer) 33 L Glucose 68 L Calcium 6.2 L* 04/25/17 04/25/17 11:30 11:30 Creatine Kinase 794 H CK-MB (CK-2) 0.76 Troponin I 0.027 NT-Pro-B Natriuret Pep 2100 H Impressions: Abdomen/Pelvis CT 04/21/17 00:00 IMPRESSION: Enlarged groin nodes. Extensive bony changes of multiple myeloma. Hepatobiliary Scan Nuclear Medicine 04/22/17 00:00 IMPRESSION: Visualization of the gallbladder after morphine and booster dose of mebrofenin. Chest X-Ray 04/25/17 00:00 IMPRESSION: No acute infiltrates. Right subclavian triple lumen catheter tip in the superior vena cava. No pneumothorax. Assessment & Plan - Diagnosis (1) Nausea vomiting and diarrhea Is this a current diagnosis for this admission?: Yes Plan: Still unknown cause infectious vs rx related, but con't w/ current interventions (2) Acute worsening of stage 3 chronic kidney disease Is this a current diagnosis for this admission?: Yes Plan: Renal failure better, cont' to monitor, now pt anarsarcic so will need diuresis (3) Multiple myeloma Qualifiers: Multiple myeloma remission status: not in remission Qualified Code(s): C90.00 - Multiple myeloma not having achieved remission Is this a current diagnosis for this admission?: Yes Plan: Stable, will con't to f/u as outpt (4) Fever and chills Is this a current diagnosis for this admission?: Yes Plan: Most likely prev occult infection, will plan d/c all atbx today and watch fever curves - Time Time Spent with patient: 35 or more minutes Critical Time spent with patient: 35 or more minutes - Inpatient Certification Based on my medical assessment, after consideration of the patient's comorbidities, presenting symptoms, or acuity I expect that the services needed warrant INPATIENT care.: Yes I certify that my determination is in accordance with my understanding of Medicare's requirements for reasonable and necessary INPATIENT services [42 CFR 412.3e].: Yes Medical Necessity: Failure to Improve With Outpatient Therapy, Risk of Complication if Not Cared For in Hospital
[2017-04-27] MEDS: FERROUS SULFATE 325 MG TABLET PO SCH ×2 (09:40→17:41)
[2017-04-27] MEDS: LACTOBACILLUS ACIDOPHILUS 250 MG TAB PO SCH ×2 (09:40→17:41)
[2017-04-27] MEDS: LEVOTHYROXINE SODIUM 0.1 MG TABLET PO SCH (09:40)
[2017-04-27] MEDS: FUROSEMIDE INJ/PF 40 MG/4 ML SDV IV SCH ×2 (09:51→23:09)
--- NOTE | 2017-04-27 10:23 | PDOC PROGRESS REPORT ---
Subjective Progress Note for:: 04/27/17 Subjective:: Complains of nausea. Physical Exam Vital Signs: Temp Pulse Resp BP Pulse Ox 98.3 F 96 20 146/56 H 100 04/27/17 08:05 04/27/17 08:05 04/27/17 08:05 04/27/17 08:05 04/27/17 08:05 Intake & Output 04/26/17 04/27/17 04/28/17 06:59 06:59 06:59 Intake Total 1437 910 Output Total 635 600 Balance 802 310 Weight 98.6 kg 101.6 kg General appearance: PRESENT: no acute distress Eye exam: PRESENT: conjunctiva pink. ABSENT: scleral icterus Mouth exam: PRESENT: moist, tongue midline Neck exam: ABSENT: JVD Respiratory exam: PRESENT: clear to auscultation mary grace. ABSENT: rales, rhonchi, wheezes Cardiovascular exam: PRESENT: RRR. ABSENT: diastolic murmur, rubs, systolic murmur GI/Abdominal exam: PRESENT: normal bowel sounds, soft. ABSENT: distended, guarding, mass, organolmegaly, rebound, tenderness Extremities exam: PRESENT: pedal edema. ABSENT: calf tenderness, clubbing Neurological exam: PRESENT: alert, awake, oriented to person, oriented to place , oriented to time, oriented to situation, CN II-XII grossly intact. ABSENT: motor sensory deficit Psychiatric exam: PRESENT: appropriate affect Skin exam: PRESENT: other - Mild erythema of the bilateral lower extremities and upper extremities. Results Laboratory Results: 04/27/17 04:00 04/27/17 04:00 04/27/17 04/27/17 04:00 04:00 WBC 8.7 RBC 2.85 L Hgb 8.4 L Hct 24.8 L MCV 87 MCH 29.4 MCHC 33.7 RDW 21.4 H Plt Count 43 L Seg Neutrophils % Not Reportable Lymphocytes % Not Reportable Monocytes % Not Reportable Eosinophils % Not Reportable Basophils % Not Reportable Absolute Neutrophils Not Reportable Absolute Lymphocytes Not Reportable Absolute Monocytes Not Reportable Absolute Eosinophils Not Reportable Absolute Basophils Not Reportable Sodium 134.4 L Potassium 3.8 Chloride 117 H Carbon Dioxide 11 L Anion Gap 6 BUN 22 H Creatinine 1.57 H Est GFR ( Amer) 40 L Est GFR (Non-Af Amer) 33 L Glucose 68 L Calcium 6.2 L* 04/25/17 18:30 Catheterized Urine Urine Culture - Final NO GROWTH 2 DAYS 04/25/17 04/25/17 11:30 11:30 Creatine Kinase 794 H CK-MB (CK-2) 0.76 Troponin I 0.027 NT-Pro-B Natriuret Pep 2100 H Impressions: Abdomen/Pelvis CT 04/21/17 00:00 IMPRESSION: Enlarged groin nodes. Extensive bony changes of multiple myeloma. Hepatobiliary Scan Nuclear Medicine 04/22/17 00:00 IMPRESSION: Visualization of the gallbladder after morphine and booster dose of mebrofenin. Chest X-Ray 04/25/17 00:00 IMPRESSION: No acute infiltrates. Right subclavian triple lumen catheter tip in the superior vena cava. No pneumothorax. Assessment & Plan - Diagnosis (1) Acute worsening of stage 3 chronic kidney disease Is this a current diagnosis for this admission?: Yes Plan: Patient's renal function continues to improve (2) Diastolic CHF Qualifiers: Congestive heart failure chronicity: chronic Qualified Code(s): I50.32 - Chronic diastolic (congestive) heart failure Is this a current diagnosis for this admission?: No Plan: Patient has a history of chronic diastolic congestive heart failure. (3) General weakness Is this a current diagnosis for this admission?: Yes (4) Hypomagnesemia Is this a current diagnosis for this admission?: Yes (5) Nausea vomiting and diarrhea Is this a current diagnosis for this admission?: Yes Plan: Unclear as to etiology. May be related to medications. (6) Thrombocytopenia Is this a current diagnosis for this admission?: Yes Plan: Most likely secondary to chemotherapy. The patient's platelets are stable (7) Anemia Qualifiers: Anemia type: unspecified type Qualified Code(s): D64.9 - Anemia, unspecified Is this a current diagnosis for this admission?: Yes Plan: Stable (8) HLD (hyperlipidemia) Qualifiers: Hyperlipidemia type: unspecified Qualified Code(s): E78.5 - Hyperlipidemia , unspecified Is this a current diagnosis for this admission?: Yes (9) Hypothyroid Qualifiers: Hypothyroidism type: unspecified Qualified Code(s): E03.9 - Hypothyroidism , unspecified Is this a current diagnosis for this admission?: Yes Plan: Continue with Synthroid. (10) Immunosuppressed due to chemotherapy Is this a current diagnosis for this admission?: Yes Plan: No obvious source for infection is found at this time and will stop the antibiotics at this time. Patient may have an occult infection. All of the cultures have been negative so far. (11) Fever and chills Is this a current diagnosis for this admission?: Yes Plan: No obvious source of infection. The possibility of this being drug fever is considered. Cultures have been negative. We will stop all the antibiotics and watch her fever curve. This was discussed with oncology and they are in agreement. - Time Time Spent with patient: 25-34 minutes - Inpatient Certification Medical Necessity: Need Close Monitoring Due to Risk of Patient Decompensation
[2017-04-27] MEDS ORDERED: IMIPENEM/CILASTATIN SODIUM 500 MG in NORMAL SALINE 100 ML IV SCH (18:00)
[2017-04-27 21:55] LABS: CREATININE RESULT 1.57 mg/dL (0.52-1.25)
[2017-04-27] MEDS: FAMOTIDINE INJ/PF 20 MG/2 ML SDV IV SCH (23:10)
[2017-04-28 04:32] LABS: HEMATOCRIT 23.9 % (36.0-47.0); HEMOGLOBIN 8.2 g/dL (12.0-15.5); HGB HCT DIFFERENCE 0.7; MEAN CORPUSCULAR HEMOGLOBIN 29.6 pg (27.0-33.4); MEAN CORPUSCULAR HGB CONC 34.3 g/dL (32.0-36.0); MEAN CORPUSCULAR VOLUME 86 fl (80-97); RED BLOOD COUNT 2.77 10^6/uL (3.72-5.28); RED CELL DISTRIBUTION WIDTH 21.4 % (11.5-14.0)
[2017-04-28 04:33] LABS: ANION GAP 8 (5-19); BLOOD UREA NITROGEN 24 mg/dL (7-20); CARBON DIOXIDE 14 mmol/L (22-30); CHLORIDE 114 mmol/L (98-107); GLUCOSE 86 mg/dL (75-110); MAGNESIUM 1.6 mg/dL (1.6-2.3); POTASSIUM 3.9 mmol/L (3.6-5.0)
[2017-04-28 05:05] LABS: BAND NEUTROPHILS % (MANUAL) 4 % (3-5); BASOPHILS % (MANUAL) 0 % (0-2); EOSINOPHILS % (MANUAL) 26 % (0-6); LYMPHOCYTES % (MANUAL) 37 % (13-45); NUCLEATED RED BLOOD CELLS 1 /100 WBC (0); TOTAL CELLS COUNTED 100
[2017-04-28 05:07] LABS: ANISOCYTOSIS 3+; BURR CELLS 2+; OVALOCYTES 1+; POIKILOCYTOSIS 2+; SCHISTOCYTES 1+
[2017-04-28] MEDS: METOPROLOL TARTRATE PF/INJ 5 MG/5 ML SDV IV SCH (06:00)
--- NOTE | 2017-04-28 07:57 | PDOC PROGRESS REPORT ---
Subjective Progress Note for:: 04/28/17 Subjective:: Pt had fever spikes yesterday and this am to 101, had a lot of urine output yesterday Physical Exam Vital Signs: Temp Pulse Resp BP Pulse Ox 99.9 F 86 18 121/57 L 100 04/28/17 03:59 04/28/17 03:59 04/28/17 03:59 04/28/17 03:59 04/28/17 03:59 Intake & Output 04/27/17 04/28/17 04/29/17 06:59 06:59 06:59 Intake Total 910 1148 Output Total 600 2600 Balance 310 -1452 Weight 101.6 kg 102.8 kg General appearance: PRESENT: no acute distress, well-developed, well-nourished Head exam: PRESENT: atraumatic, normocephalic Eye exam: PRESENT: conjunctiva pink, EOMI, PERRLA. ABSENT: scleral icterus Ear exam: PRESENT: normal external ear exam Mouth exam: PRESENT: moist, tongue midline Neck exam: ABSENT: carotid bruit, JVD, lymphadenopathy, thyromegaly Respiratory exam: PRESENT: clear to auscultation mary grace. ABSENT: rales, rhonchi, wheezes Cardiovascular exam: PRESENT: RRR. ABSENT: diastolic murmur, rubs, systolic murmur Pulses: PRESENT: normal dorsalis pedis pul Vascular exam: PRESENT: normal capillary refill GI/Abdominal exam: PRESENT: normal bowel sounds, soft. ABSENT: distended, guarding, mass, organolmegaly, rebound, tenderness Rectal exam: PRESENT: deferred Extremities exam: PRESENT: full ROM. ABSENT: calf tenderness, clubbing, pedal edema Neurological exam: PRESENT: alert, awake, oriented to person, oriented to place , oriented to time, oriented to situation, CN II-XII grossly intact. ABSENT: motor sensory deficit Psychiatric exam: PRESENT: appropriate affect, normal mood. ABSENT: homicidal ideation, suicidal ideation Skin exam: PRESENT: dry, intact, warm. ABSENT: cyanosis, rash Results Laboratory Results: 04/28/17 04:05 04/28/17 04:05 04/27/17 04/28/17 04/28/17 21:15 04:05 04:05 WBC 7.0 RBC 2.77 L Hgb 8.2 L Hct 23.9 L MCV 86 MCH 29.6 MCHC 34.3 RDW 21.4 H Plt Count 36 L Seg Neutrophils % Not Reportable Lymphocytes % Not Reportable Monocytes % Not Reportable Eosinophils % Not Reportable Basophils % Not Reportable Absolute Neutrophils Not Reportable Absolute Lymphocytes Not Reportable Absolute Monocytes Not Reportable Absolute Eosinophils Not Reportable Absolute Basophils Not Reportable Sodium 136.0 L Potassium 3.9 Chloride 114 H Carbon Dioxide 14 L Anion Gap 8 BUN 24 H Creatinine 1.57 H 1.60 H Est GFR ( Amer) 40 L 39 L Est GFR (Non-Af Amer) 33 L 32 L Glucose 86 Calcium 7.0 L* Magnesium 1.6 04/25/17 18:30 Catheterized Urine Urine Culture - Final NO GROWTH 2 DAYS 04/25/17 04/25/17 11:30 11:30 Creatine Kinase 794 H CK-MB (CK-2) 0.76 Troponin I 0.027 NT-Pro-B Natriuret Pep 2100 H Impressions: Abdomen/Pelvis CT 04/21/17 00:00 IMPRESSION: Enlarged groin nodes. Extensive bony changes of multiple myeloma. Hepatobiliary Scan Nuclear Medicine 04/22/17 00:00 IMPRESSION: Visualization of the gallbladder after morphine and booster dose of mebrofenin. Chest X-Ray 04/25/17 00:00 IMPRESSION: No acute infiltrates. Right subclavian triple lumen catheter tip in the superior vena cava. No pneumothorax. Assessment & Plan - Diagnosis (1) Nausea vomiting and diarrhea Is this a current diagnosis for this admission?: Yes Plan: Resolved now, con't to monitor (2) Acute worsening of stage 3 chronic kidney disease Is this a current diagnosis for this admission?: Yes Plan: Improved, now diuresing (3) Multiple myeloma Qualifiers: Multiple myeloma remission status: not in remission Qualified Code(s): C90.00 - Multiple myeloma not having achieved remission Is this a current diagnosis for this admission?: Yes Plan: Stable, con't to monitor (4) Fever and chills Is this a current diagnosis for this admission?: Yes Plan: Fevers again worsened, reviewed labs and there is considerable eosinophilia, suggested starting doxycycline for consideration of arboviral illness although less likely. - Time Time Spent with patient: 25-34 minutes Critical Time spent with patient: 25-34 minutes
[2017-04-28] MEDS ORDERED: DOXYCYCLINE HYCLATE 100 MG in DEXTROSE 5%-WATER 250 ML IV ONE (11:00)
[2017-04-28] MEDS: FUROSEMIDE INJ/PF 40 MG/4 ML SDV IV SCH ×2 (11:02→21:19)
[2017-04-28] MEDS: FERROUS SULFATE 325 MG TABLET PO SCH ×2 (11:03→17:04)
[2017-04-28] MEDS: LEVOTHYROXINE SODIUM 0.1 MG TABLET PO SCH (11:03)
[2017-04-28] MEDS: LACTOBACILLUS ACIDOPHILUS 250 MG TAB PO SCH ×2 (11:03→17:04)
--- NOTE | 2017-04-28 12:12 | PDOC PROGRESS REPORT ---
Subjective Progress Note for:: 04/28/17 Subjective:: Had a fever overnight in spite of being off of the antibiotics. The patient is noted to have eosinophilia. Physical Exam Vital Signs: Temp Pulse Resp BP Pulse Ox 100.4 F 84 21 H 119/54 L 100 04/28/17 07:17 04/28/17 07:17 04/28/17 07:17 04/28/17 07:17 04/28/17 07:17 Intake & Output 04/27/17 04/28/17 04/29/17 06:59 06:59 06:59 Intake Total 910 1148 Output Total 600 2600 Balance 310 -1452 Weight 101.6 kg 102.8 kg General appearance: PRESENT: no acute distress Eye exam: PRESENT: conjunctiva pink. ABSENT: scleral icterus Ear exam: PRESENT: normal external ear exam Neck exam: ABSENT: JVD Respiratory exam: PRESENT: clear to auscultation mary grace. ABSENT: rales, rhonchi, wheezes Cardiovascular exam: PRESENT: RRR. ABSENT: diastolic murmur, rubs, systolic murmur Vascular exam: PRESENT: normal capillary refill GI/Abdominal exam: PRESENT: normal bowel sounds, soft. ABSENT: distended, guarding, mass, organolmegaly, rebound, tenderness Extremities exam: ABSENT: calf tenderness, clubbing, pedal edema Neurological exam: PRESENT: alert, awake, oriented to person, oriented to place , oriented to time, oriented to situation, CN II-XII grossly intact. ABSENT: motor sensory deficit Psychiatric exam: PRESENT: appropriate affect Skin exam: PRESENT: dry, intact, warm. ABSENT: cyanosis, rash Results Laboratory Results: 04/28/17 04:05 04/28/17 04:05 04/27/17 04/28/17 04/28/17 21:15 04:05 04:05 WBC 7.0 RBC 2.77 L Hgb 8.2 L Hct 23.9 L MCV 86 MCH 29.6 MCHC 34.3 RDW 21.4 H Plt Count 36 L Seg Neutrophils % Not Reportable Lymphocytes % Not Reportable Monocytes % Not Reportable Eosinophils % Not Reportable Basophils % Not Reportable Absolute Neutrophils Not Reportable Absolute Lymphocytes Not Reportable Absolute Monocytes Not Reportable Absolute Eosinophils Not Reportable Absolute Basophils Not Reportable Sodium 136.0 L Potassium 3.9 Chloride 114 H Carbon Dioxide 14 L Anion Gap 8 BUN 24 H Creatinine 1.57 H 1.60 H Est GFR ( Amer) 40 L 39 L Est GFR (Non-Af Amer) 33 L 32 L Glucose 86 Calcium 7.0 L* Magnesium 1.6 04/25/17 18:30 Catheterized Urine Urine Culture - Final NO GROWTH 2 DAYS 04/25/17 04/25/17 11:30 11:30 Creatine Kinase 794 H CK-MB (CK-2) 0.76 Troponin I 0.027 NT-Pro-B Natriuret Pep 2100 H Impressions: Abdomen/Pelvis CT 04/21/17 00:00 IMPRESSION: Enlarged groin nodes. Extensive bony changes of multiple myeloma. Hepatobiliary Scan Nuclear Medicine 04/22/17 00:00 IMPRESSION: Visualization of the gallbladder after morphine and booster dose of mebrofenin. Chest X-Ray 04/25/17 00:00 IMPRESSION: No acute infiltrates. Right subclavian triple lumen catheter tip in the superior vena cava. No pneumothorax. Assessment & Plan - Diagnosis (1) Fever and chills Is this a current diagnosis for this admission?: Yes Plan: No obvious source of infection. The possibility of this being drug fever was considered. She was off of antibiotics since still spiked a temperature. This was discussed with oncology. Given the eosinophilia the possibility of a tickborne illness is considered. We will start the patient on doxycycline. All of her cultures have been negative so far. (2) Acute worsening of stage 3 chronic kidney disease Is this a current diagnosis for this admission?: Yes Plan: Patient's renal function remained stable. (3) Diastolic CHF Qualifiers: Congestive heart failure chronicity: chronic Qualified Code(s): I50.32 - Chronic diastolic (congestive) heart failure Is this a current diagnosis for this admission?: No Plan: Patient has a history of chronic diastolic congestive heart failure. (4) General weakness Is this a current diagnosis for this admission?: Yes (5) Hypomagnesemia Is this a current diagnosis for this admission?: Yes (6) Nausea vomiting and diarrhea Is this a current diagnosis for this admission?: Yes Plan: Unclear as to etiology. May be related to medications but has improved. (7) Thrombocytopenia Is this a current diagnosis for this admission?: Yes Plan: Most likely secondary to chemotherapy. The patient's platelets are stable (8) Anemia Qualifiers: Anemia type: unspecified type Qualified Code(s): D64.9 - Anemia, unspecified Is this a current diagnosis for this admission?: Yes Plan: Stable (9) HLD (hyperlipidemia) Qualifiers: Hyperlipidemia type: unspecified Qualified Code(s): E78.5 - Hyperlipidemia , unspecified Is this a current diagnosis for this admission?: Yes (10) Hypothyroid Qualifiers: Hypothyroidism type: unspecified Qualified Code(s): E03.9 - Hypothyroidism , unspecified Is this a current diagnosis for this admission?: Yes Plan: Continue with Synthroid. (11) Immunosuppressed due to chemotherapy Is this a current diagnosis for this admission?: Yes Plan: No obvious source for infection is found at this time. Been started on doxycycline for the possibility of tickborne illness. Patient may have an occult infection. All of the cultures have been negative so far. - Time Time Spent with patient: 25-34 minutes - Inpatient Certification Medical Necessity: Need for IV Antibiotics
[2017-04-28] MEDS: ACETAMINOPHEN 325 MG TABLET PO PRN (17:07)
[2017-04-28] MEDS: FAMOTIDINE INJ/PF 20 MG/2 ML SDV IV SCH (21:19)
[2017-04-28] MEDS: METOPROLOL TARTRATE 25 MG TABLET PO SCH (21:20)
[2017-04-28] MEDS: DOXYCYCLINE HYCLATE 100 MG in DEXTROSE 5%-WATER 250 ML IV SCH (21:20)
[2017-04-29 05:10] LABS: MEAN CORPUSCULAR VOLUME 86 fl (80-97)
[2017-04-29 05:14] LABS: ANION GAP 6 (5-19); BLOOD UREA NITROGEN 24 mg/dL (7-20); CALCIUM 7.2 mg/dL (8.4-10.2); CARBON DIOXIDE 15 mmol/L (22-30); CHLORIDE 113 mmol/L (98-107); CREATININE RESULT 1.63 mg/dL (0.52-1.25); GLUCOSE 99 mg/dL (75-110); POTASSIUM 3.4 mmol/L (3.6-5.0); SODIUM 134.4 mmol/L (137-145)
[2017-04-29 06:13] LABS: HEMATOCRIT 23.4 % (36.0-47.0); HEMOGLOBIN 8.3 g/dL (12.0-15.5); HGB HCT DIFFERENCE 1.5; MEAN CORPUSCULAR HEMOGLOBIN 30.3 pg (27.0-33.4); MEAN CORPUSCULAR HGB CONC 35.3 g/dL (32.0-36.0); RED BLOOD COUNT 2.74 10^6/uL (3.72-5.28); RED CELL DISTRIBUTION WIDTH 21.2 % (11.5-14.0); WHITE BLOOD COUNT 6.1 10^3/uL (4.0-10.5)
[2017-04-29 06:14] LABS: ANISOCYTOSIS 3+; BAND NEUTROPHILS % (MANUAL) 3 % (3-5); BASOPHILS % (MANUAL) 0 % (0-2); BURR CELLS SLIGHT; EOSINOPHILS % (MANUAL) 21 % (0-6); LYMPHOCYTES % (MANUAL) 36 % (13-45); OVALOCYTES SLIGHT; POIKILOCYTOSIS SLIGHT; POLYCHROMASIA SLIGHT; SCHISTOCYTES SLIGHT; TOTAL CELLS COUNTED 100
--- NOTE | 2017-04-29 08:05 | PDOC PROGRESS REPORT ---
Subjective Progress Note for:: 04/29/17 Subjective:: Pt still w/ fevers yesterday though better this am. Skin less red and swollen. Having a lot of weakness. Reviewed labs, plt ct down to 22 k but no active bleeding noted, peripheral smear noted immature cells, have asked pathology to look at it. Reviewed myeloma labs as outpt and free light chain was actually stable, so by that standard does not seem to be progression. Physical Exam Vital Signs: Temp Pulse Resp BP Pulse Ox 98.3 F 88 18 107/49 L 99 04/29/17 04:50 04/29/17 07:00 04/29/17 04:50 04/29/17 04:50 04/29/17 04:50 Intake & Output 04/28/17 04/29/17 04/30/17 06:59 06:59 06:59 Intake Total 1148 1156 Output Total 2600 2350 Balance -1452 -1194 Weight 102.8 kg 99.7 kg General appearance: PRESENT: no acute distress, well-developed, well-nourished Head exam: PRESENT: atraumatic, normocephalic Eye exam: PRESENT: conjunctiva pink, EOMI, PERRLA. ABSENT: scleral icterus Ear exam: PRESENT: normal external ear exam Mouth exam: PRESENT: moist, tongue midline Neck exam: ABSENT: carotid bruit, JVD, lymphadenopathy, thyromegaly Respiratory exam: PRESENT: clear to auscultation mary grace. ABSENT: rales, rhonchi, wheezes Cardiovascular exam: PRESENT: RRR. ABSENT: diastolic murmur, rubs, systolic murmur Pulses: PRESENT: normal dorsalis pedis pul Vascular exam: PRESENT: normal capillary refill GI/Abdominal exam: PRESENT: normal bowel sounds, soft. ABSENT: distended, guarding, mass, organolmegaly, rebound, tenderness Rectal exam: PRESENT: deferred Extremities exam: PRESENT: full ROM. ABSENT: calf tenderness, clubbing, pedal edema Neurological exam: PRESENT: alert, awake, oriented to person, oriented to place , oriented to time, oriented to situation, CN II-XII grossly intact. ABSENT: motor sensory deficit Psychiatric exam: PRESENT: appropriate affect, normal mood. ABSENT: homicidal ideation, suicidal ideation Skin exam: PRESENT: dry, intact, warm. ABSENT: cyanosis, rash Results Laboratory Results: 04/29/17 04:25 04/29/17 04:25 04/29/17 04/29/17 04:25 04:25 WBC 6.1 RBC 2.74 L Hgb 8.3 L Hct 23.4 L MCV 86 MCH 30.3 MCHC 35.3 RDW 21.2 H Plt Count 22 L* Seg Neutrophils % Not Reportable Lymphocytes % Not Reportable Monocytes % Not Reportable Eosinophils % Not Reportable Basophils % Not Reportable Absolute Neutrophils Not Reportable Absolute Lymphocytes Not Reportable Absolute Monocytes Not Reportable Absolute Eosinophils Not Reportable Absolute Basophils Not Reportable Sodium 134.4 L Potassium 3.4 L Chloride 113 H Carbon Dioxide 15 L Anion Gap 6 BUN 24 H Creatinine 1.63 H Est GFR ( Amer) 38 L Est GFR (Non-Af Amer) 31 L Glucose 99 Calcium 7.2 L 04/25/17 04/25/17 11:30 11:30 Creatine Kinase 794 H CK-MB (CK-2) 0.76 Troponin I 0.027 NT-Pro-B Natriuret Pep 2100 H Impressions: Abdomen/Pelvis CT 04/21/17 00:00 IMPRESSION: Enlarged groin nodes. Extensive bony changes of multiple myeloma. Hepatobiliary Scan Nuclear Medicine 04/22/17 00:00 IMPRESSION: Visualization of the gallbladder after morphine and booster dose of mebrofenin. Chest X-Ray 04/25/17 00:00 IMPRESSION: No acute infiltrates. Right subclavian triple lumen catheter tip in the superior vena cava. No pneumothorax. Assessment & Plan - Diagnosis (1) Nausea vomiting and diarrhea Is this a current diagnosis for this admission?: Yes Plan: Improved, stool culture pending now (2) Acute worsening of stage 3 chronic kidney disease Is this a current diagnosis for this admission?: Yes Plan: Improved, con't w/ monitoring (3) Multiple myeloma Qualifiers: Multiple myeloma remission status: not in remission Qualified Code(s): C90.00 - Multiple myeloma not having achieved remission Is this a current diagnosis for this admission?: Yes Plan: Franklin to be stable per labs done as outpt but peripheral smear revealed some immature cels, ??blasts?? are we getting into plasma cell leukemia? I have asked path to review smear and let us know. If they are truly blasts, would plan bmbx. But that maybe better done at outside institution, if plasma cell leukemia, she may need more aggressive rx than we could do here. But will see what path says today (4) Fever and chills Is this a current diagnosis for this admission?: Yes Plan: Continued, doxy con't, unlikely bacterial but likely atypical or related to something else (5) Thrombocytopenia Is this a current diagnosis for this admission?: Yes Plan: 2nd to infection vs myeloma vs DIC. No active bleeding, but likely will need transfusion in next few days. - Time Time Spent with patient: 35 or more minutes Critical Time spent with patient: 35 or more minutes
[2017-04-29 08:40] LABS: PATH REVIEW PATHOLOGIST REVIEWED
[2017-04-29] MEDS: METOPROLOL TARTRATE 25 MG TABLET PO SCH (10:02)
[2017-04-29] MEDS: DOXYCYCLINE HYCLATE 100 MG in DEXTROSE 5%-WATER 250 ML IV SCH (10:02)
[2017-04-29] MEDS: FUROSEMIDE INJ/PF 40 MG/4 ML SDV IV SCH (10:02)
[2017-04-29] MEDS: LACTOBACILLUS ACIDOPHILUS 250 MG TAB PO SCH ×2 (10:02→17:48)
[2017-04-29] MEDS: LEVOTHYROXINE SODIUM 0.1 MG TABLET PO SCH (10:02)
[2017-04-29] MEDS: FERROUS SULFATE 325 MG TABLET PO SCH ×2 (10:12→17:48)
--- NOTE | 2017-04-29 13:03 | PDOC TRANSFER SUMMARY ---
General Admission Date/PCP: 04/21/17 21:35 BROOK KRISHNA MD Transfer Date: 04/29/17 Accepting Facility: [facility] Accepting Physician: dr Eubanks Resuscitation Status: Full Code - Transfer Diagnosis (1) Fever and chills Is this a current diagnosis for this admission?: Yes Diagnosis Summary: Uncertain as to the etiology. The patient was initially treated with vancomycin and Primaxin given her history of malignancy and chemotherapy treatment. All cultures have been negative. The antibiotics were then stopped thinking this could be related to drug fever. The fevers continued and then she was put on doxycycline but continues to have low-grade fevers. (2) Acute worsening of stage 3 chronic kidney disease Is this a current diagnosis for this admission?: Yes Diagnosis Summary: Patient presented with dehydration and creatinine 2.8. This has decreased down to 1.6 now. (3) Diastolic CHF Is this a current diagnosis for this admission?: Yes (4) General weakness Is this a current diagnosis for this admission?: Yes (5) Hypomagnesemia Is this a current diagnosis for this admission?: Yes (6) Nausea vomiting and diarrhea Is this a current diagnosis for this admission?: Yes Diagnosis Summary: Negative for C. difficile. The patient has gallstones but no evidence for cholecystitis. Hepatobiliary scan was normal. (7) Thrombocytopenia Is this a current diagnosis for this admission?: Yes Diagnosis Summary: Uncertain etiology. The patient does have multiple myeloma and does have some blasts present on peripheral smear. (8) Anemia Is this a current diagnosis for this admission?: Yes (9) HLD (hyperlipidemia) Is this a current diagnosis for this admission?: Yes (10) Hypothyroid Is this a current diagnosis for this admission?: Yes (11) Immunosuppressed due to chemotherapy Is this a current diagnosis for this admission?: Yes (12) Multiple myeloma Is this a current diagnosis for this admission?: Yes - Transfer Medications Home Medications: Amlodipine Besylate [Norvasc 10 mg Tablet] 10 mg PO DAILY 04/21/17 Atorvastatin Calcium [Lipitor 20 mg Tablet] 20 mg PO DAILY 04/21/17 Ferrous Sulfate [Feosol 325 mg Tablet] 325 mg PO BID 04/21/17 Furosemide [Lasix 40 mg Tablet] 40 mg PO DAILY@1400 04/21/17 Furosemide [Lasix 40 mg Tablet] 40 mg PO QAM 09/21/17 Levothyroxine Sodium [Synthroid] 100 mcg PO DAILY 04/21/17 Lisinopril [Prinivil 5 mg Tablet] 5 mg PO QHS 04/21/17 Metoprolol Tartrate [Lopressor 50 mg Tablet] 50 mg PO Q12 04/21/17 Potassium Chloride [Klor-Con 10 Meq Tablet.sa] 10 meq PO Q12 04/21/17 Transfer Medications: Current Medications Acetaminophen (Tylenol 325 Mg Tablet) 650 mg PO Q4HP PRN PRN Reason: FEVER Stop: 05/25/17 13:18 Last Admin: 04/28/17 17:07 Dose: 650 mg Dextrose (Dextrose Inj 50% Syringe (25 Gm/50 Ml)) 12.5 gm IV PRN PRN; Protocol PRN Reason: FOR BG 50-69 IN ALERT PATIENT Stop: 05/21/17 21:30 Last Admin: 04/26/17 22:54 Dose: 12.5 gm Dextrose (Dextrose Inj 50% Syringe (25 Gm/50 Ml)) 25 gm IV PRN PRN PRN Reason: Protocol Stop: 05/21/17 21:30 Diphenoxylate HCl/Atropine (Lomotil 2.5 Mg Tablet) 1 tab PO Q6HP PRN PRN Reason: DIARRHEA Stop: 04/30/17 11:03 Famotidine (Pepcid Inj/Pf 20 Mg/2 Ml Sdv) 20 mg IV QHS SUSANA Stop: 05/25/17 21:59 Last Admin: 04/28/17 21:19 Dose: 20 mg Ferrous Sulfate (Feosol 325 Mg Tablet) 325 mg PO BID SUSANA Stop: 05/22/17 09:59 Last Admin: 04/29/17 10:12 Dose: 325 mg Furosemide (Lasix Inj/Pf 40 Mg/4 Ml Sdv) 40 mg IV Q12 SUSANA Stop: 05/27/17 09:59 Last Admin: 04/29/17 10:02 Dose: 40 mg Glucagon (Glucagen Inj 1 Mg Vial) 1 mg IM PRN PRN; Protocol PRN Reason: Evaluate for BG < 70 Stop: 05/21/17 21:30 Glucose (Glutose 40% Gel 15 Gm Tube) 15 gm PO PRN PRN; Protocol PRN Reason: FOR BG 50-69 IN ALERT PATIENT Stop: 05/21/17 21:30 Glucose (Glutose 40% Gel 15 Gm Tube) 30 gm PO PRN PRN; Protocol PRN Reason: FOR BG < 50 IN ALERT PATIENT Stop: 05/21/17 21:30 Doxycycline Hyclate 100 mg/ (Dextrose) 250 mls @ 125 mls/hr IV Q12 SUSANA Stop: 05/05/17 09:59 Last Admin: 04/29/17 10:02 Dose: 100 mg Insulin Human Lispro (Humalog Insulin 100 Unit/1 Ml 3 Ml Vial) 0 - 12 unit SUBCUT ACHSP PRN PRN Reason: Protocol Stop: 05/21/17 21:30 Lactobacillus Acidophilus (Bacid 250 Mg Tablet) 500 mg PO BID SUSANA Stop: 05/22/17 17:59 Last Admin: 04/29/17 10:02 Dose: 500 mg Lactulose (Cephulac Syrup 20 Gm/30 Ml Udcup) 20 gm PO Q6HP PRN PRN Reason: FOR CONSTIPATION Stop: 05/26/17 08:30 Last Admin: 04/28/17 18:11 Dose: 20 gm Levothyroxine Sodium (Synthroid 0.1 Mg Tablet) 0.1 mg PO DAILY SUSANA Stop: 05/22/17 09:59 Last Admin: 04/29/17 10:02 Dose: 0.1 mg Loperamide HCl (Imodium 2 Mg Capsule) 2 mg PO Q6HP PRN Stop: 05/22/17 11:12 Last Admin: 04/26/17 17:51 Dose: 2 mg Metoprolol Tartrate (Lopressor 25 Mg Tablet) 12.5 mg PO Q12 SUSANA Stop: 05/28/17 21:59 Last Admin: 04/29/17 10:02 Dose: 12.5 mg Ondansetron HCl (Zofran Inj/Pf 4 Mg/2 Ml Sdv) 4 mg IV Q4HP PRN PRN Reason: FOR NAUSEA/VOMITING Stop: 05/23/17 14:48 Last Admin: 04/25/17 16:31 Dose: 4 mg Pharmacy Profile Note (Medication Communication Order) 1 each .DOSE ADJUST SUSANA Stop: 05/21/17 21:29 Promethazine HCl (Phenergan Inj 25 Mg/1 Ml Vial) 12.5 mg IV Q4HP PRN PRN Reason: NAUSEA Stop: 05/23/17 14:47 Sodium Chloride (Saline Flush 2.5 Ml Monoject Prefil Syrin) 2.5 ml IV Q8 SUSANA Stop: 05/21/17 21:59 Last Admin: 04/29/17 05:13 Dose: Not Given - Allergies Allergies/Adverse Reactions: No Known Allergies Allergy (Verified 04/21/17 17:05) - Diet/Activity Discharge Diet: Regular Hospital Course Hospital Course: 67-year-old female with a history of multiple myeloma being followed by Dr. Maciel for treatment who presented with a several week history of generalized malaise and epigastric abdominal discomfort. Patient also had early satiety and postprandial nausea and vomiting. Patient however did not have any right upper quadrant abdominal pain. Patient also has been having loose bowel movements 2-3 times daily but no blood or mucus in her stool. The patient also has had some low-grade fevers for 3 days prior to presentation. Patient was seen in her oncologist's office on the day of admission and sent to the hospital for evaluation of the above. The patient's initial temperature was 103.0. The patient's last episode of chemotherapy was the Tuesday prior to admission. The patient was initially started on broad-spectrum antibiotics with vancomycin and Primaxin. Because of the gallstones the patient had a hepatobiliary scan, and that was normal. Patient was continued on antibiotics however all of her cultures were negative. She had C. difficile that was negative. Given her negative cultures and continued fevers there was concern that this may be secondary to medications. Her antibiotics were held for 2 days and she continued to have fevers. Given that she also had low platelets the possibility of a tickborne illness was considered although she denied having any tick exposure. Because of the possibility of this she was started on doxycycline. Patient has continued to have fevers and her platelet count has continued to decrease and is down to 20,000 today but she has no evidence for bleeding at this time. Oncology asked pathology to review her peripheral smear and she was found to have several blast cells present. There was concern this could represent an acute myelogenous leukemia and Dr. Giraldo called [facility] and they graciously agreed to accept the patient in transfer. Dr. Eubanks is the accepting physician. All of her cultures are still negative up to date. We have continued on with the doxycycline in spite of having negative cultures. Physical Exam Vital Signs: Temp Pulse Resp BP Pulse Ox 97.7 F 93 22 H 121/60 100 04/29/17 07:54 04/29/17 07:54 04/29/17 07:54 04/29/17 07:54 04/29/17 07:54 Intake & Output 04/28/17 04/29/17 04/30/17 06:59 06:59 06:59 Intake Total 1148 1156 358 Output Total 2608 8690 150 Balance -1452 -1194 208 Weight 102.8 kg 99.7 kg General appearance: PRESENT: no acute distress Eye exam: PRESENT: conjunctiva pink. ABSENT: scleral icterus Mouth exam: PRESENT: moist, tongue midline Neck exam: ABSENT: JVD Respiratory exam: PRESENT: clear to auscultation mary grace. ABSENT: rales, rhonchi, wheezes Cardiovascular exam: PRESENT: RRR. ABSENT: diastolic murmur, rubs, systolic murmur GI/Abdominal exam: PRESENT: normal bowel sounds, soft. ABSENT: distended, guarding, mass, organolmegaly, rebound, tenderness Extremities exam: ABSENT: calf tenderness, clubbing, pedal edema Neurological exam: PRESENT: alert, awake, oriented to person, oriented to place , oriented to time, oriented to situation, CN II-XII grossly intact. ABSENT: motor sensory deficit Psychiatric exam: PRESENT: appropriate affect Skin exam: PRESENT: dry, intact, warm, other - Mild erythema of the bilateral legs.. ABSENT: cyanosis, rash Results Laboratory Results: 04/29/17 04:25 04/29/17 04:25 04/29/17 04/29/17 04:25 04:25 WBC 6.1 RBC 2.74 L Hgb 8.3 L Hct 23.4 L MCV 86 MCH 30.3 MCHC 35.3 RDW 21.2 H Plt Count 22 L* Seg Neutrophils % Not Reportable Lymphocytes % Not Reportable Monocytes % Not Reportable Eosinophils % Not Reportable Basophils % Not Reportable Absolute Neutrophils Not Reportable Absolute Lymphocytes Not Reportable Absolute Monocytes Not Reportable Absolute Eosinophils Not Reportable Absolute Basophils Not Reportable Sodium 134.4 L Potassium 3.4 L Chloride 113 H Carbon Dioxide 15 L Anion Gap 6 BUN 24 H Creatinine 1.63 H Est GFR ( Amer) 38 L Est GFR (Non-Af Amer) 31 L Glucose 99 Calcium 7.2 L 04/25/17 04/25/17 11:30 11:30 Creatine Kinase 794 H CK-MB (CK-2) 0.76 Troponin I 0.027 NT-Pro-B Natriuret Pep 2100 H Impressions: Abdomen/Pelvis CT 04/21/17 00:00 IMPRESSION: Enlarged groin nodes. Extensive bony changes of multiple myeloma. Hepatobiliary Scan Nuclear Medicine 04/22/17 00:00 IMPRESSION: Visualization of the gallbladder after morphine and booster dose of mebrofenin. Chest X-Ray 04/25/17 00:00 IMPRESSION: No acute infiltrates. Right subclavian triple lumen catheter tip in the superior vena cava. No pneumothorax. Plan Discharge Plan: Patient is to be transferred to [facility]. Accepting physician is Dr. Eubanks. Time Spent: Greater than 30 Minutes
[2017-04-29 16:47] VITALS: BP 113/49
== END 2017-04-29 20:12 | disposition short-term general hospital (02) | DRG 864 ==
LOC: ER 12:42 → EH 20:25 → UNDOADMIN 20:25 → EH 21:35 → 3S 22:40 → ICU 04-24 05:30 → 3S 04-26 12:51
PROVIDERS: ADMIT Family Medicine; ATTEND Family Medicine
PROC: 02HV33Z Insertion of Infusion Device into Superior Vena Cava, Percutaneous Approach (ICD-10-PCS; principal; 2017-04-25)
PROC: B548ZZA Ultrasonography of Superior Vena Cava, Guidance (ICD-10-PCS; 2017-04-25)
DX: R50.9 Fever, unspecified (principal); I13.0 Hypertensive heart and chronic kidney disease with heart failure and stage 1 through stage 4 chronic kidney disease, or unspecified chronic kidney disease; I50.32 Chronic diastolic (congestive) heart failure; C90.00 Multiple myeloma not having achieved remission; E87.2 Acidosis; R11.2 Nausea with vomiting, unspecified; R19.7 Diarrhea, unspecified; E11.22 Type 2 diabetes mellitus with diabetic chronic kidney disease; N18.3 Chronic kidney disease, stage 3 (moderate); E83.42 Hypomagnesemia; E86.0 Dehydration; D69.6 Thrombocytopenia, unspecified; D64.9 Anemia, unspecified; I25.10 Atherosclerotic heart disease of native coronary artery without angina pectoris; E03.9 Hypothyroidism, unspecified; K21.9 Gastro-esophageal reflux disease without esophagitis; F32.9 Major depressive disorder, single episode, unspecified; E78.5 Hyperlipidemia, unspecified; Z79.899 Other long term (current) drug therapy; Z90.710 Acquired absence of both cervix and uterus
CPT/HCPCS: 36415; 36600; 71010; 71020; 74176; 76700; 78226; 80048; 80053; 81001; 82040; 82550; 82553; 82565; 82803; 82962; 83605; 83690; 83735; 83880; 84100; 84439; 84443; 84481; 84484; 85025; 85027; 85379; 85610; 87040; 87045; 87086; 87205; 87493; 93005; 93010; 96361; 96365; 96375; 99285; A9537; G8978-GP; G8979-GP; G8987-GO; G8988-GO; J0610; J0743; J1335; J1450; J1815; J1940; J2270; J2405; J2765; J3010; J3370; J3475; J3490; J7030; J7060; Q9969; S0028

== ENCOUNTER → 2017-04-21 | Outpatient (CLI) | payer MEDICARE, OTHER ==
--- NOTE | 2017-04-21 10:52 | RADIOLOGY REPORT (SQ) ---
EXAM DESCRIPTION: U/S ABDOMEN COMPLETE W/O DOP COMPLETED DATE/TIME: 04/21/2017 10:37 am REASON FOR STUDY: UPPER ABD PAIN (R10.10), MULTIPLE MYELOMA (C90.00) R10.10 UPPER ABDOMINAL PAIN, U NSPECIFIED COMPARISON: None. TECHNIQUE: Dynamic and static grayscale images acquired of the abdomen and recorded on PACS. Additio nal selected color Doppler and spectral images recorded. LIMITATIONS: Midline bowel gas FINDINGS: PANCREAS: Midline pancreas unremarkable LIVER: No masses. Echotexture normal. LIVER VASCULATURE: Normal directional flow of the main portal vein and hepatic veins. GALLBLADDER: There are stones in the gallbladder fundus. No definite gallbladder wall thickening or pericholecystic fluid. ULTRASOUND-DETECTED MERINO'S SIGN: Positive INTRAHEPATIC DUCTS AND COMMON DUCT: CBD and intrahepatic ducts normal caliber. No filling defects. INFERIOR VENA CAVA: Normal flow. AORTA: No aneurysm. RIGHT KIDNEY: Normal size. Normal echogenicity. No solid or suspicious masses. No hydronephros is. No calcifications. LEFT KIDNEY: Normal size. Normal echogenicity. No solid or suspicious masses. No hydronephrosi s. No calcifications. SPLEEN: Normal size. No solid masses. PERITONEAL AND PLEURAL SPACES: No ascites or effusions. OTHER: No other significant finding. IMPRESSION: Small stones in the gallbladder fundus. Although there is no definite gallbladder wall thickening or pericholecystic fluid, there is a positive sonographic Merino sign TECHNICAL DOCUMENTATION: JOB ID: [id number] [employer]- All Rights Reserved
== END ==
LOC: RAD 09:33
PROVIDERS: ATTEND Internal Medicine
DX: R10.10 Upper abdominal pain, unspecified (principal); C90.00 Multiple myeloma not having achieved remission
CPT/HCPCS: 76700

== ENCOUNTER → 2017-05-14 | Outpatient (CLI) | payer MEDICARE, OTHER ==
[2017-05-14 10:15] LABS: HEMATOCRIT 27.3 % (36.0-47.0); HEMOGLOBIN 9.3 g/dL (12.0-15.5); HGB HCT DIFFERENCE 0.6; MEAN CORPUSCULAR HEMOGLOBIN 30.2 pg (27.0-33.4); MEAN CORPUSCULAR HGB CONC 34.1 g/dL (32.0-36.0); MEAN CORPUSCULAR VOLUME 89 fl (80-97); RED BLOOD COUNT 3.08 10^6/uL (3.72-5.28); RED CELL DISTRIBUTION WIDTH 16.7 % (11.5-14.0); WHITE BLOOD COUNT 4.9 10^3/uL (4.0-10.5)
[2017-05-14 10:18] LABS: APPEARANCE,URINE SLIGHTLY-CLOUDY; BILIRUBIN,URINE NEGATIVE (NEGATIVE); GLUCOSE, URINE NEGATIVE (NEGATIVE); KETONES,URINE NEGATIVE (NEGATIVE); LEUKOCYTE ESTERASE,URINE NEGATIVE (NEGATIVE); NITRITE,URINE NEGATIVE (NEGATIVE); PROTEIN,URINE 30 mg/dL (NEGATIVE); URINE SPECIFIC GRAVITY 1.017
[2017-05-14 10:55] LABS: ANION GAP 9 (5-19); BLOOD UREA NITROGEN 14 mg/dL (7-20); CALCIUM 8.1 mg/dL (8.4-10.2); CARBON DIOXIDE 25 mmol/L (22-30); CHLORIDE 107 mmol/L (98-107); CREATININE RESULT 1.51 mg/dL (0.52-1.25); GLUCOSE 113 mg/dL (75-110); POTASSIUM 4.2 mmol/L (3.6-5.0); SODIUM 140.5 mmol/L (137-145)
[2017-05-14 11:04] LABS: URINE CREATININE 223.4 mg/dL (15-278); URINE PROTEIN 40.5 mg/dL (<12)
== END ==
LOC: OD 09:19
PROVIDERS: ATTEND Internal Medicine Nephrology
DX: I12.9 Hypertensive chronic kidney disease with stage 1 through stage 4 chronic kidney disease, or unspecified chronic kidney disease (principal); N18.3 Chronic kidney disease, stage 3 (moderate); E11.9 Type 2 diabetes mellitus without complications; D64.9 Anemia, unspecified; R80.9 Proteinuria, unspecified
CPT/HCPCS: 36415; 80048; 81001; 82570; 84156; 85027

== ENCOUNTER → 2017-06-14 | Outpatient (CLI) | payer MEDICARE, OTHER ==
[2017-06-14 15:43] LABS: HEMATOCRIT 28.6 % (36.0-47.0); HEMOGLOBIN 9.8 g/dL (12.0-15.5); HGB HCT DIFFERENCE 0.8; MEAN CORPUSCULAR HEMOGLOBIN 30.5 pg (27.0-33.4); MEAN CORPUSCULAR HGB CONC 34.3 g/dL (32.0-36.0); MEAN CORPUSCULAR VOLUME 89 fl (80-97); RED BLOOD COUNT 3.21 10^6/uL (3.72-5.28); RED CELL DISTRIBUTION WIDTH 15.8 % (11.5-14.0); WHITE BLOOD COUNT 8.6 10^3/uL (4.0-10.5)
[2017-06-14 16:09] LABS: ALANINE AMINOTRANSFERASE 36 U/L (9-52); ALBUMIN 3.4 g/dL (3.5-5.0); ALKALINE PHOSPHATASE 146 U/L (38-126); ANION GAP 15 (5-19); ASPARTATE AMINO TRANSFERASE 26 U/L (14-36); BILIRUBIN,DIRECT 0.3 mg/dL (0.0-0.4); BILIRUBIN,TOTAL 0.4 mg/dL (0.2-1.3); BLOOD UREA NITROGEN 14 mg/dL (7-20); CARBON DIOXIDE 19 mmol/L (22-30); CHLORIDE 109 mmol/L (98-107); CREATININE RESULT 1.16 mg/dL (0.52-1.25); GLUCOSE 164 mg/dL (75-110); POTASSIUM 3.9 mmol/L (3.6-5.0); TOTAL PROTEIN 6.2 g/dL (6.3-8.2)
== END ==
LOC: OD 14:37
PROVIDERS: ATTEND Internal Medicine Nephrology
DX: N18.3 Chronic kidney disease, stage 3 (moderate) (principal); E11.9 Type 2 diabetes mellitus without complications; R80.9 Proteinuria, unspecified; D64.9 Anemia, unspecified
CPT/HCPCS: 36415; 80053; 85027

== ENCOUNTER → 2017-09-13 | Outpatient (CLI) | payer MEDICARE, OTHER ==
[2017-09-13 10:17] LABS: ABSOLUTE EOSINOPHILS # (AUTO) 0.4 10^3/uL (0.0-0.6); ABSOLUTE LYMPHOCYTES (AUTO) 1.2 10^3/uL (0.5-4.7); ABSOLUTE MONOCYTES (AUTO) 0.5 10^3/uL (0.1-1.4); ABSOLUTE NEUT (AUTO) 2.8 10^3/uL (1.7-8.2); BASOPHILS % (AUTO) 0.6 % (0-2); EOSINOPHILS % (AUTO) 8.8 % (0-6); HEMATOCRIT 34.5 % (36.0-47.0); HEMOGLOBIN 11.6 g/dL (12.0-15.5); LYMPHOCYTES % (AUTO) 24.7 % (13-45); MEAN CORPUSCULAR HEMOGLOBIN 28.7 pg (27.0-33.4); MEAN CORPUSCULAR HGB CONC 33.6 g/dL (32.0-36.0); MEAN CORPUSCULAR VOLUME 86 fl (80-97); MONOCYTES % (AUTO) 9.3 % (3-13); PLATELET COUNT 205 10^3/uL (150-450); RED BLOOD COUNT 4.03 10^6/uL (3.72-5.28); RED CELL DISTRIBUTION WIDTH 14.2 % (11.5-14.0); SEGMENTED NEUTROPHILS % (AUTO) 56.6 % (42-78); TOTAL CELLS COUNTED % (AUTO) 100 %
[2017-09-13 10:24] LABS: APPEARANCE,URINE SLIGHTLY-CLOUDY; BILIRUBIN,URINE NEGATIVE (NEGATIVE); COLOR,URINE YELLOW; GLUCOSE, URINE NEGATIVE (NEGATIVE); KETONES,URINE NEGATIVE (NEGATIVE); LEUKOCYTE ESTERASE,URINE TRACE (NEGATIVE); NITRITE,URINE NEGATIVE (NEGATIVE); PROTEIN,URINE NEGATIVE (NEGATIVE); URINE SPECIFIC GRAVITY 1.019; UROBILINOGEN,URINE NEGATIVE mg/dL (<2.0)
[2017-09-13 10:47] LABS: ALANINE AMINOTRANSFERASE 24 U/L (9-52); ALKALINE PHOSPHATASE 98 U/L (38-126); ANION GAP 8 (5-19); ASPARTATE AMINO TRANSFERASE 18 U/L (14-36); BILIRUBIN,DIRECT 0.1 mg/dL (0.0-0.4); BILIRUBIN,TOTAL 0.2 mg/dL (0.2-1.3); BLOOD UREA NITROGEN 22 mg/dL (7-20); CALCIUM 9.7 mg/dL (8.4-10.2); CARBON DIOXIDE 26 mmol/L (22-30); CHLORIDE 109 mmol/L (98-107); GLUCOSE 112 mg/dL (75-110); POTASSIUM 4.3 mmol/L (3.6-5.0); SODIUM 142.8 mmol/L (137-145); TOTAL PROTEIN 6.8 g/dL (6.3-8.2)
== END ==
LOC: OD 09:07
PROVIDERS: ATTEND Internal Medicine Nephrology
DX: I12.9 Hypertensive chronic kidney disease with stage 1 through stage 4 chronic kidney disease, or unspecified chronic kidney disease (principal); N18.3 Chronic kidney disease, stage 3 (moderate); R80.9 Proteinuria, unspecified; D64.9 Anemia, unspecified; E11.9 Type 2 diabetes mellitus without complications
CPT/HCPCS: 36415; 80053; 81001; 85025

== ENCOUNTER → 2017-12-09 | Outpatient (CLI) | payer MEDICARE, OTHER ==
[2017-12-09 11:23] LABS: HEMATOCRIT 35.1 % (36.0-47.0); HEMOGLOBIN 11.6 g/dL (12.0-15.5); MEAN CORPUSCULAR HGB CONC 32.9 g/dL (32.0-36.0); MEAN CORPUSCULAR VOLUME 88 fl (80-97); PLATELET COUNT 197 10^3/uL (150-450); RED BLOOD COUNT 3.99 10^6/uL (3.72-5.28); RED CELL DISTRIBUTION WIDTH 14.2 % (11.5-14.0); WHITE BLOOD COUNT 5.9 10^3/uL (4.0-10.5)
[2017-12-09 11:27] LABS: APPEARANCE,URINE CLEAR; BILIRUBIN,URINE NEGATIVE (NEGATIVE); COLOR,URINE YELLOW; GLUCOSE, URINE NEGATIVE (NEGATIVE); KETONES,URINE NEGATIVE (NEGATIVE); LEUKOCYTE ESTERASE,URINE NEGATIVE (NEGATIVE); NITRITE,URINE NEGATIVE (NEGATIVE); PROTEIN,URINE NEGATIVE (NEGATIVE); URINE SPECIFIC GRAVITY 1.021; UROBILINOGEN,URINE NEGATIVE mg/dL (<2.0)
[2017-12-09 11:51] LABS: ALANINE AMINOTRANSFERASE 19 U/L (9-52); ALBUMIN 3.9 g/dL (3.5-5.0); ALKALINE PHOSPHATASE 73 U/L (38-126); ANION GAP 12 (5-19); ASPARTATE AMINO TRANSFERASE 13 U/L (14-36); BILIRUBIN,DIRECT 0.2 mg/dL (0.0-0.4); BILIRUBIN,TOTAL 0.2 mg/dL (0.2-1.3); BLOOD UREA NITROGEN 27 mg/dL (7-20); CALCIUM 9.2 mg/dL (8.4-10.2); CARBON DIOXIDE 25 mmol/L (22-30); CHLORIDE 108 mmol/L (98-107); GLUCOSE 104 mg/dL (75-110); POTASSIUM 4.4 mmol/L (3.6-5.0); SODIUM 145.4 mmol/L (137-145); TOTAL PROTEIN 6.7 g/dL (6.3-8.2)
== END ==
LOC: OD 09:27
PROVIDERS: ATTEND Internal Medicine Nephrology
DX: N18.3 Chronic kidney disease, stage 3 (moderate) (principal); I50.9 Heart failure, unspecified; R80.9 Proteinuria, unspecified; E11.9 Type 2 diabetes mellitus without complications
CPT/HCPCS: 36415; 80053; 81001; 85027

== ENCOUNTER → 2018-04-07 | Outpatient (CLI) | payer MEDICARE ==
[2018-04-07 09:05] LABS: HEMATOCRIT 36.8 % (36.0-47.0); HEMOGLOBIN 12.2 g/dL (12.0-15.5); MEAN CORPUSCULAR HEMOGLOBIN 28.7 pg (27.0-33.4); MEAN CORPUSCULAR HGB CONC 33.2 g/dL (32.0-36.0); MEAN CORPUSCULAR VOLUME 87 fl (80-97); PLATELET COUNT 175 10^3/uL (150-450); RED BLOOD COUNT 4.24 10^6/uL (3.72-5.28); RED CELL DISTRIBUTION WIDTH 14.4 % (11.5-14.0); WHITE BLOOD COUNT 6.4 10^3/uL (4.0-10.5)
[2018-04-07 09:09] LABS: APPEARANCE,URINE CLEAR; BILIRUBIN,URINE NEGATIVE (NEGATIVE); COLOR,URINE YELLOW; GLUCOSE, URINE NEGATIVE (NEGATIVE); KETONES,URINE NEGATIVE (NEGATIVE); LEUKOCYTE ESTERASE,URINE NEGATIVE (NEGATIVE); NITRITE,URINE NEGATIVE (NEGATIVE); PROTEIN,URINE NEGATIVE (NEGATIVE); UROBILINOGEN,URINE NEGATIVE mg/dL (<2.0)
[2018-04-07 09:29] LABS: ANION GAP 11 (5-19); BLOOD UREA NITROGEN 21 mg/dL (7-20); CALCIUM 9.4 mg/dL (8.4-10.2); CARBON DIOXIDE 26 mmol/L (22-30); CHLORIDE 106 mmol/L (98-107); GLUCOSE 125 mg/dL (75-110); POTASSIUM 4.2 mmol/L (3.6-5.0); SODIUM 142.7 mmol/L (137-145)
== END ==
LOC: OD 08:04
PROVIDERS: ATTEND Internal Medicine Nephrology
DX: I12.9 Hypertensive chronic kidney disease with stage 1 through stage 4 chronic kidney disease, or unspecified chronic kidney disease (principal); E11.22 Type 2 diabetes mellitus with diabetic chronic kidney disease; N18.3 Chronic kidney disease, stage 3 (moderate); I13.0 Hypertensive heart and chronic kidney disease with heart failure and stage 1 through stage 4 chronic kidney disease, or unspecified chronic kidney disease; I50.9 Heart failure, unspecified; D64.9 Anemia, unspecified
CPT/HCPCS: 36415; 80048; 81001; 85027

== ENCOUNTER → 2018-09-11 | Outpatient (CLI) | payer MEDICARE ==
--- NOTE | 2018-09-11 15:52 | RADIOLOGY REPORT (SQ) ---
EXAM DESCRIPTION: BONE SURVEY COMPLETE COMPLETED DATE/TIME: 09/11/2018 3:27 pm REASON FOR STUDY: MULTIPLE MYELOMA COMPARISON: 09/24/2016 TECHNIQUE: Images of the axial and proximal appendicular skeleton are obtained, along with lateral s kull and frontal chest films. LIMITATIONS: None. FINDINGS: AP CHEST: Stable lytic lesions in the clavicles. LATERAL SKULL: Stable multiple lytic lesions. AP BOTH HUMERI: Stable lytic lesions bilaterally. TWO-VIEW LUMBAR SPINE: Compression fracture L4, stable. TWO-VIEW THORACIC SPINE: Lytic lesions. Mild compression deformity T10. AP PELVIS: Stable lytic lesions. AP BOTH FEMURS: Stable lytic lesions. OTHER: No other significant finding. IMPRESSION: Positive bone survey. No significant change. Reading location - IP/workstation name: [email or web address]
--- NOTE | 2018-09-11 18:24 | RADIOLOGY REPORT (SQ) ---
EXAM DESCRIPTION: MRI LUMBAR SPINE COMBO COMPLETED DATE/TIME: 09/11/2018 4:59 pm REASON FOR STUDY: MULTIPLE MYELOMA C90.00 MULTIPLE MYELOMA NOT HAVING ACHIEVED REMISSION COMPARISON: Bone survey 09/11/2018 CT abdomen pelvis 04/21/2017 TECHNIQUE: Sagittal and Axial imaging includes T1, T1 post gadolinium, T2, STIR and gradient echo se quences. Coronal T2/HASTE imaging. CONTRAST TYPE AND DOSE: 15 mL Dotarem. RENAL FUNCTION: Estimated GFR 44 LIMITATIONS: None. FINDINGS: VISUALIZED UPPER ABDOMEN: Limited evaluation. No acute or suspicious findings suggested. SEGMENTATION: No transitional anatomy. The lowest well-developed disc space is labeled L5-S1. ALIGNMENT: Anatomic. VERTEBRAE and BONE MARROW: Heterogeneous marrow signal from myeloma involvement throughout the visual ized spine and bony pelvis. Chronic appearing upper endplate 50% compression at L4, unchanged from . There is no significant contrast enhancement at L4. There is anterior superior compression of the S1 level by about 25%. This similar compared to 017. No contrast enhancement. Upper endplate T12 central depression without overall loss of height is seen, no contrast enhancement . This is similar compared to 04/21/2017. DISC SIGNAL: Diffuse decreased T2 weighted intervertebral disc signal POSTERIOR ELEMENTS: Generally intact. No pars defect evident. HARDWARE: None in the spine. CORD AND CONUS: Normal in size and signal intensity. Conus at the T12-L1 Level. SOFT TISSUES: No aortic aneurysm seen. No bulky retroperitoneal adenopathy or mass. No paraspinal mas s or fluid. L1-L2: No significant spinal stenosis or exit foraminal stenosis. Mild bilateral facet hypertrophy. L2-L3: Borderline central canal narrowing results from broad diffuse posterior disc bulge and bony sp urring and moderate bilateral facet and ligament hypertrophy. Mild bilateral inferior foraminal narr owing at L2-3 without exiting L2 nerve root impingement. L3-L4: Moderate central canal stenosis results from broad diffuse posterior disc bulge and bony spurr ing along with moderate bilateral facet and ligament hypertrophy. There is partial effacement of the CSF around the lumbar nerve roots on axial T2 image 17. Moderate to high-grade bilateral foraminal narrowing is present without definite exiting L3 nerve root impingement. L4-L5: Borderline central canal narrowing results from broad diffuse posterior disc bulging and moder ate bilateral facet and ligament hypertrophy. Mild bilateral inferior foraminal narrowing without ex iting L4 nerve root impingement. L5-S1: Broad diffuse posterior disc bulging and moderate bilateral facet and ligament hypertrophy is present. Borderline central canal narrowing. Mild to moderate bilateral foraminal narrowing without exiting L5 nerve root impingement. SACRUM: Visualized upper sacrum intact. ENHANCEMENT: No abnormal conus or lumbar nerve root enhancement. OTHER: No other significant findings. IMPRESSION: Diffuse bony involvement with myeloma. Stable compression deformities. Multilevel dege nerative disc changes with central and foraminal stenosis as above TECHNICAL DOCUMENTATION: JOB ID: [id number] [employer]- All Rights Reserved Reading location - IP/workstation name: [email or web address]
== END ==
LOC: RAD 14:25
PROVIDERS: ATTEND Internal Medicine
DX: C90.00 Multiple myeloma not having achieved remission (principal)
CPT/HCPCS: 82565; 72158; 77075; A9576

== ENCOUNTER → 2018-11-13 | Outpatient (CLI) | payer MEDICARE ==
[2018-11-13 08:45] LABS: ABSOLUTE EOSINOPHILS # (AUTO) 0.1 10^3/uL (0.0-0.6); ABSOLUTE LYMPHOCYTES (AUTO) 1.6 10^3/uL (0.5-4.7); ABSOLUTE MONOCYTES (AUTO) 0.6 10^3/uL (0.1-1.4); ABSOLUTE NEUT (AUTO) 4.8 10^3/uL (1.7-8.2); BASOPHILS % (AUTO) 0.4 % (0-2); EOSINOPHILS % (AUTO) 1.5 % (0-6); HEMOGLOBIN 12.4 g/dL (12.0-15.5); LYMPHOCYTES % (AUTO) 22.9 % (13-45); MEAN CORPUSCULAR HEMOGLOBIN 29.3 pg (27.0-33.4); MEAN CORPUSCULAR HGB CONC 33.4 g/dL (32.0-36.0); MEAN CORPUSCULAR VOLUME 88 fl (80-97); MONOCYTES % (AUTO) 8.9 % (3-13); PLATELET COUNT 137 10^3/uL (150-450); RED BLOOD COUNT 4.22 10^6/uL (3.72-5.28); RED CELL DISTRIBUTION WIDTH 14.5 % (11.5-14.0); SEGMENTED NEUTROPHILS % (AUTO) 66.3 % (42-78); TOTAL CELLS COUNTED % (AUTO) 100 %; WHITE BLOOD COUNT 7.2 10^3/uL (4.0-10.5)
[2018-11-13 08:49] LABS: APPEARANCE,URINE CLEAR; BILIRUBIN,URINE NEGATIVE (NEGATIVE); COLOR,URINE STRAW; GLUCOSE, URINE NEGATIVE (NEGATIVE); KETONES,URINE NEGATIVE (NEGATIVE); LEUKOCYTE ESTERASE,URINE TRACE (NEGATIVE); NITRITE,URINE NEGATIVE (NEGATIVE); PROTEIN,URINE NEGATIVE (NEGATIVE); URINE SPECIFIC GRAVITY 1.011; UROBILINOGEN,URINE NEGATIVE mg/dL (<2.0)
[2018-11-13 09:07] LABS: ALANINE AMINOTRANSFERASE 23 U/L (9-52); ALBUMIN 3.5 g/dL (3.5-5.0); ALKALINE PHOSPHATASE 82 U/L (38-126); ANION GAP 7 (5-19); ASPARTATE AMINO TRANSFERASE 11 U/L (14-36); BILIRUBIN,DIRECT 0.3 mg/dL (0.0-0.4); BILIRUBIN,TOTAL 0.4 mg/dL (0.2-1.3); BLOOD UREA NITROGEN 22 mg/dL (7-20); CALCIUM 9.9 mg/dL (8.4-10.2); CARBON DIOXIDE 26 mmol/L (22-30); CHLORIDE 107 mmol/L (98-107); GLUCOSE 162 mg/dL (75-110); POTASSIUM 4.3 mmol/L (3.6-5.0); SODIUM 139.6 mmol/L (137-145); TOTAL PROTEIN 5.9 g/dL (6.3-8.2)
== END ==
LOC: OD 07:05
PROVIDERS: ATTEND Internal Medicine Nephrology
DX: I50.9 Heart failure, unspecified (principal); E11.22 Type 2 diabetes mellitus with diabetic chronic kidney disease; N18.3 Chronic kidney disease, stage 3 (moderate); R80.9 Proteinuria, unspecified
CPT/HCPCS: 36415; 80053; 81001; 85025

== ENCOUNTER 2019-01-01 05:47 | Day surgery (SDC) | payer MEDICARE ==
[~2019-01-01 05:47] MED LIST changes: -ACETAMINOPHEN 325 MG TABLET PO PRN; +CEFAZOLIN 1 GM/D5W RTU 1 GM/50 ML RTUPB IV ONE; +CEFAZOLIN 1 GM/D5W RTU 1 GM/50 ML RTUPB IV PRN; +DEXTROSE 5%-1/2 NORMAL SALINE 1,000 ML IV PRN; +DIAZEPAM 5 MG TABLET ONE; +DIAZEPAM 5 MG TABLET PO PRN; -DIPHENHYDRAMINE HCL 25 MG CAPSULE PO PRN; -FUROSEMIDE INJ/PF 20 MG/2 ML SDV IV PRN; -NORMAL SALINE 1000 ML 1,000 ML IV PRN; +OXYCODONE-ACETAMINOPHEN 5-325 MG TABLET ONE; +OXYCODONE-ACETAMINOPHEN 5-325 MG TABLET PO PRN
--- NOTE | 2019-01-01 06:36 | RADIOLOGY REPORT (SQ) ---
EXAM DESCRIPTION: XR CHEST 1 VIEW COMPLETED DATE/TME: 01/01/2019 00:00 CLINICAL HISTORY: 68 years Female, preop COMPARISON: 05/23/17 NUMBER OF VIEWS/TECHNIQUE: 1/AP FINDINGS: Adequate lung volume, clear parenchyma, normal cardiac silhouette, and intact bony thorax. IMPRESSION: No acute cardiopulmonary findings.
[2019-01-01 07:33] LABS: ABSOLUTE LYMPHOCYTES (AUTO) 1.1 10^3/uL (0.5-4.7); ABSOLUTE MONOCYTES (AUTO) 0.5 10^3/uL (0.1-1.4); ABSOLUTE NEUT (AUTO) 3.4 10^3/uL (1.7-8.2); BASOPHILS % (AUTO) 0.3 % (0-2); EOSINOPHILS % (AUTO) 0.9 % (0-6); HEMOGLOBIN 11.2 g/dL (12.0-15.5); LYMPHOCYTES % (AUTO) 21.5 % (13-45); MEAN CORPUSCULAR HEMOGLOBIN 28.9 pg (27.0-33.4); MEAN CORPUSCULAR HGB CONC 32.9 g/dL (32.0-36.0); MEAN CORPUSCULAR VOLUME 88 fl (80-97); MONOCYTES % (AUTO) 10.5 % (3-13); PLATELET COUNT 193 10^3/uL (150-450); RED BLOOD COUNT 3.86 10^6/uL (3.72-5.28); RED CELL DISTRIBUTION WIDTH 14.8 % (11.5-14.0); SEGMENTED NEUTROPHILS % (AUTO) 66.8 % (42-78); TOTAL CELLS COUNTED % (AUTO) 100 %; WHITE BLOOD COUNT 5.2 10^3/uL (4.0-10.5)
[2019-01-01] MEDS ORDERED: LIDOCAINE 0.5% INJ-PF (5 MG/ML) 50 ML SDV ONE (07:33)
[2019-01-01] MEDS ORDERED: BACITRACIN INJ 50,000 UNIT VIAL ONE (07:33)
[2019-01-01] MEDS ORDERED: MIDAZOLAM 2 MG/2 ML INJ ONE (07:43)
[2019-01-01] MEDS ORDERED: FENTANYL CITRATE INJ/PF 100 MCG/2 ML AMPUL ONE (07:44)
[2019-01-01 07:46] LABS: ANION GAP 7 (5-19); BLOOD UREA NITROGEN 12 mg/dL (7-20); CALCIUM 9.4 mg/dL (8.4-10.2); CARBON DIOXIDE 27 mmol/L (22-30); CHLORIDE 106 mmol/L (98-107); GLUCOSE 136 mg/dL (75-110); POTASSIUM 4.3 mmol/L (3.6-5.0); SODIUM 140.4 mmol/L (137-145)
--- NOTE | 2019-01-01 09:53 | Discharge Summary ---
Discharge Summary (SDC) - Discharge Final Diagnosis: #1 multiple myeloma. 2. Diabetes mellitus type 2. 3. Hypertension. Date of Surgery: 01/01/19 Discharge Date: 01/01/19 Condition: Good Treatment or Instructions: Discharge home [after recovery per ASU criteria]. Diet , as tolerated, when fully awake advance as tolerated. Activities within moderation encouraged. Follow up in my office by appointment in about [1 week]. Call for appointment. Leave wounds [covered], [keep clean and dry, until office visit in 1 week]. Hold of on school/work [until evaluation in office]. Meds per med rec. Percocet. May shower [in 48 hrs], [try to keep operated area as dry as possible]. Prescriptions: Oxycodone HCl/Acetaminophen [Percocet 5-325 mg Tablet] 1 tab PO ASDIR PRN #15 tab PRN Reason: Referrals: NEVIN GUNN MD [Primary Care Provider] - Discharge Diet: As Tolerated Respiratory Treatments at Home: Deep Breathing/Coughing Discharge Activity: Activity As Tolerated Report the Following to Your Physician Immediately: Shortness of Breath
--- NOTE | 2019-01-01 09:56 | Operative Report ---
Operative Report DATE OF SURGERY: 01/01/19 PREOPERATIVE DIAGNOSIS: #1 multiple myeloma. 2. Diabetes mellitus type 2. 3. Hypertension. POSTOPERATIVE DIAGNOSIS: #1 multiple myeloma. 2. Diabetes mellitus type 2. 3. Hypertension. OPERATION: 1. Ultrasound evaluation of the right internal jugular vein with real-time access. 2. Insertion of Port-A-Cath via real-time access in the right. 3. Angiogram and interpretation. SURGEON: RADHA LARSEN COMMUNICATIONS SENIOR ASSOCIATE: None. ANESTHESIA: Moderate Sedation TISSUE REMOVED OR ALTERED: Not applicable. COMPLICATIONS: None. ESTIMATED BLOOD LOSS: 5 mL. INTRAOPERATIVE FINDINGS: Of a satisfactory right internal jugular vein, estimated to be 1.5 cm in diameter. Satisfactory access. Satisfactory placement of the catheter with the tip just down of the right atrium. Smooth flow of contrast through the right atrium, ventricle and pulmonary outflow tract documented on angiogram. Final x-ray shows no untoward radiologic finding. PROCEDURE: After obtaining informed consent, the patient was taken to the [facility] and posi tioned supine. The [right] neck and chest were prepared with chlorhexidine and draped out with sterile linen. After the " universal timeout", in which it was verified that the patient continued to receive antibiotic, the procedure commenced. A steriley sheathed ultrasound probe was used to evaluate the [right] internal jugular vein. Local anesthesia was infiltrated adjacent to the probe. Access into the [right] internal jugular vein was obtained using a micropuncture needle, followed by micropuncture wire and then a micropuncture catheter. This was followed by introduction of a 0.035 guidewire the tip of which was placed down into the inferior vena cava . The port sites was marked , locally anesthetized and incision made. Dissection now proceeded to the deep subcutaneous subcutaneous tissues so that a pocket for the port was made. Meticulous hemostasis was secured and the catheter was tunneled between the 2 incisions. Proximally, the catheter was now positioned using a peel-away sheath. Distally the catheter was tailored to an appropriate length and then mated to the port using the contained fixating device. The port was now placed in the pocket and the catheter optimally positioned. The port was accessed with a Treviño needle and an angiogram done under digital subtraction. The findings as dictated. With adequate and satisfactory positioning, the lumen of the chamber were irrigated with heparinized solution. The wounds were now closed using interrupted 3-0 PDS to the subcutaneous tissues and a continuous subcuticular suture of 4-0 Monocryl to the skin. These are reinforced with Steri-Strips over benzoin and then dressings applied. Time: 0.8 minute. Dose: 10.21 m Gy Contrast: 5 Mls. Isovue 300. Copies of the dictated operative report for Dr. Radha Geller MD.
[2019-01-01 11:14] VITALS: BP 128/73
--- NOTE | 2019-01-01 12:17 | RADIOLOGY REPORT (SQ) ---
EXAM DESCRIPTION: PORTACATH INSERTION COMPLETED DATE/TIME: 01/01/2019 9:26 am REASON FOR STUDY: C90.00 MULTIPLE MYELOMA C90.00 MULTIPLE MYELOMA NOT HAVING ACHIEVED REMISSION COMPARISON: None. FLUOROSCOPY TIME: 0.9 minutes 71 images saved to PACS. TECHNIQUE: Intra-operative images acquired during surgical procedure to evaluate progress. NUMBER OF IMAGES: [id number] LIMITATIONS: None. FINDINGS: Selected images from right side Port-A-Cath placement. Tip overlies SVC. IMPRESSION: IMAGE(S) OBTAINED DURING PROCEDURE. COMMENT: Quality ID [id number]: Final reports for procedures using fluoroscopy that document radiation exp osure indices, or exposure time and number of fluorographic images (if radiation exposure indices are not available) Please consult full operative report of the attending physician for description of the procedure. TECHNICAL DOCUMENTATION: JOB ID: [id number] [employer]- All Rights Reserved Reading location - IP/workstation name: [email or web address]
== END 2019-01-01 10:50 | disposition home or self-care (01) ==
LOC: CCL 05:47
PROVIDERS: ATTEND Surgery
DX: C90.00 Multiple myeloma not having achieved remission (principal); E11.9 Type 2 diabetes mellitus without complications; I11.9 Hypertensive heart disease without heart failure; E78.5 Hyperlipidemia, unspecified; E03.9 Hypothyroidism, unspecified; Z79.899 Other long term (current) drug therapy; D64.9 Anemia, unspecified; Z01.818 Encounter for other preprocedural examination
CPT/HCPCS: 36561 ×2; 36591; 36415; 85025; 80048; 76937; 77001; 71045; C1752; C1788; Q9967; J2250; J3490 ×2; J0690; A9270 ×2; J3010; J1644

== ENCOUNTER → 2019-01-25 | Outpatient (CLI) | payer MEDICARE ==
--- NOTE | 2019-01-25 13:03 | RADIOLOGY REPORT (SQ) ---
EXAM DESCRIPTION: CHEST PA/LATERAL COMPLETED DATE/TIME: 01/25/2019 9:38 am REASON FOR STUDY: COUGH COMPARISON: 01/01/2019 EXAM PARAMETERS: NUMBER OF VIEWS: two views TECHNIQUE: Digital Frontal and Lateral radiographic views of the chest acquired. RADIATION DOSE: NA LIMITATIONS: none FINDINGS: LUNGS AND PLEURA: No opacities, masses or pneumothorax. No pleural effusion. MEDIASTINUM AND HILAR STRUCTURES: No masses or contour abnormalities. HEART AND VASCULAR STRUCTURES: Heart normal size. No evidence for failure. BONES: No acute findings. HARDWARE: Injection port on the right. OTHER: No other significant finding. IMPRESSION: NO SIGNIFICANT RADIOGRAPHIC FINDING IN THE CHEST. TECHNICAL DOCUMENTATION: JOB ID: [id number] [employer]- All Rights Reserved Reading location - IP/workstation name: [email or web address]
--- NOTE | 2019-01-25 23:08 | EKG REPORT ---
SEVERITY:- ABNORMAL ECG - SINUS RHYTHM ATRIAL PREMATURE COMPLEXES ABNORMAL T, CONSIDER ISCHEMIA, LATERAL LEADS : Confirmed by: Patricio Jerez 25-Jan-2019 23:07:47
== END ==
LOC: OD 09:16
PROVIDERS: ATTEND Surgery
DX: Z01.818 Encounter for other preprocedural examination (principal); R10.13 Epigastric pain; I10 Essential (primary) hypertension; E11.9 Type 2 diabetes mellitus without complications; D64.9 Anemia, unspecified; C90.00 Multiple myeloma not having achieved remission; Z95.828 Presence of other vascular implants and grafts; I50.9 Heart failure, unspecified; E78.5 Hyperlipidemia, unspecified; E03.9 Hypothyroidism, unspecified
CPT/HCPCS: 71046; 93005; 93010

== ENCOUNTER 2019-01-30 08:36 | Day surgery (SDC) | payer MEDICARE ==
[~2019-01-30 08:36] MED LIST changes: -CEFAZOLIN 1 GM/D5W RTU 1 GM/50 ML RTUPB IV ONE; -CEFAZOLIN 1 GM/D5W RTU 1 GM/50 ML RTUPB IV PRN; -DEXTROSE 5%-1/2 NORMAL SALINE 1,000 ML IV PRN; -DIAZEPAM 5 MG TABLET ONE; -DIAZEPAM 5 MG TABLET PO PRN; +LIDOCAINE 2% INJ-PF (100 MG/5 ML) SYRINGE ONE; -OXYCODONE-ACETAMINOPHEN 5-325 MG TABLET ONE; -OXYCODONE-ACETAMINOPHEN 5-325 MG TABLET PO PRN; +PROPOFOL INJ 200 MG/20 ML VIAL IV ONE
[2019-01-30] MEDS ORDERED: DIPHENHYDRAMINE HCL 50 MG/ML VIAL IV PRN (10:34)
[2019-01-30] MEDS ORDERED: PROMETHAZINE HCL INJ 25 MG/1 ML VIAL IV PRN ×2 (10:34)
[2019-01-30] MEDS ORDERED: MEPERIDINE HCL/PF INJ 25 MG/1 ML DISP.SYRIN IV PRN (10:34)
--- NOTE | 2019-01-30 11:15 | Operative Report ---
Nonrecallable Operative Report DATE OF SURGERY: 01/30/19 PREOPERATIVE DIAGNOSIS: Epigastric abdominal pain POSTOPERATIVE DIAGNOSIS: 1. Antral gastritis. 2. Duodenitis. 3. Hiatal hernia. 4. Reflux esophagitis. 5. Schatzki's ring. OPERATION: EGD with biopsy. SURGEON: POOJA DOWNING ANESTHESIA: LMAC TISSUE REMOVED OR ALTERED: 1. Antrum biopsy. 2. Duodenum biopsy. 3. Distal esophagus biopsy. COMPLICATIONS: None apparent ESTIMATED BLOOD LOSS: Minimal PROCEDURE: Procedure in detail: After informed consent was obtained, the patient was brought to the operating room and laid in the left lateral decubitus position. The endoscope was passed down the oropharynx, down the esophagus, and into the stomach. The stomach was insufflated with air. In the antrum of the stomach, there was found to be petechiae and evidence of antral gastritis. A biopsy was performed in the antrum to rule out H. pylori infection. The scope was pushed into the first and second portions of the duodenum. The first portion of the duodenum appeared inflamed. Biopsy was taken at the most affected portion. The second portion of the duodenum appeared normal. The scope was withdrawn back into the gastric body, where a retroflexion maneuver was performed. A moderate sized hiatal hernia was identified. The scope was withdrawn into the hiatal hernia, where distal esophagitis (reflux related) was identified. A Schatzki's ring was also identified, without signs of obstruction. The scope was then withdrawn up the esophagus. The remainder of the esophagus appeared smooth in contour without masses, lesions, ulcerations, or other abnormalities. The scope was removed from the patient's oropharynx, and the procedure was concluded. All sponge, instrument, and needle counts were correct. Condition: Stable.
--- NOTE | 2019-01-30 11:17 | Discharge Summary ---
Discharge Summary (SDC) - Discharge Final Diagnosis: Epigastric pain, gastritis, hiatal hernia, distal esophagitis, duodenitis. Date of Surgery: 01/30/19 Discharge Date: 01/30/19 Condition: Stable Treatment or Instructions: Discharge home. Diet as tolerated. Activity: Nonstrenuous. Follow-up with me in 2 weeks. Referrals: NEVIN GUNN MD [Primary Care Provider] - Discharge Diet: As Tolerated Respiratory Treatments at Home: Deep Breathing/Coughing, Incentive Spirometer Discharge Activity: Balance Activity w/Rest Home Care Assistance: None Needed Report the Following to Your Physician Immediately: Shortness of Breath, Nausea, Vomiting, Increase in Pain, Fever over 101 Degrees, Unusual Bleeding, Redness
[2019-01-30 12:47] VITALS: BP 129/75
== END 2019-01-30 11:50 | disposition home or self-care (01) ==
LOC: OROUT 08:36
PROVIDERS: ATTEND Surgery
DX: K44.9 Diaphragmatic hernia without obstruction or gangrene (principal); K29.50 Unspecified chronic gastritis without bleeding; K29.80 Duodenitis without bleeding; K22.2 Esophageal obstruction; E78.5 Hyperlipidemia, unspecified; E03.9 Hypothyroidism, unspecified; C90.00 Multiple myeloma not having achieved remission; I50.9 Heart failure, unspecified; I11.0 Hypertensive heart disease with heart failure; E11.9 Type 2 diabetes mellitus without complications; D64.9 Anemia, unspecified; Z79.899 Other long term (current) drug therapy; K21.0 Gastro-esophageal reflux disease with esophagitis
CPT/HCPCS: 43239; 82962; 88342 ×2; 88305 ×2; 00731; J2001; 731; J2704

== ENCOUNTER 2019-02-08 18:57 | Observation (INO) | payer MEDICARE ==
[2019-02-08] MEDS ORDERED: ONDANSETRON HCL INJ/PF 4 MG/2 ML SDV IV ONE (20:26)
[2019-02-08] MEDS ORDERED: NORMAL SALINE 1000 ML 1,000 ML IV ONE (20:26)
--- NOTE | 2019-02-08 20:26 | ER Document Report ---
ED Medical Screen (RME) - General Chief Complaint: Nausea/Vomiting Stated Complaint: VOMITING Time Seen by Provider: 02/08/19 20:22 Primary Care Provider: NEVIN GUNN MD [Primary Care Provider] - Follow up as needed Mode of Arrival: Wheelchair Information source: Patient Notes: 68-year-old female presents to ED for upper abdominal pain x2 weeks. She states she had nausea and vomiting for the last 2 weeks. She states she had a upper done by Dr. eubanks about 2 weeks ago and has had abdominal pain nausea vomiting since then. She states she cannot keep any food or fluid down. Patient is alert oriented respirations regular and unlabored. We will get blood urine give her some IV fluids and some IV Zofran. I have greeted and performed a rapid initial assessment of this patient. A comprehensive ED assessment and evaluation of the patient, analysis of test results and completion of medical decision making process will be conducted by an additional ED providers. Dictation of this chart was performed using voice recognition software; therefore, there may be some unintended grammatical errors. TRAVEL OUTSIDE OF THE [place] IN LAST 30 DAYS: No - Related Data Allergies/Adverse Reactions: No Known Allergies Allergy (Verified 01/13/19 06:47) Past Medical History - Social History Frequency of alcohol use: None Drug Abuse: None - Past Medical History Cardiac Medical History: Reports: Hx Coronary Artery Disease, Hx Hypercholesterolemia, Hx Hypertension Denies: Hx Congestive Heart Failure, Hx DVT, Hx Heart Attack, Hx Pulmonary Embolism Pulmonary Medical History: Denies: Hx Asthma, Hx Bronchitis, Hx COPD, Hx Pneumonia, Hx Sleep Apnea Neurological Medical History: Denies: Hx Cerebrovascular Accident, Hx Seizures Endocrine Medical History: Reports: Hx Diabetes Mellitus Type 2 - "pre"diabetic, Hx Hypothyroidism. Denies: Hx Diabetes Mellitus Type 1, Hx Hyperthyroidism Renal/ Medical History: Denies: Hx Peritoneal Dialysis GI Medical History: Reports: Hx Gastroesophageal Reflux Disease. Denies: Hx Cirrhosis, Hx Hepatitis, Hx Hiatal Hernia, Hx Ulcer Musculoskeltal Medical History: Denies Hx Arthritis Psychiatric Medical History: Reports: Hx Depression Infectious Medical History: Denies: Hx C-Diff, Hx Hepatitis, Hx MRSA Past Surgical History: Reports: Hx Cardiac Catheterization - 2011. Denies: Hx Hysterectomy, Hx Mastectomy, Hx Open Heart Surgery, Hx Pacemaker - Immunizations Immunizations up to date: Yes Hx Diphtheria, Pertussis, Tetanus Vaccination: No History of Influenza Vaccine for 05/2017 - 09/2017 Season: Unknown Physical Exam - Vital signs Vitals: Temp Pulse Resp BP Pulse Ox 98.3 F 103 H 18 115/59 L 98 02/08/19 19:41 02/08/19 19:41 02/08/19 19:41 02/08/19 19:41 02/08/19 19:41 Course - Vital Signs Vital signs: Temp Pulse Resp BP Pulse Ox 98.3 F 103 H 18 115/59 L 98 02/08/19 19:41 02/08/19 19:41 02/08/19 19:41 02/08/19 19:41 02/08/19 19:41 Doctor's Discharge - Discharge Referrals: NEVIN GUNN MD [Primary Care Provider] - Follow up as needed
[2019-02-08 21:24] LABS: HEMATOCRIT 34.8 % (36.0-47.0); HEMOGLOBIN 11.5 g/dL (12.0-15.5); MEAN CORPUSCULAR HEMOGLOBIN 29.4 pg (27.0-33.4); MEAN CORPUSCULAR HGB CONC 33.1 g/dL (32.0-36.0); MEAN CORPUSCULAR VOLUME 89 fl (80-97); PLATELET COUNT 127 10^3/uL (150-450); RED BLOOD COUNT 3.92 10^6/uL (3.72-5.28); RED CELL DISTRIBUTION WIDTH 16.1 % (11.5-14.0); WHITE BLOOD COUNT 20.7 10^3/uL (4.0-10.5)
[2019-02-08 21:29] LABS: APPEARANCE,URINE CLEAR; BILIRUBIN,URINE NEGATIVE (NEGATIVE); COLOR,URINE YELLOW; GLUCOSE, URINE >=500 mg/dL (NEGATIVE); KETONES,URINE NEGATIVE (NEGATIVE); LEUKOCYTE ESTERASE,URINE TRACE (NEGATIVE); NITRITE,URINE NEGATIVE (NEGATIVE); PROTEIN,URINE 30 mg/dL (NEGATIVE); URINE SPECIFIC GRAVITY 1.017; UROBILINOGEN,URINE NEGATIVE mg/dL (<2.0)
[2019-02-08 21:41] LABS: ABSOLUTE LYMPHOCYTES# (MANUAL) 0.6 10^3/uL (0.5-4.7); ABSOLUTE MONOCYTES # (MANUAL) 1.2 10^3/uL (0.1-1.4); BAND NEUTROPHILS % (MANUAL) 8 % (3-5); BASOPHILS % (MANUAL) 0 % (0-2); EOSINOPHILS % (MANUAL) 0 % (0-6); LYMPHOCYTES % (MANUAL) 3 % (13-45); MONOCYTES % (MANUAL) 6 % (3-13); SEGMENTED NEUTROPHILS % (MAN) 83 % (42-78); TOTAL CELLS COUNTED 100
[2019-02-08 21:42] LABS: SCHISTOCYTES SLIGHT; TEAR DROP CELLS SLIGHT
[2019-02-08 21:43] LABS: ANISOCYTOSIS SLIGHT; PLATELET COMMENT DECREASED
[2019-02-08 21:46] LABS: ALANINE AMINOTRANSFERASE 78 U/L (9-52); ALBUMIN 3.8 g/dL (3.5-5.0); ALKALINE PHOSPHATASE 78 U/L (38-126); ANION GAP 12 (5-19); ASPARTATE AMINO TRANSFERASE 51 U/L (14-36); BILIRUBIN,DIRECT 0.2 mg/dL (0.0-0.4); BILIRUBIN,TOTAL 0.5 mg/dL (0.2-1.3); BLOOD UREA NITROGEN 30 mg/dL (7-20); CALCIUM 9.2 mg/dL (8.4-10.2); CARBON DIOXIDE 23 mmol/L (22-30); CHLORIDE 104 mmol/L (98-107); GLUCOSE 145 mg/dL (75-110); LIPASE 172.6 U/L (23-300); POTASSIUM 4.1 mmol/L (3.6-5.0); SODIUM 138.8 mmol/L (137-145); TOTAL PROTEIN 6.2 g/dL (6.3-8.2)
[2019-02-09] MEDS ORDERED: NORMAL SALINE 1000 ML 1,000 ML IV ONE (00:33)
[2019-02-09] MEDS ORDERED: MORPHINE SULFATE 10 MG/ML INJ IV ONE (00:33)
[2019-02-09] MEDS ORDERED: PANTOPRAZOLE SODIUM 40 MG VIAL IV ONE (00:34)
--- NOTE | 2019-02-09 00:39 | ER Document Report ---
ED GI/ - General Chief Complaint: Nausea/Vomiting Stated Complaint: VOMITING Time Seen by Provider: 02/08/19 20:22 Primary Care Provider: NEVIN GUNN MD [Primary Care Provider] - Follow up as needed Mode of Arrival: Wheelchair Notes: Patient is a 68-year-old female that comes to the emergency department for chief complaint of upper abdominal pain worse on the left upper side, nausea, vomiting. She states she has had this problem for the past 2 weeks. She states that on 01/30/2019 she had an endoscopy by Dr. Reveles, she is still pending the results. She denies vomiting blood but states she vomited 3 times today each time after trying to eat/drink. She denies fever/chills. She denies other locations of pain except for her abdomen. She is on Protonix. She has a history of multiple myeloma, on oral chemotherapy and occasional infusions. Past medical history also includes hypertension, type 2 diabetes, hyperlipidemia. She has had a partial hysterectomy but denies abdominal surgeries otherwise. TRAVEL OUTSIDE OF THE [place] IN LAST 30 DAYS: No - Related Data Allergies/Adverse Reactions: No Known Allergies Allergy (Verified 01/13/19 06:47) Past Medical History - General Information source: Patient - Social History Smoking Status: Never Smoker Frequency of alcohol use: None Drug Abuse: None Lives with: Family Family History: Hypertension Patient has suicidal ideation: No Patient has homicidal ideation: No - Past Medical History Cardiac Medical History: Reports: Hx Coronary Artery Disease, Hx Hyper cholesterolemia, Hx Hypertension Denies: Hx Congestive Heart Failure, Hx DVT, Hx Heart Attack, Hx Pulmonary Embolism Pulmonary Medical History: Denies: Hx Asthma, Hx Bronchitis, Hx COPD, Hx Pneumonia, Hx Sleep Apnea Neurological Medical History: Denies: Hx Cerebrovascular Accident, Hx Seizures Endocrine Medical History: Reports: Hx Diabetes Mellitus Type 2 - "pre"diabetic, Hx Hypothyroidism. Denies: Hx Diabetes Mellitus Type 1, Hx Hyperthyroidism Renal/ Medical History: Denies: Hx Peritoneal Dialysis GI Medical History: Reports: Hx Gastroesophageal Reflux Disease. Denies: Hx Cirrhosis, Hx Hepatitis, Hx Hiatal Hernia, Hx Ulcer Musculoskeletal Medical History: Denies Hx Arthritis Psychiatric Medical History: Reports: Hx Depression Infectious Medical History: Denies: Hx C-Diff, Hx Hepatitis, Hx MRSA Past Surgical History: Reports: Hx Cardiac Catheterization - 2011. Denies: Hx Hysterectomy, Hx Mastectomy, Hx Open Heart Surgery, Hx Pacemaker - Immunizations Immunizations up to date: Yes Hx Diphtheria, Pertussis, Tetanus Vaccination: No Review of Systems - Review of Systems Constitutional: No symptoms reported EENT: No symptoms reported Cardiovascular: No symptoms reported Respiratory: No symptoms reported Gastrointestinal: See HPI Genitourinary: No symptoms reported Female Genitourinary: No symptoms reported Musculoskeletal: No symptoms reported Skin: No symptoms reported Hematologic/Lymphatic: No symptoms reported Neurological/Psychological: No symptoms reported Physical Exam - Vital signs Vitals: Temp Pulse Resp BP Pulse Ox 98.3 F 103 H 18 115/59 L 98 02/08/19 19:41 02/08/19 19:41 02/08/19 19:41 02/08/19 19:41 02/08/19 19:41 - Notes Notes: GENERAL: Alert, interacts well. No acute distress. HEAD: Normocephalic, atraumatic. EYES: Pupils equal, round, and reactive to light. Extraocular movements intact. ENT: Oral mucosa very dry, tongue midline. Oropharynx unremarkable. Airway patent. LUNGS: Clear to auscultation bilaterally, no wheezes, rales, or rhonchi. No respiratory distress. HEART: Borderline tachycardia, normal rhythm, no murmur. ABDOMEN: Generalized abdominal tenderness, tenderness is most notable in the mid abdomen, no guarding, no rigidity, no concerning distention. Bowel sounds present. GENITOURINARY: Deferred EXTREMITIES: Moves all 4 extremities spontaneously. No edema, normal radial and dorsalis pedis pulses bilaterally. No cyanosis. BACK: no cervical, thoracic, lumbar midline tenderness. No saddle anesthesia, normal distal neurovascular exam. Moves all extremities in full range of motion. NEUROLOGICAL: Alert and oriented x3. Normal speech. Cranial nerves II through XII grossly intact. PSYCH: Normal affect, normal mood. SKIN: Warm, dry, normal turgor. No rashes or lesions noted. Course - Re-evaluation Re-evalutation: Patient has dry mucous membranes, borderline tachycardia. She has upper abdominal tenderness which is generalized but there is no guarding or rigidity. Recent endoscopy report shows that patient had gastritis, duodenitis, esophagitis, and Schatzki ring which was nonobstructing. Patient was given Protonix, morphine, Zofran, IV fluids. CBC shows leukocytosis at 20,000 with elevated neutrophils and 6% bands. Chemistry shows renal insufficiency with creatinine of 3. Acute abdominal series is negative, no free air. I reevaluated patient. She states she feels completely better, she is asking to eat. She is asking to go home. I explained to her that her laboratory work-up is concerning. Given additional IV fluids, patient agreed to at least have her renal functioning cycled. CBC, chemistry cycled but are still concerning. Creatinine is still 2.44, for some reason her bandemia has increased to 15%. She has no fever, she remains well-appearing on reevaluation, CAT scan was performed and does not show perforation, obstructing stone, or concerning finding. Patient is starting to be nauseated again as well. Culture is pending. I did discuss patient at length with Dr. Conner. He recommends the patient be at least admitted for observation, treatment with IV fluids, recheck of kidney functioning, blood count trending. I did discuss this with patient. She states understanding and agreement with this plan. Discussed with Benja Hua PA-C, patient admitted to telemetry observation. - Vital Signs Vital signs: Temp Pulse Resp BP Pulse Ox 98.3 F 103 H 21 H 155/75 H 98 02/08/19 19:41 02/08/19 19:41 02/09/19 06:01 02/09/19 06:01 02/09/19 06:01 - Laboratory Result Diagrams: 02/09/19 03:21 02/09/19 03:30 Laboratory results interpreted by me: 02/08/19 02/08/19 02/08/19 20:59 20:59 20:59 WBC 20.7 H RBC Hgb 11.5 L Hct 34.8 L RDW 16.1 H Plt Count 127 L Seg Neuts % (Manual) 83 H Band Neutrophils % 8 H Lymphocytes % (Manual) 3 L Abs Neuts (Manual) 18.8 H Abs Lymphs (Manual) Abs Monocytes (Manual) Chloride Carbon Dioxide BUN 30 H Creatinine 3.08 H Est GFR ( Amer) 18 L Est GFR (Non-Af Amer) 15 L Glucose 145 H Calcium AST 51 H ALT 78 H Total Protein 6.2 L Urine Protein 30 H Urine Glucose (UA) >=500 H Ur Leukocyte Esterase TRACE H 02/09/19 02/09/19 03:21 03:30 WBC 18.0 H RBC 3.63 L Hgb 10.7 L Hct 32.0 L RDW 15.9 H Plt Count 105 L Seg Neuts % (Manual) Band Neutrophils % 15 H Lymphocytes % (Manual) 1 L Abs Neuts (Manual) 16.2 H Abs Lymphs (Manual) 0.2 L Abs Monocytes (Manual) 1.6 H Chloride 109 H Carbon Dioxide 21 L BUN 31 H Creatinine 2.44 H Est GFR ( Amer) 24 L Est GFR (Non-Af Amer) 20 L Glucose 119 H Calcium 8.2 L AST ALT Total Protein Urine Protein Urine Glucose (UA) Ur Leukocyte Esterase Discharge - Discharge Clinical Impression: Acute renal insufficiency, Bandemia, Dehydration Leukocytosis Qualifiers: Leukocytosis type: unspecified Qualified Code(s): D72.829 - Elevated white blood cell count, unspecified Vomiting Qualifiers: Vomiting type: unspecified Vomiting Intractability: unspecified Nausea presence: with nausea Qualified Code(s): R11.2 - Nausea with vomiting, unspecified Abdominal pain Qualifiers: Abdominal location: generalized Qualified Code(s): R10.84 - Generalized abdominal pain Condition: Stable Disposition: ADMITTED OBSERVATION Admitting Provider: Benja Hua PA-C Unit Admitted: Telemetry Referrals: NEVIN GUNN MD [Primary Care Provider] - Follow up as needed
[2019-02-09] MEDS ORDERED: ONDANSETRON HCL INJ/PF 4 MG/2 ML SDV ONE (00:45)
--- NOTE | 2019-02-09 01:34 | RADIOLOGY REPORT (SQ) ---
CLINICAL HISTORY: persistent vomiting COMPARISON: None. TECHNIQUE: XR ABDOMEN SUPINE AND ERECT WITH CHEST (ABD ACUTE SERIES) 02/09/2019 12:37 AM CDT FINDINGS: Bowel gas pattern is nonspecific. There are no abnormal radiopaque foreign bodies or abnormal calcifications. Osseous structures are grossly unremarkable. The heart is enlarged. Right chest port catheter tip is in the upper SVC. Lungs are clear. IMPRESSION: No bowel obstruction.
[2019-02-09 03:49] LABS: HEMOGLOBIN 10.7 g/dL (12.0-15.5); MEAN CORPUSCULAR HEMOGLOBIN 29.6 pg (27.0-33.4); MEAN CORPUSCULAR HGB CONC 33.6 g/dL (32.0-36.0); MEAN CORPUSCULAR VOLUME 88 fl (80-97); PLATELET COUNT 105 10^3/uL (150-450); RED BLOOD COUNT 3.63 10^6/uL (3.72-5.28); RED CELL DISTRIBUTION WIDTH 15.9 % (11.5-14.0)
[2019-02-09 03:53] LABS: ANION GAP 10 (5-19); BLOOD UREA NITROGEN 31 mg/dL (7-20); CALCIUM 8.2 mg/dL (8.4-10.2); CARBON DIOXIDE 21 mmol/L (22-30); CHLORIDE 109 mmol/L (98-107); GLUCOSE 119 mg/dL (75-110); POTASSIUM 4.2 mmol/L (3.6-5.0); SODIUM 139.6 mmol/L (137-145)
[2019-02-09 04:21] LABS: ABSOLUTE LYMPHOCYTES# (MANUAL) 0.2 10^3/uL (0.5-4.7); ABSOLUTE MONOCYTES # (MANUAL) 1.6 10^3/uL (0.1-1.4); ANISOCYTOSIS 1+; BASOPHILS % (MANUAL) 0 % (0-2); EOSINOPHILS % (MANUAL) 0 % (0-6); LYMPHOCYTES % (MANUAL) 1 % (13-45); MONOCYTES % (MANUAL) 9 % (3-13); PLATELET COMMENT DECREASED; SEGMENTED NEUTROPHILS % (MAN) 75 % (42-78); TOTAL CELLS COUNTED 100
[2019-02-09 04:22] LABS: BAND NEUTROPHILS % (MANUAL) 15 % (3-5)
--- NOTE | 2019-02-09 05:12 | RADIOLOGY REPORT (SQ) ---
CLINICAL HISTORY: abd pain, vomiting, bandemia COMPARISON: None. TECHNIQUE: CT ABDOMEN PELVIS WITHOUT IV CONTRAST on 02/09/2019 4:35 AM CDT This exam was performed according to our departmental dose-optimization program, which includes automated exposure control, adjustment of the mA and/or kV according to patient size and/or use of iterative reconstruction technique. FINDINGS: Lower lungs are clear. Abdomen: The liver is normal in appearance. There is no biliary dilatation. The gallbladder contains several small calcified stones. There is a small hiatal hernia. The pancreas and spleen are normal in appearance. The adrenal glands and kidneys are unremarkable. Abdominal aorta is normal in course and caliber without aneurysm. There is no free air. There is no retroperitoneal adenopathy. Pelvis: There is no bowel obstruction. Urinary bladder is unremarkable. There is no free fluid. There is a small fat-containing left inguinal hernia. Hysterectomy was performed. Appendix is normal. 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 There is an old compression deformity of L4 and possibly S1. IMPRESSION: No definite acute inflammatory process.
[2019-02-09] MEDS ORDERED: NORMAL SALINE 1000 ML 1,000 ML IV PRN ×2 (05:40→08:01)
[2019-02-09] MEDS ORDERED: ONDANSETRON HCL INJ/PF 4 MG/2 ML SDV IV ONE (07:13)
[2019-02-09] MEDS ORDERED: ONDANSETRON 4 MG TAB.RAPDIS PO PRN ×2 (08:01→12:03)
[2019-02-09] MEDS ORDERED: PROMETHAZINE HCL INJ 25 MG/1 ML VIAL IV PRN (08:01)
[2019-02-09] MEDS ORDERED: TEMAZEPAM 7.5 MG CAPSULE PO PRN (08:01)
[2019-02-09] MEDS ORDERED: ACETAMINOPHEN 325 MG TABLET PO PRN (08:01)
[2019-02-09] MEDS ORDERED: FAMOTIDINE 20 MG TABLET PO SCH (10:00)
[2019-02-09] MEDS: FAMOTIDINE 20 MG TABLET PO SCH (10:11)
[2019-02-09 10:43] LABS: PATH REVIEW PATHOLOGIST REVIEWED
[2019-02-09] MEDS: MAG HYDROX/AL HYDROX/SIMETH SUSP 30 ML UDCUP PO PRN ×2 (11:03→20:34)
[2019-02-09] MEDS ORDERED: CALCIUM CARBONATE 500 MG TAB.CHEW PO PRN (11:58)
[2019-02-09] MEDS: PANTOPRAZOLE SODIUM 40 MG VIAL IV SCH ×2 (12:19→22:30)
[2019-02-09] MEDS: FAMOTIDINE INJ/PF 20 MG/2 ML SDV IV SCH ×2 (12:19→22:29)
[2019-02-09] MEDS ORDERED: BISMUTH SUBSALICYLATE 262 MG TAB.CHEW PO PRN (13:17)
--- NOTE | 2019-02-09 16:03 | PDOC H&P ---
History of Present Illness Admission Date/PCP: 02/09/19 08:01 NEVIN GUNN MD Patient complains of: abdominal pain x 2-3 weeks. gradual worsening. started when recent MM treatment changed. she is hold dexamethasone qweek. onhcology thought is was related to steroids, so they have seen her in between. she had EGD 10 days ago that showed a "lot of acid." Gradual worsening of nausea and increased satiety. pain epigastrict and upper left quandrant. worse with food. only tolerates bland food History of Present Illness: KATHY SCHAFER is a 68 year old female Past Medical History Cardiac Medical History: Reports: Coronary Artery Disease, Hyperlipidema, Hypertension Denies: Congestive Heart Failure, DVT, Myocardial Infarction, Pulmonary Embolism Pulmonary Medical History: Denies: Asthma, Bronchitis, Chronic Obstructive Pulmonary Disease (COPD), Pneumonia, Sleep Apnea Neurological Medical History: Denies: Seizures Endocrine Medical History: Reports: Diabetes Mellitus Type 2 - "pre"diabetic, Hypothyroidism Denies: Diabetes Mellitus Type 1, Hyperthyroidism GI Medical History: Reports: Gastroesophageal Reflux Disease Denies: Cirrhosis, Hepatitis, Hiatal Hernia Musculoskeltal Medical History: Denies: Arthritis Psychiatric Medical History: Reports: Depression Hematology: Reports: Anemia - hx of Denies: Sickle Cell Disease Infectious Medical History: Denies: Clostridium Difficile, Methicillin-Resistant Staph Aureus Past Surgical History Past Surgical History: Reports: Cardiac Catheterization - 2011 Denies: Amputation, Hysterectomy, Mastectomy, Pacemaker Social History Lives with: Family Smoking Status: Never Smoker Frequency of Alcohol Use: Social Hx Recreational Drug Use: No Drugs: None Hx Prescription Drug Abuse: No Family History Family History: Hypertension Parental Family History Reviewed: Yes Children Family History Reviewed: Yes Sibling(s) Family History Reviewed.: Yes Medication/Allergy Home Medications: Amlodipine Besylate/Benazepril [Lotrel 5-20 mg Capsule] 1 cap PO DAILY 02/09/19 Atorvastatin Calcium [Lipitor 20 mg Tablet] 20 mg PO QHS 02/09/19 Cyclophosphamide [Cytoxan 50 mg Tablet] 600 mg PO .QMONTH 1ST,8TH,02/09/19 Empagliflozin [Jardiance] 25 mg PO DAILY 02/09/19 Furosemide [Lasix 40 mg Tablet] 40 mg PO DAILY 02/09/19 Levothyroxine Sodium [Synthroid 0.1 mg Tablet] 0.1 mg PO Q6AM 02/09/19 Ondansetron HCl [Zofran 8 mg Tablet] 8 mg PO Q8HP PRN 02/09/19 Pantoprazole Sodium [Protonix [address] Tablet] 40 mg PO DAILY 02/09/19 Allergies/Adverse Reactions: No Known Allergies Allergy (Verified 01/13/19 06:47) Review of Systems Constitutional: ABSENT: chills, fever(s), headache(s), weight gain, weight loss Eyes: ABSENT: visual disturbances Ears: ABSENT: hearing changes Cardiovascular: ABSENT: chest pain, dyspnea on exertion, edema, orthropnea, palpitations Respiratory: ABSENT: cough, hemoptysis Gastrointestinal: PRESENT: abdominal pain, heartburn, nausea, vomiting. ABSENT: constipation, diarrhea, hematemesis, hematochezia Genitourinary: ABSENT: dysuria, hematuria Musculoskeletal: ABSENT: joint swelling Integumentary: ABSENT: rash, wounds Neurological: ABSENT: abnormal gait, abnormal speech, confusion, dizziness, focal weakness, syncope Psychiatric: ABSENT: anxiety, depression, homidical ideation, suicidal ideation Endocrine: ABSENT: cold intolerance, heat intolerance, polydipsia, polyuria Hematologic/Lymphatic: ABSENT: easy bleeding, easy bruising Physical Exam Vital Signs: Temp Pulse Resp BP Pulse Ox 97.9 F 103 H 20 139/72 H 98 02/09/19 14:34 02/08/19 19:41 02/09/19 14:01 02/09/19 14:01 02/09/19 14:01 Intake & Output 02/08/19 02/09/19 02/10/19 06:59 06:59 06:59 Intake Total 1000 1000 Balance 1000 1000 Weight 92.2 kg General appearance: PRESENT: no acute distress, well-developed, well-nourished Head exam: PRESENT: atraumatic, normocephalic Eye exam: PRESENT: conjunctiva pink, EOMI, PERRLA. ABSENT: scleral icterus Ear exam: PRESENT: normal external ear exam Mouth exam: PRESENT: moist, tongue midline Neck exam: ABSENT: carotid bruit, JVD, lymphadenopathy, thyromegaly Respiratory exam: PRESENT: clear to auscultation mary grace. ABSENT: rales, rhonchi, wheezes Cardiovascular exam: PRESENT: RRR. ABSENT: diastolic murmur, rubs, systolic murmur Pulses: PRESENT: normal dorsalis pedis pul Vascular exam: PRESENT: normal capillary refill GI/Abdominal exam: PRESENT: hyperactive bowel sounds, soft, tenderness. ABSENT: distended, guarding, mass, organolmegaly, rebound Rectal exam: PRESENT: deferred Extremities exam: PRESENT: full ROM. ABSENT: calf tenderness, clubbing, pedal edema Musculoskeletal exam: PRESENT: full ROM Neurological exam: PRESENT: alert, awake, oriented to person, oriented to place, oriented to time, oriented to situation, CN II-XII grossly intact. ABSENT: motor sensory deficit Psychiatric exam: PRESENT: appropriate affect, normal mood. ABSENT: homicidal ideation, suicidal ideation Skin exam: PRESENT: dry, intact, warm. ABSENT: cyanosis, rash Results Laboratory Results: 02/09/19 03:21 02/09/19 03:30 02/08/19 02/08/19 02/08/19 20:59 20:59 20:59 WBC 20.7 H RBC 3.92 Hgb 11.5 L Hct 34.8 L MCV 89 MCH 29.4 MCHC 33.1 RDW 16.1 H Plt Count 127 L Seg Neutrophils % Not Reportable Lymphocytes % Not Reportable Monocytes % Not Reportable Eosinophils % Not Reportable Basophils % Not Reportable Absolute Neutrophils Not Reportable Absolute Lymphocytes Not Reportable Absolute Monocytes Not Reportable Absolute Eosinophils Not Reportable Absolute Basophils Not Reportable Sodium 138.8 Potassium 4.1 Chloride 104 Carbon Dioxide 23 Anion Gap 12 BUN 30 H Creatinine 3.08 H Est GFR ( Amer) 18 L Est GFR (Non-Af Amer) 15 L Glucose 145 H Lactic Acid Calcium 9.2 Total Bilirubin 0.5 AST 51 H ALT 78 H Alkaline Phosphatase 78 Total Protein 6.2 L Albumin 3.8 Lipase 172.6 Urine Color YELLOW Urine Appearance CLEAR Urine pH 5.0 Ur Specific [place] 1.017 Urine Protein 30 H Urine Glucose (UA) >=500 H Urine Ketones NEGATIVE Urine Blood NEGATIVE Urine Nitrite NEGATIVE Ur Leukocyte Esterase TRACE H Urine WBC (Auto) 5 Urine RBC (Auto) 1 02/09/19 02/09/19 02/09/19 03:21 03:30 05:01 WBC 18.0 H RBC 3.63 L Hgb 10.7 L Hct 32.0 L MCV 88 MCH 29.6 MCHC 33.6 RDW 15.9 H Plt Count 105 L Seg Neutrophils % Not Reportable Lymphocytes % Not Reportable Monocytes % Not Reportable Eosinophils % Not Reportable Basophils % Not Reportable Absolute Neutrophils Not Reportable Absolute Lymphocytes Not Reportable Absolute Monocytes Not Reportable Absolute Eosinophils Not Reportable Absolute Basophils Not Reportable Sodium 139.6 Potassium 4.2 Chloride 109 H Carbon Dioxide 21 L Anion Gap 10 BUN 31 H Creatinine 2.44 H Est GFR ( Amer) 24 L Est GFR (Non-Af Amer) 20 L Glucose 119 H Lactic Acid 1.4 Calcium 8.2 L Total Bilirubin AST ALT Alkaline Phosphatase Total Protein Albumin Lipase Urine Color Urine Appearance Urine pH Ur Specific [place] Urine Protein Urine Glucose (UA) Urine Ketones Urine Blood Urine Nitrite Ur Leukocyte Esterase Urine WBC (Auto) Urine RBC (Auto) Impressions: Acute Abdomen Series 02/09/19 00:37 IMPRESSION: No bowel obstruction. Abdomen/Pelvis CT 02/09/19 04:35 IMPRESSION: No definite acute inflammatory process. Assessment and Plan - Diagnosis (1) CKD (chronic kidney disease), stage III Is this a current diagnosis for this admission?: No Plan: monitor. check bmp in am. appears to be worsening of baseline. likely due to dehydration secondary to poor oral intake (2) Multiple myeloma Qualifiers: Multiple myeloma remission status: unspecified Qualified Code(s): C90.00 - Multiple myeloma not having achieved remission Is this a current diagnosis for this admission?: No Plan: continue meds. consider consult. discuss holding steroids? lowering steroids? (3) Nausea and vomiting Qualifiers: Vomiting Intractability: unspecified Is this a current diagnosis for this admission?: Yes Plan: seems to be related to gastritis/pud secondary to steroid use. check h.pylori testing. no signs of perforation or blood lose. 40 bid of protonix and famotidin e bid x 3 days. bismuth and other supplemental care
[2019-02-09] MEDS: ATORVASTATIN CALCIUM 20 MG TABLET PO SCH (22:30)
[2019-02-10] MEDS: LEVOTHYROXINE SODIUM 0.1 MG TABLET PO SCH (05:46)
[2019-02-10 06:11] LABS: HEMATOCRIT 32.1 % (36.0-47.0); HEMOGLOBIN 10.5 g/dL (12.0-15.5); MEAN CORPUSCULAR HEMOGLOBIN 29.1 pg (27.0-33.4); MEAN CORPUSCULAR HGB CONC 32.7 g/dL (32.0-36.0); MEAN CORPUSCULAR VOLUME 89 fl (80-97); RED BLOOD COUNT 3.61 10^6/uL (3.72-5.28); RED CELL DISTRIBUTION WIDTH 15.8 % (11.5-14.0); WHITE BLOOD COUNT 14.5 10^3/uL (4.0-10.5)
[2019-02-10 06:13] LABS: PLATELET COUNT 71 10^3/uL (150-450)
[2019-02-10 06:33] LABS: ABSOLUTE LYMPHOCYTES# (MANUAL) 0.4 10^3/uL (0.5-4.7); ABSOLUTE MONOCYTES # (MANUAL) 1.3 10^3/uL (0.1-1.4); ALANINE AMINOTRANSFERASE 43 U/L (9-52); ALBUMIN 3.2 g/dL (3.5-5.0); ALKALINE PHOSPHATASE 76 U/L (38-126); ANION GAP 7 (5-19); ASPARTATE AMINO TRANSFERASE 22 U/L (14-36); BAND NEUTROPHILS % (MANUAL) 2 % (3-5); BASOPHILS % (MANUAL) 0 % (0-2); BILIRUBIN,DIRECT 0.3 mg/dL (0.0-0.4); BILIRUBIN,TOTAL 0.5 mg/dL (0.2-1.3); BLOOD UREA NITROGEN 19 mg/dL (7-20); CALCIUM 8.1 mg/dL (8.4-10.2); CARBON DIOXIDE 20 mmol/L (22-30); CHLORIDE 114 mmol/L (98-107); EOSINOPHILS % (MANUAL) 0 % (0-6); GLUCOSE 85 mg/dL (75-110); LYMPHOCYTES % (MANUAL) 3 % (13-45); MONOCYTES % (MANUAL) 9 % (3-13); SEGMENTED NEUTROPHILS % (MAN) 86 % (42-78); SODIUM 140.6 mmol/L (137-145); TOTAL CELLS COUNTED 100; TOTAL PROTEIN 5.5 g/dL (6.3-8.2)
[2019-02-10 06:35] LABS: ANISOCYTOSIS 1+; PLATELET COMMENT DECREASED; TOXIC GRANULATION 1+
[2019-02-10] MEDS: FAMOTIDINE INJ/PF 20 MG/2 ML SDV IV SCH (10:50)
[2019-02-10] MEDS: FAMOTIDINE 20 MG TABLET PO SCH (10:50)
[2019-02-10] MEDS: PANTOPRAZOLE SODIUM 40 MG VIAL IV SCH ×2 (10:57→21:36)
[2019-02-10] MEDS: MAG HYDROX/AL HYDROX/SIMETH SUSP 30 ML UDCUP PO PRN (11:06)
[2019-02-10] MEDS: OXYCODONE-ACETAMINOPHEN 5-325 MG TABLET PO PRN ×2 (11:50→21:37)
[2019-02-10] MEDS ORDERED: HYDROMORPHONE HCL INJ/PF 2 MG/ML AMPULE IV PRN (12:40)
--- NOTE | 2019-02-10 12:47 | PDOC PROGRESS REPORT ---
Subjective Progress Note for:: 02/10/19 Subjective:: This is 68 years old black female patient with past medical history of multiple stage III CKD, myeloma, coronary artery disease, hyperlipidemia, hypertension, type 2 diabetes mellitus and hypothyroidism gastroesophageal reflux disease presents with chief complaints of left upper quadrant crampy pain and nausea and vomiting. CT scan of the abdomen is negative for acute process. Her blood work shows creatinine of 3.08. When I see this patient this morning she complains of pain at the left upper quadrant and she has tenderness on the on the left costal margin. Her kidney function is improving that her creatinine was yesterday 3.308 to date is 1.21. She is being managed with normal saline at rate of 125 mL/h and pain management. Reason For Visit: NAUSEA/VOMITING Physical Exam Vital Signs: Temp Pulse Resp BP Pulse Ox 98.2 F 67 16 147/73 H 98 02/10/19 03:33 02/10/19 07:00 02/10/19 03:33 02/10/19 03:33 02/10/19 03:33 Intake & Output 02/09/19 02/10/19 02/11/19 06:59 06:59 06:59 Intake Total 1000 1760 Balance 1000 1760 Weight 92.2 kg 75.4 kg General appearance: PRESENT: mild distress Head exam: PRESENT: atraumatic Eye exam: PRESENT: conjunctiva pink Neck exam: ABSENT: carotid bruit, JVD, lymphadenopathy, thyromegaly Respiratory exam: PRESENT: clear to auscultation mary grace. ABSENT: rales, rhonchi, wheezes Cardiovascular exam: PRESENT: RRR. ABSENT: diastolic murmur, rubs, systolic murmur GI/Abdominal exam: PRESENT: normal bowel sounds, soft, tenderness - She has tenderness over the left costal margin.. ABSENT: distended, guarding, mass, organolmegaly, rebound Neurological exam: PRESENT: alert, awake, oriented to person, oriented to place, oriented to time, oriented to situation Results Laboratory Results: 02/10/19 05:45 02/10/19 05:45 02/10/19 02/10/19 02/10/19 05:45 05:45 05:45 WBC 14.5 H RBC 3.61 L Hgb 10.5 L Hct 32.1 L MCV 89 MCH 29.1 MCHC 32.7 RDW 15.8 H Plt Count 71 L Seg Neutrophils % Not Reportable Lymphocytes % Not Reportable Monocytes % Not Reportable Eosinophils % Not Reportable Basophils % Not Reportable Absolute Neutrophils Not Reportable Absolute Lymphocytes Not Reportable Absolute Monocytes Not Reportable Absolute Eosinophils Not Reportable Absolute Basophils Not Reportable Sodium 140.6 Potassium 4.0 Chloride 114 H Carbon Dioxide 20 L Anion Gap 7 BUN 19 Creatinine 1.21 Est GFR ( Amer) 53 L Est GFR (Non-Af Amer) 44 L Glucose 85 Calcium 8.1 L Magnesium 2.5 H Total Bilirubin 0.5 AST 22 ALT 43 Alkaline Phosphatase 76 Total Protein 5.5 L Albumin 3.2 L TSH 3.23 Impressions: Acute Abdomen Series 02/09/19 00:37 IMPRESSION: No bowel obstruction. Abdomen/Pelvis CT 02/09/19 04:35 IMPRESSION: No definite acute inflammatory process. Assessment and Plan - Diagnosis (1) BEA on stage III CKD Is this a current diagnosis for this admission?: Yes Plan: Continue gentle hydration. Avoid nephrotoxic agents. 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 (2) Intractable nausea and vomiting Qualifiers: Vomiting type: unspecified Qualified Code(s): R11.2 - Nausea with vomiting, unspecified Is this a current diagnosis for this admission?: Yes Plan: Etiology unclear. CT of the abdomen and pelvis is nonrevealing. Continue supportive care. (3) Hypothyroidism Qualifiers: Hypothyroidism type: acquired Qualified Code(s): E03.9 - Hypothyroidism, unspecified Is this a current diagnosis for this admission?: Yes Plan: Continue Synthroid (4) Coronary artery disease Is this a current diagnosis for this admission?: Yes Plan: No anginal symptoms (5) Type 2 diabetes mellitus Is this a current diagnosis for this admission?: Yes Plan: Continue current regimen (6) Hypertension Qualifiers: Hypertension type: essential hypertension Qualified Code(s): I10 - Essential (primary) hypertension Is this a current diagnosis for this admission?: Yes Plan: Continue home meds (7) Hyperlipidemia Qualifiers: Hyperlipidemia type: unspecified Qualified Code(s): E78.5 - Hyperlipidemia, unspecified Is this a current diagnosis for this admission?: Yes Plan: Continue home medication (8) Known case of multiple myeloma Is this a current diagnosis for this admission?: Yes Plan: Dr. aGrcia consulted
[2019-02-10] MEDS ORDERED: BENAZEPRIL HCL 20 MG TABLET PO ONE (21:20)
[2019-02-10] MEDS: ATORVASTATIN CALCIUM 20 MG TABLET PO SCH (21:34)
[2019-02-10] MEDS ORDERED: AMLODIPINE BESYLATE 5 MG TABLET PO ONE (22:20)
[2019-02-11] MEDS: LEVOTHYROXINE SODIUM 0.1 MG TABLET PO SCH (06:22)
[2019-02-11] MEDS: BENAZEPRIL HCL 20 MG TABLET PO SCH (09:11)
[2019-02-11] MEDS: AMLODIPINE BESYLATE 5 MG TABLET PO SCH (09:11)
[2019-02-11] MEDS: PANTOPRAZOLE SODIUM 40 MG VIAL IV SCH ×2 (09:11→21:29)
[2019-02-11] MEDS: FUROSEMIDE 40 MG TABLET PO SCH (09:11)
--- NOTE | 2019-02-11 15:31 | PDOC PROGRESS REPORT ---
Subjective Progress Note for:: 02/11/19 Subjective:: This is 68 years old black female patient with past medical history of multiple stage III CKD, myeloma, coronary artery disease, hyperlipidemia, hypertension, type 2 diabetes mellitus and hypothyroidism gastroesophageal reflux disease presents with chief complaints of left upper quadrant crampy pain and nausea and vomiting. CT scan of the abdomen is negative for acute process. Her blood work shows creatinine of 3.08. When I see this patient this morning she complains of pain at the left upper quadrant and she has tenderness on the on the left costal margin. Her kidney function is improving that her creatinine was yesterday 3.308 to date is 1.21. She is being managed with normal saline at rate of 125 mL/h and pain management. 02/11/2019: Patient seen and examined while she is resting in bed comfortably. She reported that her abdominal pain and intractable nausea and vomiting is subsiding. Her blood work shows that her white cell count is trending down. Her kidney function also has improved markedly at admission her creatinine was 3.08 today it is 1.21 if she remains stable she is potential discharge for tomorrow. Reason For Visit: NAUSEA/VOMITING Physical Exam Vital Signs: Temp Pulse Resp BP Pulse Ox 98.0 F 78 12 145/65 H 96 02/11/19 11:06 02/11/19 14:00 02/11/19 11:06 02/11/19 11:06 02/11/19 11:06 Intake & Output 02/10/19 02/11/19 02/12/19 06:59 06:59 06:59 Intake Total 1760 1030 120 Balance 1760 1030 120 Weight 75.4 kg 75.4 kg General appearance: PRESENT: no acute distress Eye exam: PRESENT: conjunctiva pink Mouth exam: PRESENT: moist Neck exam: ABSENT: carotid bruit, JVD, lymphadenopathy, thyromegaly Respiratory exam: PRESENT: clear to auscultation mary grace. ABSENT: rales, rhonchi, wheezes GI/Abdominal exam: PRESENT: tenderness Neurological exam: PRESENT: alert, oriented to person, oriented to place, oriented to time, oriented to situation Results Laboratory Results: 02/10/19 05:45 02/10/19 05:45 02/08/19 20:59 Clean Catch Midstream Urine Culture - Final Mixed Urogenital Zoey Impressions: Acute Abdomen Series 02/09/19 00:37 IMPRESSION: No bowel obstruction. Abdomen/Pelvis CT 02/09/19 04:35 IMPRESSION: No definite acute inflammatory process. Assessment and Plan - Diagnosis (1) BEA on stage III CKD Is this a current diagnosis for this admission?: Yes Plan: Her kidney function has been improving steadily. Her creatinine was 3.08 at admission now it is 1.1. (2) Intractable nausea and vomiting Qualifiers: Vomiting type: unspecified Qualified Code(s): R11.2 - Nausea with vomiting, unspecified Is this a current diagnosis for this admission?: Yes Plan: Subsiding (3) Hypothyroidism Qualifiers: Hypothyroidism type: acquired Qualified Code(s): E03.9 - Hypothyroidism, unspecified Is this a current diagnosis for this admission?: Yes Plan: Continue Synthroid (4) Coronary artery disease Is this a current diagnosis for this admission?: Yes Plan: No anginal symptoms (5) Type 2 diabetes mellitus Is this a current diagnosis for this admission?: Yes Plan: Continue current regimen (6) Hypertension Qualifiers: Hypertension type: essential hypertension Qualified Code(s): I10 - Essential (primary) hypertension Is this a current diagnosis for this admission?: Yes Plan: Continue home meds (7) Hyperlipidemia Qualifiers: Hyperlipidemia type: unspecified Qualified Code(s): E78.5 - Hyperlipidemia, unspecified Is this a current diagnosis for this admission?: Yes Plan: Continue home medication (8) Known case of multiple myeloma Is this a current diagnosis for this admission?: Yes Plan: Dr. Garcia consulted
--- NOTE | 2019-02-11 15:51 | PDOC CONSULTATION ---
Consultation Consult Date: 02/11/19 Provider Consulted: [facility] Consult reason:: Multiple Myeloma History of Present Illness Admission Date/PCP: 02/09/19 08:01 NEVIN GUNN MD History of Present Illness: KATHY SCHAFER is a 68 year old female who has been undergoing active treatment for her multiple myeloma. Her most recent chemotherapy was earlier this week and her blood counts prior to treatment were good. Over the past 4-6 weeks, she has been having difficulty with nausea, vomiting, and abdominal pain. Pain is worse when she eats. She underwent EGD with Dr. Reveles on 01/30/2019 (results are available in her current EMR here at [facility]). There was no H.pylori or cancer, but gastritis was seen. She was started on PPI and Carafate, but stopped the carafate, as she believed this was making it worse. She presented to the ED with worsening abdominal pain and was found to be dehydrate with acute renal insufficiency. She was given IV fluids over night and today, her labs are much improved. She was given low-dose narcotic for the pain, and this has helped. No further nausea today, with regular diet. She still has a gall bladder and CT did not show any bile duct dilation, but stones were present. Past Medical History Cardiac Medical History: Reports: Coronary Artery Disease, Hyperlipidema, Hypertension Denies: Congestive Heart Failure, DVT, Myocardial Infarction, Pulmonary Embolism Pulmonary Medical History: Denies: Asthma, Bronchitis, Chronic Obstructive Pulmonary Disease (COPD), Pneumonia, Sleep Apnea Neurological Medical History: Denies: Seizures Endocrine Medical History: Reports: Diabetes Mellitus Type 2 - "pre"diabetic, Hypothyroidism Denies: Diabetes Mellitus Type 1, Hyperthyroidism GI Medical History: Reports: Gastroesophageal Reflux Disease Denies: Cirrhosis, Hepatitis, Hiatal Hernia Musculoskeltal Medical History: Denies: Arthritis Psychiatric Medical History: Reports: Depression Hematology: Reports: Anemia - hx of Denies: Sickle Cell Disease Infectious Medical History: Denies: Clostridium Difficile, Methicillin-Resistant Staph Aureus Past Surgical History Past Surgical History: Reports: Cardiac Catheterization - 2011 Denies: Amputation, Hysterectomy, Mastectomy, Pacemaker Social History Lives with: Family Smoking Status: Never Smoker Frequency of Alcohol Use: Social Hx Recreational Drug Use: No Drugs: None Hx Prescription Drug Abuse: No Family History Family History: Hypertension Parental Family History Reviewed: Yes Children Family History Reviewed: No Sibling(s) Family History Reviewed.: Yes Medication/Allergy Home Medications: Amlodipine Besylate/Benazepril [Lotrel 5-20 mg Capsule] 1 cap PO DAILY 02/09/19 Atorvastatin Calcium [Lipitor 20 mg Tablet] 20 mg PO QHS 02/09/19 Cyclophosphamide [Cytoxan 50 mg Tablet] 600 mg PO .QMONTH 1ST,8TH,15TH 02/09/19 Empagliflozin [Jardiance] 25 mg PO DAILY 02/09/19 Furosemide [Lasix 40 mg Tablet] 40 mg PO DAILY 02/09/19 Levothyroxine Sodium [Synthroid 0.1 mg Tablet] 0.1 mg PO Q6AM 02/09/19 Ondansetron HCl [Zofran 8 mg Tablet] 8 mg PO Q8HP PRN 02/09/19 Pantoprazole Sodium [Protonix [address] Tablet] 40 mg PO DAILY 02/09/19 Allergies/Adverse Reactions: No Known Allergies Allergy (Verified 01/13/19 06:47) Review of Systems Constitutional: ABSENT: fever(s), headache(s) Eyes: ABSENT: visual disturbances Ears: ABSENT: hearing changes Nose, Mouth, and Throat: ABSENT: sore throat Cardiovascular: ABSENT: dyspnea on exertion, palpitations Respiratory: ABSENT: dyspnea Gastrointestinal: PRESENT: abdominal pain, nausea, vomiting Genitourinary: ABSENT: dysuria Musculoskeletal: ABSENT: back pain Integumentary: ABSENT: rash Neurological: ABSENT: confusion, frequent falls Hematologic/Lymphatic: ABSENT: easy bleeding Physical Exam Vital Signs: Temp Pulse Resp BP Pulse Ox 98.0 F 78 12 145/65 H 96 02/11/19 11:06 02/11/19 14:00 02/11/19 11:06 02/11/19 11:06 02/11/19 11:06 Intake & Output 02/10/19 02/11/19 02/12/19 06:59 06:59 06:59 Intake Total 1760 1030 120 Balance 1760 1030 120 Weight 75.4 kg 75.4 kg General appearance: PRESENT: no acute distress, well-developed Exam: Overweight, 68 year old female. Head exam: PRESENT: atraumatic, normocephalic Eye exam: PRESENT: EOMI Mouth exam: PRESENT: moist, tongue midline Neck exam: ABSENT: lymphadenopathy, tenderness Respiratory exam: PRESENT: clear to auscultation mary grace, unlabored Cardiovascular exam: PRESENT: RRR GI/Abdominal exam: PRESENT: soft, tenderness - epigastric Extremities exam: ABSENT: pedal edema Neurological exam: PRESENT: alert, awake, oriented to person, oriented to place, oriented to time, oriented to situation Psychiatric exam: PRESENT: appropriate affect Skin exam: PRESENT: normal color Results Laboratory Results: 02/10/19 05:45 02/10/19 05:45 02/08/19 20:59 Clean Catch Midstream Urine Culture - Final Mixed Urogenital Zoey Impressions: Acute Abdomen Series 02/09/19 00:37 IMPRESSION: No bowel obstruction. Abdomen/Pelvis CT 02/09/19 04:35 IMPRESSION: No definite acute inflammatory process. Status: Image reviewed by me Assessment & Plan - Diagnosis (1) Abdominal pain Qualifiers: Abdominal location: generalized Qualified Code(s): R10.84 - Generalized abdominal pain Is this a current diagnosis for this admission?: Yes Plan: Continue PPI. I will again add carafate. Nurses belie that she did much better with a low-dose narcotic for the pain. This will be continued. I have consulted [facility] to re-evaluate. (2) Acute renal insufficiency Is this a current diagnosis for this admission?: Yes Plan: Improved after hydration. (3) Multiple myeloma Qualifiers: Multiple myeloma remission status: unspecified Qualified Code(s): C90.00 - Multiple myeloma not having achieved remission Is this a current diagnosis for this admission?: Yes Plan: She received treatment earlier this week. I expect her blood counts to drop some in the next week due to this. Will watch for fever and need for blood transfusion. Will hold all chemotherapy during her hospital stay. - Plan Summary Plan Summary: I did review her care with Dr. Marshall. He will order gall bladder scan tomorrow with nuclear medicine.
[2019-02-11] MEDS ORDERED: SUCRALFATE 1 GM TABLET PO SCH (17:00)
[2019-02-11] MEDS: OXYCODONE-ACETAMINOPHEN 5-325 MG TABLET PO PRN (19:26)
--- NOTE | 2019-02-11 20:30 | PDOC CONSULTATION ---
Consultation Consult Date: 02/11/19 Attending physician:: RIO MIX Provider Consulted: FERNANDO JUAREZ Consult reason:: abdominal pain History of Present Illness Admission Date/PCP: 02/09/19 08:01 NEVIN GUNN MD History of Present Illness: KATHY SCHAFER is a 68 year old female who has been undergoing active treatment for her multiple myeloma. Her most recent chemotherapy was earlier this week and her blood counts prior to treatment were good. Over the past 4-6 weeks, she has been having difficulty with nausea, vomiting, and abdominal pain. Pain is worse when she eats. She underwent EGD with Dr. Reveles on 01/30/2019 (results are available in her current EMR here at [facility]). There was no H.pylori or cancer, but gastritis was seen. She was started on PPI and Carafate, but stopped the carafate, as she believed this was making it worse. She presented to the ED with worsening abdominal pain and was found to be dehydrate with acute renal insufficiency. Renal insufficiency was felt due to dehydration because of vomiting recently felt better in the em ergency room but then was admitted because of the dehydration and BEA now been in the hospital for 3 or 4 days she still complains of the left upper quadrant pain generally after she eats associate with nausea and occasional vomiting he states that the proton pump inhibitor that she was started on does help initially the Carafate was helping but then it stopped early she feels much better she has been in the hospital and her pain is almost completely resolved Past Medical History Cardiac Medical History: Reports: Coronary Artery Disease, Hyperlipidema, H ypertension Denies: Congestive Heart Failure, DVT, Myocardial Infarction, Pulmonary Embolism Pulmonary Medical History: Denies: Asthma, Bronchitis, Chronic Obstructive Pulmonary Disease (COPD), Pneumonia, Sleep Apnea Neurological Medical History: Denies: Seizures Endocrine Medical History: Reports: Diabetes Mellitus Type 2 - "pre"diabetic, Hypothyroidism Denies: Diabetes Mellitus Type 1, Hyperthyroidism GI Medical History: Reports: Gastroesophageal Reflux Disease Denies: Cirrhosis, Hepatitis, Hiatal Hernia Musculoskeltal Medical History: Denies: Arthritis Psychiatric Medical History: Reports: Depression Hematology: Reports: Anemia - hx of Denies: Sickle Cell Disease Infectious Medical History: Denies: Clostridium Difficile, Methicillin-Resistant Staph Aureus Past Surgical History Past Surgical History: Reports: Cardiac Catheterization - 2011 Denies: Amputation, Hysterectomy, Mastectomy, Pacemaker Social History Lives with: Family Smoking Status: Never Smoker Frequency of Alcohol Use: Social Hx Recreational Drug Use: No Drugs: None Hx Prescription Drug Abuse: No Family History Family History: Hypertension Parental Family History Reviewed: No Children Family History Reviewed: NA Sibling(s) Family History Reviewed.: NA Medication/Allergy Home Medications: Amlodipine Besylate/Benazepril [Lotrel 5-20 mg Capsule] 1 cap PO DAILY 02/09/19 Atorvastatin Calcium [Lipitor 20 mg Tablet] 20 mg PO QHS 02/09/19 Cyclophosphamide [Cytoxan 50 mg Tablet] 600 mg PO .QMONTH 1ST,8TH,15TH 02/09/19 Empagliflozin [Jardiance] 25 mg PO DAILY 02/09/19 Furosemide [Lasix 40 mg Tablet] 40 mg PO DAILY 02/09/19 Levothyroxine Sodium [Synthroid 0.1 mg Tablet] 0.1 mg PO Q6AM 02/09/19 Ondansetron HCl [Zofran 8 mg Tablet] 8 mg PO Q8HP PRN 02/09/19 Pantoprazole Sodium [Protonix [address] Tablet] 40 mg PO DAILY 02/09/19 Allergies/Adverse Reactions: No Known Allergies Allergy (Verified 01/13/19 06:47) Review of Systems Constitutional: PRESENT: fatigue, weight loss Eyes: ABSENT: visual disturbances Ears: ABSENT: hearing changes Nose, Mouth, and Throat: ABSENT: as per HPI, headache(s), mouth pain, sore throat, vertigo, other Breasts: ABSENT: as per HPI, other Cardiovascular: ABSENT: as per HPI, chest pain, dyspnea on exertion, edema, orthropnea, palpitations, other Respiratory: ABSENT: as per HPI, cough, dyspnea, hemoptysis, sputum, other Gastrointestinal: PRESENT: other - Left upper quadrant abdominal pain Genitourinary: ABSENT: as per HPI, difficulty urinating, dysuria, hematuria, nocturia, other Musculoskeletal: ABSENT: joint swelling Neurological: ABSENT: abnormal gait, abnormal speech, confusion, dizziness, focal weakness, syncope Psychiatric: ABSENT: anxiety, depression, homidical ideation, suicidal ideation Endocrine: ABSENT: cold intolerance, heat intolerance, polydipsia, polyuria Hematologic/Lymphatic: ABSENT: easy bleeding, easy bruising Physical Exam Vital Signs: Temp Pulse Resp BP Pulse Ox 99.5 F 73 16 158/82 H 97 07/14/19 15:38 02/11/19 15:38 02/11/19 15:38 02/11/19 15:38 02/11/19 15:38 Intake & Output 02/10/19 02/11/19 02/12/19 06:59 06:59 06:59 Intake Total 1760 1030 320 Balance 1760 1030 320 Weight 75.4 kg 75.4 kg General appearance: PRESENT: no acute distress, well-developed, well-nourished Head exam: PRESENT: atraumatic, normocephalic Eye exam: PRESENT: conjunctiva pink, EOMI, PERRLA. ABSENT: scleral icterus Ear exam: PRESENT: normal external ear exam Mouth exam: PRESENT: moist, tongue midline Neck exam: ABSENT: carotid bruit, JVD, lymphadenopathy, thyromegaly Respiratory exam: PRESENT: clear to auscultation mary grace. ABSENT: rales, rhonchi, wheezes Cardiovascular exam: PRESENT: RRR. ABSENT: diastolic murmur, rubs, systolic murmur Pulses: PRESENT: normal dorsalis pedis pul Vascular exam: PRESENT: normal capillary refill GI/Abdominal exam: PRESENT: normal bowel sounds, soft. ABSENT: distended, guarding, mass, organolmegaly, rebound, tenderness - Noticed to deep palpation left upper quadrant no right upper quadrant pain Rectal exam: PRESENT: deferred Extremities exam: PRESENT: full ROM. ABSENT: calf tenderness, clubbing, pedal edema Neurological exam: PRESENT: alert, awake, oriented to person, oriented to place, oriented to time, oriented to situation, CN II-XII grossly intact. ABSENT: motor sensory deficit Psychiatric exam: PRESENT: appropriate affect, normal mood. ABSENT: homicidal ideation, suicidal ideation Skin exam: PRESENT: dry, intact, warm. ABSENT: cyanosis, rash Results Laboratory Results: 02/10/19 05:45 02/10/19 05:45 02/08/19 20:59 Clean Catch Midstream Urine Culture - Final Mixed Urogenital Zoey Impressions: Acute Abdomen Series 02/09/19 00:37 IMPRESSION: No bowel obstruction. Abdomen/Pelvis CT 02/09/19 04:35 IMPRESSION: No definite acute inflammatory process. Assessment & Plan - Plan Summary Plan Summary: Impression I doubt that her left upper quadrant and subxiphoid pain is secondary to her gallbladder despite the fact that she does have cholelithiasis Upper endoscopy did show significant gastritis and duodenitis sometimes relieved with the Carafate that she was taken and the proton pump inhibitors Her CAT scan was reviewed and there really is not anything anatomic on a CAT scan that could explain her left upper quadrant pain. I will go ahead and change her Carafate to a suspension and will start her on Reglan 10 mg p.o. 3 times daily as a gastric motility agent Also order an upper GI for tomorrow to see if there is evidence of gastric atony or delayed gastric emptying
[2019-02-11] MEDS ORDERED: METOCLOPRAMIDE HCL 10 MG TABLET PO ONE (21:00)
[2019-02-11] MEDS: ATORVASTATIN CALCIUM 20 MG TABLET PO SCH (21:26)
[2019-02-11] MEDS: SUCRALFATE 1 GM TABLET PO SCH (21:29)
[2019-02-12] MEDS ORDERED: DEXTROSE 40% GEL 15 GM TUBE PO PRN ×2 (03:28)
[2019-02-12] MEDS ORDERED: GLUCAGON,HUMAN RECOMB 1 MG INJ SUBCUT PRN (03:28)
[2019-02-12] MEDS ORDERED: DEXTROSE 50%-WATER 25 GM/50 ML DISP.SYRIN IV PRN ×2 (03:28)
[2019-02-12] MEDS: LEVOTHYROXINE SODIUM 0.1 MG TABLET PO SCH (05:13)
--- NOTE | 2019-02-12 08:46 | PDOC PROGRESS REPORT ---
Subjective Progress Note for:: 02/12/19 Subjective:: Patient states that nausea is better. Pain has been greatly improved with PRN low-dose narcotics. She is currently NPO for EGD this morning. Reason For Visit: NAUSEA/VOMITING Physical Exam Vital Signs: Temp Pulse Resp BP Pulse Ox 98.2 F 64 18 148/76 H 99 02/12/19 07:43 02/12/19 07:43 02/12/19 07:43 02/12/19 07:43 02/12/19 07:43 Intake & Output 02/11/19 02/12/19 02/13/19 06:59 06:59 06:59 Intake Total 1030 800 Balance 1030 800 Weight 75.4 kg 75.4 kg General appearance: PRESENT: no acute distress, obese Head exam: PRESENT: normocephalic Respiratory exam: PRESENT: unlabored GI/Abdominal exam: PRESENT: soft. ABSENT: tenderness Extremities exam: ABSENT: pedal edema Neurological exam: PRESENT: alert, awake Psychiatric exam: PRESENT: appropriate affect Skin exam: PRESENT: normal color Results Laboratory Results: 02/10/19 05:45 02/10/19 05:45 02/09/19 19:55 Stool - Stool Helicobacter pylori Antigen - Final 02/08/19 20:59 Clean Catch Midstream Urine Culture - Final Mixed Urogenital Zoey Impressions: Acute Abdomen Series 02/09/19 00:37 IMPRESSION: No bowel obstruction. Abdomen/Pelvis CT 02/09/19 04:35 IMPRESSION: No definite acute inflammatory process. Assessment & Plan - Diagnosis (1) Abdominal pain Qualifiers: Abdominal location: generalized Qualified Code(s): R10.84 - Generalized abdominal pain Is this a current diagnosis for this admission?: Yes Plan: Current pain regimen is helping. Her PPI has been continues. She remains on carafate and reglan has been added. Await further recommendation by Dr. Marshall. (2) Acute renal insufficiency Is this a current diagnosis for this admission?: Yes Plan: Now resolved with fluids (3) Multiple myeloma Qualifiers: Multiple myeloma remission status: unspecified Qualified Code(s): C90.00 - Multiple myeloma not having achieved remission Is this a current diagnosis for this admission?: Yes Plan: Treatment currently on hold.
[2019-02-12] MEDS: OXYCODONE-ACETAMINOPHEN 5-325 MG TABLET PO PRN (09:40)
[2019-02-12] MEDS: FUROSEMIDE 40 MG TABLET PO SCH (09:41)
[2019-02-12] MEDS: AMLODIPINE BESYLATE 5 MG TABLET PO SCH (09:41)
[2019-02-12] MEDS: METOCLOPRAMIDE HCL 10 MG TABLET PO SCH ×2 (09:41→16:44)
[2019-02-12] MEDS: SUCRALFATE 1 GM TABLET PO SCH ×3 (09:41→16:44)
[2019-02-12] MEDS: PANTOPRAZOLE SODIUM 40 MG VIAL IV SCH (09:41)
[2019-02-12] MEDS: BENAZEPRIL HCL 20 MG TABLET PO SCH (09:42)
--- NOTE | 2019-02-12 14:28 | PDOC PROGRESS REPORT ---
Subjective Progress Note for:: 02/12/19 Subjective:: Patient feeling better, no complaints, tolerating liquid; tolerated upper GI small bowel follow-through series. Reason For Visit: NAUSEA/VOMITING Physical Exam Vital Signs: Temp Pulse Resp BP Pulse Ox 98.7 F 69 20 143/79 H 98 02/12/19 11:04 02/12/19 11:04 02/12/19 11:04 02/12/19 11:04 02/12/19 11:04 Intake & Output 02/11/19 02/12/19 02/13/19 06:59 06:59 06:59 Intake Total 1030 800 496 Balance 1030 800 496 Weight 75.4 kg 75.4 kg General appearance: PRESENT: no acute distress GI/Abdominal exam: PRESENT: other - Soft, nontender no peritoneal signs no rigidity Results Laboratory Results: 02/10/19 05:45 02/10/19 05:45 02/09/19 19:55 Stool - Stool Helicobacter pylori Antigen - Final 02/08/19 20:59 Clean Catch Midstream Urine Culture - Final Mixed Urogenital Zoey Impressions: Acute Abdomen Series 02/09/19 00:37 IMPRESSION: No bowel obstruction. Abdomen/Pelvis CT 02/09/19 04:35 IMPRESSION: No definite acute inflammatory process. Assessment & Plan - Diagnosis (1) Abdominal pain Qualifiers: Abdominal location: generalized Qualified Code(s): R10.84 - Generalized abdominal pain Is this a current diagnosis for this admission?: Yes Plan: Impression: Clinically improved; exact etiology elusive; no evidence of gastric atony, outlet obstruction or small bowel obstruction. Recommendations 1. We will check serum gastrin level to rule out gastrinoma 2. Will sign off from a surgical standpoint reconsult surgery if clinically
--- NOTE | 2019-02-12 15:45 | PDOC DISCHARGE SUMMARY ---
General - Admit/Disc Date/PCP Admission Date/Primary Care Provider: 02/09/19 08:01 NEVIN GUNN MD Discharge Date: 02/12/19 - Discharge Diagnosis (1) BEA on stage III CKD Is this a current diagnosis for this admission?: Yes (2) Intractable nausea and vomiting Is this a current diagnosis for this admission?: Yes (3) Hypothyroidism Is this a current diagnosis for this admission?: Yes (4) Coronary artery disease Is this a current diagnosis for this admission?: Yes (5) Type 2 diabetes mellitus Is this a current diagnosis for this admission?: Yes (6) Hypertension Is this a current diagnosis for this admission?: Yes (7) Hyperlipidemia Is this a current diagnosis for this admission?: Yes (8) Known case of multiple myeloma Is this a current diagnosis for this admission?: Yes - Additional Information Prescriptions: Pantoprazole Sodium [Protonix [address] Tablet] 40 mg PO QAM #30 tablet. Home Medications: Amlodipine Besylate/Benazepril [Lotrel 5-20 mg Capsule] 1 cap PO DAILY 02/09/19 Atorvastatin Calcium [Lipitor 20 mg Tablet] 20 mg PO QHS 02/09/19 Cyclophosphamide [Cytoxan 50 mg Tablet] 600 mg PO .QMONTH 1ST,8TH,15TH 02/09/19 Empagliflozin [Jardiance] 25 mg PO DAILY 02/09/19 Furosemide [Lasix 40 mg Tablet] 40 mg PO DAILY 02/09/19 Levothyroxine Sodium [Synthroid 0.1 mg Tablet] 0.1 mg PO Q6AM 02/09/19 Ondansetron HCl [Zofran 8 mg Tablet] 8 mg PO Q8HP PRN 02/09/19 Pantoprazole Sodium [Protonix [address] Tablet] 40 mg PO DAILY 02/09/19 Pantoprazole Sodium [Protonix [address] Tablet] 40 mg PO QAM #30 tablet. 02/12/19 History of Present Illness History of Present Illness: KATHY SCHAFER is a 68 year old female Patient complains of: abdominal pain x 2- 3 weeks. gradual worsening. started when recent MM treatment changed. she is hold dexamethasone qweek. onhcology thought is was related to steroids, so they have seen her in between. she had EGD 10 days ago that showed a "lot of acid." Gradual worsening of nausea and increased satiety. pain epigastrict and upper left quandrant. worse with food. only tolerates bland food Hospital Course Hospital Course: This is 68 years old black female patient with past medical history of multiple stage III CKD, myeloma, coronary artery disease, hyperlipidemia, hypertension, type 2 diabetes mellitus and hypothyroidism gastroesophageal reflux disease presents with chief complaints of left upper quadrant crampy pain and nausea and vomiting. CT scan of the abdomen is negative for acute process. Her blood work shows creatinine of 3.08. When I see this patient this morning she complains of pain at the left upper quadrant and she has tenderness on the on the left costal margin. Her kidney function is improving that her creatinine was yesterday 3.308 to date is 1.21. She is being managed with normal saline at rate of 125 mL/h and pain management. 02/11/2019: Patient seen and examined while she is resting in bed comfortably. She reported that her abdominal pain and intractable nausea and vomiting is subsiding. Her blood work shows that her white cell count is trending down. Her kidney function also has improved markedly at admission her creatinine was 3.08 today it is 1.21 if she remains stable she is potential discharge for tomorrow. 02/12/2019: Patient seen and examined at bedside. She is awake alert oriented. She is not in pain or distress. Her nausea and vomiting has subsided. Dr. Kirk cleared her for discharge. Her vital signs and blood works are unremarkable. Patient is stable enough to be discharged today and to follow-up with her primary care physician. I will send her home with Protonix 40 mg p.o. daily. Physical Exam Vital Signs: Temp Pulse Resp BP Pulse Ox 98.7 F 71 20 143/79 H 98 02/12/19 11:04 02/12/19 14:00 02/12/19 11:04 02/12/19 11:04 02/12/19 11:04 Intake & Output 02/11/19 02/12/19 02/13/19 06:59 06:59 06:59 Intake Total 1030 800 496 Balance 1030 800 496 Weight 75.4 kg 75.4 kg General appearance: PRESENT: no acute distress Eye exam: PRESENT: conjunctiva pink Mouth exam: PRESENT: moist Respiratory exam: PRESENT: clear to auscultation mary grace. ABSENT: rales, rhonchi, wheezes Cardiovascular exam: PRESENT: RRR. ABSENT: diastolic murmur, rubs, systolic murmur GI/Abdominal exam: PRESENT: normal bowel sounds, soft. ABSENT: distended, guarding, mass, organolmegaly, rebound, tenderness Neurological exam: PRESENT: alert, awake, oriented to person, oriented to place, oriented to time, oriented to situation Results Laboratory Results: 02/10/19 05:45 02/10/19 05:45 02/09/19 19:55 Stool - Stool Helicobacter pylori Antigen - Final 02/08/19 20:59 Clean Catch Midstream Urine Culture - Final Mixed Urogenital Zoey Impressions: Acute Abdomen Series 02/09/19 00:37 IMPRESSION: No bowel obstruction. Abdomen/Pelvis CT 02/09/19 04:35 IMPRESSION: No definite acute inflammatory process. Qualifiers - * PATIENT BEING DISCHARGED WITH ANY OF THE FOLLOWING DIAGNOSIS: No Acute Heart Failure - Is this a Heart Failure Patient?: No 3. Anticoagulant therapy for permanect/persistent/paraoxysmal Afib or Aflutter: N/A
--- NOTE | 2019-02-12 16:00 | RADIOLOGY REPORT (SQ) ---
EXAM DESCRIPTION: UGI SERIES COMPLETED DATE/TIME: 02/12/2019 8:48 am REASON FOR STUDY: left upper quadrent pain ,r/o delayed gastric empt K27.0 ACUTE PEPTIC ULCER, SITE UNSPECIFIED, WITH HEMORRHAGE COMPARISON: None. TECHNIQUE: Under fluoroscopic guidance, patient ingested effervescent granules followed by thick and thin barium. Fluoroscopic spot images and routine radiographic images acquired and stored on PACS. 12 MM BARIUM TABLET GIVEN: 12 mm barium tablet passed through esophagus and into the stomach without delay. LIMITATIONS: None. FLUOROSCOPY TIME: FLUORO TIME: 2.1 minutes 19 images saved to PACS. FINDINGS: NEUROMUSCULAR COORDINATION OF SWALLOW: Normal. No aspiration. ESOPHAGEAL MOTILITY: Normal peristalsis. No esophageal spasm. ESOPHAGEAL MUCOSA: Normal mucosa without masses or ulceration. GASTRO-ESOPHAGEAL JUNCTION: Small hiatal hernia present. Gastroesophageal reflux demonstrated. STOMACH: Normal without masses or ulcerations. GASTRIC OUTLET: No delay in emptying. Normal pylorus. DUODENAL BULB: Normal distention. No spasm or ulceration. DUODENUM: Mucosa normal. No extrinsic masses or malrotation. PROXIMAL SMALL BOWEL: Mucosa normal. No extrinsic masses or malrotation. NON-GI TRACT STRUCTURES: No significant finding. OTHER: No other significant finding. IMPRESSION: SMALL HIATAL HERNIA WITH GASTROESOPHAGEAL REFLUX DEMONSTRATED. OTHERWISE UNREMARKABLE S TUDY. COMMENT: NONE Quality ID [id number]: Final reports for procedures using fluoroscopy that document radiation exposure thien giselle, or exposure time and number of fluorographic images (if radiation exposure indices are not avail able) TECHNICAL DOCUMENTATION: JOB ID: [id number]- All Rights Reserved Reading location - IP/workstation name: [email or web address] [id number]
[2019-02-12 16:43] VITALS: BP 148/78
== END 2019-02-12 17:27 | disposition home or self-care (01) ==
LOC: ER 18:57 → EH 02-09 08:01 → 4S 02-09 14:57
PROVIDERS: ADMIT Hospitalist; ATTEND Hospitalist
DX: R11.2 Nausea with vomiting, unspecified (principal); I12.9 Hypertensive chronic kidney disease with stage 1 through stage 4 chronic kidney disease, or unspecified chronic kidney disease; E11.22 Type 2 diabetes mellitus with diabetic chronic kidney disease; N17.9 Acute kidney failure, unspecified; N18.3 Chronic kidney disease, stage 3 (moderate); E03.9 Hypothyroidism, unspecified; I25.10 Atherosclerotic heart disease of native coronary artery without angina pectoris; E78.5 Hyperlipidemia, unspecified; R10.84 Generalized abdominal pain; K21.9 Gastro-esophageal reflux disease without esophagitis; C90.00 Multiple myeloma not having achieved remission; K29.70 Gastritis, unspecified, without bleeding; K80.20 Calculus of gallbladder without cholecystitis without obstruction; K29.80 Duodenitis without bleeding; E66.9 Obesity, unspecified; R00.0 Tachycardia, unspecified; K20.9 Esophagitis, unspecified; E86.0 Dehydration; Z90.710 Acquired absence of both cervix and uterus; Z79.899 Other long term (current) drug therapy; Z79.84 Long term (current) use of oral hypoglycemic drugs; Z82.49 Family history of ischemic heart disease and other diseases of the circulatory system
CPT/HCPCS: 96376; 99285; 96361; 96374; 96375; 36415 ×4; 87040; 87086; 82941; 83690; 83735; 84443; 85025 ×2; 80048; 80053 ×2; 81001; 83605; 74022; 74247; 74176; G0378 ×5; A9270 ×20; J2270; C9113 ×4; J2550; J3490 ×2; J2405; J7030; S0028; S0164

== ENCOUNTER → 2019-05-18 | Outpatient (CLI) | payer MEDICARE ==
[2019-05-18 09:46] LABS: APPEARANCE,URINE CLEAR; BILIRUBIN,URINE NEGATIVE (NEGATIVE); COLOR,URINE STRAW; GLUCOSE, URINE 150 mg/dL (NEGATIVE); KETONES,URINE NEGATIVE (NEGATIVE); LEUKOCYTE ESTERASE,URINE NEGATIVE (NEGATIVE); NITRITE,URINE NEGATIVE (NEGATIVE); PROTEIN,URINE 30 mg/dL (NEGATIVE); URINE SPECIFIC GRAVITY 1.011; UROBILINOGEN,URINE NEGATIVE mg/dL (<2.0)
[2019-05-18 09:48] LABS: HEMATOCRIT 35.3 % (36.0-47.0); HEMOGLOBIN 11.4 g/dL (12.0-15.5); MEAN CORPUSCULAR HEMOGLOBIN 28.7 pg (27.0-33.4); MEAN CORPUSCULAR HGB CONC 32.2 g/dL (32.0-36.0); MEAN CORPUSCULAR VOLUME 89 fl (80-97); PLATELET COUNT 122 10^3/uL (150-450); RED BLOOD COUNT 3.96 10^6/uL (3.72-5.28); RED CELL DISTRIBUTION WIDTH 15.9 % (11.5-14.0); WHITE BLOOD COUNT 25.7 10^3/uL (4.0-10.5)
[2019-05-18 10:26] LABS: ANION GAP 12 (5-19); BLOOD UREA NITROGEN 25 mg/dL (7-20); CALCIUM 9.5 mg/dL (8.4-10.2); CARBON DIOXIDE 20 mmol/L (22-30); CHLORIDE 104 mmol/L (98-107); GLUCOSE 326 mg/dL (75-110); POTASSIUM 4.2 mmol/L (3.6-5.0)
== END ==
LOC: OD 08:31
PROVIDERS: ATTEND Internal Medicine Nephrology
DX: I13.0 Hypertensive heart and chronic kidney disease with heart failure and stage 1 through stage 4 chronic kidney disease, or unspecified chronic kidney disease (principal); I50.9 Heart failure, unspecified; N18.3 Chronic kidney disease, stage 3 (moderate); E11.22 Type 2 diabetes mellitus with diabetic chronic kidney disease; R80.9 Proteinuria, unspecified; D64.9 Anemia, unspecified
CPT/HCPCS: 36415; 80048; 81001; 85027

== ENCOUNTER → 2019-11-19 | Outpatient (CLI) | payer MEDICARE ==
[2019-11-19 08:46] LABS: APPEARANCE,URINE CLEAR; BILIRUBIN,URINE NEGATIVE (NEGATIVE); COLOR,URINE YELLOW; GLUCOSE, URINE NEGATIVE (NEGATIVE); KETONES,URINE NEGATIVE (NEGATIVE); LEUKOCYTE ESTERASE,URINE TRACE (NEGATIVE); NITRITE,URINE NEGATIVE (NEGATIVE); PROTEIN,URINE 30 mg/dL (NEGATIVE); URINE SPECIFIC GRAVITY 1.018; UROBILINOGEN,URINE NEGATIVE mg/dL (<2.0)
[2019-11-19 08:57] LABS: ABSOLUTE EOSINOPHILS # (AUTO) 0.1 10^3/uL (0.0-0.6); ABSOLUTE LYMPHOCYTES (AUTO) 1.3 10^3/uL (0.5-4.7); ABSOLUTE MONOCYTES (AUTO) 0.7 10^3/uL (0.1-1.4); BASOPHILS % (AUTO) 0.3 % (0-2); EOSINOPHILS % (AUTO) 2.1 % (0-6); HEMOGLOBIN 12.7 g/dL (12.0-15.5); LYMPHOCYTES % (AUTO) 17.8 % (13-45); MEAN CORPUSCULAR HGB CONC 34.4 g/dL (32.0-36.0); MEAN CORPUSCULAR VOLUME 85 fl (80-97); MONOCYTES % (AUTO) 9.9 % (3-13); PLATELET COUNT 175 10^3/uL (150-450); RED BLOOD COUNT 4.37 10^6/uL (3.72-5.28); RED CELL DISTRIBUTION WIDTH 15.6 % (11.5-14.0); SEGMENTED NEUTROPHILS % (AUTO) 69.9 % (42-78); TOTAL CELLS COUNTED % (AUTO) 100 %; WHITE BLOOD COUNT 7.2 10^3/uL (4.0-10.5)
[2019-11-19 09:16] LABS: ANION GAP 7 (5-19); BLOOD UREA NITROGEN 25 mg/dL (7-20); CALCIUM 9.7 mg/dL (8.4-10.2); CARBON DIOXIDE 25 mmol/L (22-30); CHLORIDE 105 mmol/L (98-107); GLUCOSE 153 mg/dL (75-110); POTASSIUM 4.1 mmol/L (3.6-5.0)
[2019-11-19 09:28] LABS: UR PRO/CREAT RATIO RESULT 0.1 mg/mg (0.0-0.2); URINE CREATININE 142.6 mg/dL (15-278); URINE PROTEIN 16.1 mg/dL (<12)
== END ==
LOC: OD 08:09
PROVIDERS: ATTEND Internal Medicine Nephrology
DX: I12.9 Hypertensive chronic kidney disease with stage 1 through stage 4 chronic kidney disease, or unspecified chronic kidney disease (principal); N18.3 Chronic kidney disease, stage 3 (moderate); D63.1 Anemia in chronic kidney disease; R80.9 Proteinuria, unspecified
CPT/HCPCS: 36415; 80048; 81001; 82570; 83735; 84156; 85025

== ENCOUNTER → 2020-07-02 | Outpatient (CLI) | payer MEDICARE ==
--- NOTE | 2020-07-02 13:20 | XCELERA REPORT ---
[address] [address] Transthoracic Echocardiogram Report Name: KATHY SCHAFER Morgan Age: 70 yrs Gender: Female : 1950 Patient Status: Outpatient Patient Location: [facility] Study Date: 07/02/2020 08:18 AM History: Assess LVEF Chemo Height: 66 in Weight: 210 lb BSA: 2.0 m2 Procedure: A complete two-dimensional transthoracic echocardiogram was performed (2D, M-mode, spectral and color flow Doppler). Reason For Study: CHEMO Previous Evaluation: A previous study was performed on 12/17/2016 LVEF was Normal. History: Assess LVEF Chemo. Ordering Physician: IRAIS FLEMING Performed By: Tamika Mcdaniel Interpretation Summary Left ventricular systolic function is normal. The Ejection Fraction estimate is 55-60% The right ventricle is normal in size and function. There is no mitral regurgitation noted. There is no aortic valve stenosis There is a trace amount of tricuspid regurgitation There is no pericardial effusion. MMode/2D Measurements & Calculations RVDd: 3.1 cm LVIDd: 4.0 cm FS: 25.4 % Ao root diam: 2.5 cm IVSd: 1.2 cm LVIDs: 3.0 cm EDV(Teich): 69.9 ml Ao root area: 4.9 cm2 LVPWd: 1.2 cm ESV(Teich): 34.5 ml EF(Teich): 50.6 % Doppler Measurements & Calculations MV E max petty: MV dec slope: Ao V2 max: LV V1 max P.9 cm/sec 390.3 cm/sec2 157.6 cm/sec 3.0 mmHg MV A max petty: MV dec time: 0.20 sec Ao max PG: LV V1 max: 99.7 cm/sec 9.9 mmHg 87.1 cm/sec MV E/A: 0.79 PA V2 max: TR max petty: 117.9 cm/sec 116.0 cm/sec PA max P.6 mmHg TR max P.4 mmHg Left Ventricle The left ventricle is normal in size. There is mild to moderate concentric left ventricular hypertrophy. Left ventricular systolic function is normal. The Ejection Fraction estimate is 55-60%. Doppler measurements suggest impaired left ventricular relaxation, which is associated with grade I/IV or mild diastolic dysfunction. No regional wall motion abnormalities noted. Right Ventricle The right ventricle is normal in size and function. Atria The right atrium is normal. The left atrial size is normal. The interatrial septum is intact with no evidence for an atrial septal defect. There is no Doppler evidence for an interatrial shunt. Mitral Valve The mitral valve is grossly normal. There is no mitral valve stenosis. There is no mitral regurgitation noted. Aortic Valve The aortic valve is normal in structure and function. The aortic valve is trileaflet. The aortic valve opens well. There is no aortic valve stenosis. No aortic regurgitation is present. Tricuspid Valve The tricuspid valve is normal in structure and function. There is no tricuspid stenosis. There is a trace amount of tricuspid regurgitation. Tricuspid regurgitation jet envelope not well defined to measure RV systolic pressure accurately. Pulmonic Valve The pulmonic valve is not well visualized. There is no pulmonic valvular stenosis. There is no pulmonic valvular regurgitation. Great Vessels The aortic root is normal size. Effusions There is no pericardial effusion. : IRAIS FLEMING Anil
== END ==
LOC: SP 07:51
PROVIDERS: ATTEND Physician Assistant Medical
DX: C90.00 Multiple myeloma not having achieved remission (principal); Z51.81 Encounter for therapeutic drug level monitoring; Z79.899 Other long term (current) drug therapy
CPT/HCPCS: 93306